=== PATIENT | male | born 1945 | race African-American/Black ===

== ENCOUNTER → 2017-08-01 | Outpatient (CLI) | payer OTHER ==
[2017-08-01 12:33] LABS: BASO % 0.3 %; BASO ABS # 0.02 K/uL (0-0.2); EOS % 0.7 %; EOS ABS # 0.04 K/uL (0-0.5); HEMATOCRIT 39.2 % (42-52); HEMOGLOBIN 13.2 g/dL (14.0-18.0); IG# 0.03 K/uL (0.00-0.02); LYMPH % 29.1 %; LYMPH ABS # 1.74 K/uL (1.2-3.4); MEAN CELL VOLUME 68.1 fL (80-100); MEAN CORPUSCULAR HEMOGLOBIN 22.9 pg (25-34); MEAN CORPUSCULAR HGB CONC 33.7 g/dl (32-36); MONO % 10.4 %; MONO ABS # 0.62 K/uL (0.11-0.59); NEUT ABS # 3.52 K/uL (1.4-6.5); PLATELET COUNT 256 K/uL (130-400); RED CELL DISTRIBUTION WIDTH CV 15.5 % (11.5-14.5); RED CELL DISTRIBUTION WIDTH SD 37.5 fL (36.4-46.3); WHITE BLOOD COUNT 5.97 K/uL (4.8-10.8)
[2017-08-01 13:00] LABS: ALBUMIN 3.6 gm/dl (3.4-5.0); ALT/SGPT 25 U/L (12-78); AST/SGOT 13 U/L (15-37); BLOOD UREA NITROGEN 14 mg/dl (7-18); CALCIUM 9.1 mg/dl (8.5-10.1); CARBON DIOXIDE 26 mmol/L (21-32); CHOLESTEROL 128 mg/dl (0-200); CREATININE 1.26 mg/dl (0.60-1.40); GLUCOSE 104 mg/dl (70-99); POTASSIUM 4.6 mmol/L (3.5-5.1); SODIUM 140 mmol/L (136-145)
[2017-08-01 13:04] LABS: HEMOGLOBIN A1C 6.4 % (4.5-5.6)
[2017-08-01 13:08] LABS: ALKALINE PHOSPHATASE 65 U/L (45-117); LDL CHOLESTEROL CALCULATED 59 mg/dl; TOTAL PROTEIN 7.6 gm/dl (6.4-8.2); TRANSFERRIN 227 mg/dl (200-360)
== END | disposition home or self-care (01) ==
LOC: C.LABBFT 09:01
PROVIDERS: ATTEND Internal Medicine
DX: Z00.00 Encounter for general adult medical examination without abnormal findings (principal); D64.9 Anemia, unspecified; R26.0 Ataxic gait; R41.0 Disorientation, unspecified; E78.5 Hyperlipidemia, unspecified; I10 Essential (primary) hypertension; R73.01 Impaired fasting glucose; R32 Unspecified urinary incontinence

== ENCOUNTER → 2017-08-03 | Outpatient (CLI) | payer OTHER | END | disposition home or self-care (01) | LOC: C.LABSPEC 11:16 | PROVIDERS: ATTEND Internal Medicine | DX: Z00.00 Encounter for general adult medical examination without abnormal findings (principal); E78.5 Hyperlipidemia, unspecified; D64.9 Anemia, unspecified; R41.0 Disorientation, unspecified; I10 Essential (primary) hypertension; R26.0 Ataxic gait; R32 Unspecified urinary incontinence; R73.01 Impaired fasting glucose ==

== ENCOUNTER → 2017-08-10 | Outpatient (CLI) | payer OTHER ==
[~2017-08-10] MED LIST: GADAVIST IV PRN
--- NOTE | 2017-08-10 11:01 | DIAGNOSTIC IMAGING REPORT ---
BRAIN COMBO HISTORY: 72 years-old Male CONFUSION,ATAXIC GAIT,URINARY INCONTINENCE acute confusion and ataxia with urinary incontinence COMPARISON: None available TECHNIQUE: Multiplanar multisequence MRI of the brain was obtained both with and without the use of 8 mL Gadavist. FINDINGS: There is no restricted diffusion to suggest acute or subacute infarction. There is a large lobulated extra-axial solid and avidly enhancing mass emanating from the suprasellar distribution measuring up to 6.9 x 5.1 x 7.5 cm in AP, transverse and craniocaudal dimensions. The mass contains a 2.0 x 1.5 cm cystic focus posteriorly nicely seen on image 14 series 5. There is significant mass effect upon the adjacent left cerebral hemisphere with displacement and partial effacement of the body and frontal horn left lateral ventricle. Additionally, there is mild dilation of the superior portion left lateral ventricle, left lateral ventricular body and atria. There is resultant rightward midline shift of 1.3 cm. No invasion into adjacent structures. The mass partially displaces the proximal M1 segments laterally. There is a large feeding vessel seen on image 11 of series 8 which emanates from the [place] of [place]. No additional abnormal intra-axial or extra-axial enhancement identified. Mild atrophy with patchy areas of T2/FLAIR prolongation within the periventricular white matter compatible with chronic microvascular ischemic changes. Major flow voids appear patent. Mastoid air cells are clear. Moderate polypoid mucosal thickening of the left maxillary sinus with mild right maxillary sinus disease. IMPRESSION: 1. Large lobulated extra-axial solid and avidly enhancing mass emanating from the suprasellar region measures up to 7.5 cm and contains a central internal cystic focus with large enhancing feeding vessel. Mass demonstrates no invasion into adjacent structures, however causes significant mass effect upon the left frontal lobe, displacing and partially effacing the left lateral ventricle frontal horn. Mild dilation of the left lateral ventricle without susy hydrocephalus may reflect developing trapped ventricle. 1.3 cm rightward midline shift. Differential considerations would include pituitary macroadenoma with pituitary carcinoma or craniopharyngioma also considered. 2. Mild atrophy with chronic microvascular ischemic changes. These findings were discussed with Dr. Cain on 08/10/2017 at 10:45 AM. The above report was generated using voice recognition software. It may contain grammatical, syntax or spelling errors. Electronically signed by: Kareem Benites M.D. 08/10/2017 10:53 AM Dictated Date/Time: 08/10/2017 10:36 AM
== END | disposition home or self-care (01) ==
LOC: C.MRI 09:26
PROVIDERS: ATTEND Internal Medicine
DX: R41.0 Disorientation, unspecified (principal); R26.0 Ataxic gait; R32 Unspecified urinary incontinence; R22.0 Localized swelling, mass and lump, head

== ENCOUNTER 2017-09-14 11:22 | Emergency (ER) | payer OTHER ==
[~2017-09-14] VITALS: Ht 177.8 cm; Wt 75.7 kg
[2017-09-14] MEDS ORDERED: ETOMIDATE 2 MG/ML 20 ML VIAL IV ONE (11:27)
[2017-09-14] MEDS ORDERED: SUCCINYLCHOLINE CHLORIDE 20 MG/ML 10 ML VIAL IV ONE (11:27)
[2017-09-14 11:30] VITALS: TEMP 36.5; Ht 177.8 cm; Wt 75.7 kg
[2017-09-14] MEDS ORDERED: SODIUM CHLORIDE 0.9% 1000ML 1,000 ML IV STA (11:52)
--- NOTE | 2017-09-14 11:56 | EMERGENCY ROOM VISIT NOTE ---
History Report prepared by Tawny: Jose Guadalupe Martinez Under the Supervision of: Dr. Jaja Velasquez M.D. First contact with patient: 11:35 Chief Complaint: UNRESPONSIVE Stated Complaint: UNRESPONSIVE History of Present Illness The patient is a 72 year old male who presents to the Emergency Room for declining/worsening responsiveness that was noticed yesterday. Per the patient' s family he had a craniotomy on the and was admitted to [facility] on the . As of yesterday the patient stopped responding verbally, and seemed to be "slower/weaker" on the right side. The daughter notes that the patient was responding normally since the surgery. On Tuesday, 3 days ago, the patient was sitting up and feeing himself and responding appropriately. The surgery was performed for a large meningioma. Onset: Yesterday Position: head (mental status) Quality: other (non-responsivness) Timing: worsening (/declining) Associated Symptoms: + fatigue, + weakness Review of Systems See HPI for pertinent positives & negatives. A total of 10 systems reviewed and were otherwise negative. Past Medical & Surgical Hx of meningioma with craniotomy. Family History Omitted secondary to age. Social History Housing Status: lives with family Occupation Status: retired Current/Historical Medications Scheduled Amlodipine (Norvasc), 5 MG PO DAILY Atorvastatin (Lipitor), 10 MG PO HS Docusate Sodium (Docusate Sodium), 100 MG PO BID Famotidine (Pepcid), 20 MG PO BID Levothyroxine Sodium (Levothyroxine Sodium), 125 MCG PO DAILY Metformin Hcl (Glucophage), 1,000 MG PO BIDM Sennosides-Docusate Sodium (Senokot S), 1 TAB PO DAILY WITH LUNCH Scheduled PRN Acetaminophen (Tylenol), 650 MG PO Q4H PRN for Pain Insulin Aspart (Novolog Flexpen), 0-12 UNITS SC ACHS PRN for SLIDING SCALE Polyethylene Glycol 3350 (Miralax), 17 GM PO DAILY WITH LUNCH PRN for Constipation Allergies Coded Allergies: No Known Allergies (Unverified , 09/14/17) Physical Exam Vital Signs Date Time Temp Pulse Resp B/P (MAP) Pulse Ox O2 Delivery O2 Flow Rate FiO2 09/14/17 13:41 103 20 120/90 100 Mechanical Ventilator 09/14/17 13:32 88 18 120/90 99 Mechanical Ventilator 09/14/17 13:21 94 18 130/90 99 Mechanical Ventilator 09/14/17 12:49 60 09/14/17 12:43 103 18 167/109 99 Mechanical Ventilator 09/14/17 12:35 92 24 144/106 96 Room Air 09/14/17 12:21 72 18 137/82 96 Room Air 09/14/17 11:42 84 09/14/17 11:30 36.5 79 17 136/88 97 Room Air Physical Exam Vital signs reviewed. General: elderly male, non responsive HEENT: . Minimal eye opening. Conjunctival injection, no pupil reactivity in left eye. Right eye is 4 mm and sluggishly reactive. Cardiovascular: Regular rate and rhythm, no extra sounds. Pulmonary: Clear to auscultation bilaterally, normal work of breathing. Abdomen: Soft, nontender, nondistended, positive bowel sounds. Musculoskeletal: Atraumatic, no peripheral edema. Neurologic: Patient is periodically opening the right eye, but not necessarily in response to verbal cues. Spontaneous movement of the left upper and lower extremities. No withdrawal to pain of the right arm or right leg. No significant posturing is noted. Patient is maintaining his respiratory response. Skin: Warm, dry, no rash GCS: 8 Medical Decision & Procedures ER Provider Diagnostic Interpretation: Radiology results as stated below per my review and radiologist interpretation: HEAD WITHOUT CONTRAST (CT) CLINICAL HISTORY: 72 years-old Male with AMS, s/p craniotomy. Acutely altered mental status TECHNIQUE: Multiple axial CT images of the head were obtained without contrast. A dose lowering technique was utilized adhering to the principles of ALARA. CT DOSE: 623.48 mGy.cm COMPARISON: Brain MRI 08/10/2017. FINDINGS: Postoperative changes from recent left frontal and temporal craniotomy with scalp skin nnamdi and moderate soft tissue swelling. Partial opacification of the left frontal sinus. Small subdural collection containing high attenuating material and air measures up to 5 mm. There is decreased rightward midline shift from comparison study, now measuring 7 mm. Mass of the suprasellar cistern is noted with increased attenuation measuring up to 2.5 x 3.1 cm in transverse and AP dimension. Surgical clips are noted along the left lateral and right anterior aspects of the mass. Moderate amount of edema is noted within the left frontal and anterior left temporal lobes with mild edema also within the right frontal lobe. Mild dilation of the lateral and third ventricles. Polypoid mucosal thickening about the left maxillary sinus. Trace mastoid effusions. Orbits are symmetric and within normal limits. IMPRESSION: 1. Postoperative changes from recent left frontotemporal craniotomy with tumor debulking of the large heterogeneous suprasellar mass. Hyperattenuation within the distribution of the suprasellar cistern is likely related to tumor cellularity with superimposed hemorrhage within the mass also within the differential. There is also decreased midline shift from comparison. Small subdural collection on the left is likely postsurgical. 2. Large area of low-attenuation about the left frontal and temporal lobes with more subtle edema about the right frontal lobe near the vertex may be postsurgical or reflect areas of superimposed acute or subacute infarction. Correlation with follow-up brain MRI is needed. 3. No herniation. These findings were discussed with Dr. Velasquez on 09/14/2017 at 12:13 PM. The above report was generated using voice recognition software. It may contain grammatical, syntax or spelling errors. Electronically signed by: Kareem Benites M.D. 09/14/2017 12:17 PM Dictated Date/Time: 09/14/2017 12:02 PM Laboratory Results 09/14/17 11:40 Red Blood Count 4.68, Mean Corpuscular Volume 74.8, Mean Corpuscular Hemoglobin 25.9, Mean Corpuscular Hemoglobin Concent 34.6, Mean Platelet Volume 9.1, Neutrophils (%) (Auto) 83.5, Lymphocytes (%) (Auto) 6.4, Monocytes (%) (Auto) 9.2, Eosinophils (%) (Auto) 0.1, Basophils (%) (Auto) 0.1, Neutrophils # (Auto) 11.78, Lymphocytes # (Auto) 0.91, Monocytes # (Auto) 1.30, Eosinophils # (Auto) 0.01, Basophils # (Auto) 0.01 09/14/17 11:40 Test 09/14/17 11:40 09/14/17 11:55 09/14/17 12:01 White Blood Count 14.11 K/uL (4.8-10.8) Red Blood Count 4.68 M/uL (4.7-6.1) Hemoglobin 12.1 g/dL (14.0-18.0) Hematocrit 35.0 % (42-52) Mean Corpuscular Volume 74.8 fL (80-100) Mean Corpuscular Hemoglobin 25.9 pg (25-34) Mean Corpuscular Hemoglobin Concent 34.6 g/dl (32-36) Platelet Count 517 K/uL (130-400) Mean Platelet Volume 9.1 fL (7.4-10.4) Neutrophils (%) (Auto) 83.5 % Lymphocytes (%) (Auto) 6.4 % Monocytes (%) (Auto) 9.2 % Eosinophils (%) (Auto) 0.1 % Basophils (%) (Auto) 0.1 % Neutrophils # (Auto) 11.78 K/uL (1.4-6.5) Lymphocytes # (Auto) 0.91 K/uL (1.2-3.4) Monocytes # (Auto) 1.30 K/uL (0.11-0.59) Eosinophils # (Auto) 0.01 K/uL (0-0.5) Basophils # (Auto) 0.01 K/uL (0-0.2) RDW Standard Deviation 53.9 fL (36.4-46.3) RDW Coefficient of Variation 20.3 % (11.5-14.5) Immature Granulocyte % (Auto) 0.7 % Immature Granulocyte # (Auto) 0.10 K/uL (0.00-0.02) Polychromasia 1+ Anisocytosis PRESENT Prothrombin Time 10.7 SECONDS (9.0-12.0) Prothromb Time International Ratio 1.0 (0.9-1.1) Activated Partial Thromboplast Time 23.3 SECONDS (21.0-31.0) Partial Thromboplastin Ratio 0.9 Anion Gap 11.0 mmol/L (3-11) Est Creatinine Clear Calc Drug Dose 65.1 ml/min Estimated GFR () 79.3 Estimated GFR (Non- 68.4 BUN/Creatinine Ratio 16.4 (10-20) Calcium Level 9.0 mg/dl (8.5-10.1) Magnesium Level 2.1 mg/dl (1.8-2.4) Total Bilirubin 0.5 mg/dl (0.2-1) Direct Bilirubin 0.2 mg/dl (0-0.2) Aspartate Amino Transf (AST/SGOT) 19 U/L (15-37) Alanine Aminotransferase (ALT/SGPT) 52 U/L (12-78) Alkaline Phosphatase 86 U/L (45-117) Total Protein 8.1 gm/dl (6.4-8.2) Albumin 3.1 gm/dl (3.4-5.0) Bedside Lactic Acid Venous 2.84 mmol/L (0.90-1.70) Bedside Troponin I < 0.030 ng/ml (0-0.045) Laboratory results per my review. Medications Administered Medications (Trade) Dose Ordered Sig/Brea Route Start Time Stop Time Status Last Admin Dose Admin Sodium Chloride 1,000 ml @ 150 mls/hr Q6H40M STAT IV 09/14/17 11:52 09/14/17 14:38 DC 09/14/17 12:19 150 MLS/HR Miscellaneous (Rapid Sequence Induction Bag) 1 ea STK-MED ONCE N/A 09/14/17 12:22 09/14/17 12:23 DC 09/14/17 12:49 1 EA Levetiracetam 1000 mg/Dextrose 110 ml @ 440 mls/hr ONE ONCE IV 09/14/17 12:30 09/14/17 12:44 DC 09/14/17 12:49 440 MLS/HR Propofol (Diprivan Iv Emulsion 100ml Vial) 1 dose UD PRN IV 09/14/17 13:00 09/14/17 14:38 DC 09/14/17 13:01 1 DOSE Procedure Endotracheal Intubation Indication AMS, airway protection The patient was on 100% oxygen via NRB prior to the procedure. Suction, airway equipment, RSI drugs, respiratory equipment, and appropriate personnel were prepared prior to the initiation of the procedure. A time out was taken. Induction was performed with succs 100 mg and etomidate 20 mg IV. After observing the clinical benefit of the medications, an attempt at intubation was made by the surgical elastic knitter student at, that was unsuccessful. Pt was ventilated by ambu bag and a second attempt by me was made. The airway was easily visualized utilizing a 4.0 MAC blade. A 7.5 size ETT tube was placed atraumatically to 25 cm using standard technique. The cuff inflated without signs of malfunction. There were bilateral breath sounds, positive colormetric change, no gastric sounds, a good capnography waveform, and post procedure pulse oximetry was 100% . Post intubation sedation was administered using propofol gtt. There were no complications. ECG Per My Interpretation Indication: altered mental status Rate (beats per minute): 78 Rhythm: normal sinus, sinus with SA Findings: other (No PVCs, no CARLOS/STD) ED Course 1147: Past medical records reviewed. The patient was evaluated in room B9. A complete history and physical examination was performed. 1152: Ordered Sodium Chloride 1000 ml @ 150 mls/hr IV 1201: I discussed the case with Dr. Yadav - Neurology [facility] 1229: I discussed the case with Dr. Delgado and Dr. Melchor - [facility]. They will accept the patient for transfer to their facility. 1230: Ordered Levetracetam 110 mL @ 440 mL/hr IV. 1300: Ordered Propofol gtt IV. Medical Decision Differential diagnosis: Etiologies such as metabolic, infection, hypoglycemia, electrolyte abnormalities , cardiac sources, intracerebral event, toxicologic, neurologic, as well as others were entertained. This patient was evaluated and appeared to be altered. He was unresponsive to verbal or painful stimuli however he does have some random movement of the left upper and lower extremity. CT scan of the head was performed immediately and is read as above. There is concern for some edema to the frontal lobe. Patient remained essentially unresponsive although was not posturing. It is felt that the patient is not acutely bleeding. IV Keppra was initiated. The patient was intubated for airway protection. Case was discussed with Dr. Delgado of neurosurgery at [facility]. He states he is very familiar with the patient's case and feels he is likely seizing or experiencing metabolic abnormality. IV normal saline solution was continued. The patient was on propofol for sedation. I had multiple conversations with the patient's daughter and at the bedside. Patient was sent by [facility] to the ICU. Dr. Melchor of the ICU, was also consulted in the case. Head Trauma GCS Score: 8 Medication Reconcilliation Current Medication List: was personally reviewed by me Blood Pressure Screening Patient's blood pressure: Elevated blood pressure Referred to accepting physician. Consults Time Called: 1150 Consulting Physician: Joey Tavera neurosurgery Returned Call: [address] head with Dr. Benites of radiology at [facility] Additional Consults: Time Called: 1210 Consulted Physician: Dr. Delgado (neurosurgery) and Dr. Melchor (ICU)- [facility] [place] Returned Call: 1229 Additional Comments: I discussed the case with Dr. Delgado and Dr. Melchor - [facility]. They will accept the patient for transfer to their facility. Impression Primary Impression: Altered mental status Additional Impression: Status post craniotomy Critical Care I have personally spent greater than 60 minutes of critical care time in the direct management of this patient. This includes bedside care, interpretation of diagnostic studies, and testing, discussion with consultants, patient, and family members, and other required patient management activities. This 60 minutes is in excess of all separately billable procedures. Scribe Attestation The scribe's documentation has been prepared under my direction and personally reviewed by me in its entirety. I confirm that the note above accurately reflects all work, treatment, procedures, and medical decision making performed by me. Departure Information Dispostion Transfer Acute Care Facility ([facility]) Referrals Neli Cain M.D. (PCP) Patient Instructions [facility] Problem Qualifiers
[2017-09-14] MEDS ORDERED: ACET-1311 PO (11:58)
[2017-09-14] MEDS ORDERED: METF1000 PO (11:58)
[2017-09-14] MEDS ORDERED: SENN8.6T7 PO (11:58)
[2017-09-14] MEDS ORDERED: NVLGIPEN SC (11:58)
[2017-09-14] MEDS ORDERED: FAMO20TA11 PO (11:58)
[2017-09-14] MEDS ORDERED: AMLO-110 PO (11:58)
[2017-09-14] MEDS ORDERED: ATOR10TA82 PO (11:58)
[2017-09-14] MEDS ORDERED: LEVO125T5 PO (11:58)
[2017-09-14] MEDS ORDERED: DOCU100C31 PO (11:58)
[2017-09-14] MEDS ORDERED: POLY335019 PO (11:58)
[2017-09-14 12:12] LABS: BASO % 0.1 %; BASO ABS # 0.01 K/uL (0-0.2); EOS % 0.1 %; EOS ABS # 0.01 K/uL (0-0.5); HEMOGLOBIN 12.1 g/dL (14.0-18.0); LYMPH % 6.4 %; LYMPH ABS # 0.91 K/uL (1.2-3.4); MEAN CELL VOLUME 74.8 fL (80-100); MEAN CORPUSCULAR HEMOGLOBIN 25.9 pg (25-34); MEAN CORPUSCULAR HGB CONC 34.6 g/dl (32-36); MEAN PLATELET VOLUME 9.1 fL (7.4-10.4); MONO % 9.2 %; NEUT % 83.5 %; NEUT ABS # 11.78 K/uL (1.4-6.5); PLATELET COUNT 517 K/uL (130-400); RED CELL DISTRIBUTION WIDTH CV 20.3 % (11.5-14.5); RED CELL DISTRIBUTION WIDTH SD 53.9 fL (36.4-46.3); WHITE BLOOD COUNT 14.11 K/uL (4.8-10.8)
[2017-09-14 12:17] LABS: PTT PATIENT 23.3 SECONDS (21.0-31.0)
--- NOTE | 2017-09-14 12:18 | DIAGNOSTIC IMAGING REPORT ---
HEAD WITHOUT CONTRAST (CT) CLINICAL HISTORY: 72 years-old Male with AMS, s/p craniotomy. Acutely altered mental status TECHNIQUE: Multiple axial CT images of the head were obtained without contrast. A dose lowering technique was utilized adhering to the principles of ALARA. CT DOSE: 623.48 mGy.cm COMPARISON: Brain MRI 08/10/2017. FINDINGS: Postoperative changes from recent left frontal and temporal craniotomy with scalp skin nnamdi and moderate soft tissue swelling. Partial opacification of the left frontal sinus. Small subdural collection containing high attenuating material and air measures up to 5 mm. There is decreased rightward midline shift from comparison study, now measuring 7 mm. Mass of the suprasellar cistern is noted with increased attenuation measuring up to 2.5 x 3.1 cm in transverse and AP dimension. Surgical clips are noted along the left lateral and right anterior aspects of the mass. Moderate amount of edema is noted within the left frontal and anterior left temporal lobes with mild edema also within the right frontal lobe. Mild dilation of the lateral and third ventricles. Polypoid mucosal thickening about the left maxillary sinus. Trace mastoid effusions. Orbits are symmetric and within normal limits. IMPRESSION: 1. Postoperative changes from recent left frontotemporal craniotomy with tumor debulking of the large heterogeneous suprasellar mass. Hyperattenuation within the distribution of the suprasellar cistern is likely related to tumor cellularity with superimposed hemorrhage within the mass also within the differential. There is also decreased midline shift from comparison. Small subdural collection on the left is likely postsurgical. 2. Large area of low-attenuation about the left frontal and temporal lobes with more subtle edema about the right frontal lobe near the vertex may be postsurgical or reflect areas of superimposed acute or subacute infarction. Correlation with follow-up brain MRI is needed. 3. No herniation. These findings were discussed with Dr. Velasquez on 09/14/2017 at 12:13 PM. The above report was generated using voice recognition software. It may contain grammatical, syntax or spelling errors. Electronically signed by: Kareem Benites M.D. 09/14/2017 12:17 PM Dictated Date/Time: 09/14/2017 12:02 PM
[2017-09-14] MEDS ORDERED: RAPID SEQUENCE INDUCTION BAG ONE (12:22)
[2017-09-14] MEDS ORDERED: LEVETIRACETAM IV 1,000 MG in DEXTROSE 5% 100ML 100 ML IV ONE (12:30)
[2017-09-14 12:31] LABS: ALBUMIN 3.1 gm/dl (3.4-5.0); CREATININE 1.09 mg/dl (0.60-1.40); POTASSIUM 4.3 mmol/L (3.5-5.1); TOTAL PROTEIN 8.1 gm/dl (6.4-8.2)
[2017-09-14] MEDS ORDERED: PROPOFOL IV EMULSION 10 MG/ML 100 ML VIAL IV PRN (13:00)
[2017-09-14 13:41] VITALS: BP 120/90; PULSE 103; O2SAT 100
--- NOTE | 2017-09-14 14:47 | DIAGNOSTIC IMAGING REPORT ---
CHEST ONE VIEW PORTABLE CLINICAL HISTORY: 72 years-old Male presenting with AMS. TECHNIQUE: Portable upright AP view of the chest was obtained. COMPARISON: None. FINDINGS: Endotracheal tube terminates in the mid thoracic trachea 2.7 cm from the camila. Cardiomediastinal silhouette normal. Lungs and pleural spaces clear. Degenerative changes of the thoracic spine. Upper abdomen normal. IMPRESSION: 1. Appropriately positioned endotracheal tube. 2. No acute cardiopulmonary disease. Electronically signed by: Michael Chávez M.D. 09/14/2017 2:45 PM Dictated Date/Time: 09/14/2017 2:44 PM
== END 2017-09-14 14:00 | disposition short-term general hospital (02) ==
LOC: EDBD 11:22 → C.EDC 11:26 → C.EDB 14:00
DX: R41.82 Altered mental status, unspecified (principal); R25.8 Other abnormal involuntary movements; Z98.890 Other specified postprocedural states; R03.0 Elevated blood-pressure reading, without diagnosis of hypertension; Z86.69 Personal history of other diseases of the nervous system and sense organs

== ENCOUNTER 2023-04-25 12:34 | Inpatient (IN) ==
--- OUTSIDE RECORDS SUMMARY | 2023-04-25 12:40 | External Medical Summary ---
Author Name Unknown Address Unknown Organization [id number]:[facility] - [address] [place] [id number] Laboratory Report Ordering Provider Test Date Status APOLINAR [place] 12/18/2022 21:52:57 Final Observation Date Value Abnormality Reference (Units ) Status Troponin T 12/18/2022 21:52:57 13 <=22 (ng/ L) Final Performing Location [facility] - [address] [place] [id number]
--- OUTSIDE RECORDS SUMMARY | 2023-04-25 12:40 | External Medical Summary | Summary of Care ---
Author Name Unknown Organization [facility] Address [address] [facility] [place] [address] Phone [phone] Care Team Providers Care Clinical Lab Assistant Name Role Phone Neli Cain MD Primary Care Provid er Reason for Visit * Reason Onset Date Comments Appointment 03/22/2023 Encounter Details Date Type Department Care Team (Late st Contact Info) Description 03/22/2023 Telephone Neurology, [place] [address] [place] [phone] Edgardo Lyons MD [address] [place] [place] [address] Appointment Allergies No known active allergiesdocumented as of this encounter (statuses as of 03/22/2023) Medications Medication Sig Dispensed Refills Start Date End Date Status amLODIPine (NORVASC) 2.5 MG Tablet Take 1 Tablet by mouth in the morning. 0 Active famotidine (PEPCID) 20 MG Tablet Take 1 Tab by mouth every 12 hours. 60 Tab 1 11/09/2017 Active levothyroxine sodium (LEVOXYL) 75 MCG Tablet Take 1 Tab by mouth daily first thing in the morning. (at least 30 min prior to breakfast or other meds) 90 Tab 1 01/17/2018 Active melatonin 3 MG Tablet Take 1 Tablet by mouth at bedtime. 0 Active simvastatin (ZOCOR) 20 MG Tablet Take 1 Tablet by mouth every evening. 0 Active Sulfamethoxazole-Tr imethoprim 800-160 MG Oral Tablet (Bactrim DS)Indications:Woun d infection TAKE 1 TABLET BY MOUTH TWICE A DAY 60 Tablet 12 05/12/2022 Active Donepezil HCl 23 MG Oral Tablet (Aricept)Indication s:Moderate dementia with behavioral disturbance (HCC),History of brain tumor,Apraxia,Agita tion Take 1 Tablet by mouth daily with breakfast. 30 Tablet 11 08/31/2022 08/31/2023 Active Glimepiride 2 MG Oral Tablet (Amaryl) Take 1 Tablet by mouth daily before breakfast. 0 Active levETIRAcetam 500 MG Oral Tablet (Keppra) TAKE 1 TABLET BY MOUTH TWICE A DAY 180 Tablet 1 11/02/2022 Active Donepezil HCl 23 MG Oral Tablet (Aricept) Take 1 Tablet by mouth in the morning. Take with largest meal of the day. 15 Tablet 0 12/24/2022 Active QUEtiapine Fumarate 25 MG Oral Tablet (SEROquel) Take 1 Tablet by mouth in the morning and 1 Tablet before bedtime. 30 Tablet 0 12/24/2022 Active Hydrocortisone 10 MG Oral Tablet (Cortef) Take 1 Tablet by mouth in the morning. Do not start before December 25, 2022. 15 Tablet 0 12/25/2022 Active Hydrocortisone 20 MG Oral Tablet (Cortef) Take 1 Tablet by mouth every evening. 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 Altered mental status 09/14/2017 Respiratory failure without hypercapnia 09/01/19 18 HTN (hypertension) 08/30/2017 Type 2 diabetes mellitus 08/30/2017 HLD (hyperlipidemia) 08/30/2017 Glaucoma 08/30/2017 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 Please only monitor Free T4; TSH testing is useless and misleading documented as of this encounter (statuses as of 03/22/2023) Resolved Problems Problem Noted Date Diagnosed Date Resolved Date 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 12/22/2022 12/24/2022 documented as of this encounter (statuses as of 03/22/2023) Immunizations Name Administration Dates Next Due COVID-19 mRNA, LNP-s, No Pre serve, 2-Dose Series (Pfizer) 03/12/2021,07/15/2020,06/24/2020 Pneumococcal Conjugate Vacc, 13 Valent (Prevnar) 06/13/2018,12/06/2017 Pneumococcal Polysaccharide PPV23 (Pneumovax) 10/07/2020 SEASONAL INFLUENZA, PF, 6 M & Above, IM , (FLULAVAL or FLUZONE) 06/13/2018 Seasonal Influenza Virus Vac cine, Unspecified Formulation 06/13/2018 Seasonal Influenza, Quadriva lent Hd (Fluzone Hd) 12/24/2022 documented as of this encounter Social History Tobacco Use Types Packs/Day Years Used Date Smoking Tobacco: Never Smokeless Tobacco: Never Alcohol Use Standard Drinks/Week Comments Yes 0 (1 standard drink = 0.6 oz pure alcohol) rarely since 1998, had been heavy drinker in the past - AUDIT-C Answer Date Recorded Frequency of Alcohol Consumption Monthly or less 12/11/2019 Average Number of Drinks 1 or 2 020 Frequency of Binge Drinking Never 11/23 Hunger Vital Sign Answer Date Recorded Worried About Running Out of Food in the Last Ye ar Never true 12/06/2018 Ran Out of Food in the Last Year Never true 12/06/2018 Sex and Gender Information Value Date Recorded Sex Assigned at Not on file Gender Identity Not on file Sexual Orientation Not on file Job Start Date Occupation Industry Not on file Not on file Not on file documented as of this encounter Functional Status Functional Status Response Date of Assess ment Are you deaf or do you have serious difficulty h earing? No 12/06/2018 Are you blind or do you have serious difficulty seeing, even when wearing glasses? No 12/06/2018 Do you have serious difficul ty walking or climbing stairs? (5 years old or older) Yes 12/06/2018 Do you have difficulty dress ing or bathing? (5 years old or older) Yes 12/06/2018 Because of a physical, menta l, or emotional condition, do you have difficulty doing errands alone such as visiting a doctor s office or shopping? (15 years old or older) Yes 12/07/19 19 Cognitive Status Response Date of Assessm ent Because of a physical, menta l, or emotional condition, do you have serious difficulty concentrating, remembering, or making decisions? (5 years old or older) Yes 12/06/2018 documented as of this encounter Miscellaneous Notes * Telephone Encounter - Wendy Lopez OSA - 03/22/2023 1:47 PM EST LMAM using Language line with follow up appt date and time documented in this encounter Plan of Treatment Upcoming Encounters Date Type Department Care Team (Late st Contact Info) Description 05/26/2023 9:00 AM EST Imaging Radiology [address] [address] 09/21/2023 11:00 AM EDT Telemedicine Neurology, [place] [address] [place] [address] Arlene Marie CRNP [address] [place] [address] 09/26/2023 1:00 PM EDT Imaging Radiology [address] [place] [address] 10/03/2023 10:00 AM EDT Office Visit Radiation Oncology, [place] [address] [place] [address] Suni Zaldivar CRNP [address] [place] [address] Health Maintenance Due Date Last Done Comments Depression Screening 1959 Albumin/Creatinine Ratio 1965 Diabetic Eye Exam 1965 Diabetic Foot Exam 1965 DTaP,Tdap,and Td Vaccines (1 - Tdap) 1966 Zoster Vaccines (1 of 2) 1997 Hepatitis B (1 of 3 - Risk 3-dose series) 2007 COVID-19 Vaccine ( season) 2022 03/12/2021, 07/15/2020, 06/24/2020 HbA1c 06/20/2023 12/18/2022, 05/2019, 03/07/2019, Additional history exists GFR 12/19/2023 12/18/2022, 05/2019, 03/20/2019, Additional history exists TSH 12/19/2023 12/18/2022, 10/24, 10/28/2018, Additional history exists B-12 12/22/2023 12/21/2022, 11/19/2019 Pneumococcal Vaccine: 65+ Years Completed 10/07/2020, 06/13/2018, 12/06/2017 Influenza Vaccine (FLU shot) Completed 04/2022, 06/13/2018, 06/13/2018 GARDASIL-HPV IMMUNIZATION SERIES Aged Out No longer eligible based on patient's age to complete this topic MENINGOCOCCAL (MENACTRA/MENVEO) Aged Out No longer eligible based on patient's age to complete this topic documented as of this encounter Medical Devices Implanted Type Area Information Technology Auditor Device Identifier Shelf Expiration Date Model / Serial / Lot Patch Duraguard [id number] - [id number] Implanted:Qty : 1 on 10/28/2018 by Aron Gay MD at OR [facility] [place] Tissue - Human QUARLES : BIOSCIENCE 02/22/2023 [id number] / [id number] / [id number] Clip Aneursym [id number] - [id number] Implanted:Qty : 2 on 08/30/2017 by Rian Chery MD at OR [facility] – [place] Left: Head B SENIOR : AESCULAP [id number] / / Valve Progav Sys W Sa 20 Flush - [id number] Implanted:Qty : 1 on 09/27/2017 by Rian Chery MD at OR [facility] – [place] Right: Head B SENIOR : AESCULAP 04/24/2020 [id number] / / Plate Ti Lo Pro Str 2h 421.502 - [id number] Implanted:Qty : 4 on 06/01/2018 by Rian Chery MD at OR [facility] – [place] SYNTHES MAXILLOFACIAL 421.502 / / Plate Ti Lo Pro Str 2h 421.502 - [id number] Implanted:Qty : 4 on 03/06/2019 by Rian Chery MD at OR [facility] – [place] Left: Head SYNTHES MAXILLOFACIAL [id number] / / documented as of this encounter Advance Directives Documents on File Type Date Recorded Patient Head Bucker Expl anation Advance Directives and Living Will 06/26/2018 ADVANCE DIRECTIVE / LIVING WILL Advance Directives and Living Will 02/22/2018 ADVANCE DIRECTIVE / LIVING WILL Latest Code Status on File Code Status Date Activated Date Inactivated Comments Full Code 12/20/2022 7:14 PM 12/24/2022 5:16 PM This o rder reflects the patients wishes and were consensually agreed upon. Question Answer Comments Discussion of Advance Directives occurred with: Not Discussed due to patient's condition Code Status History Code Status Date Activated Date Inactivated Comments Full Code 03/06/2019 6:12 PM 03/09/2019 5:35 PM Thi s order reflects the patients wishes and were consensually agreed upon. Question Answer Comments Discussion of Advance Directives occurred with: Not Discussed pt non verbal Does the patient have a Living Will? No Does the patient have Health Care Power of Bible Worker? No Full Code 03/06/2019 9:09 AM 03/06/2019 6:12 PM Thi s order reflects the patients wishes and were consensually agreed upon. Question Answer Comments Discussion of Advance Directives occurred with: Not Discussed Full Code 12/06/2018 5:06 PM 12/08/2018 11:03 PM This order reflects the patients wishes and were consensually agreed upon. Full Code 10/27/2018 6:33 PM 11/03/2018 6:10 PM This o rder reflects the patients wishes and were consensually agreed upon. Question Answer Comments Discussion of Advance Directives occurred with: Family Does the patient have a Living Will? No Does the patient have Health Care Power of Bible Worker? No Care Teams Clinical Lab Assistant Relationship Specialty Start Date End Date Neli Cain MD [address] [place] [address] [place] [address] PCP - General Internal Medicine 10/20/18 documented as of this encounter
--- OUTSIDE RECORDS SUMMARY | 2023-04-25 12:40 | External Medical Summary ---
Author Name Unknown Address Unknown Organization K01[place] [place] [address] [place] [address] Laboratory Report Ordering Provider Test Date Status RADHA BUSTILLOS 12/21/2022 06:28:00 Final Deficient: <20 ng/mL
Ins ufficient: 20-29 ng/mL
Recommended/Optimum:30-50 ng/mL

Vitamin D intoxication is rare. If suspicious of Vitamin D toxicity, evaluation of serum Calcium and PTH is recommended. Observation Date Value Abnormality Reference (Units ) Status 25-OH Vitamin D total 12/21/2022 06:28:00 32 >19 (ng/mL) Final Performing Location LABORATORY [facility] - [address] [place] [address]
--- OUTSIDE RECORDS SUMMARY | 2023-04-25 12:40 | External Medical Summary ---
Author Name Unknown Address Unknown Organization K1F:LABORATORY [facility] - [address] [place] [address] Laboratory Report Ordering Provider Test Date Status APOLINAR ARRINGTON 12/18/2022 21:52:57 Final Observation Date Value Abnormality Reference (Units ) Status BUN 12/18/2022 21:52:57 14 6-20 (mg/dL) Final Creatinine 12/18/2022 21:52:57 1.7 Above high normal 0.6-1.2 (mg/dL) Final Glomerular filtration rate/1.73 sq M.predicted [Volume Rate/Area] in Serum, Plasma or Blood by Creatinine-based formula (CKD-EPI) 12/18/2022 21:52:57 43 Below low normal >=60 (mL/min) Final eGFR is calculated based on the CKD-EPI 2020 equation SODIUM 12/18/2022 21:52:57 141 135-146 (m mol/L) Final Potassium 12/18/2022 21:52:57 4.3 3.5-5.1 (m mol/L) Final Cl 12/18/2022 21:52:57 107 98-107 (mm ol/L) Final CO2 12/18/2022 21:52:57 23 22-32 (mmo l/L) Final Anion gap 12/18/2022 21:52:57 11 7-15 (mmol /L) Final Glucose 12/18/2022 21:52:57 112 70-120 (mg /dL) Final Albumin 12/18/2022 21:52:57 3.9 3.8-5.0 (g /dL) Final AST (Aspartate aminotransferase) 12/18/2022 21:52:57 36 10-50 (U/L) Fin al Alk Phos 12/18/2022 21:52:57 73 35-130 (U/ L) Final Bilirubin, Total 12/18/2022 21:52:57 0.2 <=1 .2 (mg/dL) Final Calcium 12/18/2022 21:52:57 9.2 8.4-10.2 ( mg/dL) Final Protein 12/18/2022 21:52:57 7.2 6.0-8.3 (g /dL) Final ALT (Alanine aminotransferase) 12/18/2022 21:52:57 51 Above high normal 10-50 (U/L) Final Performing Location LABORATORY [facility] - [facility] [place] [address]
--- OUTSIDE RECORDS SUMMARY | 2023-04-25 12:40 | External Medical Summary ---
Author Name Unknown Address Unknown Organization K1F:LABORATORY [facility] - [address] [place] [address] Laboratory Report Ordering Provider Test Date Status APOLINAR ARRINGTON 12/18/2022 22:30:57 Final Observation Date Value Abnormality Reference (Units ) Status Color of Urine by Auto 12/18/2022 22:30:57 Yellow Light Yellow, Yellow, Dark Yellow Final Clarity, Urine 12/18/2022 22:30:57 Clear Clear Final Glucose [Mass/volume] in Urine by Automated test strip 12/18/2022 22:30:57 Negative Negative (mg/dL) Final Bilirubin.total [Presence] in Urine by Automated test strip 12/18/2022 22:30:57 Negative Negative Final Ketones [Mass/volume] in Urine by Automated test strip 12/18/2022 22:30:57 Negative Negative (mg/dL) Final Specific gravity, Urine 12/18/2022 22:30:57 1.018 1.003-1.030 Final Hemoglobin [Presence] in Urine by Automated test strip 12/18/2022 22:30:57 Negative Negative Final pH, Urine 12/18/2022 22:30:57 6.0 5.0-7.5 (Units) Final Protein [Mass/volume] in Urine by Automated test strip 12/18/2022 22:30:57 Negative Negative (mg/dL) Final Urobilinogen [Mass/volume] in Urine by Automated test strip 12/18/2022 22:30:57 0.2 0.2, 1.0 (mg/dL) Final Nitrite [Presence] in Urine by Automated test strip 12/18/2022 22:30:57 Negative Negative Final Leukocyte esterase [Presence] in Urine by Automated test strip 12/18/2022 22:30:57 Negative Negative Final Annotation Comment 12/18/2022 22:30:57 Final Screen negative - Microscopi c not performed. Performing Location LABORATORY [facility] - [address] [place] [address]
--- OUTSIDE RECORDS SUMMARY | 2023-04-25 12:40 | External Medical Summary ---
Author Name Unknown Address Unknown Organization K1F:LAB[facility]ATORY [facility] - [address] [place] [address] Laboratory Report Ordering Provider Test Date Status APOLINAR ARRINGTON 12/18/2022 21:52:57 Final Observation Date Value Abnormality Reference (Units ) Status SYNC LEUKOCYTES IN BLOOD BY AUTOMATED COUNT 12/18/2022 21:52:57 6.34 4.00-10.80 (K/uL) Final Segs 12/18/2022 21:52:57 50.4 40.0-75.0 (%) Final Lymphs % 12/18/2022 21:52:57 35.0 18.0-42.0 (%) Final Monos 12/18/2022 21:52:57 11.7 Above high normal 1.0-11.0 (%) Final Eosinophils 12/18/2022 21:52:57 1.9 0.0-6.0 (%) Final Basos 12/18/2022 21:52:57 0.5 0.0-2.0 (%) Final Immature Granulocyte, Percent 12/18/2022 21:52:57 0.5 0.0-2.0 (%) Final Absolute Segs 12/18/2022 21:52:57 3.20 1.80-7.70 (K/uL) Final Lymphs, absolute 12/18/2022 21:52:57 2.22 1.00-4.80 (K/ul) Final Monos, Abs 12/18/2022 21:52:57 0.74 0.00-1.10 (K/uL) Final Eos, Abs 12/18/2022 21:52:57 0.12 0.00-0.70 (K/uL) Final Basos, Abs 12/18/2022 21:52:57 0.03 0.00-0.20 (K/uL) Final Immature Granulocytes, Number 12/18/2022 21:52:57 0.03 0.00-0.20 (K/uL) Final Performing Location LABORATORY [facility] - [address] [place] [address]
--- OUTSIDE RECORDS SUMMARY | 2023-04-25 12:40 | External Medical Summary ---
Author Name Unknown Address Unknown Organization K1F:LABORATORY [facility] - [address] [place] [address] Laboratory Report Ordering Provider Test Date Status APOLINAR ARRINGTON 12/18/2022 21:52:57 Final Observation Date Value Abnormality Reference (Units ) Status TSH 12/18/2022 21:52:57 0.62 0.27-4.20 (uIU/mL) Final Performing Location LABORATORY [facility] - [address] [place] [address]
--- OUTSIDE RECORDS SUMMARY | 2023-04-25 12:40 | External Medical Summary ---
Author Name Unknown Address Unknown Organization K01:LABORATORY [facility] [place] - [facility] [address] [place] [address] Laboratory Report Ordering Provider Test Date Status PETE MONROE 12/18/2022 21:52:57 Final Observation Date Value Abnormality Reference (Units ) Status HbA1C 12/18/2022 21:52:57 8.5 Above high normal 4. 0-5.6 (%) Final The use of HbA1c to monitor glycemic status is based on normal hemoglobin and HbA composition. This test should not be used in patients with abnormal hemoglobin that affects the half life of the red blood cell or the in vivo glycation rates. Glucose, estimated average 12/18/2022 21:52:57 197 Above high normal <126 (mg/dL) Benjamin glaser Performing Location LABORATORY [facility] [place] - [address] [place] [address]
--- OUTSIDE RECORDS SUMMARY | 2023-04-25 12:40 | External Medical Summary | Summary of Care ---
Author Name Unknown Organization [facility] Address [address] [facility] [place] [address] Phone [phone] Care Team Providers Care Radiologic Technology Instructor Name Role Phone Neli Cain MD Primary Care Provid er Reason for Visit * Reason Onset Date Comments Precert Not Needed 03/28/2023 DONEPEZIL Encounter Details Date Type Department Care Team (Late st Contact Info) Description 03/28/2023 Telephone Neurology Mary MENDOZA [address] [facility] [place] [address] Kaycee Light PA-C [address] [facility] [place] [address] Precert Not Needed (DONEPEZIL) Allergies No known active allergiesdocumented as of this encounter (statuses as of 03/28/2023) Medications Medication Sig Dispensed Refills Start Date [...] Tablet by mouth every evening. 0 Active Sulfamethoxazole- Trimethoprim 800-160 MG Oral Tablet (Bactrim DS)Indications:Wo und infection TAKE 1 TABLET BY MOUTH TWICE A DAY 60 Tablet 12 05/12/2022 Active Glimepiride 2 MG Oral Tablet (Amaryl) [...] every evening. 15 Tablet 0 12/24/2022 Active Donepezil HCl 23 MG Oral Tablet (Aricept)Indicati ons:Moderate dementia with behavioral disturbance (HCC),History of brain tumor,Apraxia,Prerna tation Take 1 tablet by mouth every morning with food. 90 Tablet 3 03/28/2023 Active Donepezil HCl 23 MG Oral Tablet (Aricept)Indicati ons:Moderate dementia with behavioral disturbance (HCC),History of brain tumor,Apraxia,Prerna tation Take 1 Tablet by mouth daily with breakfast. 30 Tablet 11 08/31/2022 03/28/2023 Discontinue d(Refill) documented as of this encounter (statuses as of 03/28/2023) Active Problems Problem Noted Date Diagnosed Date [...] as of this encounter (statuses as of 03/28/2023) Resolved Problems Problem Noted Date Diagnosed Date Resolved Date 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 12/22/2022 12/24/2022 documented as of this encounter (statuses as of 03/28/2023) Immunizations Name Administration Dates Next Due COVID-19 mRNA, LNP-s, No Pre serve, 2-Dose Series ([facility]) 03/12/2021,07/15/2020,06/24/2020 Pneumococcal Conjugate Vacc, 13 Valent (Prevnar) [...] encounter Miscellaneous Notes * Telephone Encounter - Kaycee Light PA-C - 03/28/2023 8:49 AM ESTSigned Prescriptions: Disp Refills Donepezil HCl 23 MG Oral Tablet (Aricept) 90 Tab*3 Sig: Take 1 tablet by mouth every morning with food. Authorizing Provider: KAYCEE LIGHT * Telephone Encounter - Kaycee Light PA-C - 03/28/2023 8:48 AM EST 90 day script filled. It mentioned alternative options and stated PA/reauthorization may be needed. Ccing in precert pool. * Telephone Encounter - Wendy Lopez OSA - 03/28/2023 7:41 AM EST Received 90 day prescription request for Donepezil 203 mg. It has been scanned in for review. documented in this encounter Plan of Treatment Upcoming Encounters Date Type Department Care Team (Late st Contact Info) Description 05/26/2023 9:00 AM EST Imaging Radiology [address] [place] [address] 09/21/2023 11:00 AM EDT Telemedicine Neurology, [place] [address] [place] [id number] Arlene Marie CRNP [address] [place] [address] 09/26/2023 1:00 PM EDT Imaging Radiology [address] [place] [address] 10/03/2023 10:00 AM EDT Office Visit Radiation Oncology, [place] [address] [place] [address] Suni Zaldivar CRNP [address] [place] [address] Health Maintenance Due Date Last Done Comments [...] this encounter Medical Devices Implanted Type Area Porter Head Device Identifier Shelf Expiration Date Model / Serial / Lot Patch Duraguard [id number] - [id number] Implanted:Qty : 1 on 10/28/2018 by Aron Gay MD [place] [facility] [place] - Human QUARLES : BIOSCIENCE 02/22/2023 [id number] / [id number] / [id number] Clip Aneursym [id number] - [id number] Implanted:Qty : 2 on 08/30/2017 by Rian Chery MD at [place] [facility] [place] Left: Head B SENIOR : AESCULAP [id number] / / Valve Progav Sys W Sa 20 Flush - [id number] Implanted:Qty : 1 on 09/27/2017 by Rian Chery MD at [place] [facility] [place] Right: Head B SENIOR : AESCULAP 04/24/2020 [id number] / / Plate Ti Lo Pro Str 2h 421.502 - [id number] Implanted:Qty : 4 on 06/01/2018 by Rian Chery MD at [place] [facility] [place] SYNTHES MAXILLOFACIAL 421.502 / / Plate Ti Lo Pro Str 2h 421.502 - [id number] Implanted:Qty : 4 on 03/06/2019 by Rian Chery MD at [place] [facility] [place] Left: Head SYNTHES MAXILLOFACIAL 421.502 / / documented as of this encounter Visit Diagnoses Diagnosis Moderate dementia with behavioral disturbance (HCC) History of brain tumor Personal history of other disorders of nervous system and sense organs Apraxia Other symbolic dysfunction Agitation Other and unspecified special symptom or syndrome, not elsewhere classified documented in this encounter Advance Directives Documents on File Type Date Recorded Patient Media Buyer Expl anation Advance Directives and Living Will [...] the patient have Health Care Power of Automatic Spinning Lathe Operator? No Full Code 03/06/2019 9:09 AM 03/06/2019 [...] the patient have Health Care Power of Automatic Spinning Lathe Operator? No Care Teams Radiologic Technology Instructor Relationship Specialty Start Date End Date Neli Cain MD [address] [place] [address] [place] [address] PCP - General Internal Medicine 10/20/18 documented as of this encounter
--- OUTSIDE RECORDS SUMMARY | 2023-04-25 12:40 | External Medical Summary | Summary of Care ---
Author Name Unknown Organization [facility] Address [address] [facility] [place] [address] Phone [phone] Care Team Providers Care Yard Specialist Name Role Phone Neli Cain MD Primary Care Provid er Reason for Visit * Reason Onset Date Comments Medication Refill 03/28/2023 Encounter Details Date Type Department Care Team (Late st Contact Info) Description 03/28/2023 Refill Neurology Mary MENDOZA [address] [facility] [place] [address] Kaycee Light PA-C [address] [facility] [place] [address] Moderate dementia with behavioral disturbance (HCC); History of brain tumor; Apraxia; Agitation Allergies No known active allergiesdocumented as of [...] mRNA, LNP-s, No Pre serve, 2-Dose Series (Pluto.TV) 03/12/2021,07/15/2020,06/24/2020 Pneumococcal Conjugate Vacc, 13 Valent (Prevnar) [...] Description 05/26/2023 9:00 AM EST Imaging Radiology [address] [place] [address] 09/21/2023 11:00 AM EDT Telemedicine Neurology, [place] [address] [place] [id number] Arlene Marie CRNP [address] [place] [address] 09/26/2023 1:00 PM EDT Imaging Radiology [address] [facility] [place] [address] 10/03/2023 10:00 AM EDT Office Visit Radiation Oncology, [place] [address] [place] [address] Suni Zaldivar CRNP [address] [place] [address] Health Maintenance Due Date Last Done Comments [...] this encounter Medical Devices Implanted Type [employer] Director Device Identifier Shelf Expiration Date Model / Serial / Lot Patch Duraguard [id number] - [id number] Implanted:Qty : 1 on 10/28/2018 by Aron Gay MD at OR [facility] Tissue - Human QUARLES : BIOSCIENCE 02/22/2023 [id number] / [id number] / [id number] Clip Aneursym [id number] - [id number] Implanted:Qty : 2 on 08/30/2017 by Rian Chery MD at OR [facility] Left: Head B SENIOR : AESCULAP [id number] / / Valve Progav Sys W Sa 20 Flush - [id number] Implanted:Qty : 1 on 09/27/2017 by Rian Chery MD at OR [facility] Right: Head B SENIOR : AESCULAP 04/24/2020 [id number] / / Plate Ti Lo Pro Str 2h 421.502 - [id number] Implanted:Qty : 4 on 06/01/2018 by Rian Chery MD at OR [facility] SYNTHES MAXILLOFACIAL [id number] / / Plate Ti Lo Pro Str 2h 421.502 - [id number] Implanted:Qty : 4 on 03/06/2019 by Rian Chery MD at OR [facility] Left: Head SYNTHES MAXILLOFACIAL 421.502 / / [...] Documents on File Type Date Recorded 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 No Full Code 03/06/2019 9:09 AM 03/06/2019 [...] the patient have Health Care Power of Sql Ssrs Developer? No Care Teams Yard Specialist Relationship Specialty Start Date End Date Neli Cain MD [address] [place] [address] [place] [address] PCP - General Internal Medicine 10/20/18 documented as of this encounter
--- OUTSIDE RECORDS SUMMARY | 2023-04-25 12:40 | External Medical Summary ---
Author Name Unknown Address Unknown Organization K1F:LABORATORY [facility] - [facility] [place] [address] Laboratory Report Ordering Provider Test Date Status APOLINAR ARRINGTON 12/18/2022 21:52:57 Final Observation Date Value Abnormality Reference (Units ) Status WBC, Total 12/18/2022 21:52:57 6.34 4.00-10.80 (K/uL) Final RBC 12/18/2022 21:52:57 5.85 4.50-5.25 (M/uL) Final Hemoglobin 12/18/2022 21:52:57 13.6 Below low normal 14.0-16.8 (g/dL) Final HCT 12/18/2022 21:52:57 41.0 40.0-48.4 (%) Final MCV 12/18/2022 21:52:57 70.1 82.0-99.5 (fL) Final MCH 12/18/2022 21:52:57 23.2 27.0-34.0 (pg) Final MCHC 12/18/2022 21:52:57 33.2 32.0-36.0 (g/dL) Final RDW 12/18/2022 21:52:57 16.8 11.5-15.5 (%) Final Platelets 12/18/2022 21:52:57 248 140-400 (K/uL) Final MPV 12/18/2022 21:52:57 9.3 6.6-11.1 (fL) Final Nucleated erythrocytes/100 leukocytes [Ratio] in Blood by Automated count 12/18/2022 21:52:57 0 <=0 (/100 WBCs) Final Performing Location LAB[facility]ATORY [facility] - [address] [place] [address]
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
--- OUTSIDE RECORDS SUMMARY | 2023-04-25 12:40 | External Medical Summary ---
Author Name Unknown Address Unknown Organization K1F:LABORATORY [facility] - [address] [place] [address] Laboratory Report Ordering Provider Test Date Status FRANCK MALLOY 12/20/2022 17:43:37 Final SCREENING Observation Date Value Abnormality Reference (Units ) Status SARS Coronavirus 2 12/20/2022 17:43:37 Negative N egative Final 2018 Novel Coronavirus not d etected.

This express test was developed and its performance characteristics determined by [facility]. It has not been cleared or approved by the U.S. Food and Drug Administration (FDA). FDA does not require this test to go thru premarket FDA review. This test is used for clinical purposes. It should not be regarded as investigational or for research. This laboratory is certified under the Clinical Laboratory Improvement Amendments (CLIA) as qualified to perform high complexity clinical laboratory testing.

This test is a nucleic acid amplification test (NAAT), a reverse transcriptase polymerase chain reaction (RT-PCR) test, or a Centers for Disease Control-acceptable equivalent. The test is performed in a high complexity Clinical Laboratory Improvement Amendments-(CLIA) certified laboratory. The test is acceptable for SARS-CoV-2 diagnosis, surveillance, and travel within the [place] and to most countries. Please check with local testing authorities about requirements before travel.

The validation of bronchial specimens, tracheal aspirates, and sputum for this assay was developed and performance characteristics determined by [facility]. The validation of alternate specimen types has not been cleared or approved by the U.S. Food and Drug Administration (FDA). It has been determined that such clearance is not necessary. Performing Location LABORATORY [facility] - [address] [place] [address]
--- OUTSIDE RECORDS SUMMARY | 2023-04-25 12:40 | External Medical Summary | Summary of Care ---
Author Name Unknown Organization [facility] Address [address] [facility] [place] [address] Phone [phone] Care Team Providers Care Procurement Consultant Name Role Phone Neli Cain MD Primary Care Provid er Reason for Visit * Reason Onset Date Comments Medication Refill 03/28/2023 Encounter Details Date Type Department Care Team (Late st Contact Info) Description 03/28/2023 Telephone Neurology Mary MENDOZA [address] [facility] [place] [address] Kaycee Light PA-C [address] [facility] [place] [address] Medication Refill Allergies No known active allergiesdocumented as of [...] mRNA, LNP-s, No Pre serve, 2-Dose Series (OneAway) 03/12/2021,07/15/2020,06/24/2020 Pneumococcal Conjugate Vacc, 13 Valent (Prevnar) [...] Description 05/26/2023 9:00 AM EST Imaging Radiology [address] [place] [address] 09/21/2023 11:00 AM EDT Telemedicine Neurology, [place] [address] [place] [id number] Arlene Marie CRNP [address] [place] [address] 09/26/2023 1:00 PM EDT Imaging Radiology [address] [place] [address] 10/03/2023 10:00 AM EDT Office Visit Radiation Oncology, [place] [address] [place], [place] [id number] Suni Zalidvar CRNP [address] [place] [address] Health Maintenance Due Date Last Done Comments Depression Screening 1959 Albumin/Creatinine Ratio 1965 Diabetic Eye Exam 1965 Diabetic Foot Exam 1965 DTaP,Tdap,and Td Vaccines (1 - Tdap) 1966 Zoster Vaccines (1 of 2) 1997 Hepatitis B (1 of 3 - Risk 3-dose series) 2007 COVID-19 Vaccine ( season) 2022 03/12/2021, 07/15/2020, 06/24/2020 HbA1c 06/20/2023 12/18/2022, 1105/2019, 03/07/2019, Additional history exists GFR 12/19/2023 12/18/2022, [...] this encounter Medical Devices Implanted Type Area Front Line Leader Device Identifier Shelf Expiration Date Model / Serial / Lot Patch Duraguard [id number] - [id number] Implanted:Qty : 1 on 10/28/2018 by Aron Gay MD at [place] [facility] [place] Tissue - Human QUARLES : BIOSCIENCE 02/22/2023 [id number] / [id number] / [id number] Clip Aneursym [id number] - [id number] Implanted:Qty : 2 on 08/30/2017 by Rian Chery MD at [place] [facility] [place] Left: Head B SENIOR : AESCULAP [id number] / / Valve Progav Sys W Sa 20 Flush - [id number] Implanted:Qty : 1 on 09/27/2017 by Rian Chery MD at [place] [facility] [place] Right: Head B SENIOR : AESCULAP 04/24/2020 [id number] / / Plate Ti Lo Pro Str 2h 421.502 - [id number] Implanted:Qty : 4 on 06/01/2018 by Rian Chery MD at [place] [facility] [place] SYNTHES MAXILLOFACIAL 421.502 / / Plate Ti Lo Pro Str 2h 421.502 - [id number] Implanted:Qty : 4 on 03/06/2019 by Rian Chery MD at [place] [facility] [place] Left: Head SYNTHES MAXILLOFACIAL 421.502 / / [...] Documents on File Type Date Recorded Patient Planning Aide Expl anation Advance Directives and Living Will [...] the patient have Health Care Power of Scientific Publications Editor? No Full Code 03/06/2019 9:09 AM 03/06/2019 [...] the patient have Health Care Power of Scientific Publications Editor? No Care Teams Procurement Consultant Relationship Specialty Start Date End Date Neli Cain MD [address] [place] [address] [place] [id number] PCP - General Internal Medicine 10/20/18 documented as of this encounter
--- OUTSIDE RECORDS SUMMARY | 2023-04-25 12:40 | External Medical Summary ---
Author Name Unknown Address Unknown Organization : Laboratory Report Ordering Provider Test Date Status RACHELL AGUILERA 12/19/2022 09:17:06 Final Observation Date Value Abnormality Reference (Units ) Status Glucose Point of Care 12/19/2022 09:17:06 131 Above high normal 70-120 (mg/dL) Final Performing Location
--- OUTSIDE RECORDS SUMMARY | 2023-04-25 12:40 | External Medical Summary ---
Author Name Unknown Address Unknown Organization [id number]:[facility] [place] - [address] [place] [address] Laboratory Report Ordering Provider Test Date Status RADHA BUSTILLOS 12/21/2022 06:28:00 Final Observation Date Value Abnormality Reference (Units ) Status Vitamin B12 12/21/2022 06:28:00 1314 Above high normal 232-1245 (pg/mL) Final Performing Location [facility] [place] - [address] [place] [address]
--- OUTSIDE RECORDS SUMMARY | 2023-04-25 12:40 | External Medical Summary | Summary of Care ---
Author Name Unknown Organization [facility] Address [address] [place] [address] Phone [phone] Care Team Providers Care Utilization Supervisor Name Role Phone Neli Cain MD Primary Care Provid er Reason for Visit * Reason Comments Aggressive Behavior * Auth/Cert Specialty Diagnoses / Procedures Referred By Abhi t Referred To Contact Referral ID Status Reason Start Date Expiration Date Visits Re quested Visits Authorized [id number] Encounter Details Date Type Department Care Team Description 12/18/2022 - 12/24/2022 Hospital Encounter 7A [facility], [facility] 7th Floor [address] [place] [address] Kevin Baca MD [address] [place] [address] Leonardo Upton MD [address] [place], [place] [id number] Jadon Alvarez, DO [address] [place] [address] Rashid Estrada, DO [address] [place], [place] [id number] Rosie Frias MD [address] [place] [address] EKG Report Allergies No known active allergiesdocumented as of this encounter (statuses as of 12/25/2022) Medications Medication Sig Dispensed Refills Start Date [...] daily with breakfast. 30 Tablet 11 08/31/2022 4 Active Glimepiride 2 MG Oral Tablet (Amaryl) [...] every evening. 15 Tablet 0 12/24/2022 Active Acetaminophen 325 MG Oral Tablet Take 2 Tablets by mouth every 4 hours as needed for Pain or Fever. 0 3 Discontinued Polyvinyl Alcohol 1.4 % Ophthalmic Solution Instill 2 Drops into both eyes in the morning and 2 Drops before bedtime. 0 3 Discontinued hydrocortisone (CORTEF) 10 MG Tablet Administer 1 Tab into G tube every night at bedtime. 30 Tab 0 06/06/2018 3 Discontinued hydrocortisone (CORTEF) 20 MG Tablet Administer 1 Tab into G tube daily. 30 Tab 0 06/07/2018 3 Discontinued multivitamin (MVI) Tablet Take 1 Tab by mouth daily. 30 Tab 0 06/07/2018 3 Discontinued metFORMIN (GLUCOPHAGE) 500 MG Tablet Take 1 Tablet by mouth 2 times a day with morning and evening meals. 3 08/28/2018 3 Discontinued Sennosides (SENNA) 8.6 MG Tablet Take 2 Tablets by mouth in the morning. 0 3 Discontinued Memantine HCl 10 MG Oral Tablet (Namenda)Indicati ons:Moderate dementia with behavioral disturbance (HCC) TAKE 1 TABLET BY MOUTH TWICE A DAY 180 Tab 3 01/23/2021 3 Discontinued Donepezil HCl 10 MG Oral Tablet (Aricept)Indicati ons:Moderate dementia with behavioral disturbance (HCC) TAKE 1 TABLET BY MOUTH EVERY DAY WITH BREAKFAST 90 Tablet 1 04/13/2021 3 Discontinued Folic Acid 1 MG Oral Tablet TAKE 1 TABLET BY MOUTH EVERY DAY 90 Tablet 3 11/26/2021 3 Discontinued documented as of this encounter (statuses as of 12/25/2022) Active Problems Problem Noted Date Major neurocognitive disorde r due to multiple etiologies with behavioral disturbance 12/21/2022 History of cranioplasty 03/06/2019 Sepsis 12/06/2018 Severe sepsis with acute organ dysfuncti on 10/27/2018 ROBERT (acute kidney injury) 10/27/2018 Lactic acidosis 10/27/2018 Status post craniectomy 06/02/2018 Wound infection 01/01/2018 Obstructive hydrocephalus 09/23/2017 Hypothyroidism 09/21/2017 UTI (urinary tract infection) 09/21/2017 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 Altered mental status 09/14/2017 Respiratory failure without hypercapnia 08/31/2017 HTN (hypertension) 08/30/2017 Type 2 diabetes mellitus 08/30/2017 HLD (hyperlipidemia) 08/30/2017 Glaucoma 08/30/2017 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 Please only monitor Free T4; TSH testing is useless and misleading documented as of this encounter (statuses as of 12/25/2022) Resolved Problems Problem Noted Date Resolved Date 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 12/22/2022 12/24/2022 documented as of this encounter (statuses as of 12/25/2022) Immunizations Name Administration Dates Next Due COVID-19 mRNA, LNP-s, No Pre serve, 2-Dose Series ([employer]) 03/12/2021,07/15/2020,06/24/2020 Pneumococcal Conjugate Vacc, 13 Valent (Prevnar) 06/13/2018,12/06/2017 Pneumococcal Polysaccharide PPV23 (Pneumovax) 10/07/2020 Seasonal Influenza Virus Vac cine, Unspecified Formulation 06/13/2018 Seasonal Influenza, PF, 6 mo ns & Above, IM , (Flulaval) 06/13/2018 Seasonal Influenza, Quadriva lent Hd (Fluzone Hd) 12/24/2022 documented as of this encounter Social History Tobacco Use Types Packs/Day Years Used Date Smoking Tobacco: Never Smokeless Tobacco: Never Alcohol Use Standard Drinks/Week Comments Yes 0 (1 standard drink = 0.6 oz pure alcohol) rarely since 1998, had been heavy drinker in the past - Alcohol Habits Answer Date Recorded How often do you have a drink containing alcohol ? Monthly or less 04/11/2018 How many drinks containing a lcohol do you have on a typical day when you are drinking? 1 or 2 12/11/2019 How often do you have six or more drinks on one occasion? Never 12/11/2019 Food Insecurity Answer Date Recorded Within the past 12 months, y ou worried that your food would run out before you got money to buy more. Never true 12/06/2018 Within the past 12 months, t he food you bought just didn't last and you didn't have money to get more. Never true 12/06/2018 Sex Assigned at Date Recorded Not on file Job Start Date Occupation Industry Not on file Not on file Not on file documented as of this encounter Last Filed Vital Signs Vital Sign Reading Time Taken Comments Blood Pressure 134/94 12/24/2022 6:00 AM EDT Pulse 70 12/24/2022 6:00 AM EDT Temperature 36.1 C (97 F) 12/24/2022 6:00 AM EDT Respiratory Rate 16 12/24/2022 6:00 AM EDT Oxygen Saturation 98% 12/22/2022 12:55 PM EDT Inhaled Oxygen Concentration - - Weight 86.2 kg (190 lb) 12/18/2022 9:20 PM EDT Height - - Body Mass Index 27.26 05/23/2019 2:11 PM EST documented in this encounter Functional Status Functional Status Response [...] or making decisions? (5 years old or older Yes 12/06/2018 documented as of this encounter Discharge Instructions * Discharge Instr - AVS* ATA Villasenor - 12/24/2022 9:06 AM EDT Discharge Date: 12/24/2022 If the condition for which you were treated on the psychiatric unit worsens, fails to improve or you feel suicidal or homicidal, please call [facility]: or go to the nearest emergency room. The information below provides you with the instructions and the list of medications you need to betaking following discharge from the hospital. If you have any questions, please ask before leaving.Please carry this letter with you when you see your doctor in the clinic. If you have questions about your hospital stay or test results, you can reach us at [phone]. Destination: home Primary Diagnosis at discharge: Major neurocognitive disorder due to multiple etiologies with behavioral disturbance Brief summary of your inpatient care: The reason you were admitted to inpatient psychiatric treatment was due to change in mental status and decline in overall functioning. During your hospitalization, you were treated with a combination of medication and psycho-education therapy. Follow up treatment appointments have been scheduled for you and are noted below. Please attend scheduled appointments after discharge. Inpatient test results pending: None Operations & Procedures: None Complications: none applicable Diet: Follow the same diet as that followed prior to admission. Activity: As safely tolerated. Driving: You may drive if you can walk normally and firmly apply the brake and as long as your medications do not make you drowsy or dizzy. Date you may return to work or school: Upon discharge. See your primary care physician as listed below. APPLIED COMPUTER SCIENCE PROFESSOR SECTION: First Line Supervisor Instructions: - Go to all scheduled follow-up appointments. - Please take your medications everyday as prescribed. - Do not take more than as prescribed because this can be dangerous. - Do not drink alcohol, this can make depression worse by blocking the effects of antidepressants. Do not use illicit drugs as this makes your mood worse and can be toxic to your body in may ways. - Avoid tobacco, which contains nicotine. Limit caffeine use. Nicotine and caffeine are stimulants that can cause you to have difficulty sleeping. If you don't sleep, you can experience anxiety and worsening depression. Recommended Outpatient Treatment Plan: (please call to cancel or reschedule if unable to keep appointments) [facility], [address] [address] Primary Care Physician appointment is scheduled with Dr. Neli Cain M.D. on 12/31/2022 @ 2:00 pm for hospital follow-up. [facility], [place] [address] Neurology appointment is scheduled with Dr. Jesu Lyons M.D. on 03/21/2023 @ 3:00 pm; youwill be contacted with date and time if an earlier appointment becomes available for hospital follow-u Patient being discharged to another Inpatient Facility: No First Line Supervisor Section Completed By: ATA Villasenor Patient is a tobacco user: no Pt received tobacco cessation education on . documented in this encounter Progress Notes * Rosie Frias MD - 12/23/2022 11:29 AM EDT PHYSICIAN PROGRESS NOTE DEPARTMENT OF PSYCHIATRY & BEHAVIORAL HEALTH Name: Yoseph Linn Location: [facility] [id number] Patient location: HOSPITAL. I was in a different facility from the patient. After connecting through [employer], patient was identified by name and date of and/or wristband checked. Patient (or authorized legal customer contact representative) was then informed that this was a Telemedicine visit and was being conducted confidentially over secure lines. My office door was closed. No one else was in the room with me. Patient acknowledged consent and understanding of privacy and security of the Telemedicine visit and gave permission to have a telemedicine presenter stay in the room in order to assist with the history and to conduct the exam as needed. I informed the patient that I have reviewed their record in [employer] and presented the opportunity for them to ask any questions regarding the visit today. The patient agreed to participate. COMMITMENT STATUS: 302 (involuntary) commitment SUBJECTIVE: Patient was seen and discussed with the care team. The patient's chart was reviewed. Staff reported no events overnight, his family came to visit and there were no issues. On interview Mr. Linn was pleasantly confused. He brought in a brown bag of belongings but couldn't explain why hedidn't leave it in his room. He expressed being happy today and when asked when/how his sadness from yesterday resolved he noted that he "got over it." He believes his half- sister came to visit him yesterday, however staff reported it was his daughter. He believes the visit went "okay" when asked. He was asked about accusations of his cheating on him yesterday and he denies these concerns today, says "we were just joking." He was in a jovial/happy mood and started singing at the end of theinterview. He was not oriented to time, place or situation. Denies suicidal ideation or passive wish today. Regarding previous wish, says he is "over it." Denies homicidal ideation, Endorses aggressive urges/thoughts to hurt others -- specifically his who he says he will "hit" if he is not happy with what she says. Denies auditory hallucinations, Denies visual hallucinations. Does not report side effects. No new physical complaints. MEDICATION COMPLIANCE: compliant with all prescribed medicines and no PRN medications needed since admission PARTICIPATION IN TREATMENT: sometimes attends groups, not able to participate reliably CURRENT MEDICATIONS Current Facility-Administered Medications Medication Dose Route Frequency Provider Famotidine (Pepcid) tab 20 mg 20 mg Oral Q12H Rosie Frias MD donepezil (Aricept) 20 mg tab 20 mg Oral QHS Rosie Frias MD Acetaminophen (Tylenol) tab 325 mg 325 mg Oral Q4H PRN Rosie Frias MD Or Acetaminophen (Tylenol) tab 650 mg 650 mg Oral Q6H PRN Rosie Frias MD Or Acetaminophen (Tylenol) tab 975 mg 975 mg Oral Q6H PRN Rosie Frias MD house antacid (Mi-Acid II) oral susp 15 mL 15 mL Oral Q4H PRN Rosie Frias MD Hydrocortisone (Cortef) tab 10 mg 10 mg Oral Daily(AM) Nohelia Renee, [facility] Hydrocortisone (Cortef) tab 20 mg 20 mg Oral QPM 1999 Nohelia Renee [facility] milk of magnesia (Mom) oral susp 30 mL 30 mL Oral Daily PRN Rosie Frias MD sulfamethoxazole-trimethoprim DS (Bactrim DS) 800-160 MG 1 Tablet 1 Tablet Oral BID(AM/PM) Nohelia Renee [facility] amLODIPine (Norvasc) tab 2.5 mg 2.5 mg Oral Daily(AM) Kevin Baca MD Glimepiride (Amaryl) tab 2 mg 2 mg Oral Before breakfast Kevin Baca MD levETIRAcetam (Keppra) tab 500 mg 500 mg Oral BID(AM/PM) Kevin Baca MD levothyroxine (Levoxyl) tab 75 mcg 75 mcg Oral Daily 0630 Kevin Baca MD melatonin tab 3 mg 3 mg Oral HS Kevin Baca MD QUEtiapine (SEROquel) tab 25 mg 25 mg Oral BID(AM/PM) Leonardo Upton MD Simvastatin (Zocor) tab 20 mg 20 mg Oral QPM 2000 Kevin Baca MD VITAL SIGNS BP: 123 mmHg/90 mmHg (12/23/22 06) Pulse: 67 (12/23/22 06) Temp: 36.11 C (12/23/22 06) Resp: 16 (12/23/22 0600) SpO2: 98 % (12/22/22 1255) MENTAL STATUS EXAM Appearance: adult male, casually dressed, appears stated age Social Behavior: cooperative, fair eye contact Motor Behavior: no abnormal or involuntary movements Gait and Station: ambulatory, no abnormalities noted Speech: normal rate, volume. Accented. Mood: "happy" Affect: euthymic, congruent with stated mood, appears jovial at times and laughing. Thought Process & Associations: disorganized, illogical -- often tangential responses to questions Thought Content: (-) suicidal ideation, (-) homicidal ideation, and no overt paranoia/delusions today Perception: No perceptual disturbances endorsed or appreciated on evaluation. Attention: impaired Orientation: (+)location - [place], otherwise cannot identify state. (+)self (- )situation (-)time Memory: impaired per conversation Insight: limited; does not appreciate the presence of psychiatric illness or the need for treatment Judgment: impaired/impulsive; unable to provide a reliable recollection of events or reliably participate in treatment CONSULT/LABS/STUDIES No results found for this or any previous visit (from the past 48 hour(s)). EXAM: CT HEAD/BRAIN WO CONTRAST - N/A HISTORY: fall TECHNIQUE: CT scan of the head was performed without intravenous contrast. COMPARISON: CT head dated 12/18/2022. FINDINGS: There is no acute intracranial hemorrhage or calvarial fracture. Postsurgical changes of left orbital frontotemporal parietal craniectomy and cranioplasty for debulking of a large sellar/suprasellar mass are again noted. There is similar extra-axial fluid collection subjacent to the cranioplasty hardware with similar local mass effect on the left cerebral hemisphere and no significant midline shift. Unchanged encephalomalacia involving the left frontotemporal region. Stable position of the right parietal approach ventriculostomy catheter terminating in the right lateral ventricle and unchanged ventricular system. Generalized volume loss is appreciated. Right frontal lobe encephalomalacia is noted. Patchy hypodensities in the periventricular and deep cerebral white matter are nonspecific, but most commonly represent chronic microvascular ischemic changes. Intracranial atherosclerotic calcifications are noted. Small retention cysts are noted in the bilateral maxillary sinuses. Mastoid air cells are well aerated. Degenerative changes of the bilateral TMJs. IMPRESSION IMPRESSION: 1. No evidence of acute intracranial hemorrhage or calvarial fracture. 2. Stable postsurgical changes related to large sella/suprasellar mass debulking, detailed above. Stable position of the right parietal approach ventriculostomy catheter with unchanged ventricular system. 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 He has a known neurologic diagnosis of dementia with behavioral disturbance. Family brought him to the ER when he held a knife and threatened to hurt his while paranoid. Per collateral she seems to be the main target and trigger of his aggression. Have asked family to come visit the patient now that he's more stable here at the hospital including potential for his to visit. Family are unsure about return home, he was staying with youngest daughter prior to admission and they want to discuss as a family before any decision is made. 12/22/22 -- No behavioral events since admission. No PRNs needed since Seroquel started. Had a falltoday, normal orthostatic BP per nursing report. CT head normal per radiology read. Other admissionlabs WNL. 12/23/22 -- Will need 303 for continued inpatient stay. Family has not yet brought in his who is sometimes a trigger and often the target of his aggression. Once she has a good visit with him will work on disposition/discharge planning. PLAN: Inpatient psychiatric care is necessary because of inability to care for self due to mental illnessand potential dangerousness to others given recent paranoia and aggression toward his in the community. Plan of care includes: - Inpatient milieu Commitment status: 302 (involuntary) commitment. 303 petition to be filed today. Safety: q15 minute checks Group therapy, supportive milieu - Psychiatric Medication management: Continue Seroquel 25mg po BID, behavior appears well controlled at this time. No need for further titration. Continue Aricept (donepezil) 20mg po QHS (home dose 23mg daily) PRN medications as appropriate for insomnia, agitation, anxiety - Substance Use/Withdrawal management: Nicotine replacement therapy was not ordered: -- Not ordered, not applicable, patient denies use of nicotine products Substance use/withdrawal: Not applicable, denies substance use - Chronic & Acute Medical conditions: Medically cleared for psychiatric treatment in the ER prior to admission Continue home medications as per medication reconciliation PRN Medications as appropriate for breakthrough complaints including pain, constipation, GI discomfort - Evaluations/Procedures/Labs: Psychiatric screening labs reviewed on admission including: TSH: 0.62 on 12/18/2022 UDS: negative B12: adequate Vitamin D: 32 ng/mL Currently taking an antipsychotic medication HgA1C: 8.5 on 12/18/2022 Lipid Panel: WNL on 12/21/2022 - Discharge planning: Anticipated duration of admission: 5-7 days, current length of stay 3 days Anticipate return to outpatient providers at outpatient neurology clinic, consider referral [facility] if [facility]. Treatment options and alternatives reviewed with patient and they agree with the above plan. Information about current medications was provided to the patient including reasons why medicationsare being used, risks, benefits, side effects and alternatives to treatment (including no treatment). Rosie Frias MD Attending psychiatrist 12/23/2022 11:29 AM * Rosie Frias MD - 12/22/2022 8:51 AM EDT PHYSICIAN PROGRESS NOTE DEPARTMENT OF PSYCHIATRY & BEHAVIORAL HEALTH Name: Yoseph Linn Location: [facility] [id number] Patient location: HOSPITAL. I was in a different facility from the patient. After connecting through [employer], patient was identified by name and date of and/or wristband checked. Patient (or authorized legal customer contact representative) was then informed that this was a Telemedicine visit and was being conducted confidentially over secure lines. My office door was closed. No one else was in the room with me. Patient acknowledged consent and understanding of privacy and security of the Telemedicine visit and gave permission to have a telemedicine presenter stay in the room in order to assist with the history and to conduct the exam as needed. I informed the patient that I have reviewed their record in iPerceptions and presented the opportunity for them to ask any questions regarding the visit today. The patient agreed to participate. COMMITMENT STATUS: 302 (involuntary) commitment SUBJECTIVE: Patient was seen and discussed with the care team. The patient's chart was reviewed. Staff reported no events overnight. He reports today that his mood is "very sad" but he is unable to rate his depression or anxiety. He says the reason for his depression/sadness is his problem with hisvision and he cannot see well out of one eye. He asks if we can help with this and appears disappointed when we cannot. He notes that he sometimes wishes he wasn't alive but would not act on these thoughts and denies any history of suicide attempts. He does not remember speaking to any of his family yesterday and doesn't think that any of them visited. He is asking to return home to his house, but he lives with his daughter. He struggled with orientation questions but was able to recall that [place]is currently in the [place] with much patience from the examiner. When asked the state he said, "state may be a problem." He later said a random number but couldn't recall any meaning for this number, "103." He did not answer specific time orientation questions - answered with tangential and unrelated r tylorlijose maria. He was asked about anger toward his family and he said, "not the children," essentially confirming that he is angry at his . When asked why he is upset with her he stated that she sometimes speaks about things that are not real and said she was going to [facility] to meet with a "fellow who is ." He says she also sometimes says things that he doesn't like and admits that he will "hit her" when she does this. As a result he says that she's been staying in the basement and he's been "in the middle of the house" as described by daughter in collateral calls. As above, describes feeling upset with vision and some passive wish without intent or plan. Denies homicidal ideation, Endorses aggressive urges/thoughts to hurt others -- specifically his who he says he will "hit" if he is not happy with what she says. Denies auditory hallucinations, Denies visual hallucinations. Does not report side effects. No new physical complaints. During treatment team I receivednotice that Mr. Linn fell and hit his head when getting up from the table at lunch. A CT was ordered along with neuro-checks q1hr. MEDICATION COMPLIANCE: compliant with all prescribed medicines and no PRN medications needed since admission PARTICIPATION IN TREATMENT: attended 1/3 groups, tried to participate but sometimes did not make sense to others or struggled due to vision. CURRENT MEDICATIONS Current Facility-Administered Medications Medication Dose Route Frequency Provider Famotidine (Pepcid) tab 20 mg 20 mg Oral Q12H Rosie Frias MD donepezil (Aricept) 20 mg tab 20 mg Oral QHS Rosie Frias MD Acetaminophen (Tylenol) tab 325 mg 325 mg Oral Q4H PRN Rosie Frias MD Or Acetaminophen (Tylenol) tab 650 mg 650 mg Oral Q6H PRN Rosie Frias MD Or Acetaminophen (Tylenol) tab 975 mg 975 mg Oral Q6H PRN Rosie Frias MD house antacid (Mi-Acid II) oral susp 15 mL 15 mL Oral Q4H PRN Rosie Frias MD Hydrocortisone (Cortef) tab 10 mg 10 mg Oral Daily(AM) [facility] Hydrocortisone (Cortef) tab 20 mg 20 mg Oral QPM 1999 [facility] milk of magnesia (Mom) oral susp 30 mL 30 mL Oral Daily PRN Rosie Frias MD sulfamethoxazole-trimethoprim DS (Bactrim DS) 800-160 MG 1 Tablet 1 Tablet Oral BID(AM/PM) [facility] amLODIPine (Norvasc) tab 2.5 mg 2.5 mg Oral Daily(AM) Kevin Baca MD Glimepiride (Amaryl) tab 2 mg 2 mg Oral Before breakfast Kevin Baca MD levETIRAcetam (Keppra) tab 500 mg 500 mg Oral BID(AM/PM) Kevin Baca MD levothyroxine (Levoxyl) tab 75 mcg 75 mcg Oral Daily 629 Kevin Baca MD melatonin tab 3 mg 3 mg Oral HS Kevin Baca MD QUEtiapine (SEROquel) tab 25 mg 25 mg Oral BID(AM/PM) Leonardo Upton MD Simvastatin (Zocor) tab 20 mg 20 mg Oral QPM 1999 Kevin Baca MD VITAL SIGNS BP: 111 mmHg/75 mmHg (12/22/22 06) Pulse: 88 (12/22/22 06) Temp: 37.11 C (12/22/22 06) Resp: 18 (12/22/22 06) SpO2: 98 % (12/21/22 1513) MENTAL STATUS EXAM Appearance: adult male, casually dressed, appears stated age Social Behavior: cooperative, fair eye contact Motor Behavior: no abnormal or involuntary movements Gait and Station: ambulatory, no abnormalities noted Speech: normal rate, volume. Accented. Mood: "very sad" Affect: euthymic, incongruent with stated mood, appears jovial at times and happy. Thought Process & Associations: disorganized, illogical -- often tangential responses to questions Thought Content: (-) suicidal ideation, (-) homicidal ideation, and possible paranoia/delusions about as per interval history above Perception: No perceptual disturbances endorsed or appreciated on evaluation. Attention: impaired Orientation: (+)location - [place], otherwise cannot identify state. (+)self (- )situation (-)time Memory: impaired per conversation Insight: limited; does not appreciate the presence of psychiatric illness or the need for treatment Judgment: impaired/impulsive; unable to provide a reliable recollection of events or reliably participate in treatment CONSULT/LABS/STUDIES Recent Results (from the past 48 hour(s)) SARS-COV-2 (COVID-19), NAAT Collection Time: 12/20/22 5:43 PM Result Value Ref Range SARS-CoV-2 (COVID-19) Result Negative Negative LIPID PANEL WITH DIRECT LDL IF TG IS HIGH Collection Time: 12/21/22 6:28 AM Result Value Ref Range Triglycerides 76 <=174 mg/dL Cholesterol 156 <200 mg/dL HDL Cholesterol 51 >39 mg/dL Non-HDL Cholesterol 105 <=159 mg/dL LDL Cholesterol 90 <=129 mg/dL 25-HYDROXY VITAMIN D Collection Time: 12/21/22 6:28 AM Result Value Ref Range 25-Hydroxy Vitamin D 32 >19 ng/mL VITAMIN B12 Collection Time: 12/21/22 6:28 AM Result Value Ref Range Vitamin B12 1,314 (H) 232 - 1,245 pg/mL EXAM: CT HEAD/BRAIN WO CONTRAST - N/A HISTORY: fall TECHNIQUE: CT scan of the head was performed without intravenous contrast. COMPARISON: CT head dated 12/18/2022. FINDINGS: There is no acute intracranial hemorrhage or calvarial fracture. Postsurgical changes of left orbital frontotemporal parietal craniectomy and cranioplasty for debulking of a large sellar/suprasellar mass are again noted. There is similar extra-axial fluid collection subjacent to the cranioplasty hardware with similar local mass effect on the left cerebral hemisphere and no significant midline shift. Unchanged encephalomalacia involving the left frontotemporal region. Stable position of the right parietal approach ventriculostomy catheter terminating in the right lateral ventricle and unchanged ventricular system. Generalized volume loss is appreciated. Right frontal lobe encephalomalacia is noted. Patchy hypodensities in the periventricular and deep cerebral white matter are nonspecific, but most commonly represent chronic microvascular ischemic changes. Intracranial atherosclerotic calcifications are noted. Small retention cysts are noted in the bilateral maxillary sinuses. Mastoid air cells are well aerated. Degenerative changes of the bilateral TMJs. IMPRESSION IMPRESSION: 1. No evidence of acute intracranial hemorrhage or calvarial fracture. 2. Stable postsurgical changes related to large sella/suprasellar mass debulking, detailed above. Stable position of the right parietal approach ventriculostomy catheter with unchanged ventricular system. 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 He has a known neurologic diagnosis of dementia with behavioral disturbance. Family brought him to the ER when he held a knife and threatened to hurt his while paranoid. Per collateral she seems to be the main target and trigger of his aggression. Have asked family to come visit the patient now that he's more stable here at the hospital including potential for his to visit. Family are unsure about return home, he was staying with youngest daughter prior to admission and they want to discuss as a family before any decision is made. 12/22/22 -- No behavioral events since admission. No PRNs needed since Seroquel started. Had a fallto, normal orthostatic BP per nursing report. CT head normal per radiology read. Other admissionlabs WNL. PLAN: Inpatient psychiatric care is necessary because of inability to care for self due to mental illnessand potential dangerousness to others given recent paranoia and aggression toward his in the community. Plan of care includes: - Inpatient milieu Commitment status: 302 (involuntary) commitment. 303 will be filed tomorrow for anticipated tuesday if there is need for continued admission. Safety: q15 minute checks Group therapy, supportive milieu - Psychiatric Medication management: Continue Seroquel 25mg po BID, behavior appears well controlled at this time. No need for further titration. Continue Aricept (donepezil) 20mg po QHS (home dose 23mg daily) PRN medications as appropriate for insomnia, agitation, anxiety - Substance Use/Withdrawal management: Nicotine replacement therapy was not ordered: -- Not ordered, not applicable, patient denies use of nicotine products Substance use/withdrawal: Not applicable, denies substance use - Chronic & Acute Medical conditions: Medically cleared for psychiatric treatment in the ER prior to admission Continue home medications as per medication reconciliation PRN Medications as appropriate for breakthrough complaints including pain, constipation, GI discomfort - Evaluations/Procedures/Labs: Psychiatric screening labs reviewed on admission including: TSH: 0.62 on 12/18/2022 UDS: negative B12: adequate Vitamin D: 32 ng/mL Currently taking an antipsychotic medication HgA1C: 8.5 on 12/18/2022 Lipid Panel: WNL on 12/21/2022 - Discharge planning: Anticipated duration of admission: 5-7 days, current length of stay 2 days Anticipate return to outpatient providers at outpatient neurology clinic, consider referral to geriatric psychiatry services/[facility] program if eligible. Treatment options and alternatives reviewed with patient and they agree with the above plan. Information about current medications was provided to the patient including reasons why medicationsare being used, risks, benefits, side effects and alternatives to treatment (including no treatment). Rosie Frias MD Attending psychiatrist 12/22/2022 8:51 AM documented in this encounter H&P Notes * Rosie Frias MD - 12/21/2022 8:19 AM EDT ATTENDING STAFF PHYSICIAN NOTE DIVISION OF PSYCHIATRY [address] [id number] Name: Yoseph Linn Location: [facility] [id number] Date: 12/21/2022 Time: 8:19 AM Patient location: HOSPITAL. I was in a different facility from the patient. After connecting through [employer], patient was identified by name and date of and/or wristband checked. Patient (or authorized legal customer contact representative) was then informed that this was a Telemedicine visit and was being conducted confidentially over secure lines. My office door was closed. No one else was in the room with me. Patient acknowledged consent and understanding of privacy and security of the Telemedicine visit and gave permission to have a telemedicine presenter stay in the room in order to assist with the history and to conduct the exam as needed. I informed the patient that I have reviewed their record in [facility] and presented the opportunity for them to ask any questions regarding the visit today. The patient agreed to participate. COMMITMENT STATUS: 302 IDENTIFYING INFORMATION: Yoseph Linn is a 77 year old Citizen Of [place] male. The patient lives at [address] [place] [address] and there is no home phone number on file. Yoseph Linn was admitted from the Emergency Room. HISTORY OF PRESENT ILLNESS: Yoseph Linn is a 77 year old male without any known psychiatric history who was admitted to the Inpatient Psychiatric Unit at [facility] ([facility]) on 12/18/2022 on a 302 (involuntary) commitment for agitation at home. Mr. Yoseph Linn is a limited historian and often answers questions inappropriately and inconsistently. For instance, when asked what year it is he started to describe events from his secondary school education. He is not oriented to the situation for admission, denies any suicidal or homicidal ideation. He believes he is currently in [place]. He can give his name and his month, day of but not the year. He is not able to respond appropriately often giving tangential stories that are possibly from previous experiences. He adamantly denies any psychiatric symptoms or diagnoses, denies any problems with his mood including depression or anxiety. He has no spontaneous complaints or concerns on interview. Collateral information from his daughter, Melissa obtained via telephone on 12/21/22 for approximately 20 minutes. She notes that she's the youngest daughter and Dad lives with her. He has a history of a brain tumor and subsequent surgery to remove it in 2019. He lives with her family along with his , they live in their finished basement area. Unfortunately for the last year or so she's noticed her father has been progressively more angry and irritable. In recent months he's started to sometimes become aggressive. The family has worked to reduce his "triggers" but he continues to have issues with his . When he's well she describes him as the life of the alliance party, friendly and a chatty, happy mario alberto. When he's not doing well he's appeared more paranoid and has reportedly accused her mother of stealing from him or cheating on him. She notes that most of his aggression/agitation has been targeted/focused on his so he's been spending more time "upstairs" with her family to avoid triggering this. She thought perhaps he had a UTI as he did become aggressive before with a UTI but otherwise she denies any history of violence or aggression. She's not able to confirm doses but says she asked the PCP to fax records, also confirmed she fills the medications and her mother helps him tomanage them. PSYCHIATRIC REVIEW OF SYMPTOMS: unable to obtain due to mental status/patient condition. PSYCHOSOCIAL STRESSORS: relationship discord, medical illness CURRENT MEDICATIONS: Note that completed medications (per the MAR) continue to display for 24 hours. Ordered medicationsto be given in the future also display. Current Facility-Administered Medications Medication Dose Route Frequency Provider donepezil (Aricept) 20 mg tab 20 mg Oral QHS Rosie Frias MD Acetaminophen (Tylenol) tab 325 mg 325 mg Oral Q4H PRN Rosie Frias MD Or Acetaminophen (Tylenol) tab 650 mg 650 mg Oral Q6H PRN Rosie Frias MD Or Acetaminophen (Tylenol) tab 975 mg 975 mg Oral Q6H PRN Rosie Frias MD house antacid (Mi-Acid II) oral susp 15 mL 15 mL Oral Q4H PRN Rosie Frias MD Hydrocortisone (Cortef) tab 10 mg 10 mg Oral Daily(AM) [facility] Renee, [facility] Hydrocortisone (Cortef) tab 20 mg 20 mg Oral QPM 1999 Nohelia Dandre Renee, [facility] milk of magnesia (Mom) oral susp 30 mL 30 mL Oral Daily PRN Rosie Frias MD sulfamethoxazole-trimethoprim DS (Bactrim DS) 800-160 MG 1 Tablet 1 Tablet Oral BID(AM/PM) Nohelia Dandre Renee, [facility] amLODIPine (Norvasc) tab 2.5 mg 2.5 mg Oral Daily(AM) Kevin Baca MD Glimepiride (Amaryl) tab 2 mg 2 mg Oral Before breakfast Kevin Baca MD levETIRAcetam (Keppra) tab 500 mg 500 mg Oral BID(AM/PM) Kevin Baca MD levothyroxine (Levoxyl) tab 75 mcg 75 mcg Oral Daily 0630 Kevin Baca MD melatonin tab 3 mg 3 mg Oral HS Kevin Baca MD QUEtiapine (SEROquel) tab 25 mg 25 mg Oral BID(AM/PM) Leonardo Upton MD Simvastatin (Zocor) tab 20 mg 20 mg Oral QPM 2000 Kevin Baca MD ALLERGIES: Patient has no known allergies. PAST PSYCHIATRIC HISTORY: Inpatient admissions - none known Outpatient treatment - sees neurology outpatient for dementia treatment, no known hx of psychiatrictreatment Medication trials - on Aricept (donepezil) CURRENT OUTPATIENT PSYCHIATRIC PROVIDERS: none PRIMARY CARE PROVIDER: Neli Cain MD SUBSTANCE USE ASSESSMENT DRUG AND ALCOHOL ASSESSMENT: TOBACCO: no, never smoker Tobacco Cessation Medication Offered: N/A, Patient has not used any forms of tobacco in the past 30days ALCOHOL: never drinker DRUGS: Previous abuse of drugs: denies Cannabis/Marijuana: no Opioids: no Methamphetamine: no Cocaine: no Benzodiazepines: no Hallucinogens (PCP, LSD, psilocybin): no OTC medications (cough/cold medicines): no Hx of IV Drug abuse: no REHABILITATION HISTORY: History of rehabs: no Longest period of sobriety: n/a PERSONAL, FAMILY, AND SOCIAL HISTORY EDUCATION: unclear, review of records indicates that he has an advanced degree -- potentially in Engineering. OCCUPATIONAL HISTORY: retired from work at this time HISTORY: none known CURRENT LIVING SITUATION: living with his in the finished basement area of his youngest daughter's home in [place], [place]. Born in [facility], other children live in [place] and [place]. LEGAL HISTORY: none known HISTORY OF VIOLENCE: none known, has sometimes become aggressive in recent past with paranoia. TRAUMA HISTORY: none known FAMILY HISTORY: Mental illness: patient adamantly denies Completed/attempted suicides: patient adamantly denies Drug and alcohol abuse: patient adamantly denies Ethnic/cultural factors: born in [place], immigrated to the & lives with his youngest daughter. Unclear timeline of immigration. Daughter notes that he speaks fluent Peruvian and this is not likely a barrier to his effective communication with the team. Family History Problem Relation Age of Onset Hypertension Sister Alzheimer's disease Mother Hypertension Mother Stroke Mother No Known Problems Father No Known Problems Sister Cancer Brother jaw Arthritis Sister Hypertension Sister Hyperlipidemia Brother Asthma Brother Hypertension Brother No Known Problems Sister MEDICAL HISTORY PAST MEDICAL HISTORY: Reviewed in chart. HOSPITAL PROBLEMS: Pertaining to this admission: Active Problems: Major neurocognitive disorder, due to multiple etiologies, with behavioral disturbance, mild (HCC) Resolved Problems: * No resolved hospital problems. * VISUAL OR HEARING IMPAIRMENT: Communication Barrier: Hard of hearing;Other - Describe (Cognitive deficit) (12/20/221949) Glasses:: No (12/20/221949) Hearing Aid: No (12/20/221949) INDEPENDENT WITH ACTIVITIES OF DAILY LIVING: Describe the patient's ability prior to admission/observation to perform ADLs: Requires assistance (12/20/221949) Requires assistance with: Dressing;Toileting;Bathing;Grooming (12/20/221949) Mobility: Independent (12/20/222004) MEDICAL REVIEW OF SYSTEMS & PHYSICAL EXAM: Completed prior to admission by the ER provider and included below for reference PHYSICAL EXAM Initial Vitals (see all): BP 121/86 | Pulse 78 | Resp 18 | Temp 97.5 | O2 95 %, Room Air, None | Weight 86.18 kg | Height 177.8 cm | Initial Pain Assessment (see all): 0 (no pain)/10 ([facility] Adult Scale 0-10) General: Alert. appropriate for age. Occasionally verbally aggressive Skin: Warm, dry. Head: Laceration to the left frontal scalp from previous brain surgery Neck: trachea midline. 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 No inflammation Cardiovascular: Normal peripheral perfusion. Regular rate and rhythm without murmurs or extra sounds. No distended neck veins. . Respiratory: no respiratory distress. The lungs are clear to auscultation without rales wheezes or rhonchi. Breath sounds equal and present bilaterally. Gastrointestinal: Non distended. Abdomen is soft and nontender. No guarding. No rebound. No organomegaly. Musculoskeletal: No deformity. Neurological: No focal neurological deficit observed. alert. Cranial nerves 2-12 are intact. Pull Tab Dealer strength equal. [id number] intact. Normal motor and sensory exam to arms and legs. Knee jerk reflexes equal and +2. Psychiatric: Occasionally verbally belligerent. No insight into why he is here. No obvious hallucinations Denies suicidal ideation COMPLAINTS OF PAIN: reports some hip pain but otherwise no complaints on interview MOST RECENT VITAL SIGNS: BP: 111 mmHg/83 mmHg (12/21/22599) Pulse: 70 (12/21/22599) Temp: 36.5 C (12/21/22599) Resp: 18 (12/21/22599) SpO2: 96 % (12/20/221999) PE/LABS/IMAGING: I have reviewed lab and imaging studies as recorded in chart. Recent Results (from the past 336 hour(s)) COMPREHENSIVE METABOLIC PANEL Collection Time: 12/18/22 9:52 PM Result Value Ref Range BUN 14 6 [...] ALT 51 (H) 10 - 50 U/L ETHANOL, MEDICAL Collection Time: 12/18/22 9:52 PM Result Value Ref Range ETHANOL, MEDICAL Negative Negative TROPONIN T, HIGH SENSITIVITY Collection Time: 12/18/22 9:52 PM Result Value Ref Range Troponin T, High Sensitivity 13 <=22 ng/L CBC Collection Time: 12/18/22 9:52 PM Result Value Ref Range WBC 6.34 4.00 [...] nRBCs 0 <=0 /100 WBCs DIFFERENTIAL, AUTOMATED Collection Time: 12/18/22 9:52 PM Result Value Ref Range WBC 6.34 4.00 [...] Granulocytes 0.03 0.00 - 0.20 K/uL TSH Collection Time: 12/18/22 9:52 PM Result Value Ref Range TSH 0.62 0.27 - 4.20 uIU/mL HEMOGLOBIN A1C Collection Time: 12/18/22 9:52 PM Result Value Ref Range Hemoglobin A1C 8.5 (H) 4.0 - 5.6 % Estimated Average Glucose 197 (H) <126 mg/dL URINALYSIS, REFLEX TO MICROSCOPIC Collection Time: 12/18/22 10:30 PM Result Value Ref Range Color, Urine Yellow Light Yellow, Yellow, Dark Yellow Clarity, Urine Clear Clear Glucose, Urine Negative Negative mg/dL Bilirubin, Urine Negative Negative Ketone, Urine Negative Negative mg/dL Specific Mcbrides, Urine 1.018 1.003 - 1.030 Blood, Urine Negative Negative pH, Urine 6.0 5.0 - 7.5 Units Protein, Urine Negative Negative mg/dL Urobilinogen, Urine 0.2 0.2, 1.0 mg/dL Nitrite, Urine Negative Negative Esterase, Urine Negative Negative Comment, Urine TOXICOLOGY, URINE SCREEN W/O CONFIRMATION Collection Time: 12/18/22 10:30 PM Result Value Ref Range Amphetamine Negative Negative Benzodiazepines Negative Negative Cannabinoids Negative Negative Cocaine Metabolite Negative Negative Fentanyl Negative Negative Hydrocodone / Hydromorphone Negative Negative Methadone Metabolite Negative Negative Morphine / Codeine Negative Negative Oxycodone / Oxymorphone Negative Negative CULTURE, URINE, QUANTITATIVE Collection Time: 12/18/22 10:30 PM Specimen: Urine, Clean Catch Result Value Ref Range Culture Growth No significant growth GLUCOSE METER, POINT OF CARE Collection Time: 12/19/22 9:17 AM Result Value Ref Range Glucose Meter 131 (H) 70 - 120 mg/dL SARS-COV-2 (COVID-19), NAAT Collection Time: 12/20/22 5:43 PM Result Value Ref Range SARS-CoV-2 (COVID-19) Result Negative Negative No image results found. MENTAL STATUS EVALUATION: Appearance: adult male, dressed casually with adequate grooming. Muscle strength and tone: not tested Gait and Station: no abnormalities noted Personal Presentation: open and friendly albeit confused Behavior: pleasant and cooperative , often laughing and appears to be making jokes at times Speech: normal rate and volume, accented. Mood: "good" Affect: type - euthymic, reactive, appropriate; range - full range; lability - no Associations: tangential Thought Process: illogical, disorganized, and usually tangential Abstract Reasoning: not tested Thought Content: (-) suicidal ideation, (-) homicidal ideation, and No overt delusions or paranoia Perception: No perceptual disturbances endorsed or appreciated on evaluation. Orientation: not able to sustain attention to the examiner and not fully oriented to self (cannot recall year of ), place (believes he's in [place]), time (says it's December and cannot tell methe year) or situation (says he's come here to 'enrich myself' and spoke of taking a flight to the [facility]sp[place] Recent and remote memory as evidenced by recall of recent circumstances and remote life events: impaired Language: intact per interview, speaks fluent Peruvian with an accent. Very occasional stutter noted. Fund of knowledge as evidenced by vocabulary and current/historical events: impaired Attention span/concentration as evidenced by: ability to sustain attention to examiner - impaired and following conversation - impaired Insight: limited; does not appreciate the presence of psychiatric illness or the need for treatment Judgment: impaired/impulsive; unable to provide a reliable recollection of events or reliably participate in treatment DANGEROUSNESS TO SELF/OTHERS ASSESSMENT (DTSOA): Additional information is available in the Mental Status section of this Attending Staff Physician Note. Risk Factors: Suicidal: denies Previous suicide attempts: none Current plan for suicide: no plan reported by patient Access to means: medications are in the home Homicidal: denies ideation/intent/plan -- however collateral information from family suggests recent agitation Risk Factors: history of violence, lack of impulse control, age, physical illness/chronic pain, family unable to provide adequate supervision for his illness/agitation, and sex/gender Protective Factors: Easy access to clinical interventions: unknown Family and community support: yes Skills in problem solving, conflict resolution and distress tolerance: limited Cultural and yazdanism beliefs that discourage suicide and support hopefulness: yes Mormon/spirituality/thompson practice: Confucianist Active in thompson practice: unknown History of thoughts, no attempts, good impulse control: no Intact relationships with children and or family: yes Based on these risk and protective factors, this patient's risk of harm to self and others is assessed to be acutely elevated at this time. 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 Family brought him to the ER when he held a knife and threatened to hurt his while paranoid. Percollateral she seems to be the main target and trigger of his aggression. Have asked family to comevisit the patient now that he's more stable here at the hospital including potential for his to visit. Family are unsure about return home, he was staying with youngest daughter prior to admission and they want to discuss as a family before any decision is made. PLAN: Inpatient psychiatric care is necessary because of inability to care for self due to mental illnessand potential dangerousness to others given recent aggression and agitation in the home. Plan of care includes: - Inpatient milieu Commitment status: 302 (involuntary) commitment, may need 303 for continued inpatient stay Safety: q15 minute checks Group therapy, supportive milieu - Psychiatric Medication management: Continue Seroquel 25mg po BID as started in the ER by psychiatric C/L team Continue home medications for dementia including: Aricept 20mg po QHS (home dose 23mg per verification with [facility]) PRN medications as appropriate for insomnia, agitation, anxiety - Substance Use/Withdrawal management: Nicotine replacement therapy was not ordered: -- Not ordered, not applicable, patient denies use of nicotine products Substance use/withdrawal: n/a, patient denies any substance use - Chronic & Acute Medical conditions: Medically cleared for psychiatric evaluation in the ER prior to admission Continue home medications as per medication reconciliation PRN Medications as appropriate for breakthrough complaints including pain, constipation, GI discomfort - Evaluations/Procedures/Labs: Psychiatric screening labs reviewed on admission including: TSH: 0.62 on 12/18/2022 UDS: negative B12: pending Vitamin D: pending Currently taking an antipsychotic medication HgA1C: 8.5 on 12/18/2022 Lipid Panel: pending -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 [facility] Bilirubin, Total 0.2 <=1.2 mg/dL 12/18/2022 10:13 PM EDT LABORATORY [facility] Calcium 9.2 8.4 - 10.2 mg/dL 12/18/2022 10:13 PM EDT LABORATORY [facility] Protein 7.2 6.0 - 8.3 g/dL 12/18/2022 10:13 PM EDT LABORATORY [facility] ALT 51(H) 10 - 50 U/L 12/18/2022 10:13 PM EDT LABORATORY [facility] Blood Venous blood specimen / Unknown Venipuncture / Unknown 12/18/2022 9:52 PM EDT 12/18/2022 9:55 PM EDT Kevin Baca MD LAB BLOOD ORDERABLES Performing Organization Address City/State/[facility] Co de Phone Number LABORATORY [facility] [address] [place] [address] * EKG (12/18/2022 9:46 PM EDT) 12/18/2022 9:46 PM EDT Procedure Note Manuel Hameed, DO - 12/18/2022 9:46 PM EDT REASON FOR STUDY: MED CLEARANCE CONCLUSIONS: Normal sinus rhythm Normal ECG When compared with ECG of 06-DEC-2018 13:24, Vent. 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 Medical clearance for psychiatric admission Other specified general medical examination Dementia with agitation, unspecified dementia severity, unspecified dementia type (HCC) Violent behavior Undersocialized conduct disorder, aggressive type, 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 Acetaminophen (Tylenol) tab 650 mg 650 mg, Oral, Q6H PRN Pain, Moderate, Fever >38C(100.5F), Starting on Tue12/20/22 at 1914, Until Tue12/24/22 at 1711, Maximum of 4 grams (4000 mg) per day. Acetaminophen (Tylenol) tab 975 mg 975 mg, Oral, Q6H PRN Pain, Severe, Starting on Tue12/20/22 at 1914, Until Tue12/24/22 at 1711, Maximum of 4 grams (4000 mg) per day. amLODIPine (Norvasc) tab 2.5 mg 2.5 mg, Oral, Daily(AM), First dose on Tue12/19/22 at 0900, Until Discontinued Given 12/24/2022 8:41 AM EDT 2.5 mg Given 12/23/2022 12:40 PM EDT 2.5 mg Given 12/22/2022 11:10 AM EDT 2.5 mg donepezil (Aricept) 10 mg tab 10 mg, Oral, QHS, First dose on Tue12/19/22 at 2200, Until Discontinued Given 12/20/2022 8:39 PM EDT 10 mg Given 12/19/2022 10:22 PM EDT 10 mg donepezil (Aricept) 20 mg tab 20 mg, Oral, QHS, First dose (after last modification) on Tue12/21/22 at 2200, Until Discontinued Given 12/23/2022 8:39 PM EDT 20 mg Given 12/22/2022 8:44 PM EDT 20 mg Given 12/21/2022 8:34 PM EDT 20 mg Famotidine (Pepcid) tab 20 mg 20 mg, Oral, Q12H, First dose on Tue12/22/22 at 0900, Until Discontinued Given 12/24/2022 8:41 AM EDT 20 mg Given 12/23/2022 8:38 PM EDT 20 mg Given 12/23/2022 9:10 AM EDT 20 mg Glimepiride (Amaryl) tab 2 mg 2 mg, Oral, BEFORE BREAKFAST, First dose on Tue12/19/22 at 0845, Until Discontinued Given 12/24/2022 8:41 AM EDT 2 mg Given 12/23/2022 9:10 AM EDT 2 mg Given 12/22/2022 9:05 AM EDT 2 mg house antacid (Mi-Acid II) oral susp 15 mL 15 mL, Oral, Q4H PRN Indigestion, Nausea, Starting on Tue12/20/22 at 1914, Until Tue12/24/22 at 1711, SHAKE WELL Hydrocortisone (Cortef) tab 10 mg 10 mg, Oral, Daily(AM), First dose on Tue12/20/22 at 1200, Until Discontinued Given 12/24/2022 8:41 AM EDT 10 mg Given 12/23/2022 12:40 PM EDT 10 mg Given 12/22/2022 11:10 AM EDT 10 mg Hydrocortisone (Cortef) tab 20 mg 20 mg, Oral, QPM-1999, First dose on Tue12/20/22 at 2000, Until Discontinued Given 12/23/2022 8:38 PM EDT 20 mg Given 12/22/2022 8:44 PM EDT 20 mg Given 12/21/2022 8:34 PM EDT 20 mg levETIRAcetam (Keppra) tab 500 mg 500 mg, Oral, BID(AM/PM), First dose on Tue12/19/22 at 0900, Until Discontinued Given 12/24/2022 8:41 AM EDT 500 mg Given 12/23/2022 8:39 PM EDT 500 mg Given 12/23/2022 9:11 AM EDT 500 mg levothyroxine (Levoxyl) tab 75 mcg 75 mcg, Oral, [id number], First dose on Tue12/19/22 at 0845, Until Discontinued Given 12/24/2022 5:49 AM EDT 75 mcg Given 12/23/2022 6:04 AM EDT 75 mcg Given 12/22/2022 6:10 AM EDT 75 mcg melatonin tab 3 mg 3 mg, Oral, HS, First dose on Tue12/19/22 at 2200, Until Discontinued Given 12/23/2022 8:38 PM EDT 3 mg Given 12/22/2022 8:43 PM EDT 3 mg Given 12/21/2022 8:34 PM EDT 3 mg metFORMIN (Glucophage) tab 500 mg 500 mg, Oral, BID (AM/PM MEALS), First dose on Tue12/19/22 at 0845, Until Discontinued, METFORMIN SHOULD BE HELD FOR 24 HRS BEFORE AND 48 HRS AFTER PROCEDURES THAT REQUIRE CONTRAST MEDIUM !!!!! Use of Metformin in patients with Low GFR puts the patient at risk for adverse effects. - Please discontinue if GFR is less than 30. - Continue with caution, consider dosage reduction if GFR is between 30-45. - Do not initiate therapy in patients with GFR less than 45 Given 12/20/2022 5:43 PM EDT 500 mg Given 12/20/2022 10:02 AM EDT 500 mg Given 12/19/2022 5:44 PM EDT 500 mg milk of magnesia (Mom) oral susp 30 mL 30 mL, Oral, DAILY PRN Constipation, Starting on Tue12/20/22 at 1914, Until Tue12/24/22 at 1711 QUEtiapine (SEROquel) tab 25 mg 25 mg, Oral, BID(AM/PM), First dose on Tue12/19/22 at 1730, Until Discontinued Given 12/24/2022 8:41 AM EDT 25 mg Given 12/23/2022 8:39 PM EDT 25 mg Given 12/23/2022 9:10 AM EDT 25 mg Simvastatin (Zocor) tab 20 mg 20 mg, Oral, QPM-1999, First dose on Tue12/19/22 at 2000, Until Discontinued Given 12/23/2022 8:39 PM EDT 20 mg Given 12/22/2022 8:44 PM EDT 20 mg Given 12/21/2022 8:34 PM EDT 20 mg sulfamethoxazole-trimethoprim DS (Bactrim DS) 800-160 MG 1 Tablet 1 Tablet, Oral, BID(AM/PM), First dose on Tue12/20/22 at 1130, Until Discontinued Given 12/24/2022 8:42 AM EDT 1 Ta blet Given 12/23/2022 8:39 PM EDT 1 Tablet Given 12/23/2022 9:10 AM EDT 1 Tablet documented in this encounter Active and Recently Administered Medications Times are shown in EDT. Scheduled Medication Order 12/22/2022 12/23/2022 12/24/2022 amLODIPine (Norvasc) tab 2.5 mg 2.5 mg, Oral, Daily(AM), First dose on Tue12/19/22 at 0900, Until Discontinued 1110 (Given - Provider: Clay Hurley LPN) 1240 (Given - Provider: Clay Hurley LPN - Comment: unavailable at 09:00) 0841 (Given - Provider: Niurka Hernandez LPN) donepezil (Aricept) 20 mg tab 20 mg, Oral, QHS, First dose (after last modification) on Tue12/21/22 at 2200, Until Discontinued 2043 (Given - Provider: Ale Posadas, RN) 2038 (Given - Provider: Mihaela Edwards, RN) Famotidine (Pepcid) tab 20 mg 20 mg, Oral, Q12H, First dose on Tue12/22/22 at 0900, Until Discontinued 1111 (Given - Provider: Clay Hurley LPN)2042 (Given - Provider: Ale Posadas RN) 0910 (Given - Provider: Clay Hurley LPN)2037 (Given - Provider: Mihaela Edwards, JORDY) 0841 (Given - Provider: Niurka Hernandez LPN) Glimepiride (Amaryl) tab 2 mg 2 mg, Oral, BEFORE BREAKFAST, First dose on Tue12/19/22 at 0845, Until Discontinued 09 (Given - Provider: Clay Hurley LPN) 0910 (Given - Provider: Clay Hurley LPN) 0841 (Given - Provider: Niurka Hernandez LPN) Hydrocortisone (Cortef) tab 10 mg 10 mg, Oral, Daily(AM), First dose on Tue12/20/22 at 1200, Until Discontinued 1110 (Given - Provider: Clay Hurley LPN) 1240 (Given - Provider: Clay Hurley LPN - Comment: unavailable at 0900) 0841 (Given - Provider: Niurka Hernandez LPN) Hydrocortisone (Cortef) tab 20 mg 20 mg, Oral, QPM-1999, First dose on Tue12/20/22 at 2000, Until Discontinued 2043 (Given - Provider: Ale Posadas RN) 2037 (Given - Provider: Mihaela Edwards RN) levETIRAcetam (Keppra) tab 500 mg 500 mg, Oral, BID(AM/PM), First dose on 12/19/22 at 0900, Until Discontinued 904 (Given - Provider: Clay Hurley LPN)2042 (Given - Provider: Ale Posadas RN) 09 (Given - Provider: Clay Hurley LPN)2038 (Given - Provider: Mihaela Edwards RN) 0841 (Given - Provider: Niurka Hernandez LPN) levothyroxine (Levoxyl) tab 75 mcg 75 mcg, Oral, [id number], First dose on 12/19/22 at 0845, Until Discontinued 609 (Given - Provider: Peggy Arroyo RN) 06 (Given - Provider: Chanell Acevedo RN) 0549 (Given - Provider: Chanell Acevedo RN) melatonin tab 3 mg 3 mg, Oral, HS, First dose on 12/19/22 at 2200, Until Discontinued 2042 (Given - Provider: Ale Posadas RN) 2037 (Given - Provider: Mihaela Edwards RN) QUEtiapine (SEROquel) tab 25 mg 25 mg, Oral, BID(AM/PM), First dose on 12/19/22 at 1730, Until Discontinued 904 (Given - Provider: Clay Hurley LPN)2042 (Given - Provider: Ale Posadas RN) 09 (Given - Provider: Clay Hurley LPN)2038 (Given - Provider: Mihaela Edwards RN) 0841 (Given - Provider: Niurka Hernandez LPN) Simvastatin (Zocor) tab 20 mg 20 mg, Oral, QPM-1999, First dose on 12/19/22 at 2000, Until Discontinued 2043 (Given - Provider: Ale Posadas RN) 2038 (Given - Provider: Mihaela Edwards RN) sulfamethoxazole-trimet hoprim DS (Bactrim DS) 800-160 MG 1 Tablet 1 Tablet, Oral, BID(AM/PM), First dose on 12/20/22 at 1130, Until Discontinued 905 (Given - Provider: Clay Hurley LPN)2042 (Given - Provider: Ale Posadas RN) 909 (Given - Provider: Clay Hurley LPN)2038 (Given - Provider: Mihaela Edwards RN) 0842 (Given - Provider: Niurka Hernandez LPN) PRN Medication Order 12/22/2022 12/23/2022 12/24/2022 Acetaminophen (Tylenol) tab 325 mg(Linked Group 1) 325 mg, Oral, Q4H PRN Pain, Mild, Starting on Tue12/20/22 at 1914, Until Tue12/24/22 at 1711, Maximum of 4 grams (4000 mg) per day. Acetaminophen (Tylenol) tab 650 mg(Linked Group 1) 650 mg, Oral, Q6H PRN Pain, Moderate, Fever >38C(100.5F), Starting on Tue12/20/22 at 1914, Until Tue12/24/22 at 1711, Maximum of 4 grams (4000 mg) per day. Acetaminophen (Tylenol) tab 975 mg(Linked Group 1) 975 mg, Oral, Q6H PRN Pain, Severe, Starting on Tue12/20/22 at 1914, Until Tue12/24/22 at 1711, Maximum of 4 grams (4000 mg) per day. house antacid (Mi-Acid II) oral susp 15 mL 15 mL, Oral, Q4H PRN Indigestion, Nausea, Starting on Tue12/20/22 at 1914, Until Tue12/24/22 at 1711, SHAKE WELL milk of magnesia (Mom) oral susp 30 mL 30 mL, Oral, DAILY PRN Constipation, Starting on Tue12/20/22 at 1914, Until Tue12/24/22 at 1711 Linked Groups Order Group 1: Acetaminophen (Tylenol) tab 325 mgJump to med 325 mg, Oral, Q4H PRN Pain, Mild
Starting on Tue12/20/22 at 1914, Until Tue12/24/22 at 1711
Maximum of 4 grams (4000 mg) per day.
Or Acetaminophen (Tylenol) tab 650 mgJump to med 650 mg, Oral, Q6H PRN Pain, Moderate, Fever >38C(100.5F)
Starting on Tue12/20/22 at 1914, Until Tue12/24/22 at 171
Maximum of 4 grams (4000 mg) per day.
Or Acetaminophen (Tylenol) tab 975 mgJump to med 975 mg, Oral, Q6H PRN Pain, Severe
Starting on Tue12/20/22 at 1914, Until Tue12/24/22 at 1711
Maximum of 4 grams (4000 mg) per day.
documented in this encounter Advance Directives Documents on File Type Date Recorded Patient Maintenance Custodian Expl anation Advance Directives and Living Will [...] Code 03/06/2019 6:12 PM 03/09/2019 5:35 PM Th is order reflects the patients wishes and were consensually agreed upon. Question Answer Comments Discussion of Advance Directives occurred with: Not Discussed pt non verbal Does the patient have a Living Will? No Does the patient have Health Care Power of Deputy Coroner? No Full Code 03/06/2019 9:09 AM 03/06/2019 [...] the patient have Health Care Power of Deputy Coroner? No Care Teams Utilization Supervisor Relationship Specialty Start Date End Date Neli Cain MD [address] [place] [address] [place] [id number] PCP - General Internal Medicine 10/20/18 documented as of this encounter
--- OUTSIDE RECORDS SUMMARY | 2023-04-25 12:40 | External Medical Summary | Summary of Care ---
Author Name Unknown Organization [facility] Address [address] [place] [address] Phone [phone] Care Team Providers Care Care Manager Name Role Phone Neli Cain MD Primary Care Provid er Reason for Visit * Reason Onset Date Comments Encounter Created in Error 01/24/2023 Encounter Details Date Type Department Care Team Description 01/24/2023 Telephone Neurology Mary MENDOZA [address] [facility] [place] [address] Kaycee Light PA-C [address] [facility] [place] [address] Encounter Created in Error Allergies No known active allergiesdocumented as of this encounter (statuses as of 01/24/2023) Medications Medication Sig Dispensed Refills Start Date [...] as of this encounter (statuses as of 01/24/2023) Active Problems Problem Noted Date Major neurocognitive [...] as of this encounter (statuses as of 01/24/2023) Resolved Problems Problem Noted Date Resolved Date 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 12/22/2022 12/24/2022 documented as of this encounter (statuses as of 01/24/2023) Immunizations Name Administration Dates Next Due COVID-19 mRNA, LNP-s, No Pre serve, 2-Dose Series (Gummii) 03/12/2021,07/15/2020,06/24/2020 Pneumococcal Conjugate Vacc, 13 Valent (Prevnar) [...] Yes 12/06/2018 documented as of this encounter Plan of Treatment Upcoming Encounters Date Type Specialty Care Team Description 03/21/2023 Telemedicine Neurology Edgardo Lyons MD [address] [place] [address] [place] [address] 09/26/2023 Imaging Radiology 10/03/2023 Office Visit Radiation Oncology Suni Zaldivar, [facility]EESH [address] [facility] [address] Health Maintenance Due Date Last Done Comments Depression Screening 1959 Albumin/Creatinine Ratio 1965 DIABETES-EYE EXAM 1965 Diabetic Foot Exam 1965 DTaP,Tdap,and Td Vaccines (1 - Tdap) 1966 Zoster Vaccines (1 of 2) 1997 COVID-19 Vaccine (4 - Pfizer series) 05/07/2021 03/12/2021, 07/15/2020, 06/24/2020 HbA1c 06/20/2023 12/18/2022, 05/2019, [...] this encounter Medical Devices Implanted Type Area Machine Operator Slitter Technician Device Identifier Shelf Expiration Date Model / Serial / Lot Patch Duraguard [id number] - [id number] Implanted:Qty : 1 on 10/28/2018 [place]ron Gay [place] [facility] [place] - Human QUARLES : BIOSCIENCE 02/22/2023 [id number] / [id number] / [id number] Clip Aneursym [id number] - [id number] Implanted:Qty : 2 on 08/30/2017 by Rian Chery MD [place] [facility] [place]: Head B SENIOR : AESCULAP [id number] / / Valve Progav Sys W Sa 20 Flush - [id number] Implanted:Qty : 1 on 09/27/2017 by Rian Chery MD [place] [facility] [place]: Head B SENIOR : AESCULAP 04/24/2020 [id number] / / Plate Ti Lo Pro Str 2h 421.502 - [id number] Implanted:Qty : 4 on 06/01/2018 by Rian Chery MD [place] [facility] [place] SYNTHES MAXILLOFACIAL 421.502 / / Plate Ti Lo Pro Str 2h 421.502 - [id number] Implanted:Qty : 4 on 03/06/2019 by Rian Chery MD [place] [facility] [place]: Head SYNTHES MAXILLOFACIAL 421.502 / / documented as of this encounter Advance Directives Documents on File Type Date Recorded Patient Fuselage Framer Expl anation Advance Directives and Living Will [...] the patient have Health Care Power of Physician Chief Of Pathology? No Full Code 03/06/2019 9:09 AM 03/06/2019 [...] the patient have Health Care Power of Physician Chief Of Pathology? No Care Teams Care Manager Relationship Specialty Start Date End Date Neli Cain MD [address] [place] [address] [place] [address] PCP - General Internal Medicine 10/20/18 documented as of this encounter
--- OUTSIDE RECORDS SUMMARY | 2023-04-25 12:40 | External Medical Summary ---
Author Name Unknown Address Unknown Organization [id number]:LABORATORY [facility] - [address] [address] Laboratory Report Ordering Provider Test Date Status APOLINAR ARRINGTON 12/18/2022 21:52:57 Final Observation Date Value Abnormality Reference (Units ) Status Ethanol 12/18/2022 21:52:57 Negative Negative Final Performing Location LABORATORY [facility] - [address] [address]
--- OUTSIDE RECORDS SUMMARY | 2023-04-25 12:40 | External Medical Summary ---
Author Name Unknown Address Unknown Organization [id number]:LABORATORY [facility] - [address] [place] [address] [address] [place] [address] Laboratory Report Ordering Provider Test Date Status APOLINAR ARRINGTON 12/18/2022 22:30:57 Final Cutoff Concentrations:
Drug Level
Amphetamines 500 ng/mL
Benzodiazepines 100 ng/mL
Cannabinoids 50 ng/mL
Cocaine Metabolite 150 ng/mL
Fentanyl 1 ng/mL
Hydrocodone / Hydromorphone 300 ng/mL
Methadone Metabolite 100 ng/mL
Morphine / Codeine 300 ng/mL
Oxycodone / Oxymorphone 100 ng/mL

Screening results are presumptive and can only be used for medical purposes. Confirmatory testing is available upon request. Observation Date Value Abnormality Reference (Units ) Status Amphetamines, Urine screen 12/18/2022 22:30:57 Negative Negative Final Benzodiazepines, Urine screen 12/18/2022 22:30:57 Negative Negative Final Cannabinoids, Urine screen 12/18/2022 22:30:57 Negative Negative Final Cocaine Metabolite, Urine screen 12/18/2022 22:30:57 Negative Negative Final fentaNYL [Presence] in Urine by Screen method 12/18/2022 22:30:57 Negative Negative Final HYDROcodone [Presence] in Urine by Screen method 12/18/2022 22:30:57 Negative Negative Final 0-Ogdufigsbi-4,5-Dimeth yl-3,3-Diphenylpyrrolid ine (EDDP) [Presence] in Urine 12/18/2022 22:30:57 Negative Negative Final Opiates, Urine screen 12/18/2022 22:30:57 Negative Negative Final oxyCODONE [Presence] in Urine by Screen method 12/18/2022 22:30:57 Negative Negative Final Performing Location LABORATORY [facility] - [address] [place] [address]
--- OUTSIDE RECORDS SUMMARY | 2023-04-25 12:40 | External Medical Summary ---
Author Name Unknown Address Unknown Organization [id number]:LABORATORY [facility] - [address] [place] [facility] [place] [address] Laboratory Report Ordering Provider Test Date Status RADHA BUSTILLOS 12/21/2022 06:28:00 Final Observation Date Value Abnormality Reference (Units ) Status Triglyceride 12/21/2022 06:28:00 76 <=174 ( mg/dL) Final Triglyceride Reference Range s (mg/dL):
<150 Acceptable
150-174 Borderline high
175-499 High
>=500 Very high Cholesterol 12/21/2022 06:28:00 156 <200 (mg /dL) Final Total Cholesterol Reference Ranges (mg/dL):
<200 Desirable
200-239 Borderline high
>=240 High HDL 12/21/2022 06:28:00 51 >39 (mg/dL ) Final HDL Cholesterol Reference Ra nges (mg/dL):
>=60 High (Desirable)
<50 Low (Undesirable) For Females
<40 Low (Undesirable) For Males NON-HDL CHOLESTEROL 12/21/2022 06:28:00 105 <=159 (mg/dL) Final Non-HDL Cholesterol Referenc e Range (mg/dL):
<100 Target level for high risk ASCVD patient
<130 Optimal for general population
130-159 Near optimal for general population
160-189 Borderline High
190-219 High
>=220 Very High LDL, (calculated) 12/21/2022 06:28:00 90 <= 129 (mg/dL) Final LDL Cholesterol Reference Ra nges (mg/dL):
<70 Target level for high risk ASCVD patient
<100 Optimal for general population
100-129 Near optimal for general population
130-159 Borderline high
160-189 High
>=190 Very high Performing Location LABORATORY [facility] - [address] [facility] [address]
--- OUTSIDE RECORDS SUMMARY | 2023-04-25 12:40 | External Medical Summary ---
Author Name Unknown Address Unknown Organization K01:LABORATORY [facility] [place] [place] - [address] [place] [address] Laboratory Report Ordering Provider Test Date Status SADE ARRINGTONMARYANNE 12/18/2022 22:30:57 Final Observation Date Value Abnormality Reference (Units) Status Bacteria identified in Specimen by Culture 12/18/2022 22:30:57 No significant growth Final Test: Culture, Urine, Quant itative
Specimen Source: Urine, Clean Catch
Specimen Type: Urine
Specimen Date: 12/18/2022 10:30 PM
Result Date: 12/20/2022 11:44 AM
Result Status: Final result
Resulting Lab: LABORATORY [facility] [place] [place]
[address]
[facility] [address]

CULTURE

No significant growth

null Performing Location LABORATORY [facility] [place] [place] - [address] [facility] [address]
--- OUTSIDE RECORDS SUMMARY | 2023-04-25 12:41 | External Medical Summary | Summary of Care ---
Author Name Unknown Organization [facility] Address [address] [facility] [place] [address] Phone [phone] Care Team Providers Care Alterations Supervisor Name Role Phone Neli Cain MD Primary Care Provid er Reason for Visit * Reason Comments eRx-Medication Refill Encounter Details Date Type Department Care Team Description 10/30/2022 Refill Neurology, Fulda Wolf [place] [address] [place] [address] Belkis Venegas MD [address] [place] [address] Allergies No known active allergiesdocumented as of this encounter (statuses as of 11/02/2022) Medications Medication Sig Dispensed Refills Start Date End Date Status amLODIPine (NORVASC) 2.5 MG Tablet Take 2.5 mg by mouth daily. 0 Active famotidine (PEPCID) 20 MG Tablet Take 1 Tab by mouth every 12 hours. 60 Tab 1 11/09/2017 Active levothyroxine sodium (LEVOXYL) 75 MCG Tablet Take 1 Tab by mouth daily first thing in the morning. (at least 30 min prior to breakfast or other meds) 90 Tab 1 01/17/2018 Active acetaminophen (TYLENOL) 325 MG Tablet Take 650 mg by mouth every 4 hours as needed for Pain or Fever. 0 Active melatonin 3 MG Tablet Take 3 mg by mouth at bedtime. 0 Active artificial tears (ARTIFICIAL TEARS) 1.4 % ophthalmic solution Instill 2 Drops into both eyes 2 times a day. 0 Active hydrocortisone (CORTEF) 10 MG Tablet Administer 1 Tab into G tube every night at bedtime. 30 Tab 0 06/06/2018 Active Additional Information Patient taking differently:10 mgOralQHS, Informant: Child, Reported on 12/11/2019 hydrocortisone (CORTEF) 20 MG Tablet Administer 1 Tab into G tube daily. 30 Tab 0 06/07/2018 Active Additional Information Patient taking differently:20 mgOralDaily(AM),Morning, Informant: Child, Reported on 12/11/2019 multivitamin (MVI) Tablet Take 1 Tab by mouth daily. 30 Tab 0 06/07/2018 Active simvastatin (ZOCOR) 20 MG Tablet Take 20 mg by mouth every evening. 0 Active metFORMIN (GLUCOPHAGE) 500 MG Tablet Take 500 mg by mouth 2 times a day with morning and evening meals. 3 08/28/2018 Active Sennosides (SENNA) 8.6 MG Tablet Take 2 Tabs by mouth daily. 0 Active Memantine HCl 10 MG Oral Tablet (Namenda)Indicat ions:Moderate dementia with behavioral disturbance (HCC) TAKE 1 TABLET BY MOUTH TWICE A DAY 180 Tab 3 01/23/2021 Active Donepezil HCl 10 MG Oral Tablet (Aricept)Indicat ions:Moderate dementia with behavioral disturbance (HCC) TAKE 1 TABLET BY MOUTH EVERY DAY WITH BREAKFAST 90 Tablet 1 04/13/2021 Active Folic Acid 1 MG Oral Tablet TAKE 1 TABLET BY MOUTH EVERY DAY 90 Tablet 3 11/26/2021 Active Sulfamethoxazole -Trimethoprim 800-160 MG Oral Tablet (Bactrim DS)Indications:W ound infection TAKE 1 TABLET BY MOUTH TWICE A DAY 60 Tablet 12 05/12/2022 Active Donepezil HCl 23 MG Oral Tablet (Aricept)Indicat ions:Moderate dementia with behavioral disturbance (HCC),History of brain tumor,Apraxia,Ag itation Take 1 Tablet by mouth daily with breakfast. 30 Tablet 11 08/31/2022 4 Active Glimepiride 2 MG Oral Tablet (Amaryl) Take 1 Tablet by mouth daily before breakfast. 0 Active levETIRAcetam 500 MG Oral Tablet (Keppra) TAKE 1 TABLET BY MOUTH TWICE A DAY 180 Tablet 1 11/02/2022 Active levETIRAcetam 500 MG Oral Tablet (Keppra) TAKE 1 TABLET BY MOUTH TWICE A DAY 180 Tablet 1 03/31/2022 3 Discontinued documented as of this encounter (statuses as of 11/02/2022) Active Problems Problem Noted Date History of cranioplasty 03/06/2019 Sepsis 12/06/2018 Severe [...] as of this encounter (statuses as of 11/02/2022) Immunizations Name Administration Dates Next Due Pneumococcal Conjugate Vacc, 13 Valent (Prevnar) 06/13/2018 Seasonal Influenza, Quadriva lent, No Preserve, 6 Mons & Above, IM 06/13/2018 documented as of this encounter Social History [...] encounter Miscellaneous Notes * Telephone Encounter - Rj Lutz [facility] - 11/02/2022 10:41 AM EDTSigned Prescriptions: Disp Refills levETIRAcetam 500 MG Oral Tablet (Keppra) 180 Ta*1 Sig: TAKE 1 TABLET BY MOUTH TWICE A DAYAuthorizing Provider: BELKIS VENEGAS User: RJ LUTZ E * Telephone Encounter - Rj Lutz [facility] - 11/02/2022 10:37 AM EDT Refills authorized. Pt has upcoming appt with Dr. Venegas on 03/21/23. Thank youRj PharmD Clinical Pharmacist [facility] ([facility] (formerly [facility]) [phone] 11/02/2022, 10:40 AM * Telephone Encounter - [facility] - 10/30/2022 11:15 PM EDTPending Prescriptions: Disp Refills levETIRAcetam 500 MG Oral Tablet (Keppra) 180 Ta*1 Sig: TAKE 1 TABLET BY MOUTH TWICE A DAY * [facility]14 [facility]T Did you pend patient's preferred pharmacy and medication before forwarding?yes Pharmacy: [id number] [address] [place] [address] Pending Prescriptions: Disp Refills levETIRAcetam 500 MG Oral Tablet (Keppra)*180 Ta*1 Sig: TAKE 1 TABLET BY MOUTH TWICE A DAY Last Visit: Visit date not found (in office), 08/31/2022 (telemedicine) Next Visit: 03/21/2023 If no future appointments scheduled, and last appointment is greater than a year ago, please schedule patient for a follow-up appointment Last date the medication was ordered: 03/31/2022 Is this request for a controlled substance?No Urine Drug Screen: Results for orders placed or performed in visit on 12/10/19 TOX SCREEN, URINE, W/ CONFIRMATION Result Value Amphetamine NEGATIVE Benzodiazepines NEGATIVE Cannabinoids NEGATIVE Cocaine Metabolite NEGATIVE HYDROCODONE NEGATIVE Morphine / Codeine NEGATIVE METHADONE METABOLITE NEGATIVE OXYCODONE NEGATIVE TOX COMMENT THE ABOVE SCREENING RESULTS ARE PRESUMPTIVE AND CAN ONLY BE USED FOR MEDICAL PURPOSES. POSITIVE RESULTS REFLEX TO CONFIRMATORY TESTING. Cutoff Concentration Patient Phone Numbers Labs: Lab Results Component Value Date/Time CREAT 1.7 (H) 02/25/2020 09:32 AM POTASSIUM 5.1 02/25/2020 09:32 AM TSH 0.57 11/19/2019 09:47 AM LDLCALC 82 11/19/2019 09:47 AM LDLDIRECT NOT APPLICABLE 09/14/2017 04:53 PM ALT 26 12/06/2018 01:32 PM HGBA1C 6.5 (H) 02/25/2020 09:32 AM documented in this encounter Plan of Treatment Upcoming Encounters Date Type Specialty Care Team Description 03/21/2023 Telemedicine Neurology Belkis Venegas MD [address] [place] [address] 09/26/2023 Imaging Radiology 10/03/2023 Office Visit Radiation Oncology Suni Zaldivar CRNP [address] [facility] [place] [id number] Health Maintenance Due Date Last Done Comments Depression Screening, Annual for Pts 12 and Over 1959 Albumin/Creatinine Ratio 1965 B-12 1965 DIABETES-EYE EXAM 1965 DIABETES-FOOT EXAM 1965 DTaP,Tdap,and Td Vaccines (1 - Tdap) 1966 Zoster Vaccines (1 of 2) 1997 Pneumococcal Vaccine: 65+ Years (2 - PPSV23 if available, else PCV20) 08/08/2018 06/13/2018 HbA1c 08/24/2020 02/25/2020, 02/23, 10/28/2018, Additional history exists TSH 11/18/2020 11/19/2019, 07/0 09/2018, 06/10/2018, Additional history exists GFR 02/24/2021 02/25/2020, 02/24, 03/09/2019, Additional history exists COVID-19 Vaccine (4 - Pfizer series) 05/07/2021 03/12/2021, 07/15/2020, 06/24/2020 Influenza Vaccine (FLU shot) (#1) 2022 06/13/2018, 06/13/2018 GARDASIL-HPV IMMUNIZATION SERIES Aged Out No longer eligible based on patient's age to complete this topic Hepatitis B Aged Out No longer eligi ble based on patient's age to complete this topic MENINGOCOCCAL (MENACTRA/MENVEO) Aged Out No longer eligible based on patient's age to complete this topic documented as of this encounter Medical Devices Implanted Type Area Cutter And Edge Trimmer Device Identifier Shelf Expiration Date Model / Serial / Lot Patch Duraguard [id number] - [id number] Implanted:Qty : 1 on 10/28/2018 by Aron Gay MD at [facility] [place] Tissue - Human QUARLES : BIOSCIENCE 02/22/2023 [id number] / [id number] / [id number] Clip Aneursym [id number] - [id number] Implanted:Qty : 2 on 08/30/2017 by Rian Chery MD at [facility] [place] Left: Head B SENIOR : AESCULAP [id number] / / Valve Progav Sys W Sa 20 Flush - [id number] Implanted:Qty : 1 on 09/27/2017 by Rian Chery MD at [facility] [place] Right: Head B SENIOR : AESCULAP 04/24/2020 [id number] / / Plate Ti Lo Pro Str 2h 421.502 - [id number] Implanted:Qty : 4 on 06/01/2018 by Rian Chery MD at [facility] [place] SYNTHES MAXILLOFACIAL 421.502 / / Plate Ti Lo Pro Str 2h 421.502 - [id number] Implanted:Qty : 4 on 03/06/2019 by Rian Chery MD at [facility] [place] Left: Head SYNTHES MAXILLOFACIAL 421.502 / / documented as of this encounter Advance Directives Documents on File Type Date Recorded Patient Lime Hide Inspector Expl anation Advance Directives and Living Will [...] the patient have Health Care Power of Customer Support Executive? No Code Status History Code Status Date Activated Date Inactivated Comments Full Code 03/06/2019 9:09 AM 03/06/2019 6:12 [...] the patient have Health Care Power of Customer Support Executive? No Full Code 06/01/2018 8:03 AM 06/06/2018 9:38 PM This o rder reflects the patients wishes and were consensually agreed upon. Question Answer Comments Discussion of Advance Directives occurred with: Patient Does the patient have a Living Will? No Does the patient have Health Care Power of Customer Support Executive? No Care Teams Alterations Supervisor Relationship Specialty Start Date End Date Neli Cain MD [address] [place] [address] [place] [id number] PCP - General Internal Medicine 10/20/18 documented as of this encounter
--- NOTE | 2023-04-25 12:45 | Emergency Department Note ---
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 Patient is a poor historian. Family reported to EMS that the patient was more confused than his baseline and developed cough and congestion yesterday. They performed a home COVID-19 test and this was negative. On arrival to emergency department the patient is febrile to 38.5 and vital signs are otherwise stable. He appears clinically dry. EKG without overt acute ischemia. Chest x-ray with question of minimal right basilar opacity and possible left basilar opacity. WBC and platelets within normal limits. H/H similar to prior. Chemistry without metabolic acidosis. Creatinine 2 slightly increased from prior range values in setting of CKD. LFTs unremarkable. High-sensitivity troponin 9.3, within normal limits. Lipase not elevated. Procalcitonin is undetectable. TSH is low at 0.1 however free T4 within normal limits. Respiratory BioFire was positive for influenza A. The patient was treated with IV fluid hydration, IV APAP as well as stress dose hydrocortisone due to his adrenal insufficiency in the setting of his influenza illness. He is additionally administered initial dose of Tamiflu. Given the patient's immunocompromise status in setting of influenza infection patient was referred to hospital service for further management. I did review this plan with the patient's daughter over the phone who was in agreement. She did not present to the emergency department today due to her continued symptoms of influenza. Case was discussed [place]. [place], [facility], who will evaluate the patient for admission. Further management per admitting team. Triage Nursing notes reviewed and agree them. Prior/external medical records reviewed Vital Signs: reviewed Differential diagnosis: Infection, dehydration, metabolic abnormality, hypo/hyperglycemia, electrolyte disturbance, anemia, hypoxia, cardiac sources, intracerebral event, toxicologic, neurologic, as well as other pathologies. ER treatment provided: See below. Diagnostics interpreted by me: ECG: Normal sinus rhythm, 93 bpm, LVH, no overt ST elevation or depression, QTc 397, QRS 72. Cardiac Monitoring: An order for continuous cardiac monitoring was placed and demonstrated Normal sinus rhythm, 93 bpm, no ectopy. Laboratory studies: See below Imaging studies: See below Consultation(s): Case was discussed with Dr. Dallas, [facility] [place], who will evaluate the patient for admission. 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 Patient is a poor historian. Family reported to EMS that the patient was more confused than his baseline and developed cough and congestion yesterday. They performed a home COVID-19 test and this was negative. ROS: See above HPI for pertinent positives & negatives. A total of 10 systems reviewed and were otherwise negative. VITALS:See Below PHYSICAL EXAMINATION: GENERAL: Awake, alert, fatigued-appearing, in no distress HENT: Normocephalic, atraumatic. Oropharynx with dry mucous membranes and otherwise unremarkable. EYES: Normal conjunctiva. Sclera non-icteric. Blind left eye baseline. NECK: Supple. No nuchal rigidity. FROM. No JVD. RESPIRATORY: Clear to auscultation. CARDIAC: Regular rate, normal rhythm. Extremities warm and well perfused. Pulses equal. ABDOMEN: Soft, non-distended. No tenderness to palpation. No rebound or guarding. No masses. RECTAL: Deferred. MUSCULOSKELETAL: Chest examination reveals no tenderness. The back is symmetrical on inspection without obvious abnormality. There is no CVA tenderness to palpation. No joint edema. LOWER EXTREMITIES: Calves are equal size bilaterally and non-tender. No edema. No discoloration. NEURO: No focal sensory or motor deficits noted. Generalized weakness. SKIN: No rash or jaundice noted. Lauri Lopez MD Past Med/Surg History Medical History Dementia with behavioral disturbance Pituitary macroadenoma Dementia Secondary adrenal insufficiency Central hypothyroidism Urinary incontinence Type 2 diabetes mellitus Presence of unidentified hemoglobin variant Hypertension Hyperlipidemia Glaucoma Acid reflux Panhypopituitarism Surgical History History of cranioplasty (2019) due to osteomyelitis H/O craniotomy (2018) pituitary macroadenoma S/P CH[employer] MA[employer]GEMENT [employer]AD shunt (2018) Family History Denies family history of Ovarian cancer Prostate cancer Myocardial infarction Breast cancer Colorectal cancer Social History Smoking Status: Never smoker Second Hand Exposure: No; Do You Dip or Chew Tobacco: No; Hx Alcohol Use: No Hx Substance Use: No Preferred Language: Khmer Communication Ability: Impaired Visual Impairment: Partially Limited Hearing Ability: Normal marital status: Current Living Situation: Family Current Living Situation Comment: lives with , daughter, son in law, 2 grandchildren current occupational status: retired Feels Safe at Home: Yes Childhood Exposure to Second-Hand Smoke: No Diet: regular caffeine: No during the past year weight has: remained stable Dental Care, Regularly: No Physical Activity Frequency: Does not Exercise Seatbelt Use: always Sunscreen Use: No Assistive Devices: None Allergies Allergies Allergy/AdvReac Type Severity Reaction Status Date / Time No Known Allergies Allergy Verified 12/29/22 08:45 Home Meds Home Medications Medication Instructions Recorded Confirmed acetaminophen 325 mg tablet 650 mg PO Q4H PRN Pain 10/27/18 04/25/23 levetiracetam 500 mg tablet 500 mg PO BID 10/27/18 04/25/23 multivitamin 1 tab PO DAILY 10/27/18 04/25/23 ferrous sulfate 142 mg (45 mg 45 mg PO DAILY 11/29/18 04/25/23 iron) tablet,extended release melatonin 3 mg tablet 3 mg PO HS PRN Sleep 09/30/22 04/25/23 sennosides 8.6 mg tablet (senna) 8.6 mg PO DAILY PRN Constipation 09/30/22 04/25/23 donepezil 23 mg tablet 23 mg PO DAILY 09/05/23 01/01/24 sulfamethoxazole 800 1 tab PO BID 04/25/23 04/25/23 mg-trimethoprim 160 mg tablet Previous Rx's Medication Instructions Recorded amlodipine 2.5 mg tablet 2.5 mg PO DAILY #90 tabs 07/06/22 levothyroxine 75 mcg tablet 75 mcg PO DAILY #90 tabs 08/09/22 glimepiride 2 mg tablet 2 mg PO QAM #90 tabs 08/23/22 simvastatin 20 mg tablet 20 mg PO DAILY #90 tabs 11/01/22 blood sugar diagnostic (OneTouch #100 ea 12/29/22 Verio test strips) blood-glucose meter (OneTouch #1 ea 12/29/22 Verio Flex Start kit) lancets 30 gauge (OneTouch Delica #100 ea 12/29/22 Plus Lancet) quetiapine 25 mg tablet (Seroquel) 25 mg PO BID #180 tabs 12/29/22 hydrocortisone 20 mg tablet 10 mg (1/2 x 20 mg) PO .COMPLEX 03/15/23 #135 tabs Results & Data (ED) Vital Signs Vital Signs - 24 hr 04/25/23 12:54 04/25/23 13:14 04/25/23 13:14 Temperature Temperature Source Pulse Rate 93 H 89 Pulse Rate [Apical] 88 Respiratory Rate 22 22 Respiratory Effort / Characteristics Non-Labored Spontaneous Respiratory Depth Normal Normal Blood Pressure 118/83 Blood Pressure [Right Arm] 111/87 Blood Pressure Mean 94 Blood Pressure Mean [Right Arm] 95 Blood Pressure Position Lying Blood Pressure Position [Right Arm] Pulse Oximetry 94 94 Oxygen Delivery Method Room Air Room Air Sepsis Recent Fever Within 48 Hours Yes Sepsis New/Unexplained Change in Mental Status Yes Sepsis Action Taken by Nursing Physician Notified 04/25/23 13:14 04/25/23 14:02 04/25/23 14:45 Temperature 37.1 C Temperature Source Oral Pulse Rate 87 Pulse Rate [Apical] 86 Respiratory Rate 20 18 Respiratory Effort / Characteristics Non-Labored Respiratory Depth Normal Blood Pressure Blood Pressure [Right Arm] 109/82 Blood Pressure Mean Blood Pressure Mean [Right Arm] 91 Blood Pressure Position Blood Pressure Position [Right Arm] Pulse Oximetry 94 95 Oxygen Delivery Method Room Air Room Air Sepsis Recent Fever Within 48 Hours Sepsis New/Unexplained Change in Mental Status Sepsis Action Taken by Nursing 04/25/23 15:50 04/25/23 17:00 04/25/23 17:20 Temperature Temperature Source Pulse Rate 71 Pulse Rate [Apical] 74 74 Respiratory Rate 18 20 Respiratory Effort / Characteristics Non-Labored Non-Labored Respiratory Depth Normal Normal Blood Pressure Blood Pressure [Right Arm] 103/67 111/66 Blood Pressure Mean Blood Pressure Mean [Right Arm] 79 81 Blood Pressure Position Blood Pressure Position [Right Arm] Lying Pulse Oximetry 96 97 Oxygen Delivery Method Room Air Room Air Sepsis Recent Fever Within 48 Hours Sepsis New/Unexplained Change in Mental Status Sepsis Action Taken by Nursing 04/25/23 19:00 04/25/23 19:46 Temperature Temperature Source Pulse Rate 77 Pulse Rate [Apical] 77 Respiratory Rate 16 18 Respiratory Effort / Characteristics Non-Labored Respiratory Depth Normal Blood Pressure 123/85 Blood Pressure [Right Arm] 123/85 Blood Pressure Mean Blood Pressure Mean [Right Arm] 97 Blood Pressure Position Blood Pressure Position [Right Arm] Pulse Oximetry 95 95 Oxygen Delivery Method Room Air Room Air Sepsis Recent Fever Within 48 Hours Sepsis New/Unexplained Change in Mental Status Sepsis Action Taken by Nursing Laboratory Data Attestation: I reviewed the patient's lab results. 04/25/23 13:05 04/25/23 13:05 Lab Results 04/25/23 04/25/23 04/25/23 Range/Units 13:05 18:50 20:10 WBC 6.63 (4.8-10.8) K/ul RBC 5.96 (4.70-6.10) M/uL Hgb 13.4 L (14.0-18.0) g/dl Hct 41.3 L (42.0-52.0) % MCV 69.3 L (80.0-100.0) fL MCH 22.5 L (25.0-34.0) pg MCHC 32.4 (32.0-36.0) g/dL RDW Std Deviation 35.8 L (36.4-46.3) fL RDW Coeff of Shin 15.1 H (11.5-14.5) % Plt Count 209 (130-400) K/uL MPV 9.6 (9.4-12.4) fL Immature Gran % (Auto) 0.5 % Neut % (Auto) 65.4 % Lymph % (Auto) 17.8 % Teton % (Auto) 15.5 % Eos % (Auto) 0.3 % Baso % (Auto) 0.5 % Neut # (Auto) 4.34 (1.40-6.50) K/uL Lymph # (Auto) 1.18 L (1.20-3.40) K/uL [place]eton # (Auto) 1.03 H (0.11-0.59) K/uL Eos # (Auto) 0.02 (0.00-0.50) K/uL Baso # (Auto) 0.03 (0.00-0.20) K/uL Immature Gran # (Auto) 0.03 (0.01-0.20) K/uL Polychromasia 1+ Hypochromasia Present Microcytosis Present Sodium 139 (136-145) mmol/L Potassium 4.4 (3.5-5.1) mmol/L Chloride 106 (98-107) mmol/L Carbon Dioxide 23 (21-32) mmol/L Anion Gap 10 (3-11) BUN 21 (6-23) mg/dl Creatinine 2.11 H (0.6-1.4) mg/dl Est Cr Clr Drug Dosing 33.7 ml/min Est GFR ( Amer) 34.2 ml/min Est GFR (Non-Af Amer) 29.5 ml/min BUN/Creatinine Ratio 10.0 (10-20) Glucose 166 H (70-99(Fasting)) mg/dl POC Glucose 195 H 210 H (70-99) mg/dl Calcium 9.1 (8.6-10.3) mg/dl Phosphorus 2.8 (2.5-4.9) mg/dl Magnesium 2.3 (1.7-2.4) mg/dl Total Bilirubin 0.3 (0.2-1.0) mg/dl AST 25 (13-39) U/L ALT 25 (7-52) U/L Alkaline Phosphatase 61 (34-104) U/L Troponin I High Sens 9.3 (0-20) pg/ml Total Protein 7.6 (6.0-8.3) gm/dl Albumin 4.2 (3.4-5.0) gm/dl Globulin 3.4 (2.5-4.0) gm/dl Albumin/Globulin Ratio 1.2 (0.9-2) Lipase 18 (11-82) U/L Procalcitonin < 0.05 (0-0.5) ng/ml TSH 0.111 L (0.300-4.500) uIu/ml Free T4 0.83 (0.61-1.60) ng/dl Adenovirus (PCR) Not Detected (NotDetected) B. pertussis DNA (PCR) Not Detected (NotDetected) B.parapertussis DNA PCR Not Detected (NotDetected) C. pneumoniae DNA (PCR) Not Detected (NotDetected) Coronavirus OC43 (PCR) Not Detected (NotDetected) Coronavirus HKU1 (PCR) Not Detected (NotDetected) Coronavirus 229E (PCR) Not Detected (NotDetected) SARS-CoV-2 (PCR) Not Detected (NotDetected) Coronavirus NL63 (PCR) Not Detected (NotDetected) Human Metapneumovir PCR Not Detected (NotDetected) Influenza A (H3) PCR DETECTED A* (NotDetected) Influenza Type B (PCR) Not Detected (NotDetected) M. pneumoniae (PCR) Not Detected (NotDetected) Parainfluenza 1 (PCR) Not Detected (NotDetected) Parainfluenza 2 (PCR) Not Detected (NotDetected) Parainfluenza 3 (PCR) Not Detected (NotDetected) Parainfluenza 4 (PCR) Not Detected (NotDetected) RSV (PCR) Not Detected (NotDetected) Entero/Rhino (PCR) Not Detected (NotDetected) Administered Medications Discontinued Medications Hydrocortisone Sodium Succinate (Hydrocortisone Sod Succinate 100 Mg/2 Ml Vial) 100 mg IV NOW STA Stop: 04/25/23 14:11 Last Admin: 04/25/23 14:22 Dose: 100 mg Documented By: DENNYS Acetaminophen (Ofirmev) 1,000 mg in 100 mls @ 400 mls/hr IV NOW STA Stop: 04/25/23 13:25 Last Infusion: 04/25/23 15:08 Dose: Infused Documented By: Admin: 04/25/23 14:00 Dose: 400 mls/hr Documented By: DENNYS Sodium Chloride (Nss) 1,000 mls @ 999 mls/hr IV .Q1H1M ONE Stop: 04/25/23 14:11 Last Infusion: 04/25/23 15:08 Dose: Infused Documented By: Admin: 04/25/23 14:00 Dose: 999 mls/hr Documented By: DENNYS Oseltamivir Phosphate (Oseltamivir Phosphate 75 Mg Cap) 75 mg PO NOW STA; Protocol Stop: 04/25/23 16:28 Last Admin: 04/25/23 16:43 Dose: 75 mg Documented By: ML Imaging Data Radiologist's Impression: Chest X-Ray 04/25/23 13:09 XR chest 1V portable CLINICAL HISTORY: Chest pain, nonspecific COMPARISON STUDY: Chest radiograph October 27, 2018. FINDINGS: CH[employer]NAG[employer] LEAD shunt catheter is partially imaged. Visualized portions are intact. Elevation the right hemidiaphragm is unchanged. There is no pneumothorax or pleural effusion. Cardiomediastinal silhouette is stable. Minimal right lower lung patchy opacity is present. Possible left basilar opacity is noted. No evidence for pulmonary edema. IMPRESSION: Minimal right basilar opacity. Possible left basilar opacity. The findings may reflect pneumonia or atelectasis. Radiographic follow-up is recommended to ensure resolution. ACT 112: Negative or not required by law. Electronically signed by: Edward Cain M.D. 04/25/2023 1:[address] 04/25/23 18:07 CT OF THE HEAD WITHOUT CONTRAST CLINICAL HISTORY: h.o craniotomy, eval stroke COMPARISON STUDY: Head CT October 27, 2018. MRI of the brain August 10, 2017. CT DOSE: 703.85 mGy.cm TECHNIQUE: Helical axial images of the head were obtained without IV contrast. Automated exposure control was utilized for the study. A dose lowering technique was utilized adhering to the principles of ALARA. FINDINGS: No acute intracranial hemorrhage is present. A right posterior ventricular catheter is in place. Mild ventricular dilatation has not significantly changed. Postoperative findings within the sella are noted. 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 This is suboptimally assessed by CT but measures 2.6 cm in transverse dimension. Left-sided craniotomy is noted. An operative bed fluid collection is similar to prior exam. Left frontotemporal encephalomalacia is similar to prior exam. There are no findings to suggest acute dural sinus thrombosis or acute territorial infarct. Additional white matter hypodensities favor small vessel disease. No acute calvarial fracture. IMPRESSION: 1. No acute intracranial hemorrhage. No evidence for acute infarct by CT. 2. No significant change in mild ventricular dilatation. Right posterior ventricular catheter in place. 3. Stable to slight increase in size of the sellar mass with suprasellar extension which favors a pituitary macroadenoma. 4. Status post left frontal craniotomy. Chronic operative bed fluid collection, similar to prior exam. ACT 112: Negative or not required by law. Electronically signed by: Edward Cian M.D. 04/25/2023 7:17 PM Discharge Plan Visit Data Chief Complaint: Weakness Stated Complaint: FALL, COUGH, AMS ED Provider: Lauri Lopez Discharge Problem: Influenza A, Secondary adrenal insufficiency, CKD (chronic kidney disease), Generalized weakness Patient Disposition: Admitted As Inpatient Discharge Instructions Interventions: ED Discharge Assessment Last Done: 04/25/23 19:46 Forms Stand Alone Forms: My [facility] [place] [employer] Prescriptions Prescriptions: No Action amlodipine 2.5 mg tablet 2.5 mg PO DAILY Qty: 90 3RF levothyroxine 75 mcg tablet 75 mcg PO DAILY Qty: 90 3RF glimepiride 2 mg tablet 2 mg PO QAM Qty: 90 3RF Rx Instructions: administer with breakfast simvastatin 20 mg tablet 20 mg PO DAILY Qty: 90 3RF hydrocortisone 20 mg tablet 10 mg PO .COMPLEX Qty: 135 3RF Rx Instructions: 10 mg PO daily in the AM and 20mg po daily in PM ; ferrous sulfate 142 mg (45 mg iron) tablet extended release 45 mg PO DAILY quetiapine [Seroquel] 25 mg tablet 25 mg PO BID Qty: 180 3RF (DME) blood-glucose meter [OneTouch Verio Flex Start] Kit See Rx Instructions .Route Qty: 1 0RF Rx Instructions: As directed (DME) OneTouch Verio test strips Strip See Rx Instructions .Route Qty: 100 3RF Rx Instructions: check blood sugars daily and as needed (DME) lancets [OneTouch Delica Plus Lancet] 30 gauge misc See Rx Instructions .Route Qty: 100 3RF Rx Instructions: check blood sugars daily and as needed donepezil 23 mg tablet 23 mg PO DAILY levetiracetam 500 mg tablet 500 mg PO BID multivitamin Tablet 1 tab PO DAILY acetaminophen 325 mg Tablet 650 mg PO Q4H PRN (Reason: Pain) melatonin 3 mg tablet 3 mg PO HS PRN (Reason: Sleep) sennosides [senna] 8.6 mg tablet 8.6 mg PO DAILY PRN (Reason: Constipation) sulfamethoxazole-trimethoprim 800-160 mg tablet 1 tab PO BID Rx Instructions: ON GOING THERAPY Referrals Referrals: Neli Cain MD [Primary Care Provider] - Discharge Problem: CKD (chronic kidney disease) Qualifiers: Chronic kidney disease stage: unspecified stage Qualified Code(s): N18.9 - Chronic kidney disease, unspecified
[2023-04-25] MEDS ORDERED: ACETAMINOPHEN 1,000 MG/100 ML VIAL IV STA (13:11)
[2023-04-25] MEDS ORDERED: SODIUM CHLORIDE 0.9% 1,000 ML IV ONE (13:11)
[2023-04-25 13:34] LABS: Basophils # (auto) 0.03 K/uL (0.00-0.20); Basophils % (auto) 0.5 %; Eosinophils # (auto) 0.02 K/uL (0.00-0.50); Eosinophils % (auto) 0.3 %; Hematocrit (blood only) 41.3 % (42.0-52.0); Hemoglobin 13.4 g/dl (14.0-18.0); Immature Granulocytes # (auto) 0.03 K/uL (0.01-0.20); Immature Granulocytes % (auto) 0.5 %; Lymphocytes # (auto) 1.18 K/uL (1.20-3.40); Lymphocytes % (auto) 17.8 %; Mean Corpuscular Hemoglobin 22.5 pg (25.0-34.0); Mean Corpuscular Hgb Conc 32.4 g/dL (32.0-36.0); Mean Corpuscular Volume 69.3 fL (80.0-100.0); Monocytes # (auto) 1.03 K/uL (0.11-0.59); Monocytes % (auto) 15.5 %; Neutrophils # (auto) 4.34 K/uL (1.40-6.50); Neutrophils % (auto) 65.4 %; RDW Coefficient of Variation 15.1 % (11.5-14.5); RDW Standard Deviation 35.8 fL (36.4-46.3); Red Blood Count 5.96 M/uL (4.70-6.10); White Blood Count 6.63 K/ul (4.8-10.8)
[2023-04-25 13:39] LABS: Mean Platelet Volume 9.6 fL (9.4-12.4); Platelet Count 209 K/uL (130-400)
[2023-04-25 13:50] LABS: Albumin Globulin Ratio 1.2 (0.9-2); Albumin Level 4.2 gm/dl (3.4-5.0); Bilirubin,Total 0.3 mg/dl (0.2-1.0); Calcium 9.1 mg/dl (8.6-10.3); Creatinine Clr Calc Pharmacy 33.7 ml/min; Est GFR (African American) 34.2 ml/min; Est GFR (Non-African American) 29.5 ml/min; Globulin 3.4 gm/dl (2.5-4.0); Magnesium 2.3 mg/dl (1.7-2.4); Phosphorus 2.8 mg/dl (2.5-4.9); Potassium 4.4 mmol/L (3.5-5.1); Total Protein 7.6 gm/dl (6.0-8.3)
[2023-04-25 13:56] LABS: Troponin I High Sensitivity 9.3 pg/ml (0-20)
--- NOTE | 2023-04-25 13:58 | XRay Report ---
XR chest 1V portable CLINICAL HISTORY: Chest pain, nonspecific COMPARISON STUDY: Chest radiograph October 27, 2018. FINDINGS: [employer] shunt catheter is partially imaged. Visualized portions are intact. Elevation the right hemidiaphragm is unchanged. There is no pneumothorax or pleural effusion. Cardiomediastinal silhouett e is stable. Minimal right lower lung patchy opacity is present. Possible left basilar opacity is not ed. No evidence for pulmonary edema. IMPRESSION: Minimal right basilar opacity. Possible left basilar opacity. The findings may reflect p neumonia or atelectasis. Radiographic follow-up is recommended to ensure resolution. ACT 112: Negative or not required by law. Electronically signed by: Edward Cain M.D. 04/25/2023 1:56 PM
[2023-04-25 14:06] LABS: Thyroid Stimulating Hormone 0.111 uIu/ml (0.300-4.500)
[2023-04-25] MEDS ORDERED: HYDROCORTISONE SOD SUCCINATE 100 MG/2 ML VIAL IV STA (14:10)
[2023-04-25 14:12] LABS: Hypochromasia Present; Microcytosis Present; Polychromasia 1+
[2023-04-25 14:32] LABS: Adenovirus PCR Not Detected (NotDetected); Bordetella parapertussis PCR Not Detected (NotDetected); Bordetella pertussis PCR Not Detected (NotDetected); Chlamydia pneumoniae PCR Not Detected (NotDetected); Coronavirus 229E PCR Not Detected (NotDetected); Coronavirus CoV-2 (COVID19)PCR Not Detected (NotDetected); Coronavirus HKU1 PCR Not Detected (NotDetected); Coronavirus NL63 PCR Not Detected (NotDetected); Coronavirus OC43PCR Not Detected (NotDetected); Human Metapneumovirus PCR Not Detected (NotDetected); Influenza B PCR Not Detected (NotDetected); Mycoplasma pneumoniae PCR Not Detected (NotDetected); Parainfluenza Virus 1 PCR Not Detected (NotDetected); Parainfluenza Virus 2 PCR Not Detected (NotDetected); Parainfluenza Virus 3 PCR Not Detected (NotDetected); Parainfluenza Virus 4 PCR Not Detected (NotDetected); Respiratory Syncytial VirusPCR Not Detected (NotDetected); Rhinovirus/Enterovirus PCR Not Detected (NotDetected)
[2023-04-25 14:35] LABS: Influenza A (H3) PCR DETECTED (NotDetected)
[2023-04-25 14:41] LABS: T4 Free Thyroxine 0.83 ng/dl (0.61-1.60)
--- NOTE | 2023-04-25 14:48 | Electrocardiogram Report ---
Test Reason : Blood Pressure : / mmHG Vent. Rate : 093 BPM Atrial Rate : 093 BPM P-R Int : 194 ms QRS Dur : 072 ms QT Int : 320 ms P-R-T Axes : 046 -11 056 degrees QTc Int : 397 ms Normal sinus rhythm Low voltage QRS Poor R wave progression, consider anterior TN vs. lead placement vs. LVH Abnormal ECG When compared with ECG of 27-OCT-2018 10:45, prwp now present Confirmed by Kenneth Rosario ([id number]) on 04/25/2023 2:48:10 PM Referred By: REFERRED SELF Confirmed By:Kenneth Rosario
[2023-04-25] MEDS ORDERED: OSELTAMIVIR PHOSPHATE 75 MG CAP PO STA (16:27)
--- NOTE | 2023-04-25 17:37 | History & Physical Report ---
Date of Service April 25, 2023 Assessment & Plan (1) Metabolic encephalopathy: Plan: Patient presents with weakness likely metabolic encephalopathy from influenza present on admission. Currently a urine culture is pending. Certainly to be worsened by acute kidney injury. Patient be hydrated with another liter of saline at 80 an hour and institute on renal dose Tamiflu (2) Secondary adrenal insufficiency: Plan: Patient is a history of pituitary adenoma resection on chronic steroid replacement. Will be given stress dose steroids given febrile state Cognitive dysfunction with dementia patient will continue on donepezil having his sleep aid trazodone held at night but continuing melatonin Patient seems to have some residual left eye issues from his craniotomy pending CT scan of the head given initial concern that the patient may have had unilateral weakness and previous history of craniotomy. (3) Type 2 diabetes mellitus: Plan: Typically controlled with oral hypoglycemic agents will put on sliding scale hold his oral agents at this time and check a hemoglobin A1c (4) Hypertension: Plan: Typically on low-dose amlodipine this is currently held both relative hypotension with his illness (5) Central hypothyroidism: Plan: Patient's hypothyroidism is felt to be central remains on repletion T4 is in normal range Plan DVT prevention is heparin due to renal insufficiency Patient is a full code. History of Present Illness Primary Care Provider: Neli Cain MD 78-year-old male brought in by his family due to increasing weakness at home. Family is suffering from respiratory illness and patient is tested positive for influenza. Reportedly the patient a ground-level fall where he did not strike his head he was then placed on the couch and could not get back up. There is some initial concerns of unilateral weakness but is global weakness and a stroke workup was not pursued in emergency department. Patient does have acute kidney injury on top of chronic kidney disease and the influenza. He is with baseline dementia and is a poor historian based upon that. He was hydrated and instituted on Tamiflu therapy but cannot return home safely due to his degree of weakness. Allergies Allergy/AdvReac Type Severity Reaction Status Date / Time No Known Allergies Allergy Verified 12/29/22 08:45 Home Medications Medication Instructions Recorded Confirmed Type acetaminophen 325 mg tablet 650 mg PO Q4H PRN Pain 10/27/18 04/25/23 History levetiracetam 500 mg tablet 500 mg PO BID 10/27/18 04/25/23 History multivitamin 1 tab PO DAILY 10/27/18 04/25/23 History ferrous sulfate 142 mg (45 mg 45 mg PO DAILY 11/29/18 04/25/23 History iron) tablet,extended release amlodipine 2.5 mg tablet 2.5 mg PO DAILY #90 tabs 07/06/22 04/25/23 Rx levothyroxine 75 mcg tablet 75 mcg PO DAILY #90 tabs 08/09/22 04/25/23 Rx glimepiride 2 mg tablet 2 mg PO QAM #90 tabs 08/23/22 04/25/23 Rx melatonin 3 mg tablet 3 mg PO HS PRN Sleep 09/30/22 04/25/23 History sennosides 8.6 mg tablet (senna) 8.6 mg PO DAILY PRN Constipation 09/30/22 04/25/23 History simvastatin 20 mg tablet 20 mg PO DAILY #90 tabs 11/01/22 04/25/23 Rx donepezil 23 mg tablet 23 mg PO DAILY 12/28/22 04/25/23 History blood sugar diagnostic (OneTouch #100 ea 12/29/22 12/29/22 Rx Verio test strips) blood-glucose meter (OneTouch #1 ea 12/29/22 12/29/22 Rx Verio Flex Start kit) lancets 30 gauge (OneTouch Delica #100 ea 12/29/22 12/29/22 Rx Plus Lancet) quetiapine 25 mg tablet (Seroquel) 25 mg PO BID #180 tabs 12/29/22 04/25/23 Rx hydrocortisone 20 mg tablet 10 mg (1/2 x 20 mg) PO .COMPLEX 03/15/23 04/25/23 Rx #135 tabs sulfamethoxazole 800 1 tab PO BID 04/25/23 04/25/23 History mg-trimethoprim 160 mg tablet Past Med/Surg History Medical History (Updated 04/25/23 @ 17:34 by Jadon Dallas MD) Dementia with behavioral disturbance Pituitary macroadenoma Dementia Secondary adrenal insufficiency Central hypothyroidism Urinary incontinence Type 2 diabetes mellitus Presence of unidentified hemoglobin variant Hypertension Hyperlipidemia Glaucoma Acid reflux Panhypopituitarism Surgical History History of cranioplasty (2018) due to osteomyelitis H/O craniotomy (2018) pituitary macroadenoma S/P GENERAL TELLER shunt (2018) Family History Denies family history of Ovarian cancer Prostate cancer Myocardial infarction Breast cancer Colorectal cancer Social History Smoking Status: Never smoker Second Hand Exposure: No; Do You Dip or Chew Tobacco: No; Hx Alcohol Use: No Hx Substance Use: No Preferred Language: Tamaz[place] Communication Ability: Impaired Visual Impairment: Partially Limited Hearing Ability: Normal marital status: Current Living Situation: Family Current Living Situation Comment: lives with , daughter, son in law, 2 grandchildren current occupational status: retired Feels Safe at Home: Yes Childhood Exposure to Second-Hand Smoke: No Diet: regular caffeine: No during the past year weight has: remained stable Dental Care, Regularly: No Physical Activity Frequency: Does not Exercise Seatbelt Use: always Sunscreen Use: No Assistive Devices: None Review of Systems Review of Systems: Patient has a thick accent and obviously has dementia his review of systems is unreliable at this point in time. 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 He cannot see out of his left eye and when confronted Vital signs as documented. Head exam is normocephalic has a well-healed coronal craniotomy scar likely from his pituitary adenoma surgery Neck is without JVD, thyromegaly, or carotid bruits. Lungs are clear to auscultation, no focal loss of breath sounds Cardiac exam, Rhythm is regular.. No murmurs, rubs or gallops. Abdominal exam reveals normal bowel sounds, soft non tender, no masses Extremities are nonedematous and both pedal pulses are present Neurologic exam is alert and he is conversant but seems most of the answers to the questions either are just conversation and not correct or obscured by his thicker accent. Skin is without bruises or rashes Results & Data Results & Data Vital Signs (Past 12 Hours) Vital Signs Temp Pulse Pulse Resp BP BP Pulse Ox 04/25/23 17:20 71 04/25/23 15:50 74 18 103/67 96 04/25/23 14:45 98.8 F 04/25/23 14:02 86 18 109/82 95 04/25/23 13:14 87 20 94 04/25/23 13:14 88 22 111/87 94 04/25/23 13:14 89 22 118/83 94 04/25/23 12:54 93 H O2 Del Method 04/25/23 17:20 04/25/23 15:50 Room Air 04/25/23 14:45 04/25/23 14:02 Room Air 04/25/23 13:14 Room Air 04/25/23 13:14 Room Air 04/25/23 13:14 Room Air 04/25/23 12:54 Laboratory Results Reviewed CBC reviewed chemistry Code Status & VTE Plan VTE Prophylaxis Plan VTE Prophylaxis will be ordered: Yes PG Care Time/CCT Total # of Minutes Spent Total Time Spent with Patient: Total time spent is greater than 50% in coordination of care (as documented) at patient's floor/unit and/or counseling patient: Coding Level of Care Code 86240 INT INP/OBS CARE 3/75MIN Diagnoses Metabolic encephalopathy G93.41 Secondary adrenal insufficiency E27.49 Type 2 diabetes mellitus E11.9 Hypertension I10 Central hypothyroidism E03.8
[2023-04-25] MEDS ORDERED: DEXTROSE 50% 50 ML SYRINGE IV PRN (18:07)
[2023-04-25] MEDS ORDERED: CARBOHYDRATES FOR HYPOGLYCEMIA PO PRN (18:07)
[2023-04-25] MEDS ORDERED: GLUCAGON FOR INJ 1 MG VIAL SQ PRN (18:07)
[2023-04-25] MEDS ORDERED: GLUCOSE 40% GEL 15 GM TUBE PO PRN (18:07)
[2023-04-25] MEDS ORDERED: GLUCOSE 10 TAB/TUBE PO PRN (18:07)
--- NOTE | 2023-04-25 19:19 | CT Scan Report ---
CT OF THE HEAD WITHOUT CONTRAST CLINICAL HISTORY: h.o craniotomy, eval stroke COMPARISON STUDY: Head CT October 27, 2018. MRI of the brain August 10, 2017. CT DOSE: 703.85 mGy.cm TECHNIQUE: Helical axial images of the head were obtained without IV contrast. Automated exposure con trol was utilized for the study. A dose lowering technique was utilized adhering to the principles o f ALARA. FINDINGS: No acute intracranial hemorrhage is present. A right posterior ventricular catheter is in p lace. Mild ventricular dilatation has not significantly changed. Postoperative findings within the se lla are noted. An associated 2.6 cm round sellar mass with suprasellar extension is stable to slightl y increased in size since prior CT. This is suboptimally assessed by CT but measures 2.6 cm in transv erse dimension. Left-sided craniotomy is noted. An operative bed fluid collection is similar to prior exam. Left frontotemporal encephalomalacia is similar to prior exam. There are no findings to sugges t acute dural sinus thrombosis or acute territorial infarct. Additional white matter hypodensities fa vor small vessel disease. No acute calvarial fracture. IMPRESSION: 1. No acute intracranial hemorrhage. No evidence for acute infarct by CT. 2. No significant change in mild ventricular dilatation. Right posterior ventricular catheter in plac e. 3. Stable to slight increase in size of the sellar mass with suprasellar extension which favors a pit uitary macroadenoma. 4. Status post left frontal craniotomy. Chronic operative bed fluid collection, similar to prior exam . ACT 112: Negative or not required by law. Electronically signed by: Edward Cain M.D. 04/25/2023 7:17 PM
[2023-04-25] MEDS ORDERED: ONDANSETRON INJ 2 MG/ML 2 ML VIAL IV PRN (20:49)
[2023-04-25] MEDS ORDERED: SODIUM CHLORIDE 0.9% 1,000 ML IV SCH (20:49)
[2023-04-25] MEDS ORDERED: ACETAMINOPHEN 325 MG TAB PO PRN (20:49)
[2023-04-25] MEDS ORDERED: SENNA 8.6 MG TAB PO PRN (20:49)
[2023-04-25] MEDS ORDERED: ALUMINUM/MAGNESIUM SUSP 30 ML UDC PO PRN (20:49)
[2023-04-25] MEDS: INSULIN ASPART PER UNIT CHARGE SC SCH (21:57)
[2023-04-25] MEDS: levETIRAcetam 500 MG TAB PO SCH (21:57)
[2023-04-25] MEDS: HEPARIN SOD 5,000 UNIT/0.5 ML VIAL SQ SCH (21:57)
[2023-04-25] MEDS: MELATONIN 3 MG TAB PO PRN (21:57)
[2023-04-25] MEDS ORDERED: HYDROCORTISONE SOD SUCCINATE 100 MG/2 ML VIAL IV ONE (23:00)
[2023-04-26] MEDS: HYDROCORTISONE 10 MG TAB PO SCH ×3 (05:58→20:29)
[2023-04-26] MEDS: LEVOTHYROXINE SODIUM 75 MCG TABLET PO SCH (05:58)
[2023-04-26 07:32] LABS: Hematocrit (blood only) 36.4 % (42.0-52.0); Hemoglobin 12.2 g/dl (14.0-18.0); Mean Corpuscular Hemoglobin 22.9 pg (25.0-34.0); Mean Corpuscular Hgb Conc 33.5 g/dL (32.0-36.0); Mean Corpuscular Volume 68.3 fL (80.0-100.0); Mean Platelet Volume 9.9 fL (9.4-12.4); Platelet Count 206 K/uL (130-400); RDW Coefficient of Variation 15.2 % (11.5-14.5); RDW Standard Deviation 36.6 fL (36.4-46.3); Red Blood Count 5.33 M/uL (4.70-6.10); White Blood Count 4.99 K/ul (4.8-10.8)
[2023-04-26 07:46] LABS: BUN Creatinine Ratio 11.6 (10-20); Calcium 7.9 mg/dl (8.6-10.3); Creatinine Clr Calc Pharmacy 45.8 ml/min; Est GFR (African American) 49.7 ml/min; Est GFR (Non-African American) 42.8 ml/min; Potassium 4.3 mmol/L (3.5-5.1)
[2023-04-26] MEDS: MULTIVITAMIN TAB PO SCH (09:08)
[2023-04-26] MEDS: HEPARIN SOD 5,000 UNIT/0.5 ML VIAL SQ SCH ×2 (09:09→20:30)
[2023-04-26] MEDS: levETIRAcetam 500 MG TAB PO SCH ×2 (09:09→20:30)
[2023-04-26] MEDS: INSULIN ASPART PER UNIT CHARGE SC SCH ×4 (09:13→20:23)
[2023-04-26] MEDS: OSELTAMIVIR PHOSPHATE SUSP 30 MG/5 ML UDP PO SCH ×2 (10:01→20:29)
[2023-04-26 10:10] LABS: Estimated Average Glucose 209 mg/dl; Hemoglobin A1C 8.9 % (4.5-5.6)
--- NOTE | 2023-04-26 18:44 | Hospitalist Progress Note ---
Date of Service April 26, 2023 Assessment & Plan (1) Metabolic encephalopathy: Plan: Patient presents with weakness likely metabolic encephalopathy from influenza present on admission. Currently a urine culture is pending. Certainly to be worsened by acute kidney injury. Tamiflu started (2) Secondary adrenal insufficiency: Plan: Patient is a history of pituitary adenoma resection on chronic steroid replacement. Was given stress dose steroids given febrile state Cognitive dysfunction with dementia patient will continue on donepezil having his sleep aid trazodone held at night but continuing melatonin Patient seems to have some residual left eye issues from his craniotomy CT scan showed no acute intracranial hemorrhage, acute infarct, acute change in ventricular dilatation. (3) Type 2 diabetes mellitus: Plan: Typically controlled with oral hypoglycemic agents will put on sliding scale hold his oral agents at this time and check a hemoglobin A1c (4) Hypertension: Plan: Typically on low-dose amlodipine this is currently held both relative hypoten jayden with his illness (5) Central hypothyroidism: Plan: Patient's hypothyroidism is felt to be central remains on repletion T4 is in normal range (6) Influenza A: Plan: Tamiflu started Most likely etiology of generalized weakness PT/OT involved Most likely will need SNF Case management involved (7) Dementia: Plan: Baseline dementia Superimposed confusion possibly due to metabolic reasons and influenza Supportive care (8) Acute on chronic kidney failure: Plan: Patient presented with a creatinine of 2.1 Baseline creatinine of 1.4-1.7 Today creatinine came down to 1.5. Resolved Was most likely prerenal with soft blood pressures upon presentation Plan DVT prevention is heparin due to renal insufficiency Patient is a full code. Admission and Anticipated Discharge Date Admission Date: April 25, 2023 Subjective Patient says he feels better overall. Although he still feels generally weak. Review of Systems Review of Systems: All systems reviewed & are unremarkable except as noted in Subjective Physical Exam Physical Exam: General: Awake, conversant. Slightly confused Heart: S1, S2/regular rate and rhythm, no murmur rubs or gallops Lungs: Clear to auscultation bilaterally. Normal effort Abdomen: Soft/nontender/nondistended. No hepatosplenomegaly Extremities: No clubbing/cyanosis. No edema Behavior: Appropriate, cooperative Results & Data Results & Data Vital Signs (Past 12 Hours) Vital Signs Temp Pulse Resp BP Pulse Ox O2 Del Method 04/26/23 14:42 36.7 C 73 16 117/77 94 Room Air 04/26/23 08:30 Room Air 04/26/23 08:28 37.1 C 85 16 119/83 93 Room Air Laboratory Results Abnormal lab results 04/25/23 04/25/23 04/26/23 Range/Units 18:50 20:10 07:05 Hgb 12.2 L (14.0-18.0) g/dl Hct 36.4 L (42.0-52.0) % MCV 68.3 L (80.0-100.0) fL MCH 22.9 L (25.0-34.0) pg RDW Coeff of Shin 15.2 H (11.5-14.5) % Chloride 112 H (98-107) mmol/L Creatinine 1.55 H D (0.6-1.4) mg/dl POC Glucose 195 H 210 H (70-99) mg/dl Hemoglobin A1c 8.9 H (4.5-5.6) % Calcium 7.9 L (8.6-10.3) mg/dl 04/26/23 04/26/23 04/26/23 Range/Units 07:45 11:54 16:48 Hgb (14.0-18.0) g/dl Hct (42.0-52.0) % MCV (80.0-100.0) fL MCH (25.0-34.0) pg RDW Coeff of Shin (11.5-14.5) % Chloride (98-107) mmol/L Creatinine (0.6-1.4) mg/dl POC Glucose 101 H 217 H 179 H (70-99) mg/dl Hemoglobin A1c (4.5-5.6) % Calcium (8.6-10.3) mg/dl Diagnostic Findings Head CT 04/25/23 18:07 CT OF THE HEAD WITHOUT CONTRAST CLINICAL HISTORY: h.o craniotomy, eval stroke COMPARISON STUDY: Head CT October 27, 2018. MRI of the brain August 10, 2017. CT DOSE: 703.85 mGy.cm TECHNIQUE: Helical axial images of the head were obtained without IV contrast. Automated exposure control was utilized for the study. A dose lowering technique was utilized adhering to the principles of ALARA. FINDINGS: No acute intracranial hemorrhage is present. A right posterior ventricular catheter is in place. Mild ventricular dilatation has not significantly changed. Postoperative findings within the sella are noted. 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 This is suboptimally assessed by CT but measures 2.6 cm in transverse dimension. Left-sided craniotomy is noted. An operative bed fluid collection is similar to prior exam. Left frontotemporal encephalomalacia is similar to prior exam. There are no findings to suggest acute dural sinus thrombosis or acute territorial infarct. Additional white matter hypodensities favor small vessel disease. No acute calvarial fracture. IMPRESSION: 1. No acute intracranial hemorrhage. No evidence for acute infarct by CT. 2. No significant change in mild ventricular dilatation. Right posterior ventricular catheter in place. 3. Stable to slight increase in size of the sellar mass with suprasellar extension which favors a pituitary macroadenoma. 4. Status post left frontal craniotomy. Chronic operative bed fluid collection, similar to prior exam. ACT 112: Negative or not required by law. Electronically signed by: Edward Cain M.D. 04/25/2023 7:17 PM PG Care Time/CCT Total # of Minutes Spent Total Time Spent with Patient: Total time spent is greater than 50% in coordination of care (as documented) at patient's floor/unit and/or counseling patient: Coding Level of Care Code 11423 SUB INP/OBS CARE 2/35MIN Diagnoses Metabolic encephalopathy G93.41 Secondary adrenal insufficiency E27.49 Type 2 diabetes mellitus E11.9 Hypertension I10 Central hypothyroidism E03.8 Influenza A J10.1 Dementia F03.90 Acute on chronic kidney failure N17.9; N18.9
[2023-04-26] MEDS: MELATONIN 3 MG TAB PO PRN (20:29)
[2023-04-27] MEDS: LEVOTHYROXINE SODIUM 75 MCG TABLET PO SCH (05:46)
[2023-04-27 07:58] LABS: Hematocrit (blood only) 36.3 % (42.0-52.0); Hemoglobin 12.1 g/dl (14.0-18.0); Mean Corpuscular Hemoglobin 22.9 pg (25.0-34.0); Mean Corpuscular Hgb Conc 33.3 g/dL (32.0-36.0); Mean Corpuscular Volume 68.6 fL (80.0-100.0); Mean Platelet Volume 9.7 fL (9.4-12.4); Platelet Count 202 K/uL (130-400); RDW Coefficient of Variation 14.7 % (11.5-14.5); RDW Standard Deviation 35.7 fL (36.4-46.3); Red Blood Count 5.29 M/uL (4.70-6.10); White Blood Count 4.14 K/ul (4.8-10.8)
[2023-04-27 08:21] LABS: BUN Creatinine Ratio 12.7 (10-20); Calcium 7.9 mg/dl (8.6-10.3); Creatinine Clr Calc Pharmacy 56.4 ml/min; Est GFR (African American) 63.8 ml/min; Potassium 3.8 mmol/L (3.5-5.1)
[2023-04-27] MEDS: HEPARIN SOD 5,000 UNIT/0.5 ML VIAL SQ SCH ×2 (09:23→20:36)
[2023-04-27] MEDS: DONEPEZIL HCL PO SCH (09:23)
[2023-04-27] MEDS: levETIRAcetam 500 MG TAB PO SCH ×2 (09:24→20:36)
[2023-04-27] MEDS: MULTIVITAMIN TAB PO SCH (09:25)
[2023-04-27] MEDS: HYDROCORTISONE 10 MG TAB PO SCH ×2 (09:25→20:36)
[2023-04-27] MEDS: OSELTAMIVIR PHOSPHATE SUSP 30 MG/5 ML UDP PO SCH ×2 (09:36→20:36)
[2023-04-27] MEDS: INSULIN ASPART PER UNIT CHARGE SC SCH ×4 (09:36→20:22)
--- NOTE | 2023-04-27 17:16 | Hospitalist Progress Note ---
Date of Service April 27, 2023 Assessment & Plan (1) Metabolic encephalopathy: Plan: Patient presents with weakness likely metabolic encephalopathy from influenza present on admission. Currently a urine culture is pending. Certainly to be worsened by acute kidney injury. Tamiflu started (2) Secondary adrenal insufficiency: Plan: Patient is a history of pituitary adenoma resection on chronic steroid replacement. Was given stress dose steroids given febrile state Cognitive dysfunction with dementia patient will continue on donepezil having his sleep aid trazodone held at night but continuing melatonin Patient seems to have some residual left eye issues from his craniotomy CT scan showed no acute intracranial hemorrhage, acute infarct, acute change in ventricular dilatation. (3) Type 2 diabetes mellitus: Plan: Typically controlled with oral hypoglycemic agents will put on sliding scale hold his oral agents at this time. A1c 8.9 will likely benefit from insulin therapy outpatient. (4) Hypertension: Plan: Typically on low-dose amlodipine this is currently held both relative hypotension with his illness (5) Central hypothyroidism: Plan: Patient's hypothyroidism is felt to be central remains on repletion T4 is in normal range (6) Influenza A: Plan: Tamiflu started Most likely etiology of generalized weakness PT/OT involved Most likely will need SNF Case management involved (7) Dementia: Plan: Baseline dementia Superimposed confusion possibly due to metabolic reasons and influenza Supportive care (8) Acute on chronic kidney failure: Plan: Patient presented with a creatinine of 2.1 Baseline creatinine of 1.4-1.7 Today creatinine came down to 1.2 Resolved Was most likely prerenal with soft blood pressures upon presentation Plan DVT prevention is heparin due to renal insufficiency Patient is a full code. Awaiting placement. Case management on board Admission and Anticipated Discharge Date Admission Date: April 25, 2023 Subjective Patient feels well. No new complaints. No chest pain, shortness of breath, fever, cough Review of Systems Review of Systems: All systems reviewed & are unremarkable except as noted in Subjective Physical Exam Physical Exam: General: Awake, conversant. Slightly confused Heart: S1, S2/regular rate and rhythm, no murmur rubs or gallops Lungs: Clear to auscultation bilaterally. Normal effort Abdomen: Soft/nontender/nondistended. No hepatosplenomegaly Extremities: No clubbing/cyanosis. No edema Behavior: Appropriate, cooperative Results & Data Results & Data Vital Signs (Past 12 Hours) Vital Signs Temp Pulse Resp BP Pulse Ox O2 Del Method 01/03/24 14:36 36.5 C 59 L 16 120/75 93 Room Air 04/27/23 08:30 Room Air 04/27/23 08:21 36.7 C 71 16 112/71 93 Room Air Laboratory Results Abnormal lab results 04/26/23 04/27/23 04/27/23 Range/Units 20:23 07:38 07:39 WBC 4.14 L (4.8-10.8) K/ul Hgb 12.1 L (14.0-18.0) g/dl Hct 36.3 L (42.0-52.0) % MCV 68.6 L (80.0-100.0) fL MCH 22.9 L (25.0-34.0) pg RDW Std Deviation 35.7 L (36.4-46.3) fL RDW Coeff of Shin 14.7 H (11.5-14.5) % Chloride 110 H (98-107) mmol/L Glucose 105 H (70-99(Fasting)) mg/dl POC Glucose 136 H 109 H (70-99) mg/dl Calcium 7.9 L (8.6-10.3) mg/dl 04/27/23 04/27/23 Range/Units 11:43 16:46 WBC (4.8-10.8) K/ul Hgb (14.0-18.0) g/dl Hct (42.0-52.0) % MCV (80.0-100.0) fL MCH (25.0-34.0) pg RDW Std Deviation (36.4-46.3) fL RDW Coeff of Shin (11.5-14.5) % Chloride (98-107) mmol/L Glucose (70-99(Fasting)) mg/dl POC Glucose 135 H 166 H (70-99) mg/dl Calcium (8.6-10.3) mg/dl PG Care Time/CCT Total # of Minutes Spent Total Time Spent with Patient: Total time spent is greater than 50% in coordination of care (as documented) at patient's floor/unit and/or counseling patient: Coding Level of Care Code 54237 SUB INP/OBS CARE 2/35MIN Diagnoses Metabolic encephalopathy G93.41 Secondary adrenal insufficiency E27.49 Type 2 diabetes mellitus E11.9 Hypertension I10 Central hypothyroidism E03.8 Influenza A J10.1 Dementia F03.90 Acute on chronic kidney failure N17.9; N18.9
[2023-04-27] MEDS: MELATONIN 3 MG TAB PO PRN (20:36)
[2023-04-28] MEDS: LEVOTHYROXINE SODIUM 75 MCG TABLET PO SCH (03:03)
[2023-04-28] MEDS: DONEPEZIL HCL PO SCH (07:32)
[2023-04-28] MEDS: levETIRAcetam 500 MG TAB PO SCH ×2 (07:59→19:45)
[2023-04-28] MEDS: HEPARIN SOD 5,000 UNIT/0.5 ML VIAL SQ SCH ×2 (07:59→19:45)
[2023-04-28] MEDS: MULTIVITAMIN TAB PO SCH (07:59)
[2023-04-28 08:20] LABS: Hematocrit (blood only) 37.1 % (42.0-52.0); Hemoglobin 12.4 g/dl (14.0-18.0); Mean Corpuscular Hemoglobin 22.8 pg (25.0-34.0); Mean Corpuscular Hgb Conc 33.4 g/dL (32.0-36.0); Mean Corpuscular Volume 68.1 fL (80.0-100.0); Mean Platelet Volume 9.9 fL (9.4-12.4); Platelet Count 220 K/uL (130-400); RDW Coefficient of Variation 15.3 % (11.5-14.5); RDW Standard Deviation 36.1 fL (36.4-46.3); Red Blood Count 5.45 M/uL (4.70-6.10); White Blood Count 5.25 K/ul (4.8-10.8)
[2023-04-28] MEDS: OSELTAMIVIR PHOSPHATE SUSP 30 MG/5 ML UDP PO SCH ×2 (08:32→19:55)
[2023-04-28] MEDS: INSULIN ASPART PER UNIT CHARGE SC SCH ×4 (08:32→19:52)
--- NOTE | 2023-04-28 16:58 | Hospitalist Progress Note ---
Date of Service April 28, 2023 Assessment & Plan (1) Metabolic encephalopathy: Plan: Patient presents with weakness likely metabolic encephalopathy from influenza present on admission. Currently a urine culture is pending. Certainly to be worsened by acute kidney injury. Tamiflu started (2) Secondary adrenal insufficiency: Plan: Patient is a history of pituitary adenoma resection on chronic steroid replacement. Was given stress dose steroids given febrile state Cognitive dysfunction with dementia patient will continue on donepezil having his sleep aid trazodone held at night but continuing melatonin Patient seems to have some residual left eye issues from his craniotomy CT scan showed no acute intracranial hemorrhage, acute infarct, acute change in ventricular dilatation. (3) Type 2 diabetes mellitus: Plan: Typically controlled with oral hypoglycemic agents will put on sliding scale hold his oral agents at this time. A1c 8.9 will likely benefit from insulin therapy outpatient. (4) Hypertension: Plan: Typically on low-dose amlodipine this is currently held both relative hypotension with his illness (5) Central hypothyroidism: Plan: Patient's hypothyroidism is felt to be central remains on repletion T4 is in normal range (6) Influenza A: Plan: Tamiflu started Most likely etiology of generalized weakness PT/OT involved Most likely will need SNF Case management involved (7) Dementia: Plan: Baseline dementia Superimposed confusion possibly due to metabolic reasons and influenza Supportive care (8) Acute on chronic kidney failure: Plan: Patient presented with a creatinine of 2.1 Baseline creatinine of 1.4-1.7 creatinine came down to 1.2 Resolved Was most likely prerenal with soft blood pressures upon presentation Plan DVT prevention is heparin due to renal insufficiency Patient is a full code. Awaiting placement. Case management on board Admission and Anticipated Discharge Date Admission Date: April 25, 2023 Subjective Patient feels well today. Denies chest pain or shortness of breath. Review of Systems Review of Systems: All systems reviewed & are unremarkable except as noted in Subjective Physical Exam Physical Exam: General: Awake, conversant. Slightly confused Heart: S1, S2/regular rate and rhythm, no murmur rubs or gallops Lungs: Clear to auscultation bilaterally. Normal effort Abdomen: Soft/nontender/nondistended. No hepatosplenomegaly Extremities: No clubbing/cyanosis. No edema Behavior: Appropriate, cooperative Results & Data Results & Data Vital Signs (Past 12 Hours) Vital Signs Temp Pulse Resp BP Pulse Ox O2 Del Method 04/28/23 15:20 36.7 C 68 17 104/68 95 Room Air 04/28/23 07:57 36.5 C 63 16 127/78 94 Room Air 04/28/23 07:30 Room Air Laboratory Results Abnormal lab results 04/27/23 04/28/23 04/28/23 Range/Units 20:09 07:52 08:04 Hgb 12.4 L (14.0-18.0) g/dl Hct 37.1 L (42.0-52.0) % MCV 68.1 L (80.0-100.0) fL MCH 22.8 L (25.0-34.0) pg RDW Std Deviation 36.1 L (36.4-46.3) fL RDW Coeff of Shin 15.3 H (11.5-14.5) % POC Glucose 133 H 119 H (70-99) mg/dl 04/28/23 Range/Units 11:32 Hgb (14.0-18.0) g/dl Hct (42.0-52.0) % MCV (80.0-100.0) fL MCH (25.0-34.0) pg RDW Std Deviation (36.4-46.3) fL RDW Coeff of Shin (11.5-14.5) % POC Glucose 143 H (70-99) mg/dl Diagnostic Findings Abnormal lab results 04/27/23 04/28/23 04/28/23 Range/Units 20:09 07:52 08:04 Hgb 12.4 L (14.0-18.0) g/dl Hct 37.1 L (42.0-52.0) % MCV 68.1 L (80.0-100.0) fL MCH 22.8 L (25.0-34.0) pg RDW Std Deviation 36.1 L (36.4-46.3) fL RDW Coeff of Shin 15.3 H (11.5-14.5) % POC Glucose 133 H 119 H (70-99) mg/dl 04/28/23 Range/Units 11:32 Hgb (14.0-18.0) g/dl Hct (42.0-52.0) % MCV (80.0-100.0) fL MCH (25.0-34.0) pg RDW Std Deviation (36.4-46.3) fL RDW Coeff of Shin (11.5-14.5) % POC Glucose 143 H (70-99) mg/dl PG Care Time/CCT Total # of Minutes Spent Total Time Spent with Patient: Total time spent is greater than 50% in coordination of care (as documented) at patient's floor/unit and/or counseling patient: Coding Level of Care Code 84084 SUB INP/OBS CARE 2/35MIN Diagnoses Metabolic encephalopathy G93.41 Secondary adrenal insufficiency E27.49 Type 2 diabetes mellitus E11.9 Hypertension I10 Central hypothyroidism E03.8 Influenza A J10.1 Dementia F03.90 Acute on chronic kidney failure N17.9; N18.9
[2023-04-28] MEDS: MELATONIN 3 MG TAB PO PRN (19:45)
[2023-04-28] MEDS: HYDROCORTISONE 10 MG TAB PO SCH (19:45)
[2023-04-29 03:24] LABS: Appearance Urine Clear (Clear); Bilirubin Urine Negative (Negative); Blood Urine Negative (Negative); Color Urine Yellow; Glucose Urine UA Negative (Negative); Ketones Urine Trace (Negative); Leukocyte Esterase Urine Negative (Negative); Nitrite Urine Negative (Negative); Protein Urine Negative (Negative); Urobilinogen Urine Negative (Negative); pH Urine 5.5 (4.5-7.5)
[2023-04-29] MEDS: LEVOTHYROXINE SODIUM 75 MCG TABLET PO SCH (06:11)
[2023-04-29] MEDS: levETIRAcetam 500 MG TAB PO SCH ×2 (07:51→20:08)
[2023-04-29] MEDS: HYDROCORTISONE 10 MG TAB PO SCH ×2 (07:51→20:09)
[2023-04-29] MEDS: DONEPEZIL HCL PO SCH (07:52)
[2023-04-29] MEDS: OSELTAMIVIR PHOSPHATE SUSP 30 MG/5 ML UDP PO SCH ×2 (07:56→20:50)
[2023-04-29] MEDS: MULTIVITAMIN TAB PO SCH (07:56)
[2023-04-29] MEDS: HEPARIN SOD 5,000 UNIT/0.5 ML VIAL SQ SCH ×2 (07:57→20:10)
[2023-04-29] MEDS: INSULIN ASPART PER UNIT CHARGE SC SCH ×4 (08:12→20:46)
--- NOTE | 2023-04-29 16:09 | Hospitalist Progress Note ---
Date of Service April 29, 2023 Assessment & Plan (1) Metabolic encephalopathy: Plan: Patient presents with weakness likely metabolic encephalopathy from influenza present on admission. Certainly to be worsened by acute kidney injury. Tamiflu started (2) Secondary adrenal insufficiency: Plan: Patient is a history of pituitary adenoma resection on chronic steroid replacement. Was given stress dose steroids given febrile state Cognitive dysfunction with dementia patient will continue on donepezil having his sleep aid trazodone held at night but continuing melatonin Patient seems to have some residual left eye issues from his craniotomy CT scan showed no acute intracranial hemorrhage, acute infarct, acute change in ventricular dilatation. (3) Type 2 diabetes mellitus: Plan: Typically controlled with oral hypoglycemic agents will put on sliding scale hold his oral agents at this time. A1c 8.9 will likely benefit from insulin therapy outpatient. 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 remains on repletion T4 is in n ormal range (6) Influenza A: Plan: Tamiflu started Most likely etiology of generalized weakness PT/OT involved Most likely will need SNF Case management involved (7) Dementia: Plan: Baseline dementia Superimposed confusion possibly due to metabolic reasons and influenza Supportive care (8) Acute on chronic kidney failure: Plan: Patient presented with a creatinine of 2.1 Baseline creatinine of 1.4-1.7 creatinine came down to 1.2 Resolved Was most likely prerenal with soft blood pressures upon presentation Plan DVT prevention is heparin due to renal insufficiency Patient is a full code. Awaiting placement. Case management on board Admission and Anticipated Discharge Date Admission Date: April 25, 2023 Subjective Patient feels well. Denies chest pain or shortness of breath. Review of Systems Review of Systems: All systems reviewed & are unremarkable except as noted in Subjective Physical Exam Physical Exam: General: Awake, conversant. Slightly confused Heart: S1, S2/regular rate and rhythm, no murmur rubs or gallops Lungs: Clear to auscultation bilaterally. Normal effort Abdomen: Soft/nontender/nondistended. No hepatosplenomegaly Extremities: No clubbing/cyanosis. No edema Behavior: Appropriate, cooperative Results & Data Results & Data Vital Signs (Past 12 Hours) Vital Signs Temp Pulse Pulse Resp BP Pulse Ox O2 Del Method 04/29/23 14:57 36.6 C 64 16 116/75 95 Room Air 04/29/23 08:01 36.3 C L 67 17 136/86 95 Room Air 04/29/23 07:45 Room Air Laboratory Results Abnormal lab results 04/28/23 04/29/23 04/29/23 Range/Units 19:52 03:14 08:02 POC Glucose 140 H 117 H (70-99) mg/dl Urine Ketones Trace H (Negative) 04/29/23 Range/Units 11:39 POC Glucose 151 H (70-99) mg/dl Urine Ketones (Negative) PG Care Time/CCT Total # of Minutes Spent Total Time Spent with Patient: Total time spent is greater than 50% in coordination of care (as documented) at patient's floor/unit and/or counseling patient: Coding Level of Care Code 03598 SUB INP/OBS CARE 2/35MIN Diagnoses Metabolic encephalopathy G93.41 Secondary adrenal insufficiency E27.49 Type 2 diabetes mellitus E11.9 Hypertension I10 Central hypothyroidism E03.8 Influenza A J10.1 Dementia F03.90 Acute on chronic kidney failure N17.9; N18.9
[2023-04-30] MEDS: LEVOTHYROXINE SODIUM 75 MCG TABLET PO SCH (05:56)
[2023-04-30] MEDS: HYDROCORTISONE 10 MG TAB PO SCH ×2 (08:44→21:10)
[2023-04-30] MEDS: levETIRAcetam 500 MG TAB PO SCH ×2 (08:45→21:09)
[2023-04-30] MEDS: DONEPEZIL HCL PO SCH (08:45)
[2023-04-30] MEDS: HEPARIN SOD 5,000 UNIT/0.5 ML VIAL SQ SCH ×2 (08:45→21:11)
[2023-04-30] MEDS: MULTIVITAMIN TAB PO SCH (08:45)
[2023-04-30] MEDS: INSULIN ASPART PER UNIT CHARGE SC SCH ×4 (08:49→21:11)
[2023-04-30] MEDS: OSELTAMIVIR PHOSPHATE SUSP 30 MG/5 ML UDP PO SCH ×2 (08:50→21:11)
--- NOTE | 2023-04-30 14:28 | Hospitalist Progress Note ---
Date of Service April 30, 2023 Assessment & Plan (1) Metabolic encephalopathy: Plan: Patient presents with weakness likely metabolic encephalopathy from influenza present on admission. Certainly to be worsened by acute kidney injury. On Tamiflu. Last day 05/01 (2) Secondary adrenal insufficiency: Plan: Patient is a history of pituitary adenoma resection on chronic steroid replacement. Was given stress dose steroids given febrile state Cognitive dysfunction with dementia patient will continue on donepezil having his sleep aid trazodone held at night but continuing melatonin Patient seems to have some residual left eye issues from his craniotomy CT scan showed no acute intracranial hemorrhage, acute infarct, acute change in ventricular dilatation. (3) Type 2 diabetes mellitus: Plan: Typically controlled with oral hypoglycemic agents will put on sliding scale hold his oral agents at this time. A1c 8.9 will likely benefit from insulin therapy outpatient. 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 Last A1c nursing Most likely etiology of generalized weakness PT/OT involved Most likely will need SNF Case management involved Awaiting placement (7) Dementia: Plan: Baseline dementia Superimposed confusion possibly due to metabolic reasons and influenza Supportive care (8) Acute on chronic kidney failure: Plan: Patient presented with a creatinine of 2.1 Baseline creatinine of 1.4-1.7 creatinine came down to 1.2 Resolved Was most likely prerenal with soft blood pressures upon presentation Plan DVT prevention is heparin due to renal insufficiency Patient is a full code. Awaiting placement. Case management on board Admission and Anticipated Discharge Date Admission Date: April 25, 2023 Subjective No new complaints. No chest pain or shortness of breath Review of Systems Review of Systems: All systems reviewed & are unremarkable except as noted in Subjective Physical Exam Physical Exam: General: Awake, conversant. Slightly confused Heart: S1, S2/regular rate and rhythm, no murmur rubs or gallops Lungs: Clear to auscultation bilaterally. Normal effort Abdomen: Soft/nontender/nondistended. No hepatosplenomegaly Extremities: No clubbing/cyanosis. No edema Behavior: Appropriate, cooperative Results & Data Results & Data Vital Signs (Past 12 Hours) Vital Signs Temp Pulse Resp BP Pulse Ox O2 Del Method 04/30/23 07:30 37 C 81 18 100/68 95 Room Air Laboratory Results Abnormal lab results 04/29/23 04/29/23 04/30/23 Range/Units 16:27 20:44 08:10 POC Glucose 120 H 134 H 136 H (70-99) mg/dl 04/30/23 Range/Units 11:45 POC Glucose 118 H (70-99) mg/dl PG Care Time/CCT Total # of Minutes Spent Total Time Spent with Patient: Total time spent is greater than 50% in coordination of care (as documented) at patient's floor/unit and/or counseling patient: Coding Level of Care Code 29497 SUB INP/OBS CARE 2/35MIN Diagnoses Metabolic encephalopathy G93.41 Secondary adrenal insufficiency E27.49 Type 2 diabetes mellitus E11.9 Hypertension I10 Central hypothyroidism E03.8 Influenza A J10.1 Dementia F03.90 Acute on chronic kidney failure N17.9; N18.9
[2023-05-01] MEDS: LEVOTHYROXINE SODIUM 75 MCG TABLET PO SCH (05:28)
[2023-05-01] MEDS: levETIRAcetam 500 MG TAB PO SCH ×2 (08:45→20:51)
[2023-05-01] MEDS: HEPARIN SOD 5,000 UNIT/0.5 ML VIAL SQ SCH ×2 (08:45→20:53)
[2023-05-01] MEDS: DONEPEZIL HCL PO SCH (08:45)
[2023-05-01] MEDS: HYDROCORTISONE 10 MG TAB PO SCH ×2 (08:45→20:52)
[2023-05-01] MEDS: INSULIN ASPART PER UNIT CHARGE SC SCH ×4 (08:47→20:50)
[2023-05-01] MEDS: MULTIVITAMIN TAB PO SCH (08:53)
--- NOTE | 2023-05-01 15:13 | Hospitalist Progress Note ---
Date of Service May 01, 2023 Assessment & Plan (1) Metabolic encephalopathy: Plan: Patient presents with weakness likely metabolic encephalopathy from influenza present on admission. Certainly to be worsened by acute kidney injury. On Tamiflu. Last day 05/01 (2) Secondary adrenal insufficiency: Plan: Patient is a history of pituitary adenoma resection on chronic steroid replacement. Was given stress dose steroids given febrile state Cognitive dysfunction with dementia patient will continue on donepezil having his sleep aid trazodone held at night but continuing melatonin Patient seems to have some residual left eye issues from his craniotomy CT scan showed no acute intracranial hemorrhage, acute infarct, acute change in ventricular dilatation. (3) Type 2 diabetes mellitus: Plan: Typically controlled with oral hypoglycemic agents will put on sliding scale hold his oral agents at this time. A1c 8.9 will likely benefit from insulin therapy outpatient. 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 Most likely etiology of generalized weakness PT/OT involved Case management involved Awaiting placement (7) Dementia: Plan: Baseline dementia Superimposed confusion possibly due to metabolic reasons and influenza Supportive care (8) Acute on chronic kidney failure: Plan: Patient presented with a creatinine of 2.1 Baseline creatinine of 1.4-1.7 creatinine came down to 1.2 Resolved Was most likely prerenal with soft blood pressures upon presentation Plan DVT prevention is heparin due to renal insufficiency Patient is a full code. Awaiting placement. Case management on board Admission and Anticipated Discharge Date Admission Date: April 25, 2023 Subjective Patient feels well. Denies chest pain or shortness of breath Review of Systems Review of Systems: All systems reviewed & are unremarkable except as noted in Subjective Physical Exam Physical Exam: General: Awake, conversant. Slightly confused Heart: S1, S2/regular rate and rhythm, no murmur rubs or gallops Lungs: Clear to auscultation bilaterally. Normal effort Abdomen: Soft/nontender/nondistended. No hepatosplenomegaly Extremities: No clubbing/cyanosis. No edema Behavior: Appropriate, cooperative Results & Data Results & Data Vital Signs (Past 12 Hours) Vital Signs Temp Pulse Resp BP Pulse Ox O2 Del Method 05/01/23 09:10 Room Air 05/01/23 08:17 36.4 C L 77 16 121/75 92 Room Air PG Care Time/CCT Total # of Minutes Spent Total Time Spent with Patient: Total time spent is greater than 50% in coordination of care (as documented) at patient's floor/unit and/or counseling patient: Coding Level of Care Code 45498 SUB INP/OBS CARE 2/35MIN Diagnoses Metabolic encephalopathy G93.41 Secondary adrenal insufficiency E27.49 Type 2 diabetes mellitus E11.9 Hypertension I10 Central hypothyroidism E03.8 Influenza A J10.1 Dementia F03.90 Acute on chronic kidney failure N17.9; N18.9
[2023-05-01] MEDS: MELATONIN 3 MG TAB PO PRN (20:51)
[2023-05-02] MEDS: LEVOTHYROXINE SODIUM 75 MCG TABLET PO SCH (05:08)
[2023-05-02] MEDS: HYDROCORTISONE 10 MG TAB PO SCH ×2 (08:31→20:01)
[2023-05-02] MEDS: levETIRAcetam 500 MG TAB PO SCH ×2 (08:31→20:01)
[2023-05-02] MEDS: DONEPEZIL HCL PO SCH (08:31)
[2023-05-02] MEDS: HEPARIN SOD 5,000 UNIT/0.5 ML VIAL SQ SCH ×2 (08:38→20:01)
[2023-05-02] MEDS: MULTIVITAMIN TAB PO SCH (08:38)
[2023-05-02] MEDS: INSULIN ASPART PER UNIT CHARGE SC SCH ×4 (08:38→20:57)
[2023-05-02] MEDS ORDERED: PHARMACY GLYCEMIC MGMT CONSULT PRN (11:01)
--- NOTE | 2023-05-02 13:23 | Pharmacy Report ---
Pharmacy Glycemic Short Note 2 - Date of Service May 02, 2023 - Glycemic Short BSG Results (Last 24 hours): 05/01/23 05/01/23 05/02/23 16:27 20:22 07:38 POC Glucose 198 H 150 H 153 H 05/02/23 11:34 POC Glucose 121 H OUTPATIENT ANTIDIABETIC REGIMEN: * GLIMEPERIDE 2 MG * A1C 8.9% 04/26/23 ASSESSMENT: * Consulted today for A1c 8.9%, plan for patient to be discharged with insulin. Would d/c glimeperide if starting insulin outpatient. * BSGs have been fairly well controlled on Novolog correction factor 20, carb ratio 12. * Fasting this AM slightly above goal 153 mg/dl- will add low dose scale of lantus for PM. * Loosened correction factor as this was weight based stress of 3, with addition of lantus. Will monitor for additional changes PLAN FOR INPATIENT GLYCEMIC CONTROL: * Hold outpatient oral diabetes medications * Basal insulin * Lantus 5/10 units SQ Hs * Bolus insulin * NovoLog per scale ACHS or Q6hrs while NPO * Goal Range: Low 100 mg/dL - High 140 mg/dL * Correction Factor: 30 mg/dL/unit * Nutritional / Prandial insulin per carb ratio of 1 unit per 12 grams CHO consumed
--- NOTE | 2023-05-02 16:33 | Hospitalist Progress Note ---
Date of Service May 02, 2023 Assessment & Plan (1) Metabolic encephalopathy: Plan: Patient presents with weakness likely metabolic encephalopathy from influenza present on admission. Certainly to be worsened by acute kidney injury. On Tamiflu. Last day 05/01 (2) Secondary adrenal insufficiency: Plan: Patient is a history of pituitary adenoma resection on chronic steroid replacement. Was given stress dose steroids given febrile state Cognitive dysfunction with dementia patient will continue on donepezil having his sleep aid trazodone held at night but continuing melatonin Patient seems to have some residual left eye issues from his craniotomy CT scan showed no acute intracranial hemorrhage, acute infarct, acute change in ventricular dilatation. (3) Type 2 diabetes mellitus: Plan: Typically controlled with oral hypoglycemic agents will put on sliding scale hold his oral agents at this time. A1c 8.9 will likely benefit from insulin therapy outpatient. Spoke to pharmacy. Added low-dose Lantus. 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 Awaiting placement. Case management on board Admission and Anticipated Discharge Date Admission Date: April 25, 2023 Subjective Patient feels well. Denies chest pain or shortness of breath. Review of Systems Review of Systems: All systems reviewed & are unremarkable except as noted in Subjective Physical Exam Physical Exam: General: Awake, conversant. Slightly confused Heart: S1, S2/regular rate and rhythm, no murmur rubs or gallops Lungs: Clear to auscultation bilaterally. Normal effort Abdomen: Soft/nontender/nondistended. No hepatosplenomegaly Extremities: No clubbing/cyanosis. No edema Behavior: Appropriate, cooperative Results & Data Results & Data Vital Signs (Past 12 Hours) Vital Signs Temp Pulse Resp BP Pulse Ox O2 Del Method 05/02/23 13:58 36.7 C 62 17 102/65 95 Room Air 05/02/23 09:14 Room Air 05/02/23 07:37 36.5 C 70 16 107/67 91 Room Air PG Care Time/CCT Total # of Minutes Spent Total Time Spent with Patient: Total time spent is greater than 50% in coordination of care (as documented) at patient's floor/unit and/or counseling patient: Coding Level of Care Code 55583 SUB INP/OBS CARE 2/35MIN Diagnoses Metabolic encephalopathy G93.41 Secondary adrenal insufficiency E27.49 Type 2 diabetes mellitus E11.9 Hypertension I10 Central hypothyroidism E03.8 Influenza A J10.1 Dementia F03.90 Acute on chronic kidney failure N17.9; N18.9
[2023-05-02] MEDS: MELATONIN 3 MG TAB PO PRN (20:57)
[2023-05-02] MEDS: LANTUS PER UNIT CHARGE SC SCH (20:57)
[2023-05-03] MEDS: LEVOTHYROXINE SODIUM 75 MCG TABLET PO SCH (05:47)
[2023-05-03] MEDS: levETIRAcetam 500 MG TAB PO SCH ×2 (08:47→21:55)
[2023-05-03] MEDS: HYDROCORTISONE 10 MG TAB PO SCH ×2 (08:48→21:55)
[2023-05-03] MEDS: INSULIN ASPART PER UNIT CHARGE SC SCH ×4 (08:48→21:58)
[2023-05-03] MEDS: DONEPEZIL HCL PO SCH (08:48)
[2023-05-03] MEDS: HEPARIN SOD 5,000 UNIT/0.5 ML VIAL SQ SCH ×2 (08:48→21:53)
[2023-05-03] MEDS: MULTIVITAMIN TAB PO SCH (08:48)
--- NOTE | 2023-05-03 17:37 | Hospitalist Progress Note ---
Date of Service May 03, 2023 Assessment & Plan (1) Metabolic encephalopathy: Plan: Patient presents with weakness likely metabolic encephalopathy from influenza present on admission. Certainly to be worsened by acute kidney injury. On Tamiflu. Last day 05/01 (2) Secondary adrenal insufficiency: Plan: Patient is a history of pituitary adenoma resection on chronic steroid replacement. Was given stress dose steroids given febrile state Cognitive dysfunction with dementia patient will continue on donepezil having his sleep aid trazodone held at night but continuing melatonin Patient seems to have some residual left eye issues from his craniotomy CT scan showed no acute intracranial hemorrhage, acute infarct, acute change in ventricular dilatation. (3) Type 2 diabetes mellitus: Plan: Typically controlled with oral hypoglycemic agents will put on sliding scale hold his oral agents at this time. A1c 8.9 will likely benefit from insulin therapy outpatient. Spoke to pharmacy. Added low-dose Lantus. 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 Awaiting placement. Case management on board Admission and Anticipated Discharge Date Admission Date: April 25, 2023 Subjective Patient feels fine. Denies chest pain or shortness of breath Review of Systems Review of Systems: All systems reviewed & are unremarkable except as noted in Subjective Physical Exam Physical Exam: General: Awake, conversant. Slightly confused Heart: S1, S2/regular rate and rhythm, no murmur rubs or gallops Lungs: Clear to auscultation bilaterally. Normal effort Abdomen: Soft/nontender/nondistended. No hepatosplenomegaly Extremities: No clubbing/cyanosis. No edema Behavior: Appropriate, cooperative Results & Data Results & Data Vital Signs (Past 12 Hours) Vital Signs Temp Pulse Resp BP Pulse Ox O2 Del Method 05/03/23 14:03 37.2 C 70 16 109/71 95 Room Air 05/03/23 07:25 Room Air 05/03/23 06:52 36.7 C 61 16 114/71 95 Room Air PG Care Time/CCT Total # of Minutes Spent Total Time Spent with Patient: Total time spent is greater than 50% in coordination of care (as documented) at patient's floor/unit and/or counseling patient: Coding Level of Care Code 15292 SUB INP/OBS CARE 2/35MIN Diagnoses Metabolic encephalopathy G93.41 Secondary adrenal insufficiency E27.49 Type 2 diabetes mellitus E11.9 Hypertension I10 Central hypothyroidism E03.8 Influenza A J10.1 Dementia F03.90 Acute on chronic kidney failure N17.9; N18.9
[2023-05-03] MEDS: LANTUS PER UNIT CHARGE SC SCH (21:58)
[2023-05-04] MEDS: LEVOTHYROXINE SODIUM 75 MCG TABLET PO SCH (05:22)
[2023-05-04] MEDS: DONEPEZIL HCL PO SCH (08:22)
[2023-05-04] MEDS: levETIRAcetam 500 MG TAB PO SCH ×2 (08:23→20:38)
[2023-05-04] MEDS: HEPARIN SOD 5,000 UNIT/0.5 ML VIAL SQ SCH ×2 (08:24→20:40)
[2023-05-04] MEDS: MULTIVITAMIN TAB PO SCH (08:24)
[2023-05-04] MEDS: HYDROCORTISONE 10 MG TAB PO SCH ×2 (08:24→20:39)
[2023-05-04] MEDS: INSULIN ASPART PER UNIT CHARGE SC SCH ×4 (08:35→20:50)
--- NOTE | 2023-05-04 17:15 | Hospitalist Progress Note ---
Date of Service May 04, 2023 Assessment & Plan (1) Metabolic encephalopathy: Plan: Patient presents with weakness likely metabolic encephalopathy from influenza present on admission. Certainly to be worsened by acute kidney injury. On Tamiflu. Last day 05/01 (2) Secondary adrenal insufficiency: Plan: Patient is a history of pituitary adenoma resection on chronic steroid replacement. Was given stress dose steroids given febrile state Cognitive dysfunction with dementia patient will continue on donepezil having his sleep aid trazodone held at night but continuing melatonin Patient seems to have some residual left eye issues from his craniotomy CT scan showed no acute intracranial hemorrhage, acute infarct, acute change in ventricular dilatation. (3) Type 2 diabetes mellitus: Plan: Typically controlled with oral hypoglycemic agents will put on sliding scale hold his oral agents at this time. A1c 8.9 will likely benefit from insulin therapy outpatient. Patient has been started on insulin. Will discharge him on 5 units of Lantus He will need to follow-up with PCP within 1 week to build up on his insulin regimen (4) Hypertension: Plan: Typically on low-dose amlodipine this is currently held both relative hypotension with his illness (5) Central hypothyroidism: Plan: Patient's hypothyroidism is felt to be central remains on repletion T4 is in normal range (6) Influenza A: Plan: Tamiflu course completed Most likely etiology of generalized weakness PT/OT involved Case management involved Awaiting placement (7) Dementia: Plan: Baseline dementia Superimposed confusion possibly due to metabolic reasons and influenza Supportive care (8) Acute on chronic kidney failure: Plan: Patient presented with a creatinine of 2.1 Baseline creatinine of 1.4-1.7 creatinine came down to 1.2 Resolved Was most likely prerenal with soft blood pressures upon presentation Plan DVT prevention: Heparin Patient is a full code. Awaiting placement. Case management on board Admission and Anticipated Discharge Date Admission Date: April 25, 2023 Subjective Patient feels well. Denies chest pain or shortness of breath Review of Systems Review of Systems: All systems reviewed & are unremarkable except as noted in Subjective Physical Exam Physical Exam: General: Awake, conversant. Slightly confused Heart: S1, S2/regular rate and rhythm, no murmur rubs or gallops Lungs: Clear to auscultation bilaterally. Normal effort Abdomen: Soft/nontender/nondistended. No hepatosplenomegaly Extremities: No clubbing/cyanosis. No edema Behavior: Appropriate, cooperative Results & Data Results & Data Vital Signs (Past 12 Hours) Vital Signs Temp Pulse Resp BP Pulse Ox O2 Del Method 05/04/23 15:16 36.7 C 58 L 16 113/63 96 Room Air 05/04/23 10:00 Room Air 05/04/23 07:48 36.7 C 70 18 125/83 95 Room Air PG Care Time/CCT Total # of Minutes Spent Total Time Spent with Patient: Total time spent is greater than 50% in coordination of care (as documented) at patient's floor/unit and/or counseling patient: Coding Level of Care Code 56717 SUB INP/OBS CARE 2/35MIN Diagnoses Metabolic encephalopathy G93.41 Secondary adrenal insufficiency E27.49 Type 2 diabetes mellitus E11.9 Hypertension I10 Central hypothyroidism E03.8 Influenza A J10.1 Dementia F03.90 Acute on chronic kidney failure N17.9; N18.9
[2023-05-04] MEDS: LANTUS PER UNIT CHARGE SC SCH (20:50)
[2023-05-05] MEDS: LEVOTHYROXINE SODIUM 75 MCG TABLET PO SCH (05:15)
[2023-05-05] MEDS: DONEPEZIL HCL PO SCH (08:04)
[2023-05-05] MEDS: levETIRAcetam 500 MG TAB PO SCH (08:04)
[2023-05-05] MEDS: HYDROCORTISONE 10 MG TAB PO SCH (08:05)
[2023-05-05] MEDS: MULTIVITAMIN TAB PO SCH (08:49)
[2023-05-05] MEDS: HEPARIN SOD 5,000 UNIT/0.5 ML VIAL SQ SCH (08:50)
[2023-05-05] MEDS: INSULIN ASPART PER UNIT CHARGE SC SCH ×2 (08:54→12:19)
--- NOTE | 2023-05-05 11:51 | Discharge Summary ---
Date of Service May 05, 2023 Admission HPI Per Admitting Provider 78-year-old male brought in by his family due to increasing weakness at home. Family is suffering from respiratory illness and patient is tested positive for influenza. Reportedly the patient a ground-level fall where he did not strike his head he was then placed on the couch and could not get back up. There is some initial concerns of unilateral weakness but is global weakness and a stroke workup was not pursued in emergency department. Patient does have acute kidney injury on top of chronic kidney disease and the influenza. He is with baseline dementia and is a poor historian based upon that. He was hydrated and instituted on Tamiflu therapy but cannot return home safely due to his degree of weakness. 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 He cannot see out of his left eye and when confronted Vital signs as documented. Head exam is normocephalic has a well-healed coronal craniotomy scar likely from his pituitary adenoma surgery Neck is without JVD, thyromegaly, or carotid bruits. Lungs are clear to auscultation, no focal loss of breath sounds Cardiac exam, Rhythm is regular.. No murmurs, rubs or gallops. Abdominal exam reveals normal bowel sounds, soft non tender, no masses Extremities are nonedematous and both pedal pulses are present Neurologic exam is alert and he is conversant but seems most of the answers to the questions either are just conversation and not correct or obscured by his thicker accent. Skin is without bruises or rashes Principal Diagnosis Influenza Metabolic encephalopathy Dementia Ambulatory dysfunction Discharge Exam General: Awake, conversant. Slightly confused Heart: S1, S2/regular rate and rhythm, no murmur rubs or gallops Lungs: Clear to auscultation bilaterally. Normal effort Abdomen: Soft/nontender/nondistended. No hepatosplenomegaly Extremities: No clubbing/cyanosis. No edema Behavior: Appropriate, cooperative Discharge Data Allergies Allergy/AdvReac Type Severity Reaction Status Date / Time No Known Allergies Allergy Verified 12/29/22 08:45 Consultations 04/25/23 17:18 ED Decision to Admit Stat Ordered Studies 04/25/23 18:07 CT head/brain wo con Routine Hospital Course (1) Metabolic encephalopathy: Patient presents with weakness likely metabolic encephalopathy from influenza present on admission. Certainly to be worsened by acute kidney injury. Completed Tamiflu course (2) Secondary adrenal insufficiency: Patient is a history of pituitary adenoma resection on chronic steroid replacement. Was given stress dose steroids given febrile state Cognitive dysfunction with dementia patient will continue on donepezil having his sleep aid trazodone held at night but continuing melatonin Patient seems to have some residual left eye issues from his craniotomy CT scan showed no acute intracranial hemorrhage, acute infarct, acute change in ventricular dilatation. (3) Type 2 diabetes mellitus: Typically controlled with oral hypoglycemic agents will put on sliding scale hold his oral agents at this time. A1c 8.9 will likely benefit from insulin therapy outpatient. Patient has been started on insulin. Will discharge him on 6 units of Lantus and 2 units of NovoLog with meals 3 times daily. He will need to follow-up with PCP within 1 week to build up on his insulin regimen (4) Hypertension: Discontinued remains amlodipine. 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 Discharged today Total Time Total Time Spent Total Time Spent (In Minutes): 35 Discharge Plan Discharge Items Patient Disposition: Transfer Assisted Fac Reason For Visit: INFLUENZA, METABOLIC ENCEPHALOPATHY Discharge Diagnosis: Influenza Metabolic encephalopathy Dementia Activity: As commented below Activity Comment: Per PT/OT recommendations Non-emergency contact: Primary Care Provider Call non-emergency contact if: you have any medication questions and your symptoms worsen Follow-up/Referrals: Neli Cain MD [Primary Care Provider] - Diet: Heart Healthy Addtl Attending Provider Instructions: Advised to follow-up with PCP in 1 week Advised to note that you have been started on nighttime insulin small dose. Advised to follow-up with PCP to build up on the insulin regimen Pending Studies at Discharge: No Stand-Alone Forms: My [facility] Skilled Items Patient informed of condition?: Yes DNR: No Discharge Level of Care: Skilled Communicable Disease: No Discharge Prognosis: Stable Lines: None Urinary Catheter: No Medications and DC Order Prescriptions: New insulin glargine [Lantus U-100 Insulin] 100 unit/mL solution 6 unit subcut PM Qty: 10 0RF insulin aspart U-100 [Novolog FlexPen U-100 Insulin] 100 unit/mL (3 mL) insulin pen 2 unit subcut TID Qty: 15 0RF Continued levothyroxine 75 mcg tablet 75 mcg PO DAILY Qty: 90 3RF simvastatin 20 mg tablet 20 mg PO DAILY Qty: 90 3RF hydrocortisone 20 mg tablet 10 mg PO .COMPLEX Qty: 135 3RF Rx Instructions: 10 mg PO daily in the AM and 20mg po daily in PM ; ferrous sulfate 142 mg (45 mg iron) tablet extended release 45 mg PO DAILY (DME) blood-glucose meter [OneTouch Verio Flex Start] Kit See Rx Instructions .Route Qty: 1 0RF Rx Instructions: As directed (DME) OneTouch Verio test strips Strip See Rx Instructions .Route Qty: 100 3RF Rx Instructions: check blood sugars daily and as needed (DME) lancets [OneTouch Delica Plus Lancet] 30 gauge misc See Rx Instructions .Route Qty: 100 3RF Rx Instructions: check blood sugars daily and as needed donepezil 23 mg tablet 23 mg PO DAILY levetiracetam 500 mg tablet 500 mg PO BID multivitamin Tablet 1 tab PO DAILY acetaminophen 325 mg Tablet 650 mg PO Q4H PRN (Reason: Pain) melatonin 3 mg tablet 3 mg PO HS PRN (Reason: Sleep) sennosides [senna] 8.6 mg tablet 8.6 mg PO DAILY PRN (Reason: Constipation) Discontinued amlodipine 2.5 mg tablet 2.5 mg PO DAILY Qty: 90 3RF glimepiride 2 mg tablet 2 mg PO QAM Qty: 90 3RF Rx Instructions: administer with breakfast quetiapine [Seroquel] 25 mg tablet 25 mg PO BID Qty: 180 3RF sulfamethoxazole-trimethoprim 800-160 mg tablet 1 tab PO BID Rx Instructions: ON GOING THERAPY Discharge Orders: Discharge Order (Routine); Ordered 05/05/23 Ordered By: Lise Victor Admission Data Admit Date/Time: 04/25/23 17:30 Attending Provider: Lise Victor Admit Provider: Jadon Dallas Primary Care Provider: Neli Cain Other Providers: Jadon Dallas; [facility], Coding Level of Care Code 66522 INP/OBS DISCH >30 MIN Diagnoses Metabolic encephalopathy G93.41 Secondary adrenal insufficiency E27.49 Type 2 diabetes mellitus E11.9 Hypertension I10 Central hypothyroidism E03.8 Influenza A J10.1 Dementia F03.90 Acute on chronic kidney failure N17.9; N18.9
== END 2023-05-05 14:01 | DRG 193 ==
LOC: SUATTDRO → ED 12:34 → 3N 17:30

== ENCOUNTER 2024-01-02 11:05 | Inpatient (IN) ==
[2024-01-02 12:27] LABS: Base Excess VBG 2.1 mEq/L; HCO3 VBG 29 mmol/L; Oxygen Saturation VBG < 60.0 %; PCO2 VBG 52 mmHg (38-50); PO2 VBG 23 mmHg; pH VBG 7.35 (7.36-7.41)
[2024-01-02 12:37] LABS: Basophils # (auto) 0.04 K/uL (0.00-0.20); Basophils % (auto) 0.6 %; Eosinophils # (auto) 0.06 K/uL (0.00-0.50); Eosinophils % (auto) 0.8 %; Hematocrit (blood only) 42.4 % (42.0-52.0); Hemoglobin 13.9 g/dl (14.0-18.0); Immature Granulocytes # (auto) 0.02 K/uL (0.01-0.20); Immature Granulocytes % (auto) 0.3 %; Lymphocytes # (auto) 2.15 K/uL (1.20-3.40); Lymphocytes % (auto) 30.1 %; Mean Corpuscular Hemoglobin 22.6 pg (25.0-34.0); Mean Corpuscular Hgb Conc 32.8 g/dL (32.0-36.0); Mean Corpuscular Volume 69.1 fL (80.0-100.0); Monocytes # (auto) 0.69 K/uL (0.11-0.59); Monocytes % (auto) 9.7 %; Neutrophils # (auto) 4.19 K/uL (1.40-6.50); Neutrophils % (auto) 58.5 %; RDW Coefficient of Variation 15.8 % (11.5-14.5); RDW Standard Deviation 36.4 fL (36.4-46.3); Red Blood Count 6.14 M/uL (4.70-6.10); White Blood Count 7.15 K/ul (4.8-10.8)
[2024-01-02 12:41] LABS: Appearance Urine Clear (Clear); Bilirubin Urine Negative (Negative); Blood Urine Negative (Negative); Color Urine Dark Yellow; Glucose Urine UA Negative (Negative); Ketones Urine Negative (Negative); Leukocyte Esterase Urine Negative (Negative); Nitrite Urine Negative (Negative); Protein Urine Negative (Negative); Specific Gravity Urine 1.022 (1.000-1.030); Urobilinogen Urine Negative (Negative); pH Urine 5.5 (4.5-7.5)
--- NOTE | 2024-01-02 12:43 | CT Scan Report ---
CT head/brain wo con CLINICAL HISTORY: ams Technique: Contiguous axial CT images of the head were acquired from the base of the skull to the joni gustavo without intravenous contrast administration. Images were viewed in brain, subdural and bone [facility]. Automated dose lowering techniques and/or adjustment according to patient size were utilized for this exam. Comparison: Comparison is made to CT head 04/25/2023 Findings: Postsurgical changes of left frontal craniotomy are again seen with chronic operative bed fluid colle ction. This is unchanged from prior exam measuring 21 mm without new complex features. Encephalomalac ia is unchanged. Ventriculomegaly is seen with a right posterior approach catheter with the tip in th e right lateral ventricle. 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 No evidence of acute int racranial hemorrhage or acute infarct. Mucous retention cysts are seen in the bilateral maxillary sinuses. The orbits appear normal. There a re no acute fractures of the calvaria or scalp swelling. Impression: 1. No acute abnormality and in particular no evidence of intracranial hemorrhage or acute infarct. 2. Pituitary macroadenoma. 3. Postsurgical changes of left frontal craniotomy with chronic operative bed fluid collection. ACT 112: Negative or not required by law. Electronically signed by: Gio Moreau M.D. 01/02/2024 12:41 PM
[2024-01-02 12:51] LABS: Mean Platelet Volume 9.5 fL (9.4-12.4); Platelet Count 244 K/uL (130-400)
[2024-01-02 12:54] LABS: Alanine Aminotransferase 23 U/L (7-52); Albumin Globulin Ratio 1.4 (0.9-2); Albumin Level 4.4 gm/dl (3.4-5.0); Alkaline Phosphatase 58 U/L (34-104); Anion Gap 8 (3-11); Aspartate Aminotransferase 18 U/L (13-39); BUN Creatinine Ratio 10.3 (10-20); Bilirubin,Total 0.4 mg/dl (0.2-1.0); Blood Urea Nitrogen 18 mg/dl (6-23); Calcium 9.4 mg/dl (8.6-10.3); Carbon Dioxide 28 mmol/L (21-32); Chloride 109 mmol/L (98-107); Est GFR (African American) 42.9 ml/min; Globulin 3.2 gm/dl (2.5-4.0); Glucose 142 mg/dl (70-99(Fasting)); Potassium 3.8 mmol/L (3.5-5.1); Sodium 145 mmol/L (136-145); Total Protein 7.6 gm/dl (6.0-8.3)
--- NOTE | 2024-01-02 12:57 | Emergency Department Note ---
History of Present Illness General Chief complaint: Altered Mental Status Stated complaint: Mental Health Time Seen by Provider: 01/02/24 11:41 History of Present Illness Provider complaint: Mental health evaluation 78-year-old male presents emergency department for mental health evaluation. Patient was brought in by police and according to police the patient's daughter found him holding his down by her neck and had to be from his . Daughter is requesting a 302 petition. Daughter states patient has a history of dementia after having an intracranial surgery done. Home Medications Medication Instructions Recorded Confirmed Type acetaminophen 325 mg tablet 650 mg PO Q4H PRN Pain 10/27/18 12/23/23 History multivitamin 1 tab PO QAM 10/27/18 12/23/23 History ferrous sulfate 142 mg (45 mg 45 mg PO QAM 11/29/18 12/23/23 History iron) tablet,extended release melatonin 3 mg tablet 3 mg PO HS PRN Sleep 09/30/22 12/23/23 History sennosides 8.6 mg tablet (senna) 8.6 mg PO DAILY PRN Constipation 09/30/22 12/23/23 History donepezil 23 mg tablet 23 mg PO QAM 12/28/22 12/23/23 History blood-glucose meter (OneTouch #1 ea 12/29/22 12/23/23 Rx Verio Flex Start kit) lancets 30 gauge (OneTouch Delica #100 ea 12/29/22 12/23/23 Rx Plus Lancet) blood sugar diagnostic (OneTouch #100 ea 05/24/23 12/23/23 Rx Verio test strips) pen needle, diabetic 32 gauge x #100 ea 05/30/23 12/23/23 Rx 5/32" blood-glucose meter,continuous #1 ea 07/08/23 12/23/23 Rx (FreeStyle Hermelindo 3 [place]) blood-glucose sensor (FreeStyle #2 ea 07/08/23 12/23/23 Rx Hermelindo 3 Sensor device) amlodipine 2.5 mg tablet 2.5 mg PO QAM 09/27/23 12/23/23 History insulin aspart U-100 100 unit/mL 2 unit subcut TIDM 09/27/23 12/23/23 History (3 mL) subcutaneous pen (Novolog FlexPen U-100 Insulin aspart) simvastatin 20 mg tablet 20 mg PO HS 09/27/23 12/23/23 History hydrocortisone 20 mg tablet 10 mg (1/2 x 20 mg) PO .COMPLEX 11/23/23 12/23/23 Rx #135 tabs levetiracetam 500 mg tablet 500 mg PO BID #90 tabs 12/02/23 12/23/23 Rx levothyroxine 75 mcg tablet 75 mcg PO QAM #90 tabs 12/02/23 12/23/23 Rx insulin degludec 100 unit/mL (3 14 unit (0.14 mL) subcut DAILY 90 12/03/23 12/23/23 Rx mL) subcutaneous pen (Tresiba days #15 mL FlexTouch U-100 insulin) quetiapine 25 mg tablet (Seroquel) 25 mg PO BID #180 tabs 12/23/23 12/23/23 Rx Allergies Allergy/AdvReac Type Severity Reaction Status Date / Time No Known Allergies Allergy Verified 12/23/23 10:40 Past Med/Surg History Problem List (Updated 01/02/24 @ 15:36 by Ang Chavez MD) Poorly controlled type 2 diabetes mellitus Dementia with behavioral disturbance (Chronic) Pituitary macroadenoma (Chronic) Dementia (Chronic) Secondary adrenal insufficiency (Chronic) Central hypothyroidism (Chronic) Urinary incontinence (Chronic) Type 2 diabetes mellitus (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) Hypertension (Chronic) Hyperlipidemia (Chronic) Glaucoma (Chronic) Acid reflux (Chronic) Panhypopituitarism (Chronic) Medical History Chronic kidney disease daughter is unsure, states "they are monitoring levels" Panhypopituitarism Hx of heartburn Blind left eye s/p pituitary adenoma Glaucoma pt daughter denies History of pituitary adenoma with removal in 2018 long term (current) use of systemic steroids Hypothyroidism Diabetes mellitus, type 2 IDDM History of depression History of seizure during the craniotomy/around then. no problems since. Dementia early stages - able to do all own ADLs, unable to write, has difficulty reading, has a difficult time finding the proper words to converse. daughter will be with patient. Urinary incontinence Secondary adrenal insufficiency Hypertension Hyperlipidemia History of COVID-19 06/2023 -> mild cold symptoms. treated with paxlovid. Surgical History History of cranioplasty (2019) due to osteomyelitis (s/p post op craniotomy infection from 2018) H/O craniotomy (09/08/17) due to a large sellar mass/menangioma removal at [facility] [employer] shunt (2018) Family History Other No family history of adverse response to anesthesia Denies family history of Ovarian cancer Prostate cancer Myocardial infarction Breast cancer Colorectal cancer Social History Smoking Status: Never smoker Second Hand Exposure: No; Do You Dip or Chew Tobacco: No; Hx Alcohol Use: No Hx Substance Use: No Preferred Language: Salvadorean Communication Ability: Impaired Communication Ability Comment: patient has dementia and a thick accent Visual Impairment: Partially Limited Hearing Ability: Normal Securities Compliance Examiner Required: No Beliefs That Will Affect Care: None marital status: Current Living Situation: Family Current Living Situation Comment: lives with , daughter, son in law, 2 grandchildren current occupational status: retired Feels Safe at Home: Yes Safety Concerns Comment: Stairs, has railings Childhood Exposure to Second-Hand Smoke: No Diet: regular caffeine: No during the past year weight has: remained stable Dental Care, Regularly: No Physical Activity Frequency: Does not Exercise Seatbelt Use: always Sunscreen Use: No Assistive Devices: Glasses and Walker Physical Exam Vital Signs Vital Signs - 24 hr 01/02/24 11:04 01/02/24 14:04 01/02/24 15:00 Temperature 36.3 C L Temperature Source Oral Pulse Rate 87 Pulse Rate [Finger] 66 Respiratory Rate 18 16 Respiratory Effort / Characteristics Non-Labored Spontaneous Non-Labored Spontaneous Respiratory Depth Normal Normal Respiratory Pattern Regular Regular Blood Pressure 134/86 Blood Pressure [Left Arm] 136/81 Blood Pressure Mean 102 Blood Pressure Mean [Left Arm] 99 Pulse Oximetry 98 98 96 Oxygen Delivery Method Room Air Room Air Room Air Oxygen Flow Rate 0 Sepsis Recent Fever Within 48 Hours No Sepsis New/Unexplained Change in Mental Status N/A Sepsis Action Taken by Nursing No Action Required Physical Exam EYES: Blind in the left eye. CV: Normal rate, regular rhythm, normal heart sounds and intact distal pulses. There is no peripheral edema. Palpable radial pulses bue. PULM/CHEST: Effort normal and breath sounds normal. No respiratory distress. No stridor. He has no wheezes. He has no rales. NEURO: Motor and sensation grossly intact. Course Course 1141: The patient was evaluated in room A7. A complete history and physical exam was performed with case finisher [place] at bedside 1400: Vital signs stable. Patient medically cleared. [facility]zy case management met with family and patient they recommend inpatient admission for placement in a shelter facility. Medical Decision Making Laboratory Data Attestation: I reviewed the patient's lab results. 01/02/24 12:12 01/02/24 12:12 Lab Results 01/02/24 01/02/24 01/02/24 Range/Units 12:05 12:12 15:02 WBC 7.15 (4.8-10.8) K/ul RBC 6.14 H (4.70-6.10) M/uL Hgb 13.9 L (14.0-18.0) g/dl Hct 42.4 (42.0-52.0) % MCV 69.1 L (80.0-100.0) fL MCH 22.6 L (25.0-34.0) pg MCHC 32.8 (32.0-36.0) g/dL RDW Std Deviation 36.4 (36.4-46.3) fL RDW Coeff of Shin 15.8 H (11.5-14.5) % Plt Count 244 (130-400) K/uL MPV 9.5 (9.4-12.4) fL Immature Gran % (Auto) 0.3 % Neut % (Auto) 58.5 % Lymph % (Auto) 30.1 % Whitman % (Auto) 9.7 % Eos % (Auto) 0.8 % Baso % (Auto) 0.6 % Neut # (Auto) 4.19 (1.40-6.50) K/uL Lymph # (Auto) 2.15 (1.20-3.40) K/uL Whitman # (Auto) 0.69 H (0.11-0.59) K/uL Eos # (Auto) 0.06 (0.00-0.50) K/uL Baso # (Auto) 0.04 (0.00-0.20) K/uL Immature Gran # (Auto) 0.02 (0.01-0.20) K/uL Schistocytes 1+ VBG pH 7.35 L (7.36-7.41) VBG pCO2 52 H (38-50) mmHg VBG pO2 23 mmHg VBG HCO3 29 mmol/L VBG O2 Saturation < 60.0 % VBG Base Excess 2.1 mEq/L Sodium 145 (136-145) mmol/L Potassium 3.8 (3.5-5.1) mmol/L Chloride 109 H (98-107) mmol/L Carbon Dioxide 28 (21-32) mmol/L Anion Gap 8 (3-11) BUN 18 (6-23) mg/dl Creatinine 1.75 H (0.6-1.4) mg/dl Est Cr Clr Drug Dosing Not Reportable Est GFR ( Amer) 42.9 ml/min Est GFR (Non-Af Amer) 37.0 ml/min BUN/Creatinine Ratio 10.3 (10-20) Glucose 142 H (70-99(Fasting)) mg/dl POC Glucose 132 H (70-99) mg/dl Calcium 9.4 (8.6-10.3) mg/dl Magnesium 2.0 (1.7-2.4) mg/dl Total Bilirubin 0.4 (0.2-1.0) mg/dl AST 18 (13-39) U/L ALT 23 (7-52) U/L Alkaline Phosphatase 58 (34-104) U/L Ammonia 14.0 L (18-72) umol/L Total Protein 7.6 (6.0-8.3) gm/dl Albumin 4.4 (3.4-5.0) gm/dl Globulin 3.2 (2.5-4.0) gm/dl Albumin/Globulin Ratio 1.4 (0.9-2) TSH 0.453 (0.300-4.500) uIu/ml Urine Color Dark Yellow Urine Appearance Clear (Clear) Urine pH 5.5 (4.5-7.5) Ur Specific [place] 1.022 (1.000-1.030) Urine Protein Negative (Negative) Urine Glucose (UA) Negative (Negative) Urine Ketones Negative (Negative) Urine Blood Negative (Negative) Urine Nitrite Negative (Negative) Urine Bilirubin Negative (Negative) Urine Urobilinogen Negative (Negative) Ur Leukocyte Esterase Negative (Negative) Salicylates < 3.0 L (3.0-30) mg/dl Urine Opiates Screen Neg (Neg) Ur Methadone, Qual Neg (Neg) Urine Fentanyl Screen Neg (Neg) Acetaminophen < 3 L (10-30) ug/ml Urine Barbiturates Neg (Neg) Ur Phencyclidine (PCP) Neg (Neg) U Amphetamin/Meth Scrn Neg (Neg) MDMA (Ecstasy) Screen Neg (Neg) U Benzodiazepines Scrn Neg (Neg) Ur Cocaine Metabolite Neg (Neg) U Marijuana (THC) Screen Neg (Neg) Ethyl Alcohol mg/dL < 10.0 (<10.0) mg/dl SARS-CoV-2, RNA, NAAT NEGATIVE (NEGATIVE) Imaging Data Radiologist's Impression: Head CT 01/02/24 11:55 CT head/brain wo con CLINICAL HISTORY: ams Technique: Contiguous axial CT images of the head were acquired from the base of the skull to the vertex without intravenous contrast administration. Images were viewed in brain, subdural and bone windows. Automated dose lowering techniques and/or adjustment according to patient size were utilized for this exam. Comparison: Comparison is made to CT head 04/25/2023 Findings: Postsurgical changes of left frontal craniotomy are again seen with chronic operative bed fluid collection. This is unchanged from prior exam measuring 21 mm without new complex features. Encephalomalacia is unchanged. Ventriculomegaly is seen with a right posterior approach catheter with the tip in the right lateral ventricle. 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 No evidence of acute intracranial hemorrhage or acute infarct. Mucous retention cysts are seen in the bilateral maxillary sinuses. The orbits appear normal. There are no acute fractures of the calvaria or scalp swelling. Impression: 1. No acute abnormality and in particular no evidence of intracranial hemorrhage or acute infarct. 2. Pituitary macroadenoma. 3. Postsurgical changes of left frontal craniotomy with chronic operative bed fluid collection. ACT 112: Negative or not required by law. Electronically signed by: Gio Moreau M.D. 01/02/2024 12:41 PM Chest X-Ray 01/02/24 14:52 SINGLE VIEW CHEST CLINICAL HISTORY: Change in mental status. FINDINGS: An AP, portable, supine chest radiograph is compared to study dated 04/25/2023. A shunt catheter traverses the right chest wall. The heart is mildly enlarged. The pulmonary vasculature is noncongested. Chronic elevation of the hemidiaphragm and interstitial thickening is similar to previous. There is mild bibasilar scarring/atelectasis. No airspace consolidation or large pleural effusion is identified. No pneumothorax is seen. The skeletal structures are osteopenic. The bony thorax is grossly intact. IMPRESSION: No active disease in the chest. ACT 112: Negative or not required by law. Electronically signed by: Ilan Haile M.D. 01/02/2024 3:33 PM ECG Data Attestation: I personally reviewed and interpreted this ECG as follows: Rate (beats per minute): 73 Rhythm: + normal sinus ECG Intervals/blocks: + First degree AV block, + Normal QRS and + Normal QT-c ECG ST segments: + Normal ST segments [facility] Narrative 1141: The patient was evaluated in room A7. A complete history and physical exam was performed with case finisher [place] at bedside 1400: Vital signs stable. Patient medically cleared. Jazzy case management met with family and patient they recommend inpatient admission for placement in a shelter facility. Impression & Plan Dementia Discharge Plan Visit Data Chief Complaint: Altered Mental Status Stated Complaint: Mental Health ED Provider: Ang Chavez Discharge Problem: Dementia Patient Disposition: Being Evaluated by Hospitalist Forms Stand Alone Forms: [facility], Suicide Prevention Resources Prescriptions Prescriptions: No Action (DME) pen needle, diabetic 32 gauge x 5/32" needle See Rx Instructions .Route Qty: 100 5RF Rx Instructions: Use with insulin pens four times daily DX:E11.9 hydrocortisone 20 mg tablet 10 mg PO .COMPLEX Qty: 135 3RF Rx Instructions: 10 mg PO daily in the AM and 20mg po daily in PM ; levetiracetam 500 mg tablet 500 mg PO BID Qty: 90 3RF levothyroxine 75 mcg tablet 75 mcg PO QAM Qty: 90 3RF insulin degludec [Tresiba FlexTouch U-100] 100 unit/mL (3 mL) insulin pen 14 unit subcut DAILY 90 Days Qty: 15 3RF ferrous sulfate 142 mg (45 mg iron) tablet extended release 45 mg PO QAM (DME) blood-glucose meter [OneTouch Verio Flex Start] Kit See Rx Instructions .Route Qty: 1 0RF Rx Instructions: As directed (DME) lancets [OneTouch Delica Plus Lancet] 30 gauge misc See Rx Instructions .Route Qty: 100 3RF Rx Instructions: check blood sugars daily and as needed donepezil 23 mg tablet 23 mg PO QAM (DME) FreeStyle Hermelindo 3 [place] Misc See Rx Instructions .Route Qty: 1 0RF Rx Instructions: As directed (DME) FreeStyle Hermelindo 3 Sensor Device See Rx Instructions .Route Qty: 2 5RF Rx Instructions: As directed (DME) OneTouch Verio test strips Strip See Rx Instructions .Route Qty: 100 3RF Rx Instructions: check blood sugars daily and as needed quetiapine [Seroquel] 25 mg tablet 25 mg PO BID Qty: 180 3RF multivitamin Tablet 1 tab PO QAM acetaminophen 325 mg Tablet 650 mg PO Q4H PRN (Reason: Pain) melatonin 3 mg tablet 3 mg PO HS PRN (Reason: Sleep) sennosides [senna] 8.6 mg tablet 8.6 mg PO DAILY PRN (Reason: Constipation) simvastatin 20 mg tablet 20 mg PO HS insulin aspart U-100 [Novolog FlexPen U-100 Insulin] 100 unit/mL (3 mL) insulin pen 2 unit subcut TIDM amlodipine 2.5 mg Tablet 2.5 mg PO QAM Referrals Referrals: Neli Cain MD [Primary Care Provider] -
[2024-01-02 13:01] LABS: Acetaminophen < 3 ug/ml (10-30); Salicylate < 3.0 mg/dl (3.0-30)
[2024-01-02 13:08] LABS: Thyroid Stimulating Hormone 0.453 uIu/ml (0.300-4.500)
[2024-01-02 13:10] LABS: Schistocytes 1+
[2024-01-02 13:28] LABS: Amphetamines+Metham, Urine Neg (Neg); Barbiturates, Urine Neg (Neg); Benzodiazepine, Urine Neg (Neg); Cocaine, Urine Neg (Neg); Fentanyl, Urine Neg (Neg); MDMA (Ecstacy), Urine Neg (Neg); Marijuana, Urine Neg (Neg); Methadone, Urine Neg (Neg); Opiate, Urine Neg (Neg); Phencyclidine, Urine Neg (Neg)
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
[2024-01-02] MEDS ORDERED: HALOPERIDOL LACTATE 5 MG/ML 1 ML VIAL IM PRN (15:27)
--- NOTE | 2024-01-02 15:34 | XRay Report ---
SINGLE VIEW CHEST CLINICAL HISTORY: Change in mental status. FINDINGS: An AP, portable, supine chest radiograph is compared to study dated 04/25/2023. A shunt trisha ter traverses the right chest wall. The heart is mildly enlarged. The pulmonary vasculature is noncon gested. Chronic elevation of the hemidiaphragm and interstitial thickening is similar to previous. Th ere is mild bibasilar scarring/atelectasis. No airspace consolidation or large pleural effusion is id entified. No pneumothorax is seen. The skeletal structures are osteopenic. The bony thorax is grossly intact. IMPRESSION: No active disease in the chest. ACT 112: Negative or not required by law. Electronically signed by: Ilan Haile M.D. 01/02/2024 3:33 PM
--- OUTSIDE RECORDS SUMMARY | 2024-01-02 16:55 | External Medical Summary | Summary of Care ---
Author Name Unknown Organization [facility] Address [address] [place] [address] Phone [phone] Care Team Providers Care An/Syq 13 Nav/C2 Operator Name Role Phone Neli Cain MD Primary Care Provid er Reason for Visit * Reason Onset Date Comments Other 12/27/2023 Encounter Details Date Type Department Care Team (Late st Contact Info) Description 12/27/2023 Telephone Neurology, [place] [address] [place] [address] Kaycee Light PA-C [address] [address] Other Allergies No known active allergiesdocumented as of this encounter (statuses as of 12/27/2023) Medications Medication Sig Dispensed Refills Start Date End Date Status amLODIPine (NORVASC) 2.5 MG Tablet Take 1 Tablet by mouth in the morning. Active famotidine (PEPCID) 20 MG Tablet Take 1 Tab by mouth every 12 hours. 60 Tab 1 11/09/2017 Active levothyroxine sodium (LEVOXYL) 75 MCG Tablet Take 1 Tab by mouth daily first thing in the morning. (at least 30 min prior to breakfast or other meds) 90 Tab 1 01/17/2018 Active melatonin 3 MG Tablet Take 1 Tablet by mouth at bedtime. Active simvastatin (ZOCOR) 20 MG Tablet Take 1 Tablet by mouth every evening. Active Glimepiride 2 MG Oral Tablet (Amaryl) Take 1 Tablet by mouth daily before breakfast. Active levETIRAcetam 500 MG Oral Tablet (Keppra) TAKE 1 TABLET BY MOUTH TWICE A DAY 180 Tablet 1 11/02/2022 Active Donepezil HCl 23 MG Oral Tablet (Aricept) Take 1 Tablet by mouth in the morning. Take with largest meal of the day. 15 Tablet 12/24/2022 Active QUEtiapine Fumarate 25 MG Oral Tablet (SEROquel) Take 1 Tablet by mouth in the morning and 1 Tablet before bedtime. 30 Tablet 12/24/2022 Active Hydrocortisone 10 MG Oral Tablet (Cortef) Take 1 Tablet by mouth in the morning. Do not start before December 25, 2022. 15 Tablet 12/25/2022 Active Hydrocortisone 20 MG Oral Tablet (Cortef) Take 1 Tablet by mouth every evening. 15 Tablet 12/24/2022 Active Donepezil HCl 23 MG Oral Tablet (Aricept)Indications :Moderate dementia with behavioral disturbance (HCC),History of brain tumor,Apraxia,Agitat ion Take 1 tablet by mouth every morning with food. 90 Tablet 2 05/23/2023 Active Tresiba FlexTouch 100 UNIT/ML Subcutaneous Solution Pen-injector (Insulin Degludec) Inject 12 Units under the skin at bedtime. 09/21/2023 Active Insulin Lispro 100 UNIT/ML Injection Solution (Admelog) 2 units prior to breakfast, lunch and dinner 09/21/2023 Active Sulfamethoxazole-Tri methoprim 800-160 MG Oral Tablet (Bactrim DS)Indications:Wound infection TAKE 1 TABLET BY MOUTH TWICE A DAY 60 Tablet 4 12/12/2023 Active documented as of this encounter (statuses as of 12/27/2023) Active Problems Problem Noted Date Diagnosed Date [...] as of this encounter (statuses as of 12/27/2023) Resolved Problems Problem Noted Date Diagnosed Date Resolved Date 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 12/22/2022 12/24/2022 documented as of this encounter (statuses as of 12/27/2023) Immunizations Name Administration Dates Next Due COVID-19 mRNA, LNP-s, No Pre serve, 2-Dose Series (Healionics) 03/12/2021,07/15/2020,06/24/2020 Pneumococcal Conjugate Vacc, 13 Valent (Prevnar) 06/13/2018,12/06/2017 Pneumococcal Polysaccharide PPV23 (Pneumovax) 10/07/2020 Seasonal Influenza Virus Vac cine, Unspecified Formulation 06/13/2018 Seasonal Influenza, PF, 6 M & above, IM , (FluLaval or Fluzone) 06/13/2018 Seasonal Influenza, Quadriva lent Hd (Fluzone [...] in the Last Year Never true 12/06/2018 Utilities Answer Date Recorded Do you have trouble paying y our heating, water, or electric bill? (Adult - for ages 18 years and over) Not on file 10/11/2023 Is your family able to pay t he heat, water, or electric bill? (Household - for ages 0-17 years) Not on file 10/11/2023 Does your family have access to good internet? (Household - for ages 0-17 years) Not on file 10/11/2023 Social Connections Answer Date Recorded How often do you feel lonely or isolated from those around you? (Adult - for ages 18 years and over) Not on file 10/11/2023 Sex and Gender Information Value Date Recorded [...] encounter Miscellaneous Notes * Telephone Encounter - Danika Waggoner OSA - 12/27/2023 5:09 PM EDT scheduled * Telephone Encounter - Arlene Marie CRNP - 12/27/2023 4:39 PM EDT Noted. Seroquel necessary for management of psychotic symptoms and seems to be working well. Did discuss risk vs. Benefit of medication with patient and family, so will continue this medication as ordered. He was last seen by myself on 09/21/2023 and I wanted him to be seen for follow- up in 6 months in [facility]. Mahesh, Can you schedule him to see me in my next available appointment. Will check EKG at that time to evaluate QTc. * Telephone Encounter - Denise Diop CMA - 12/27/2023 2:15 PM EDT Received Prescriber Response Form from [facility]; scanned into chart and routed to provider. documented in this encounter Plan of Treatment Upcoming Encounters Date Type Department Care Team (Late st Contact Info) Description 06/29/2024 10:00 AM EST Office Visit Neurology [facility] [address] [place] [address] Arlene Marie CRNP [address] [place] [address] Health Maintenance Due Date Last Done Comments Depression Screening 1959 Albumin/Creatinine Ratio 1965 Diabetic Eye Exam 1965 Diabetic Foot Exam 1965 DTap/Tdap Vaccines (1 - Tdap) 1966 Zoster Vaccines (1 of 2) 1997 HbA1c 06/20/2023 12/18/2022, 05/2019, 03/07/2019, Additional history exists GFR 12/19/2023 12/18/2022, 1105/2019, 03/20/2019, Additional history exists TSH 12/19/2023 12/18/2022, 10/24, 10/28/2018, Additional history exists B-12 12/22/2023 12/21/2022, 11/19/2019 COVID-19 Vaccine ( season) 2023 03/12/2021, 07/15/2020, 06/24/2020 Influenza Vaccine (FLU shot) (#1) 2023 12/24/2022, 06/13/2018, 06/13/2018 Pneumococcal Vaccine: 65+ Years Completed 10/07/2020, 06/13/2018, 12/06/2017 HPV (Gardasil) Vaccine Aged Out No lo nger eligible based on patient's age to complete this topic Hepatitis B Vaccine Aged Out No longe r eligible based on patient's age to complete this topic MENINGOCOCCAL (MENACTRA/MENVEO) Aged Out No longer eligible based on patient's age to complete this topic documented as of this encounter Medical Devices Implanted Type Area Aquaculture Director Device Identifier Shelf Expiration Date Model / Serial / Lot Patch Duraguard [id number] - [id number] Implanted:Qty : 1 on 10/28/2018 by Aron Gay MD at [facility] Tissue - Human Left: Head QUARLES : BIOSCIENCE 07/23/2021 [id number] / / [id number] Patch Duraguard [id number] - [id number] Implanted:09/2018 by Aron Gay MD at [facility] (Quantity not on file) Tissue - Human QUARLES : BIOSCIENCE 02/22/2023 [id number] / [id number] / [id number] Graft Lyoplant 10.0x12.5cm 4x5 - [id number] Implanted:Qty : 1 on 08/30/2017 by Rian Chery MD at [facility] Left: Head B SENIOR : AESCULAP 05/25/2022 [id number] / / [id number] Clip Aneursym Mv603q - [id number] Implanted:Qty : 2 on 08/30/2017 by Rian Chery MD at [facility] Left: Head B SENIOR : AESCULAP [id number] / / Cath Vent Bactiseal [id number] - [id number] Implanted:Qty : 1 on 09/27/2017 by Rian Chery MD at [facility] Right: Head JAISON : EZEQUIEL 05/25/2018 [id number] / / [place] - [id number] Implanted:Qty : 1 on 09/27/2017 by Rian Chery MD at [facility] Right: Head B SENIOR : AESCULAP 10/20/2021 [id number] / / Valve Progav 2.0 - [id number] - [id number] Implanted:Qty : 1 on 09/27/2017 by Rian Chery MD at [facility] Right: Head B SENIOR 06/12/2022 [id number] / [id number] / [id number] Valve Progav Sys W Sa 20 Flush - [id number] Implanted:Qty : 1 on 09/27/2017 by Rian Chery MD at [facility] Right: Head B SENIOR : AESCULAP 04/24/2020 [id number] / / Screw 4mm Ti Low Pro Sdrill - [id number] Implanted:Qty : 6 on 06/01/2018 by Rian Chery MD at [facility] SYNTHES MAXILLOFACIAL 400.834E / / Plate Ti Lo Pro Str 2h 421.502 - [id number] Implanted:Qty : 4 on 06/01/2018 by Rian Chery MD at [facility] SYNTHES MAXILLOFACIAL 421.502 / / Custom Cranial Implant Implanted:Qty : 1 on 06/01/2018 by Rian Chery MD at OR [facility] Left: Head SYNTHES SD 800.434 / / Description:in set Graft Lyoplant 10.0x12.5cm 4x5 - [id number] - [id number] Implanted:Qty : 1 on 06/01/2018 by Rian Chery MD at [facility] Left: Head B SENIOR : AESCULAP 10/22/2022 [id number] / [id number] / [id number] Screw 5mm Low Prof 400.835e - [id number] Implanted:Qty : 5 on 06/01/2018 by Rian Chery MD at [facility] SYNTHES MAXILLOFACIAL 400.835E / / [id number] Synthes Cranial Implanted:Qty : 1 on 03/06/2019 by Rian Chery MD at [facility] Left: Head SYNTHES SD800.434 / SD800.434 / [id number] Description:[id number] Screw 4mm Ti Low Pro Sdrill - [id number] Implanted:Qty : 8 on 03/06/2019 by Rian Chery MD at [facility] Left: Head SYNTHES MAXILLOFACIAL 400.834E / / Plate Ti Lo Pro Str 2h 421.502 - [id number] Implanted:Qty : 4 on 03/06/2019 by Rian Chery MD at [facility] Left: Head SYNTHES MAXILLOFACIAL 421.502 / / documented as of this encounter Advance Directives Documents on File Type Date Recorded Patient Pillowcase Maker Expl anation Advance Directives and Living Will 06/26/2018 ADVANCE DIRECTIVE / LIVING WILL Advance Directives and Living Will 02/22/2018 ADVANCE DIRECTIVE / LIVING WILL * Full Code (Latest Code Status on File) Date Activated Date Inactivated Comments 12/20/2022 7:14 PM 12/24/2022 5:16 PM This order re flects the patients wishes and were consensually agreed upon. Question Answer Comments Discussion of Advance Direct jani occurred with: Not Discussed due to patient's condition * Full Code Date Activated Date Inactivated Comments 03/06/2019 6:12 PM 03/09/2019 5:35 PM This order reflects the patients wishes and were consensually agreed upon. Question Answer Comments Discussion of Advance Directives occurred with: Not Discussed pt non verbal Does the patient have a Living Will? No Does the patient have Health Care Power of Attor lit? No * Full Code Date Activated Date Inactivated Comments 03/06/2019 9:09 AM 03/06/2019 6:12 PM This order reflects the patients wishes and were consensually agreed upon. Question Answer Comments Discussion of Advance Directives occurred with: Not Discussed * Full Code Date Activated Date Inactivated Comments 12/06/2018 5:06 PM 12/08/2018 11:03 PM This order reflects the patients wishes and were consensually agreed upon. * Full Code Date Activated Date Inactivated Comments 10/27/2018 6:33 PM 11/03/2018 6:10 PM This order re flects the patients wishes and were consensually agreed upon. Question Answer Comments Discussion of Advance Directives occurred with: Family Does the patient have a Living Will? No Does the patient have Health Care Power of Attor lit? No Care Teams An/Syq 13 Nav/C2 Operator Relationship Specialty Start Date End Date Neli Cain MD [address] [place], [place] [address], [place] [address] PCP - General Internal Medicine 10/20/18 documented as of this encounter
--- OUTSIDE RECORDS SUMMARY | 2024-01-02 16:56 | External Medical Summary | Summary of Care ---
Author Name Unknown Organization [facility] Address [address] [facility] [place] [address] Phone [phone] Care Team Providers Care Rd Manager Name Role Phone Neli Cain MD Primary Care Provid er Reason for Visit * Reason Onset Date Comments Other 12/27/2023 Encounter Details Date Type Department Care Team (Late st Contact Info) Description 12/27/2023 Telephone Neurology, [facility] [address] [place] [address] Kaycee Light PA-C [address] [address] Other Allergies No known active [...] mRNA, LNP-s, No Pre serve, 2-Dose Series ([email or web address]) 03/12/2021,07/15/2020,06/24/2020 Pneumococcal Conjugate Vacc, 13 Valent (Prevnar) [...] encounter Miscellaneous Notes * Telephone Encounter - Arlene Marie CRNP [...] for follow- up in 6 months in [facility]. Mahesh, Can you schedule him to see me in my next available appointment. Will check EKG at that time to evaluate QTc. * Telephone Encounter - Denise Diop CMA - 12/27/2023 2:15 PM EDT Received Prescriber Response Form from [facility]; scanned into chart and routed to provider. documented in this encounter Plan of Treatment Health Maintenance Due Date Last Done Comments Depression Screening 1959 Albumin/Creatinine Ratio 1965 Diabetic Eye Exam 1965 Diabetic Foot Exam 1965 DTap/Tdap Vaccines (1 - Tdap) 1966 Zoster Vaccines (1 of 2) 1997 HbA1c 06/20/2023 12/18/2022, 110 05/2019, 03/07/2019, Additional history exists GFR 12/19/2023 12/18/2022, 11/0 05/2019, 03/20/2019, Additional history exists TSH 12/19/2023 12/18/2022, 07/2 10/2019, 10/28/2018, Additional history exists B-12 12/22/2023 12/21/2022, [...] this encounter Medical Devices Implanted Type Area Fish Butcher Device Identifier Shelf Expiration Date Model / Serial / Lot Patch Duraguard [id number] - [id number] Implanted:Qty : 1 on 10/28/2018 by Aron Gay MD at [facility] [place] Tissue - Human Left: Head QUARLES : BIOSCIENCE 07/23/2021 [id number] / / [id number] Patch Duraguard [id number] - [id number] Implanted:09/2018 by Aron Gay MD at OR [facility] (Quantity not on file) Tissue - Human QUARLES : BIOSCIENCE 02/22/2023 [id number] / [id number] / [id number] Graft Lyoplant 10.0x12.5cm 4x5 - [id number] Implanted:Qty : 1 on 08/30/2017 by Rian Chery MD at [facility] [place] Left: Head Madina SENIOR : MIGUEL 05/25/2022 [id number] / / [id number] Clip Aneursym [id number] - [id number] Implanted:Qty : 2 on 08/30/2017 by Rian Chery MD at [facility] [place] Left: Head Madina SENIOR : MIGUEL [id number] / / Cath Vent Bactiseal [id number] - [id number] Implanted:Qty : 1 on 09/27/2017 by Rian Chery MD at [facility] [place] Right: Head JAISON : EZEQUIEL 05/25/2018 [id number] / / Dieter Hole Resevoir - [id number] Implanted:Qty : 1 on 09/27/2017 by Rian Chery MD at [facility] [place] Right: Head Madina SENIOR : RODNEYCUMERCEDES 10/20/2021 [id number] / / Valve Progav 2.0 - [id number] - [id number] Implanted:Qty : 1 on 09/27/2017 by Rian Chery MD at [facility] Right: Nadeem SENIOR 06/12/2022 [id number] / [id number] / [id number] Valve Progav Sys W Sa 20 Flush - [id number] Implanted:Qty : 1 on 09/27/2017 by Rian Chery MD at [facility] [place] Right: Head Madina SENIOR : RODNEYCULAJeison 04/24/2020 [id number] / / Screw 4mm Ti Low Pro Sdrill - [id number] Implanted:Qty : 6 on 06/01/2018 by Rian Chery MD at [facility] SYNTHES MAXILLOFACIAL 400.834E / / Plate Ti Lo Pro Str 2h 421.502 - [id number] Implanted:Qty : 4 on 06/01/2018 by Rian Chery MD at [facility] SYNTHES MAXILLOFACIAL 421.502 / / Custom Cranial Implant Implanted:Qty : 1 on 06/01/2018 by Rian Chery MD at [facility] Left: Head SYNTHES SD 800.434 / / Description:in set Graft Lyoplant 10.0x12.5cm 4x5 - [id number] - [id number] Implanted:Qty : 1 on 06/01/2018 by Rian Chery MD at [facility] Left: Head B SENIOR : AESCULAP 10/22/2022 [id number] / [id number] / [id number] Screw 5mm Low Prof 400.835e - [id number] Implanted:Qty : 5 on 06/01/2018 by Rian Chery MD at [facility] SYNTHES MAXILLOFACIAL 400.835E / / [id number] Synthes Cranial Implanted:Qty : 1 on 03/06/2019 by Rian Chery MD at [facility] Left: Head SYNTHES SD800.434 / SD800.434 / [id number] Description:[id number]_Anadu Screw 4mm Ti Low Pro Sdrill - [id number] Implanted:Qty : 8 on 03/06/2019 by Rian Chery MD at [facility] Left: Head SYNTHES MAXILLOFACIAL 400.834E / / Plate Ti Lo Pro Str 2h 421.502 - [id number] Implanted:Qty : 4 on 03/06/2019 by Rian Cehry MD at [facility] Left: Head SYNTHES MAXILLOFACIAL 421.502 / / documented as of this encounter Advance Directives Documents on File Type Date Recorded Patient Correctional Counselor/Case Manager Expl anation Advance Directives and Living Will [...] Power of Attor lit? No Care Teams Rd Manager Relationship Specialty Start Date End Date Neli Cain MD [address] [place] [address] GALLO WOODS [id number] PCP - General Internal Medicine 10/20/18 documented as of this encounter
--- OUTSIDE RECORDS SUMMARY | 2024-01-02 16:56 | External Medical Summary | Summary of Care ---
Author Name Unknown Organization [facility] Address [address] [facility] [place] [address] Phone [phone] Care Team Providers Care Revenue Manager Name Role Phone Neli Cain MD Primary Care Provid er Reason for Visit * Reason Onset Date Comments Other 12/27/2023 Encounter Details Date Type Department Care Team (Late st Contact Info) Description 12/27/2023 Telephone Neurology, [facility] [address] [place] [address] Kaycee Light PA-C [address] [address] Other Allergies No known active [...] LNP-s, No Pre serve, 2-Dose Series ([employer]) 03/12/2021,07/15/2020,06/24/2020 Pneumococcal Conjugate Vacc, 13 Valent (Prevnar) [...] encounter Miscellaneous Notes * Telephone Encounter - Denise Diop CMA - 12/27/2023 2:15 PM EDT Received Prescriber Response Form from [facility]; scanned into chart and routed to [...] this encounter Medical Devices Implanted Type Area Catalyst Concentration Operator Device Identifier Shelf Expiration Date Model / Serial / Lot Patch Duraguard [id number] - [id number] Implanted:Qty : 1 on 10/28/2018 by [place]ron Gay [place] [facility] [place] - Human Left: Head QUARLES : BIOSCIENCE 07/23/2021 [id number] / / [id number] Patch Duraguard [id number] - [id number] Implanted:09/2018 by Aron Gay MD [place] [facility] [place] (Quantity not on file) Tissue - Human QUARLES : BIOSCIENCE 02/22/2023 [id number] / [id number] / [id number] Graft Lyoplant 10.0x12.5cm 4x5 - [id number] Implanted:Qty : 1 on 08/30/2017 by Rian Chery MD [place] [facility] [place] Left: Head B SENIOR : AESCULA 05/25/2022 [id number] / / [id number] Clip Aneursym [id number] - [id number] Implanted:Qty : 2 on 08/30/2017 by Rian Chery MD [place] [facility] [place] Left: Head B SENIOR : [facility] [id number] / / Cath Vent Bactiseal 368221 - [id number] Implanted:Qty : 1 on 09/27/2017 by Rian Chery MD [place] [facility] [place] Right: Head JNJ : EZEQUIEL 05/25/2018 [id number] / / Dieter Hole Resevoir - [id number] Implanted:Qty : 1 on 09/27/2017 by Rain Chery MD [place] [facility] [place] Right: Head B SENIOR : [facility] 10/20/2021 [id number] / / Valve Progav 2.0 - [id number] - [id number] Implanted:Qty : 1 on 09/27/2017 by Rian Chery MD [place] [facility] [place] Right: Head B SENIOR 06/12/2022 [id number] / [id number] / [id number] Valve Progav Sys W Sa 20 Flush - [id number] Implanted:Qty : 1 on 09/27/2017 by Rian Chery MD [place] [facility] [place] Right: Head B SENIOR : [facility] 04/24/2020 [id number] / / Screw 4mm Ti Low Pro Sdrill - [id number] Implanted:Qty : 6 on 06/01/2018 by Rian Chery MD [place] [facility] [place] SYNTHES MAXILLOFACIAL 400.834E / / Plate Ti Lo Pro Str 2h 421.502 - [id number] Implanted:Qty : 4 on 06/01/2018 by Rian Chery MD at [place] [facility] [place] SYNTHES MAXILLOFACIAL 421.502 / / Custom Cranial Implant Implanted:Qty : 1 on 06/01/2018 by Rian Chery MD at [place] [facility] [place] Left: Head SYNTHES SD 800.434 / / Description:in set Graft Lyoplant 10.0x12.5cm 4x5 - [id number] - [id number] Implanted:Qty : 1 on 06/01/2018 by Rian Chery MD at [place] [facility] [place] Left: Head B SENIOR : RODNEYCULAP 10/22/2022 [id number] / [id number] / [id number] Screw 5mm Low Prof 400.835e - [id number] Implanted:Qty : 5 on 06/01/2018 by Rian Chery MD at [place] [facility] [place] SYNTHES MAXILLOFACIAL 400.835E / / Ps1 Synthes Cranial Implanted:Qty : 1 on 03/06/2019 by Rian Chery MD [place] [facility] [place] Left: Head SYNTHES SD800.434 / SD800.434 / [id number] Description:[id number]_Anadu Screw 4mm Ti Low Pro Sdrill - [id number] Implanted:Qty : 8 on 03/06/2019 by Rian Chery MD at [place] [facility] [place] Left: Head SYNTHES MAXILLOFACIAL 400.834E / / Plate Ti Lo Pro Str 2h 421.502 - [id number] Implanted:Qty : 4 on 03/06/2019 by Rian Chery MD [place] [facility] [place] Left: Head SYNTHES MAXILLOFACIAL 421.502 / / documented as of this encounter Advance Directives Documents on File Type Date Recorded Patient House Builder Expl anation Advance Directives and Living Will [...] Power of Attor lit? No Care Teams Revenue Manager Relationship Specialty Start Date End Date Neli Cain MD [address] [place] [address] [place] [id number] PCP - General Internal Medicine 10/20/18 documented as of this encounter
[2024-01-02] MEDS ORDERED: GLUCOSE 10 TAB/TUBE PO PRN (21:18)
[2024-01-02] MEDS ORDERED: CARBOHYDRATES FOR HYPOGLYCEMIA PO PRN (21:18)
[2024-01-02] MEDS ORDERED: GLUCOSE 40% GEL 15 GM TUBE PO PRN (21:18)
[2024-01-02] MEDS ORDERED: DEXTROSE 50% 50 ML SYRINGE IV PRN (21:18)
[2024-01-02] MEDS ORDERED: ACETAMINOPHEN 325 MG TAB PO PRN (21:18)
[2024-01-02] MEDS ORDERED: GLUCAGON FOR INJ 1 MG VIAL SQ PRN (21:18)
[2024-01-02] MEDS ORDERED: SENNA 8.6 MG TAB PO PRN (21:18)
[2024-01-02] MEDS: INSULIN ASPART PER UNIT CHARGE SC SCH (21:48)
[2024-01-02] MEDS: levETIRAcetam 500 MG TAB PO SCH (22:38)
[2024-01-02] MEDS: HYDROCORTISONE 10 MG TAB PO SCH (22:39)
[2024-01-02] MEDS: QUEtiapine FUMARATE 25 MG TABLET PO SCH (22:39)
[2024-01-02] MEDS: LANTUS PER UNIT CHARGE SQ SCH (22:39)
[2024-01-02] MEDS: SIMVASTATIN 20 MG TAB PO SCH (22:39)
[2024-01-03] MEDS: LEVOTHYROXINE SODIUM 75 MCG TABLET PO SCH (05:41)
[2024-01-03] MEDS: HYDROCORTISONE 10 MG TAB PO SCH (08:25)
[2024-01-03] MEDS: FERROUS SULFATE 325 MG TAB PO SCH (08:26)
[2024-01-03] MEDS: amLODIPine BESYLATE 5 MG TAB PO SCH (08:27)
--- NOTE | 2024-01-03 11:44 | Electrocardiogram Report ---
Test Reason : Blood Pressure : */* mmHG Vent. Rate : 74 BPM Atrial Rate : 74 BPM P-R Int : 216 ms QRS Dur : 82 ms QT Int : 392 ms P-R-T Axes : 56 32 54 degrees QTcB Int : 435 ms Sinus rhythm with 1st degree A-V block Poor R wave progression, consider anterior MT vs. lead placement vs. LVH Abnormal ECG When compared with ECG of 25-Apr-2023 12:49, Criteria for Inferior infarct are no longer Present Confirmed by Marlon Shin ([id number]) on 01/03/2024 11:44:23 AM Referred By: REFERRED SELF Confirmed By: Marlon Shin
--- NOTE | 2024-01-03 12:25 | Billing Data ---
Date of Service January 02, 2024 Coding Level of Care Code 09829 INT INP/OBS CARE
--- NOTE | 2024-01-03 15:41 | Electrocardiogram Report ---
Test Reason : Blood Pressure : */* mmHG Vent. Rate : 73 BPM Atrial Rate : 73 BPM P-R Int : 220 ms QRS Dur : 82 ms QT Int : 406 ms P-R-T Axes : 56 6 63 degrees QTcB Int : 447 ms Sinus rhythm with 1st degree A-V block Poor R wave progression, consider anterior CO vs. lead placement vs. LVH Abnormal ECG When compared with ECG of 25-Apr-2023 12:49, No significant change was found Confirmed by Marlon Shin ([id number]) on 01/03/2024 3:41:17 PM Referred By: REFERRED SELF Confirmed By: Marlon Shin
--- NOTE | 2024-01-03 22:06 | Hospitalist Progress Note ---
Date of Service January 03, 2024 Assessment & Plan (1) Dementia with behavioral disturbance: Plan: Patient with increase in aggression at home towards and daughter - Calm and cooperative on admission - Oriented to self only, baseline - Head CT on admission negative for acute changes. 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 I agree with the bermudez components of her documentation. 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 Consider neuro consultation in light of enlarging pituitary adenoma. Cont seroquel for dementia with behavioral disturbance. Jose L Bowling MD Subjective Patient seen and evaluated at bedside. He was sleeping upon my initial rounds. He is oriented to self-only. No acute complaints or concerns at this time. RN reports patient has been calm and cooperative today, able to feed himself independently, and voids without difficulty. Physical Exam Physical Exam: General: No acute distress, nondiaphoretic, well-developed, well-nourished. Skin: The skin was without rashes, erythema, edema, or bruising. Cardiac: Regular rate and rhythm without murmurs gallops or rubs. Pulm: Clear to auscultation bilaterally without wheezes, rales or rhonchi. No respiratory distress. 96% on room air. Abdominal: Soft, nontender, nondistended. Bowel sounds present. Neuro: A&O x1, self only. No focal neurological deficits. Results & Data Results & Data Vital Signs (Past 12 Hours) Vital Signs Temp Pulse Resp BP Pulse Ox O2 Del Method 01/03/24 19:23 36.8 C 85 18 97/57 L 96 Room Air 01/03/24 14:46 36.6 C 75 16 116/65 98 Room Air Laboratory Results Reviewed CBC Reviewed CMP Reviewed UA Reviewed toxicology PG Care Time/CCT Total # of Minutes Spent Total Time Spent with Patient: Total time spent is greater than 50% in coordination of care (as documented) at patient's floor/unit and/or counseling patient: Coding Level of Care Code 51722 SUB INP/OBS CARE 2/35MIN Diagnoses Dementia with behavioral disturbance F03.918 Type 2 diabetes mellitus E11.9
[2024-01-04 06:52] LABS: Hematocrit (blood only) 41.6 % (42.0-52.0); Hemoglobin 13.6 g/dl (14.0-18.0); Mean Corpuscular Hemoglobin 22.6 pg (25.0-34.0); Mean Corpuscular Hgb Conc 32.7 g/dL (32.0-36.0); Mean Platelet Volume 9.8 fL (9.4-12.4); Platelet Count 238 K/uL (130-400); RDW Coefficient of Variation 15.3 % (11.5-14.5); RDW Standard Deviation 35.6 fL (36.4-46.3); Red Blood Count 6.03 M/uL (4.70-6.10); White Blood Count 6.74 K/ul (4.8-10.8)
[2024-01-04 06:57] LABS: BUN Creatinine Ratio 12.9 (10-20); Calcium 8.4 mg/dl (8.6-10.3); Creatinine Clr Calc Pharmacy 48.7 ml/min; Est GFR (African American) 56.2 ml/min; Est GFR (Non-African American) 48.5 ml/min; Potassium 4.4 mmol/L (3.5-5.1)
--- NOTE | 2024-01-04 17:43 | Hospitalist Progress Note ---
Date of Service January 04, 2024 Assessment & Plan (1) Dementia with behavioral disturbance: Plan: Patient with increase in aggression at home towards and daughter - Calm and cooperative on admission - Oriented to self only, baseline - Head CT on admission negative for acute changes. 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 I agree with the bermudez components of her documentation. 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 Consider neuro consultation in light of enlarging pituitary adenoma. If MRI brain is advised by neuro would need an operative note to determine the type of MORTGAGE LOAN SPECIALIST shunt he has. Cont seroquel for dementia with behavioral disturbance. Jose L Bowling MD Subjective Patient seen and evaluated at bedside. He is pleasantly confused, only oriented to self. He has no acute complaints at this time. He has been cooperative with his care per nursing. No additional complaints or concerns at this time. Physical Exam Physical Exam: General: No acute distress, nondiaphoretic, well-developed, well-nourished. Skin: The skin was without rashes, erythema, edema, or bruising. Cardiac: Regular rate and rhythm without murmurs gallops or rubs. Pulm: Clear to auscultation bilaterally without wheezes, rales or rhonchi. No respiratory distress. 97% on room air. Abdominal: Soft, nontender, nondistended. Bowel sounds present. Neuro: A&O x1, self only. No focal neurological deficits. Results & Data Results & Data Vital Signs (Past 12 Hours) Vital Signs Temp Pulse Resp BP Pulse Ox O2 Del Method 01/04/24 14:36 36.4 C L 67 18 119/74 97 Room Air 01/04/24 07:25 36.6 C 71 16 117/71 97 Room Air Laboratory Results Reviewed CBC Reviewed BMP PG Care Time/CCT Total # of Minutes Spent Total Time Spent with Patient: Total time spent is greater than 50% in coordination of care (as documented) at patient's floor/unit and/or counseling patient: Coding Level of Care Code 25831 SUB INP/OBS CARE 05/19MIN Diagnoses Dementia with behavioral disturbance F03.918 Type 2 diabetes mellitus E11.9
--- NOTE | 2024-01-05 14:52 | Hospitalist Progress Note ---
Date of Service January 05, 2024 Assessment & Plan (1) Dementia with behavioral disturbance: Plan: Patient with increase in aggression at home towards and daughter - Calm and cooperative on admission - Oriented to self only, baseline - Head CT on admission negative for acute changes. CXR Negative - No signs of acute infection, WBC 7.15, hemodynamically stable, UA negative - Ammonia WNL, tox screen negative, TSH WNL, B12 WNL - B1 level ordered, pending - Will add Free T4 to AM labs to assess Synthroid dose given central hypothyroidism - Informal [place] correspondence with Dr. Dino Lala from [facility] who recommended outpatient follow-up with neurosurgery in the setting of enlarging pituitary adenoma - Haldol ordered prn, Qt 435 - Continue home Seroquel and Aricept - PT/OT recommending SNF for long-term placement. 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 I agree with the bermudez components of her documentation. Due to central hypothyroidism check a free T4 and adjust synthroid, if needed, based on the FT4 level. Cont seroquel for dementia with behavioral disturbance. Jose L Bowling MD Subjective Patient seen and evaluated at bedside. He continues to remain pleasantly confused. He reports that his appetite is good, no problems with sleeping. Denies any pain or other complaints at this time. RN reports he has been calm and cooperative with staff. Continue inpatient stay while waiting for placement. Physical Exam Physical Exam: General: No acute distress, nondiaphoretic, well-developed, well-nourished. Skin: The skin was without rashes, erythema, edema, or bruising. Cardiac: Regular rate and rhythm without murmurs gallops or rubs. Pulm: Clear to auscultation bilaterally without wheezes, rales or rhonchi. No respiratory distress. 97% on room air. Abdominal: Soft, nontender, nondistended. Bowel sounds present. Neuro: A&O x1, self only. No focal neurological deficits. Results & Data Results & Data Vital Signs (Past 12 Hours) Vital Signs Temp Pulse Resp BP Pulse Ox O2 Del Method 01/05/24 07:58 36.5 C 82 16 116/70 97 Room Air PG Care Time/CCT Total # of Minutes Spent Total Time Spent with Patient: Total time spent is greater than 50% in coordination of care (as documented) at patient's floor/unit and/or counseling patient: Coding Level of Care Code 97279 SUB INP/OBS CARE 2/35MIN Diagnoses Dementia with behavioral disturbance F03.918 Type 2 diabetes mellitus E11.9
[2024-01-06 07:09] LABS: Hematocrit (blood only) 39.9 % (42.0-52.0); Hemoglobin 13.7 g/dl (14.0-18.0); Mean Corpuscular Hemoglobin 23.1 pg (25.0-34.0); Mean Corpuscular Hgb Conc 34.3 g/dL (32.0-36.0); Mean Corpuscular Volume 67.3 fL (80.0-100.0); Mean Platelet Volume 9.9 fL (9.4-12.4); Platelet Count 236 K/uL (130-400); RDW Coefficient of Variation 14.7 % (11.5-14.5); RDW Standard Deviation 34.4 fL (36.4-46.3); Red Blood Count 5.93 M/uL (4.70-6.10); White Blood Count 7.48 K/ul (4.8-10.8)
[2024-01-06 07:30] LABS: BUN Creatinine Ratio 15.7 (10-20); Calcium 8.7 mg/dl (8.6-10.3); Creatinine Clr Calc Pharmacy 50.9 ml/min; Est GFR (African American) 59.2 ml/min; Est GFR (Non-African American) 51.1 ml/min; Potassium 4.1 mmol/L (3.5-5.1)
[2024-01-06 07:48] LABS: T4 Free Thyroxine 0.99 ng/dl (0.61-1.60)
--- NOTE | 2024-01-06 08:33 | Hospitalist Progress Note ---
Date of Service January 06, 2024 Assessment & Plan (1) Dementia with behavioral disturbance: Plan: Patient with increase in aggression at home towards and daughter - Calm and cooperative on admission - Oriented to self only, baseline - Head CT on admission negative for acute changes. 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 Dino Lala from [facility] who recommended outpatient follow-up with neurosurgery in the setting of enlarging pituitary adenoma - Haldol ordered prn, Qt [phone] - Continue home Seroquel and Aricept - PT/OT recommending SNF for long-term placement. 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 CM to follow-up with Tami on 01/08 for bed availability. VTE ppx: SCDs Code status: FULL CODE Admission and Anticipated Discharge Date Admission Date: January 02, 2024 Supervising Physician Co-Signing Physician Notes Attending Attestation - Chart reviewed, care plan d/w GALLO Campos. I agree with the bermudez components of her documentation. Due to central hypothyroidism checked a free T4 -- returned wnl. No change in synthroid at this time. Cont seroquel for dementia with behavioral disturbance. Social work assisting with placement. Jose L Bowling MD Subjective Patient seen and evaluated at bedside. He was sleeping upon the initial entry in the room, but easily arousable to voice. No acute complaints. He remains pleasantly confused. He has been calm and cooperative with staff per RN. Continue inpatient stay while waiting for placement. Physical Exam Physical Exam: General: No acute distress, nondiaphoretic, well-developed, well-nourished. Skin: The skin was without rashes, erythema, edema, or bruising. Cardiac: Regular rate and rhythm without murmurs gallops or rubs. Pulm: Clear to auscultation bilaterally without wheezes, rales or rhonchi. No respiratory distress. 94% on room air. Abdominal: Soft, nontender, nondistended. Bowel sounds present. Neuro: A&O x1, self only. No focal neurological deficits. Results & Data Results & Data Vital Signs (Past 12 Hours) Vital Signs Temp Pulse Resp BP Pulse Ox O2 Del Method 01/06/24 07:22 36.5 C 79 16 122/78 94 Room Air 01/05/24 23:54 36.9 C 83 18 110/70 96 Room Air Laboratory Results Reviewed CBC Reviewed BMP Reviewed FT4 PG Care Time/CCT Total # of Minutes Spent Total Time Spent with Patient: Total time spent is greater than 50% in coordination of care (as documented) at patient's floor/unit and/or counseling patient: Coding Level of Care Code 46095 SUB INP/OBS CARE 25MIN Diagnoses Dementia with behavioral disturbance F03.918 Type 2 diabetes mellitus E11.9
[2024-01-06] MEDS: MELATONIN 3 MG TAB PO PRN (19:59)
--- NOTE | 2024-01-07 17:14 | Hospitalist Progress Note ---
Date of Service January 07, 2024 Assessment & Plan (1) Dementia with behavioral disturbance: Plan: Patient with increase in aggression at home towards and daughter - Calm and cooperative on admission - Oriented to self only, baseline - Head CT on admission negative for acute changes. 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 Dino Lala from [facility] who recommended outpatient follow-up with neurosurgery in the setting of enlarging pituitary adenoma - Haldol ordered prn, Qt [phone] - Continue home Seroquel and Aricept - PT/OT recommending SNF for long-term placement. 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 CM to follow-up with Tami on 01/08 for bed availability. VTE ppx: SCDs Code status: FULL CODE Admission and Anticipated Discharge Date Admission Date: January 02, 2024 Supervising Physician Co-Signing Physician Notes Attending Attestation - Chart reviewed, care plan d/w GALLO Campos. I agree with the bermudez components of her documentation. Social work assisting with placement. Dispo still uncertain. Jose L Bowling MD Subjective Patient seen and evaluated at bedside. He remains pleasantly confused. Continues to be calm and cooperative with staff. No acute complaints at this time. Physical Exam Physical Exam: General: No acute distress, nondiaphoretic, well-developed, well-nourished. Skin: The skin was without rashes, erythema, edema, or bruising. Cardiac: Regular rate and rhythm without murmurs gallops or rubs. Pulm: Clear to auscultation bilaterally without wheezes, rales or rhonchi. No respiratory distress. 96% on room air. Abdominal: Soft, nontender, nondistended. Bowel sounds present. Neuro: A&O x1, self only. No focal neurological deficits. Results & Data Results & Data Vital Signs (Past 12 Hours) Vital Signs Temp Pulse Resp BP Pulse Ox O2 Del Method 01/07/24 15:07 98.2 F 86 16 115/80 96 Room Air 01/07/24 07:18 97.5 F L 78 16 129/77 96 Room Air PG Care Time/CCT Total # of Minutes Spent Total Time Spent with Patient: Total time spent is greater than 50% in coordination of care (as documented) at patient's floor/unit and/or counseling patient: Coding Level of Care Code 97502 SUB INP/OBS CARE 05/19MIN Diagnoses Dementia with behavioral disturbance F03.918 Type 2 diabetes mellitus E11.9
--- NOTE | 2024-01-08 12:48 | Hospitalist Progress Note ---
Date of Service January 08, 2024 Assessment & Plan (1) Dementia with behavioral disturbance: Plan: Patient with increase in aggression at home towards and daughter - Calm and cooperative on admission - Oriented to self only, baseline - Head CT on admission negative for acute changes. 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 Dino Lala from [facility] who recommended outpatient follow-up with neurosurgery in the setting of enlarging pituitary adenoma - Haldol ordered prn, Qt [phone] - Continue home Seroquel and Aricept - PT/OT recommending SNF for long-term placement. 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 CM to follow-up with Tami on 01/08 for bed availability. VTE ppx: SCDs Code status: FULL CODE Admission and Anticipated Discharge Date Admission Date: January 02, 2024 Supervising Physician Co-Signing Physician Notes Attending Attestation - Chart reviewed, care plan d/w GALLO Campos. I agree with the bermudez components of her documentation. Social work assisting with placement. Ultimate dispo uncertain. Jose L Bowling MD Subjective Patient seen and evaluated in bedside chair while eating lunch. He reports that his appetite is good and he has been sleeping well. RN reports he continues to remain calm and cooperative with staff. Continue inpatient hospitalization while awaiting placement. Physical Exam Physical Exam: General: No acute distress, nondiaphoretic, well-developed, well-nourished. Skin: The skin was without rashes, erythema, edema, or bruising. Cardiac: Regular rate and rhythm without murmurs gallops or rubs. Pulm: Clear to auscultation bilaterally without wheezes, rales or rhonchi. No respiratory distress. 96% on room air. Abdominal: Soft, nontender, nondistended. Bowel sounds present. Neuro: A&O x1, self only. No focal neurological deficits. Results & Data Results & Data Vital Signs (Past 12 Hours) Vital Signs Temp Pulse Resp BP Pulse Ox O2 Del Method 01/08/24 08:30 Room Air 01/08/24 07:16 98.4 F 74 18 122/83 96 Room Air PG Care Time/CCT Total # of Minutes Spent Total Time Spent with Patient: Total time spent is greater than 50% in coordination of care (as documented) at patient's floor/unit and/or counseling patient: Coding Level of Care Code 73021 SUB INP/OBS CARE 05/19MIN Diagnoses Dementia with behavioral disturbance F03.918 Type 2 diabetes mellitus E11.9
--- NOTE | 2024-01-09 19:03 | Hospitalist Progress Note ---
Date of Service January 09, 2024 Assessment & Plan (1) Dementia with behavioral disturbance: Plan: Patient with increase in aggression at home towards and daughter - Calm and cooperative on admission - Oriented to self only, baseline - Head CT on admission negative for acute changes. 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 Dino Lala from [facility] who recommended outpatient follow-up with neurosurgery in the setting of enlarging pituitary adenoma - Haldol ordered prn, Qt [phone] - Continue home Seroquel and Aricept - PT/OT recommending SNF for long-term placement. Per case management, O will evaluate the patient on 01/05 > CM to follow-up with Tami on 01/08 for bed availability - Tami reviewing. Level of Care Determination Letter was received from the O which notes that the patient is Nursing Facility Clinically Eligible. 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 Tami is reviewing SNF referral. Level of Care Determination Letter was received from the O which notes that the patient is Nursing Facility Clinically Eligible. VTE ppx: SCDs Code status: FULL CODE Admission and Anticipated Discharge Date Admission Date: January 02, 2024 Supervising Physician Co-Signing Physician Notes Attending Attestation - Chart reviewed, care plan d/w GALLO Campos. I agree with the bermudez components of her documentation. Jose L Bowling MD Subjective Patient seen and evaluated at bedside while eating lunch. He reports that he has feeling well today. He was complaining of dry eye in his left eye last night, given artificial tears, reports that it is feeling better today. RN reports patient remains calm and cooperative with staff. No additional complaints or concerns at this time. Continue inpatient hospitalization while awaiting placement. Physical Exam Physical Exam: General: No acute distress, nondiaphoretic, well-developed, well-nourished. Calm and cooperative. Skin: The skin was without rashes, erythema, edema, or bruising. Cardiac: Regular rate and rhythm without murmurs gallops or rubs. Pulm: Clear to auscultation bilaterally without wheezes, rales or rhonchi. No respiratory distress. 97% on room air. Abdominal: Soft, nontender, nondistended. Bowel sounds present. Neuro: A&O x1, self only. No focal neurological deficits. Results & Data Results & Data Vital Signs (Past 12 Hours) Vital Signs Temp Pulse Resp BP Pulse Ox O2 Del Method 01/09/24 14:19 97.7 F 72 16 120/82 97 Room Air 01/09/24 08:09 Room Air 01/09/24 07:13 97.7 F 70 16 123/83 97 Room Air PG Care Time/CCT Total # of Minutes Spent Total Time Spent with Patient: Total time spent is greater than 50% in coordination of care (as documented) at patient's floor/unit and/or counseling patient: Coding Level of Care Code 78942 SUB INP/OBS CARE 05/19MIN Diagnoses Dementia with behavioral disturbance F03.918 Type 2 diabetes mellitus E11.9
--- NOTE | 2024-01-10 08:46 | Hospitalist Progress Note ---
Date of Service January 10, 2024 Assessment & Plan (1) Dementia with behavioral disturbance: Plan: Patient with increase in aggression at home towards and daughter - Calm and cooperative on admission - Oriented to self only, baseline - Head CT on admission negative for acute changes. 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 Dino Lala from [facility] who recommended outpatient follow-up with neurosurgery in the setting of enlarging pituitary adenoma - Haldol ordered prn, Qt [phone] - Continue home Seroquel and Aricept - PT/OT recommending SNF for long-term placement. Per case management, O will evaluate the patient on 01/05 CM to follow-up with Tami on 01/09 for bed availability - Tami reviewing. 01/09 [place] recent CM note ""Received email back from [facility] that they are reviewing. Level of Care Determination Letter was received from the OOA which notes that the pt is Nursing Facility Clinically Eligible. Emailed Denice at [facility] to follow up on referral." Patient calm/cooperative B1 level reviewed, LOW at 6 -- IM thiamine replacement ordered q8h and will plan to convert to 200mg PO BID in next 24-48 hours (2) Thiamine deficiency: Plan: B1 level sent, reviewed and LOW at 6 IV replacement ordered and plan to convert to 200mg PO BID as above and continue (3) Type 2 diabetes mellitus: Plan: A1c 7.4 this summer, on insulin at baseline BSG AC/HS, sliding scale while inpatient and BSGs have been acceptable Offered additional snacks, provided Monitor/adjust scale as needed Plan Chronic stable diagnoses: HLD - continue home statin HTN- continue home amlodipine, BP 120/78 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 Tami is reviewing SNF referral. Level of Care Determination Letter was received from the O which notes that the patient is Nursing Facility Clinically Eligible. B1 replacement as above VTE ppx: SCDs Code status: FULL CODE Admission and Anticipated Discharge Date Admission Date: January 02, 2024 Subjective Evaluated this morning, resting in bed. Awoken easily to name. NO issues reported by nursing, no pain or SOB/CP/fever/chills reported by patient. Inquired if remembered Nalini and he chuckled and reported too many people too remember. Asked if able to provide any snacks, would like some ice cream. Questions/concerns addressed at this time. Physical Exam Physical Exam: General: 78yo male resting in bed, NAD, awoken easily to name, alert to person, calm/cooperative HEENT: head atraumatic, normocephalic, mm slightly dry, trachea midline Resp: even/unlabored, no w/c/r, on room air CV: RRR, no significant m/r/g, no pitting edema GI: +BS throughout, slight distension but soft, nontender no navarro MSK/Neuro: nonfocal, follows commands as able, generalized weakness but nonfocal Psych: alert to person only Results & Data Results & Data Vital Signs (Past 12 Hours) Vital Signs Temp Pulse Resp BP Pulse Ox O2 Del Method 01/10/24 07:15 36.3 C L 69 16 120/78 97 Room Air PG Care Time/CCT Total # of Minutes Spent Total Time Spent with Patient: Total time spent is greater than 50% in coordination of care (as documented) at patient's floor/unit and/or counseling patient: Coding Level of Care Code 27874 SUB INP/OBS CARE 2/35MIN Diagnoses Dementia with behavioral disturbance F03.918 Thiamine deficiency E51.9 Type 2 diabetes mellitus E11.9
[2024-01-10] MEDS: THIAMINE HCL 500 MG in SODIUM CHLORIDE 0.9% 50 ML IV SCH (11:50)
--- NOTE | 2024-01-11 08:13 | Hospitalist Progress Note ---
Date of Service January 11, 2024 Assessment & Plan (1) Dementia with behavioral disturbance: Plan: Patient with increase in aggression at home towards and daughter - Calm and cooperative on admission - Oriented to self only, baseline - Head CT on admission negative for acute changes. 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 Dino Lala from [facility] who recommended outpatient follow-up with neurosurgery in the setting of enlarging pituitary adenoma - Haldol ordered prn, Qt [phone] - Continue home Seroquel and Aricept - PT/OT recommending SNF for long-term placement. Per case management, O will evaluate the patient on 01/05 CM to follow-up with Tami on 01/09 for bed availability - Tami reviewing. Most recent CM note ""Received email back from [facility] that they are reviewing. Level of Care Determination Letter was received from the OOA which notes that the pt is Nursing Facility Clinically Eligible. Emailed Denice at [facility] to follow up on referral." Patient calm/cooperative B1 level reviewed, LOW at 6 -- IM thiamine replacement ordered q8h and will plan to convert to 200mg PO BID in next 24-48 hours 01/10 Continue IV thiamine TID --> plans to convert to 200mg PO BID for 01/11 and would continue moving forward/at discharge No BM documented since 01/06, will place on bowel regimen with colace PO BID, miralax daily (is on daily iron PO, amlodipine) Calm/cooperative, has NOT required any Haldol prn (2) Thiamine deficiency: Plan: B1 level sent, reviewed and LOW at 6 IV replacement ordered through today and converting to 200mg PO BID for tomorrow-- CONTINUE AT DC (3) Type 2 diabetes mellitus: Plan: A1c 7.4 this summer, on insulin at baseline BSG AC/HS, sliding scale while inpatient and BSGs have been acceptable Offered additional snacks, provided -- monitor for adjustments as needed but have been stable per review of POCs Plan Chronic stable diagnoses: HLD - continue home statin HTN- continue home amlodipine, BP 125/84 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 Tami is reviewing SNF referral. Level of Care Determination Letter was received from the OOA which notes that the patient is Nursing Facility Clinically Eligible. B1 replacement as above and converting to PO for tomorrow. bowel regimen/monitor bowels VTE ppx: SCDs Code status: FULL CODE Admission and Anticipated Discharge Date Admission Date: January 02, 2024 Subjective Eval this morning, doing well. No acute issues, good appetite. Would like to rest. Thiamine replacement ordered and will plan to convert to oral tomorrow. Would like ice cream, RN to provide. No fever/chills, chest pain, shortness of breath reported. Ongoing bed search. Physical Exam 2 Physical Exam: General: 78yo male resting in bed, NAD, awoken easily to name, alert to person, calm/cooperative HEENT: head atraumatic, normocephalic, mm slightly dry (improved today), trachea midline Resp: even/unlabored, no w/c/r, on room air CV: RRR, no significant m/r/g, no pitting edema GI: +BS throughout, slight distension but soft, nontender no navarro MSK/Neuro: nonfocal, follows commands as able, generalized weakness but nonfocal Psych: alert to person only Results & Data Results & Data Vital Signs (Past 12 Hours) Vital Signs Temp Pulse Resp BP Pulse Ox O2 Del Method 01/11/24 07:28 36.7 C 71 16 113/75 95 Room Air 01/10/24 20:45 36.6 C 89 14 119/77 95 Room Air Laboratory Results 01/11/24 07:52 PG Care Time/CCT Total # of Minutes Spent Total Time Spent with Patient: Total time spent is greater than 50% in coordination of care (as documented) at patient's floor/unit and/or counseling patient: Coding Level of Care Code 50454 SUB INP/OBS CARE 2/35MIN Diagnoses Dementia with behavioral disturbance F03.918 Thiamine deficiency E51.9 Type 2 diabetes mellitus E11.9
[2024-01-11 08:41] LABS: BUN Creatinine Ratio 17.1 (10-20); Calcium 8.7 mg/dl (8.6-10.3); Creatinine Clr Calc Pharmacy 55.5 ml/min; Est GFR (African American) 65.7 ml/min; Est GFR (Non-African American) 56.7 ml/min; Magnesium 1.8 mg/dl (1.7-2.4); Phosphorus 3.5 mg/dl (2.5-4.9)
[2024-01-11] MEDS: POLYETHYLENE (MIRALAX) 17 GM PACK PO SCH (08:43)
[2024-01-11] MEDS: DOCUSATE SODIUM 100 MG CAP PO SCH (08:44)
--- NOTE | 2024-01-12 08:30 | Hospitalist Progress Note ---
Date of Service January 12, 2024 Assessment & Plan (1) Dementia with behavioral disturbance: Plan: Patient with increase in aggression at home towards and daughter Calm and cooperative on admission, alert to self at baseline. CT head negative, CXR negative. WBC wnl, afebrile. Ammonia wnl, tox screen negative. B12 wnl TSH wnl, remains on synthroid B1 level sent Informal [place] correspondence with Dr. Dino Lala from [facility] who recommended outpatient follow-up with neurosurgery in the setting of enlarging pituitary adenoma Seroquel/aricept continued and w/ stable mood/cooperative on repeat evals. PT/OT rec SNF for prison placement. OOA to eval. 01/11 B1 level reviewed, LOW at 6- completed 48 hours of 500mg IV TID thiamine, now on 200mg PO BID and would continue. Is alert to person AND PLACE today (knows in hospital), improvement. Calm/cooperative. Bowel regimen added as no BM documented since 01/06 and is on daily iron at baseline. LARGE BM reported. Abdomen soft/less distension, nontender Calm/cooperative, has NOT required any Haldol prn and remains on home Seroquel/aricept. 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, nothing further to ensure not elevate/need for adjustment (2) Thiamine deficiency: Plan: B1 level sent, reviewed and LOW at 6 and IV replacement ordered through 01/10 and converted to 200mg PO BID for today CONTINUE AT DC (3) Type 2 diabetes mellitus: Plan: A1c 7.4 this summer, on insulin at baseline BSG AC/HS, sliding scale while inpatient and BSGs have been acceptable Offered additional snacks, provided -- monitor for adjustments as needed but have been stable per review of POCs Plan Chronic stable diagnoses: HLD - continue home statin HTN- continue home amlodipine, BP 125/84 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 CM continues to follow. B1 replacement to PO VTE ppx: SCDs Code status: FULL CODE Admission and Anticipated Discharge Date Admission Date: January 02, 2024 Subjective Evaluated this morning, doing well. No complaints. IV out overnight but now on oral thiamine and will continue. Alert to person, knows in hospital today, slight improvement. Does have some dryness to his eyes, will order artificial tears. Good appetite. Bowels moving. CM working on placement. Physical Exam Physical Exam: General: 78yo male resting in bed, NAD, awoken easily to name, alert to person, calm/cooperative HEENT: head atraumatic, normocephalic, mm slightly dry (improved today), trachea midline Resp: even/unlabored, no w/c/r, on room air CV: RRR, no significant m/r/g, no pitting edema GI: +BS throughout, less distension, soft/nontender no navarro MSK/Neuro: nonfocal, follows commands as able, generalized weakness but nonfocal Psych: alert to person only Results & Data Results & Data Vital Signs (Past 12 Hours) Vital Signs Temp Pulse Resp BP Pulse Ox O2 Del Method 01/12/24 07:45 36.6 C 59 L 17 138/90 96 Room Air 01/11/24 23:27 36.4 C L 81 14 99/64 L 93 Room Air 01/11/24 21:20 Room Air PG Care Time/CCT Total # of Minutes Spent Total Time Spent with Patient: Total time spent is greater than 50% in coordination of care (as documented) at patient's floor/unit and/or counseling patient: Coding Level of Care Code 19566 SUB INP/OBS CARE 125MIN Diagnoses Dementia with behavioral disturbance F03.918 Thiamine deficiency E51.9 Type 2 diabetes mellitus E11.9
[2024-01-12] MEDS: THIAMINE HCL 100 MG TAB PO SCH (08:38)
[2024-01-12] MEDS: ARTIFICIAL TEARS OP OINT 3.5 GM TUBE OP SCH (12:56)
[2024-01-13 08:03] LABS: BUN Creatinine Ratio 17.2 (10-20); Calcium 8.8 mg/dl (8.6-10.3); Creatinine Clr Calc Pharmacy 55.9 ml/min; Est GFR (African American) 66.3 ml/min; Est GFR (Non-African American) 57.2 ml/min; Potassium 3.7 mmol/L (3.5-5.1)
--- NOTE | 2024-01-13 08:05 | Hospitalist Progress Note ---
Date of Service January 13, 2024 Assessment & Plan (1) Dementia with behavioral disturbance: Plan: Patient with increase in aggression at home towards and daughter Calm and cooperative on admission, alert to self at baseline. CT head negative, CXR negative. WBC wnl, afebrile. Ammonia wnl, tox screen negative. B12 wnl TSH wnl, remains on synthroid B1 level sent Informal [place] correspondence with Dr. Dino Lala from [facility] who recommended outpatient follow-up with neurosurgery in the setting of enlarging pituitary adenoma Seroquel/aricept continued and w/ stable mood/cooperative on repeat evals. B1 level reviewed, LOW at 6 PT/OT rec SNF for [facility]pc placement. OOA to eval. 01/12 Completed 48 hours of 500mg IV TID thiamine, now on 200mg PO BID and would continue at discharge Remains alert to person AND PLACE today similar to yesterday 01/11 Bowel regimen continued and large BM reported and addtitional following and will monitor. Is on iron at baseline and abd now much softer, less distended Has NOT required ANY haldol Keppra level sent to ensure not elevated but appears has been on current dose for some time and no recent hx seizure since following brain surgery in 2018 -- f/u keppra level CM following for placement. 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 CM continues to follow. B1 replacement as outlined and did send for keppra level for completeness. 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 DVT proph: SCDs in place, no evidence for DVT but could consider chemoproph pending ongoing inpatient stay. Asked nursing to take for walk this evening as well as pt req to be done before bedtime. Admission and Anticipated Discharge Date Admission Date: January 02, 2024 Subjective Evaluated this morning, doing well. Calm/cooperative. Alert to person, knows in the hospital. Discussed prior profession in [employer], he retired when it got too much. Discussed ambulation/walk in the halls, he reports he wants to wait til bedtime. Good appetite, continues to move bowels. No fever/chills, chest pain, shortness of breath, abdominal pain, nausea. Questions/concerns addressed. Physical Exam 2 Physical Exam: General: 78yo male resting in bed, NAD, awoken easily to name, alert to person AND place, joking/laughing today HEENT: head atraumatic, normocephalic, mm slightly dry (improved today), trachea midline Resp: even/unlabored, no w/c/r, on room air CV: RRR, no significant m/r/g, no pitting edema GI: +BS throughout, less distension and much softer, nontender to palpation no navarro MSK/Neuro: follows commands as able, IMPROVEMENT in general strength, nonfocal Psych: alert to person AND PLACE, not event/time Results & Data Results & Data Vital Signs (Past 12 Hours) Vital Signs Temp Pulse Resp BP Pulse Ox O2 Del Method 01/13/24 07:50 36.5 C 59 L 16 117/79 96 Room Air Laboratory Results 01/06/24 06:38 01/13/24 07:16 Keppra level pending PG Care Time/CCT Total # of Minutes Spent Total Time Spent with Patient: Total time spent is greater than 50% in coordination of care (as documented) at patient's floor/unit and/or counseling patient: Coding Level of Care Code 62524 SUB INP/OBS CARE 2/35MIN Diagnoses Dementia with behavioral disturbance F03.918 Thiamine deficiency E51.9 Type 2 diabetes mellitus E11.9
--- NOTE | 2024-01-14 07:57 | Hospitalist Progress Note ---
Date of Service January 14, 2024 Assessment & Plan (1) Dementia with behavioral disturbance: Plan: Patient with increase in aggression at home towards and daughter Calm and cooperative on admission, alert to self at baseline. CT head negative, CXR negative. WBC wnl, afebrile. Ammonia wnl, tox screen negative. B12 wnl TSH wnl, remains on synthroid B1 level sent Informal [place] correspondence with Dr. Dino Lala from [facility] who recommended outpatient follow-up with neurosurgery in the setting of enlarging pituitary adenoma Seroquel/aricept continued and w/ stable mood/cooperative on repeat evals. B1 level reviewed, LOW at 6 PT/OT rec SNF for [facility] placement. OOA to eval. 01/13 Completed 48 hours of 500mg IV TID thiamine, continues 200mg PO BID (cont @ dc) Remains alert to person AND PLACE today similar to day prior Bowel regimen continued and has been moving bowels. NO [place] required, continues on home seroquel/aricept Keppra level sent, pending ( no recent hx seizure since following brain surgery in 2017) CM following for placement. 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 CM continues to follow. 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 DVT proph: SCDs in place, no evidence for DVT but could consider chemoproph pending ongoing inpatient stay. Encouraged ambulation but if remaining inpatient likely benefit from once daily Lovenox SQ while inpatient. Admission and Anticipated Discharge Date Admission Date: January 02, 2024 Subjective EValuated this morning, no acute changes. Calm/cooperative. Encouraged walk in tran/up out of bed today to stretch his legs after he's done resting. Laughing. No issues overnight by nursing, moved bowels yesterday. Looking for placement, CM following. Physical Exam Physical Exam: General: 78yo male resting in bed, NAD, awoken easily to name, alert to person AND place, joking/laughing at times HEENT: head atraumatic, normocephalic, mm improved, trachea midline Resp: even/unlabored, no w/c/r, on room air CV: RRR, no significant m/r/g, no pitting edema GI: +BS throughout, slight distension but soft/nontender ; no navarro MSK/Neuro: follows commands as able, IMPROVEMENT in general strength, nonfocal Psych: alert to person AND PLACE, not event/time Results & Data Results & Data Vital Signs (Past 12 Hours) Vital Signs Temp Pulse Resp BP Pulse Ox O2 Del Method 01/14/24 07:12 36.5 C 59 L 16 110/70 95 Room Air 01/13/24 20:10 Room Air 01/13/24 20:00 36.9 C 88 16 109/75 96 Room Air Laboratory Results 01/14/24 01/13/24 01/13/24 Range/Units 07:58 20:11 16:42 POC Glucose 100 H 122 H 147 H (70-99) mg/dl 01/13/24 Range/Units 11:45 POC Glucose 143 H (70-99) mg/dl PG Care Time/CCT Total # of Minutes Spent Total Time Spent with Patient: Total time spent is greater than 50% in coordination of care (as documented) at patient's floor/unit and/or counseling patient: Coding Level of Care Code 81685 SUB INP/OBS CARE 05/19MIN Diagnoses Dementia with behavioral disturbance F03.918 Thiamine deficiency E51.9 Type 2 diabetes mellitus E11.9
--- NOTE | 2024-01-15 08:12 | Hospitalist Progress Note ---
Date of Service January 15, 2024 Assessment & Plan (1) Dementia with behavioral disturbance: Plan: Patient with increase in aggression at home towards and daughter Calm and cooperative on admission, alert to self at baseline. CT head negative, CXR negative. WBC wnl, afebrile. Ammonia wnl, tox screen negative. B12 wnl TSH wnl, remains on synthroid B1 level sent Informal [place] correspondence with Dr. Dino Lala from [facility] who recommended outpatient follow-up with neurosurgery in the setting of enlarging pituitary adenoma Seroquel/aricept continued and w/ stable mood/cooperative on repeat evals. B1 level reviewed, LOW at 6 PT/OT rec SNF for custodial placement, OOA involved/eval 01/14 Completed 48 hours of 500mg IV TID thiamine --continues 200mg PO BID. Rx at dc Alert to person , place today. Similar to prior/stable. Remains on seroquel/aricept and HAS NOT required any Haldol. Keppra level pending BSGs stable/low end, good PO intake. Will continue sliding scale but decrease glargine to 6u BID/monitor Continued inpatient stay/placement at dc. CM following (2) Thiamine deficiency: Plan: B1 level sent, reviewed and LOW at 6 and IV replacement ordered through 01/10 and converted to 200mg PO BID. Rx at dc rec'd (3) Type 2 diabetes mellitus: Plan: A1c 7.4, on insulin at baseline Decreased glargine to 6u BID to prevent hypoglycemia. 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 CM continues to follow. 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 Encouraged ambulation but if remaining inpatient likely benefit from once daily Lovenox SQ while inpatient which will be added tomorrow pending ongoing placement search. No evidnece for DVT on exam Admission and Anticipated Discharge Date Admission Date: January 02, 2024 Subjective Patient evaluated this morning. Reports doing well, no issues. Nursing reporting no issues overnight. Knows name, in hospital. Allowed me to pull the blinds, encourage wake/sleep cycles. He reports taking walk last night, encourage nursing to continue w/ ambulation to keep mobile. Denies fever/chills, chest pain, trouble breathing or belly pain. Reports good appetite, ate pancakes for breakfast. Physical Exam 2 Physical Exam: General: 78yo male resting in bed, NAD, awoken easily to name, alert to person AND place (at times), joking/laughing at times, window blinds pulled for light/wake cycle HEENT: head atraumatic, normocephalic, mm improved, trachea midline Resp: even/unlabored, no w/c/r, on room air CV: RRR, no significant m/r/g, no pitting edema GI: +BS throughout, slight distension (decreased), soft/NT ; no navarro MSK/Neuro: follows commands as able, IMPROVEMENT in general strength but stable, nonfocal Psych: alert to person AND PLACE, not event/time Results & Data Results & Data Vital Signs (Past 12 Hours) Vital Signs Temp Pulse Resp BP Pulse Ox O2 Del Method 01/15/24 07:30 36.4 C L 60 16 120/76 96 Room Air 01/14/24 20:25 Room Air Laboratory Results 01/06/24 06:38 01/13/24 07:16 PG Care Time/CCT Total # of Minutes Spent Total Time Spent with Patient: Total time spent is greater than 50% in coordination of care (as documented) at patient's floor/unit and/or counseling patient: Coding Level of Care Code 58279 SUB INP/OBS CARE 2/35MIN Diagnoses Dementia with behavioral disturbance F03.918 Thiamine deficiency E51.9 Type 2 diabetes mellitus E11.9
[2024-01-15] MEDS: LANTUS PER UNIT CHARGE SQ SCH (08:33)
--- NOTE | 2024-01-16 08:12 | Hospitalist Progress Note ---
Date of Service January 16, 2024 Assessment & Plan (1) Dementia with behavioral disturbance: Plan: Patient with increase in aggression at home towards and daughter. At baseline is alert to self. Calm/cooperative on admission CT head, CXR negative. WBC wnl. Ammonia wnl, tox screen negative. B12 wnl. TSH wnl Informal [place] correspondence with Dr. Dino Lala from [facility] who recommended outpatient follow-up with neurosurgery in the setting of enlarging pituitary adenoma B1 sent/returns LOW at 6 -Completed 48 hours of 500mg IV TID thiamine and continues on 200mg PO BID. Now alert to person/knows in hospital. Remains on Seroquel/Aricept. Stable dementia. ---HAS NOT required any Haldol and remaining calm/cooperative with staff Continues on Keppra for seizure prophylaxis -- level sent and NORMAL. Encouraged ambulation/walks with staff, day/night cycles BSGs stable/low end actually but reports good PO intake -On 7u glargine BID w/ SSI (on 14u daily at home w/ 2u TIDM) -- decreased to 6u and BSGs on POC 84-133 and will cut to 4u BID and continue coverage w/ SSI to prevent hypoglycemia. -?if was having some hypoglycemia at home. POC acceptable on arrival. Has had decent intake/appetite while inpatient and will monitor with adjustment Continued inpatient stay/placement at ri. CM following (2) Thiamine deficiency: Plan: B1 level sent, reviewed and LOW at 6 and IV replacement ordered through 01/10 and converted to 200mg PO BID - should be continued at ri x 1 month then once daily (3) Type 2 diabetes mellitus: Plan: A1c 7.4, on insulin at baseline Decreased glargine to 6u BID to prevent hypoglycemia given stable BSGs and lower end despite PO intake. No hypoglycemia on admission but ? 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 No evidence for DVT on exam but consider adding Lovenox SQ once daily if not looking like placement for this week Dispo: Continued inpatient stay while searching for placement, CM following. Continues on thiamine PO replacement. Keppra level normal. 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 Remains on home seroquel/aricept without need for ANY haldol at all and appears stable for dc once bed placement secured by CM Admission and Anticipated Discharge Date Admission Date: January 02, 2024 Subjective Evaluated this morning, resting in bed. Easily awoken to name. Reports no issues, good intake. Discussed decreasing insulin to make sure not having low values and will monitor. Had taken walk 2 days ago, encouraged nursing to take again this afternoon. Would like blinds closed this morning for sleep but can pull up later. Encouraged wake/sleep cycles. Questions/concerns addressed at this time. Physical Exam Physical Exam: General: 78yo male resting in bed, NAD, awoken easily to name, alert to person AND place (at times), joking/laughing at times HEENT: head atraumatic, normocephalic, mm improved, trachea midline Resp: even/unlabored, no w/c/r, on room air CV: RRR, no significant m/r/g, no pitting edema GI: +BS throughout, slight distension (decreased) but soft and nontender to palpation ; no navarro MSK/Neuro: follows commands as able, IMPROVEMENT in generalized weakness/ strength, stable/nonfocal Psych: alert to person AND PLACE, not event/time Results & Data Results & Data Vital Signs (Past 12 Hours) Vital Signs Temp Pulse Resp BP BP Pulse Ox O2 Del Method 01/16/24 08:00 Room Air 01/16/24 07:25 36.6 C 69 16 112/73 95 Room Air 01/15/24 20:39 36.5 C 77 16 99/59 L 95 Room Air PG Care Time/CCT Total # of Minutes Spent Total Time Spent with Patient: Total time spent is greater than 50% in coordination of care (as documented) at patient's floor/unit and/or counseling patient: Coding Level of Care Code 66090 SUB INP/OBS CARE 05/19MIN Diagnoses Dementia with behavioral disturbance F03.918 Thiamine deficiency E51.9 Type 2 diabetes mellitus E11.9
[2024-01-16] MEDS: LANTUS PER UNIT CHARGE SQ SCH (09:00)
--- NOTE | 2024-01-17 17:48 | Hospitalist Progress Note ---
Date of Service January 17, 2024 Assessment & Plan (1) Dementia with behavioral disturbance: Plan: Patient with increase in aggression at home towards and daughter. At baseline is alert to self. - Calm/cooperative on admission - CT head, CXR negative. WBC wnl. Ammonia wnl, tox screen negative. B12 wnl. TSH wnl - Informal [place] correspondence with Dr. Dino Lala from [facility] who recommended outpatient follow-up with neurosurgery in the setting of enlarging pituitary adenoma - B1 sent/returns LOW at 6 > Completed 48 hours of 500mg IV TID thiamine and continues on 200mg PO BID. - Now alert to person and place - Remains on Seroquel/Aricept. Stable dementia. -- HAS NOT required any Haldol and remaining calm/cooperative with staff - Continues on Keppra for seizure prophylaxis -- level sent and NORMAL. - Encouraged ambulation/walks with staff, day/night cycles Continued inpatient stay/placement at [facility]. CM following (2) Thiamine deficiency: Plan: B1 level sent, reviewed and LOW at 6 and IV replacement ordered through 01/10 and converted to 200mg PO BID - should be continued at [facility] x 1 month then once daily (3) Type 2 diabetes mellitus: Plan: A1c 7.4, on insulin at baseline - On 7u glargine BID w/ SSI (on 14u daily at home w/ 2u TIDM) -- decreased glargine to 4u BID and continue coverage w/ SSI to prevent hypoglycemia. - ?if was having some hypoglycemia at home. POC acceptable on arrival. 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 No evidence for DVT on exam but consider adding Lovenox SQ once daily if not looking like placement for this week Dispo: Continued inpatient stay while searching for placement, CM following. Continues on thiamine PO replacement. Keppra level normal. 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 Remains on home seroquel/aricept without need for ANY haldol at all and appears stable for dc once bed placement secured by CM Admission and Anticipated Discharge Date Admission Date: January 02, 2024 Subjective Patient seen and evaluated at bedside while eating lunch. He remains pleasantly confused, though is oriented to both person and place at this time. He has no complaints or concerns at this time. Continue inpatient stay while awaiting placement. Physical Exam Physical Exam: General: No acute distress, nondiaphoretic, well-developed, well-nourished. Calm and cooperative. Skin: The skin was without rashes, erythema, edema, or bruising. Cardiac: Regular rate and rhythm without murmurs gallops or rubs. Pulm: Clear to auscultation bilaterally without wheezes, rales or rhonchi. No respiratory distress. 94% on room air. Abdominal: Soft, nontender, nondistended. Bowel sounds present. Neuro: A&O x2 (person, place). No focal neurological deficits. Results & Data Results & Data Vital Signs (Past 12 Hours) Vital Signs Temp Pulse Resp BP Pulse Ox O2 Del Method 01/17/24 14:03 97.7 F 80 16 103/69 94 Room Air 01/17/24 08:04 97.7 F 62 18 122/76 94 Room Air Laboratory Results Reviewed POC glucoses PG Care Time/CCT Total # of Minutes Spent Total Time Spent with Patient: Total time spent is greater than 50% in coordination of care (as documented) at patient's floor/unit and/or counseling patient: Coding Level of Care Code 36238 SUB INP/OBS CARE 25MIN Diagnoses Dementia with behavioral disturbance F03.918 Thiamine deficiency E51.9 Type 2 diabetes mellitus E11.9
--- NOTE | 2024-01-18 17:31 | Hospitalist Progress Note ---
Date of Service January 18, 2024 Assessment & Plan (1) Dementia with behavioral disturbance: Plan: Patient with increase in aggression at home towards and daughter. At baseline is alert to self. - Calm/cooperative on admission - CT head, CXR negative. WBC wnl. Ammonia wnl, tox screen negative. B12 wnl. TSH wnl - Informal [place] correspondence with Dr. Dino Lala from [facility] who recommended outpatient follow-up with neurosurgery in the setting of enlarging pituitary adenoma - B1 sent/returns LOW at 6 > Completed 48 hours of 500mg IV TID thiamine and continues on 200mg PO BID. - Now alert to person and place - Remains on Seroquel/Aricept. Stable dementia. -- HAS NOT required any Haldol and remaining calm/cooperative with staff - Continues on Keppra for seizure prophylaxis -- level sent and NORMAL. - Encouraged ambulation/walks with staff, day/night cycles Continued inpatient stay[facility]placement [facility]. CM following (2) Thiamine deficiency: Plan: B1 level sent, reviewed and LOW at 6 and IV replacement ordered through 01/10 and converted to 200mg PO BID - should be continued at [facility] x 1 month then once daily (3) Type 2 diabetes mellitus: Plan: A1c 7.4, on insulin at baseline - On 7u glargine BID w/ SSI (on 14u daily at home w/ 2u TIDM) -- decreased glargine to 4u BID and continue coverage w/ SSI to prevent hypoglycemia. - ?if was having some hypoglycemia at home. POC acceptable on arrival. 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 No evidence for DVT on exam but consider adding Lovenox SQ once daily if not looking like placement for this week Dispo: Continued inpatient stay while searching for placement, CM following. Continues on thiamine PO replacement. Keppra level normal. 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 Remains on home seroquel/aricept without need for ANY haldol at all and appears stable for dc once bed placement secured by CM Admission and Anticipated Discharge Date Admission Date: January 02, 2024 Subjective Patient seen and evaluated at bedside while eating lunch. He is in good spirits, making jokes during our discussion. He remains calm and cooperative with staff. He has no acute complaints at this time. Continue inpatient stay while awaiting for placement. Physical Exam Physical Exam: General: No acute distress, nondiaphoretic, well-developed, well-nourished. Calm and cooperative. Skin: The skin was without rashes, erythema, edema, or bruising. Cardiac: Regular rate and rhythm without murmurs gallops or rubs. Pulm: Clear to auscultation bilaterally without wheezes, rales or rhonchi. No respiratory distress. 93% on room air. Abdominal: Soft, nontender, nondistended. Bowel sounds present. Neuro: A&O x2 (person, place). No focal neurological deficits. Results & Data Results & Data Vital Signs (Past 12 Hours) Vital Signs Temp Pulse Resp BP Pulse Ox O2 Del Method 01/18/24 14:22 97.9 F 60 16 100/54 L 93 Room Air 01/18/24 08:30 Room Air 01/18/24 07:48 98.1 F 87 16 125/78 94 Room Air Laboratory Results Reviewed POC glucoses PG Care Time/CCT Total # of Minutes Spent Total Time Spent with Patient: Total time spent is greater than 50% in coordination of care (as documented) at patient's floor/unit and/or counseling patient: Coding Level of Care Code 18860 SUB INP/OBS CARE 05/19MIN Diagnoses Dementia with behavioral disturbance F03.918 Thiamine deficiency E51.9 Type 2 diabetes mellitus E11.9
--- NOTE | 2024-01-19 16:56 | Hospitalist Progress Note ---
Date of Service January 19, 2024 Assessment & Plan (1) Dementia with behavioral disturbance: Plan: Patient with increase in aggression at home towards and daughter. At baseline is alert to self. - Calm/cooperative on admission - CT head, CXR negative. WBC wnl. Ammonia wnl, tox screen negative. B12 wnl. TSH wnl - Informal [place] correspondence with Dr. Dino Lala from [facility] who recommended outpatient follow-up with neurosurgery in the setting of enlarging pituitary adenoma - B1 sent/returns LOW at 6 > Completed 48 hours of 500mg IV TID thiamine and continues on 200mg PO BID. - Now alert to person and place - Remains on Seroquel/Aricept. Stable dementia. -- HAS NOT required any Haldol and remaining calm/cooperative with staff - Continues on Keppra for seizure prophylaxis -- level sent and NORMAL. - Encouraged ambulation/walks with staff, day/night cycles [facility] following (2) Thiamine deficiency: Plan: B1 level sent, reviewed and LOW at 6 and IV replacement ordered through 01/10 and converted to 200mg PO BID - should be continued at [facility] x 1 month then once daily (3) Type 2 diabetes mellitus: Plan: A1c 7.4, on insulin at baseline - On 7u glargine BID w/ SSI (on 14u daily at home w/ 2u TIDM) -- decreased glargine to 4u BID and continue coverage w/ SSI to prevent hypoglycemia. - ?if was having some hypoglycemia at home. POC acceptable on arrival. 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 No evidence for DVT on exam but consider adding Lovenox SQ once daily if not looking like placement for this week Dispo: Continued inpatient stay while searching for placement, CM following. Continues on thiamine PO replacement. Keppra level normal. 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 Remains on home seroquel/aricept without need for ANY haldol at all and appears stable for dc once bed placement secured by CM Admission and Anticipated Discharge Date Admission Date: January 02, 2024 Subjective Patient seen and evaluated at bedside while eating lunch. He reports feeling well, slept well last night, and has a good appetite. No additional complaints or concerns at this time. Physical Exam Physical Exam: General: No acute distress, nondiaphoretic, well-developed, well-nourished. Calm and cooperative. Skin: The skin was without rashes, erythema, edema, or bruising. Cardiac: Regular rate and rhythm without murmurs gallops or rubs. Pulm: Clear to auscultation bilaterally without wheezes, rales or rhonchi. No respiratory distress. 98% on room air. Abdominal: Soft, nontender, nondistended. Bowel sounds present. Neuro: A&O x2 (person, place). No focal neurological deficits. Results & Data Results & Data Vital Signs (Past 12 Hours) Vital Signs Temp Pulse Resp BP Pulse Ox O2 Del Method 01/19/24 14:20 97.7 F 87 16 129/85 98 Room Air 01/19/24 08:30 Room Air 01/19/24 07:18 97.3 F L 63 16 100/62 95 Room Air PG Care Time/CCT Total # of Minutes Spent Total Time Spent with Patient: Total time spent is greater than 50% in coordination of care (as documented) at patient's floor/unit and/or counseling patient: Coding Level of Care Code 70184 SUB INP/OBS CARE 1/25MIN Diagnoses Dementia with behavioral disturbance F03.918 Thiamine deficiency E51.9 Type 2 diabetes mellitus E11.9
--- NOTE | 2024-01-20 11:57 | Hospitalist Progress Note ---
Date of Service January 20, 2024 Assessment & Plan (1) Dementia with behavioral disturbance: Plan: Patient with increase in aggression at home towards and daughter. At baseline is alert to self. - Calm/cooperative on admission - CT head, CXR negative. WBC wnl. Ammonia wnl, tox screen negative. B12 wnl. TSH wnl - Informal [place] correspondence with Dr. Dino Lala from [facility] who recommended outpatient follow-up with neurosurgery in the setting of enlarging pituitary adenoma - B1 sent/returns LOW at 6 > Completed 48 hours of 500mg IV TID thiamine and continues on 200mg PO BID. - Now alert to person and place - Remains on Seroquel/Aricept. Stable dementia. -- HAS NOT required any Haldol and remaining calm/cooperative with staff - Continues on Keppra for seizure prophylaxis -- level sent and NORMAL. - Encouraged ambulation/walks with staff, day/night cycles Continued inpatient stay/placement at [facility]. CM following (2) Thiamine deficiency: Plan: B1 level sent, reviewed and LOW at 6 and IV replacement ordered through 01/10 and converted to 200mg PO BID - should be continued at [facility] x 1 month then once daily (3) Type 2 diabetes mellitus: Plan: A1c 7.4, on insulin at baseline - On 7u glargine BID w/ SSI (on 14u daily at home w/ 2u TIDM) -- decreased glargine to 4u BID and continue coverage w/ SSI to prevent hypoglycemia. - ?if was having some hypoglycemia at home. POC acceptable on arrival. 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 No evidence for DVT on exam but consider adding Lovenox SQ once daily if not looking like placement for this week Dispo: Continued inpatient stay while searching for placement, CM following. Continues on thiamine PO replacement. Keppra level normal. 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 Remains on home seroquel/aricept without need for ANY haldol at all and appears stable for dc once bed placement secured by CM Admission and Anticipated Discharge Date Admission Date: January 02, 2024 Supervising Physician Co-Signing Physician Notes Attending Attestation - Chart reviewed, care plan d/w GALLO Leonardo. I agree with the bermudez components of her documentation. Jose L Bowling MD Keerthi Hameed is a 78 yo M who was seen today on morning rounds. He is resting comfortably in bed. He is oriented x2. No complaints, denies chest pain or dyspnea. He remains inpatient awaiting placement. Review of Systems Review of Systems: All systems reviewed and are unremarkable except as noted in HPI and below. Denies fever, chills, fatigue, headache, nasal congestion, sore throat, cough, chest pain, shortness of breath, palpitations, orthopnea, PND, abdominal pain, n/v/d, constipation, dysuria, hematuria, frequency, back pain, joint pain or swelling, easy bruising or bleeding, skin lesions or rashes. Physical Exam Physical Exam: GENERAL: 78 yo Well-developed, well-nourished AAM. Oriented x2. NAD. LUNGS: Clear to auscultation bilaterally. No W/R/R. CARDIOVASCULAR: Regular rate and rhythm. ABDOMEN: Soft, non-tender and non-distended. BS normoactive x 4 quad. EXTREMITIES: No edema. Non-tender. Peripheral pulses +2/4. SKIN: Warm, dry, intact. No rashes or lesions. Results & Data Results & Data Vital Signs (Past 12 Hours) Vital Signs Temp Pulse Resp BP Pulse Ox O2 Del Method 01/20/24 08:30 Room Air 01/20/24 07:25 36.8 C 69 16 122/83 93 Room Air PG Care Time/CCT Total # of Minutes Spent Total Time Spent with Patient: Total time spent is greater than 50% in coordination of care (as documented) at patient's floor/unit and/or counseling patient: 26 minutes Coding Level of Care Code 10151 SUB INP/OBS CARE 1/25MIN Diagnoses Dementia with behavioral disturbance F03.918 Thiamine deficiency E51.9 Type 2 diabetes mellitus E11.9
--- NOTE | 2024-01-21 12:06 | Hospitalist Progress Note ---
Date of Service January 21, 2024 Assessment & Plan (1) Dementia with behavioral disturbance: Plan: Patient with increase in aggression at home towards and daughter. At baseline is alert to self. - Calm/cooperative on admission - CT head, CXR negative. WBC wnl. Ammonia wnl, tox screen negative. B12 wnl. TSH wnl - Informal [place] correspondence with Dr. Dino Lala from [facility] who recommended outpatient follow-up with neurosurgery in the setting of enlarging pituitary adenoma - B1 sent/returns LOW at 6 > Completed 48 hours of 500mg IV TID thiamine and continues on 200mg PO BID. - Now alert to person and place - Remains on Seroquel/Aricept. Stable dementia. -- HAS NOT required any Haldol and remaining calm/cooperative with staff - Continues on Keppra for seizure prophylaxis -- level sent and NORMAL. - Encouraged ambulation/walks with staff, day/night cycles Continued inpatient stay/placement at [facility]. CM following (2) Thiamine deficiency: Plan: B1 level sent, reviewed and LOW at 6 and IV replacement ordered through 01/10 and converted to 200mg PO BID - should be continued at [facility] x 1 month then once daily (3) Type 2 diabetes mellitus: Plan: A1c 7.4, on insulin at baseline - On 7u glargine BID w/ SSI (on 14u daily at home w/ 2u TIDM) -- decreased glargine to 4u BID and continue coverage w/ SSI to prevent hypoglycemia. - ?if was having some hypoglycemia at home. POC acceptable on arrival. 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 No evidence for DVT on exam but consider adding Lovenox SQ once daily if not looking like placement for this week Dispo: Continued inpatient stay while searching for placement, CM following. Continues on thiamine PO replacement. Keppra level normal. 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 Remains on home seroquel/aricept without need for ANY haldol at all and appears stable for dc once bed placement secured by CM Admission and Anticipated Discharge Date Admission Date: January 02, 2024 Supervising Physician Co-Signing Physician Notes Attending Attestation - Chart reviewed, care plan d/w GALLO Leonardo. I agree with the bermudez components of her documentation. Disposition remains uncertain. Jose L Bowling MD Keerthi Hameed is a 78 yo M who was seen today on morning rounds. He is resting in bed. He is oriented x2, voices no complaints, denies chest pain or dyspnea. He remains inpatient awaiting placement. Review of Systems Review of Systems: All systems reviewed and are unremarkable except as noted in HPI and below. Denies fever, chills, fatigue, headache, nasal congestion, sore throat, cough, chest pain, shortness of breath, palpitations, orthopnea, PND, abdominal pain, n/v/d, constipation, dysuria, hematuria, frequency, back pain, joint pain or swelling, easy bruising or bleeding, skin lesions or rashes. Physical Exam Physical Exam: GENERAL: 78 yo Well-developed, well-nourished AAM. Oriented x2. NAD. LUNGS: Clear to auscultation bilaterally. No W/R/R. CARDIOVASCULAR: Regular rate and rhythm. ABDOMEN: Soft, non-tender and non-distended. BS normoactive x 4 quad. EXTREMITIES: No edema. Non-tender. Peripheral pulses +2/4. SKIN: Warm, dry, intact. No rashes or lesions. Results & Data Results & Data Vital Signs (Past 12 Hours) Vital Signs Temp Pulse Resp BP Pulse Ox O2 Del Method 01/21/24 09:58 Room Air 01/21/24 07:38 36.7 C 66 16 115/74 96 Room Air PG Care Time/CCT Total # of Minutes Spent Total Time Spent with Patient: Total time spent is greater than 50% in coordination of care (as documented) at patient's floor/unit and/or counseling patient: 26 minutes Coding Level of Care Code 72753 SUB INP/OBS CARE 1/25MIN Diagnoses Dementia with behavioral disturbance F03.918 Thiamine deficiency E51.9 Type 2 diabetes mellitus E11.9
--- NOTE | 2024-01-22 11:08 | Hospitalist Progress Note ---
Date of Service January 22, 2024 Assessment & Plan (1) Dementia with behavioral disturbance: Plan: Patient with increase in aggression at home towards and daughter. At baseline is alert to self. - Calm/cooperative on admission - CT head, CXR negative. WBC wnl. Ammonia wnl, tox screen negative. B12 wnl. TSH wnl. B1 replacement as below - Informal [place] correspondence with Dr. Dino Lala from [facility] who recommended outpatient follow-up with neurosurgery in the setting of enlarging pituitary adenoma - Now alert to person and place - Remains on Seroquel/Aricept. Stable dementia. -- HAS NOT required any Haldol and remaining calm/cooperative with staff - Continues on Keppra for seizure prophylaxis -- level sent and NORMAL. - Encouraged ambulation/walks with staff, day/night cycles Continued inpatient stay/placement [place] [facility]. CM following (2) Thiamine deficiency: Plan: B1 level sent, reviewed and LOW at 6 and IV replacement ordered through 01/10 and converted to 200mg PO BID - should be continued at [facility] x 1 month then once daily (3) Type 2 diabetes mellitus: Plan: A1c 7.4, on insulin at baseline - On 7u glargine BID w/ SSI (on 14u daily at home w/ 2u TIDM) -- decreased glargine to 4u BID and continue coverage w/ SSI to prevent hypoglycemia. sugars well-controlled. 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 Admission and Anticipated Discharge Date Admission Date: January 02, 2024 Supervising Physician Co-Signing Physician Notes Attending Attestation - Chart reviewed, care plan d/w GALLO Davies. I agree with the bermudez components of her documentation. Disposition uncertain. Case Management assistance appreciated. Jose L Bowling MD Subjective Patient seen resting in bed. Has many questions about why he is here and when he gets to leave. When I tried to explain to him the situation he did not seem to understand and we continue to talk in circles. He is frustrated that he is not allowed to leave. No acute complaints at this time Review of Systems Review of Systems: All systems reviewed & are unremarkable except as noted in Subjective Physical Exam Physical Exam: GENERAL: 78 yo Well-developed, well-nourished AAM. Oriented x2. NAD. LUNGS: Clear to auscultation bilaterally. No W/R/R. CARDIOVASCULAR: Regular rate and rhythm. ABDOMEN: Soft, non-tender and non-distended Results & Data Results & Data Vital Signs (Past 12 Hours) Vital Signs Temp Pulse Resp BP Pulse Ox O2 Del Method 01/22/24 07:25 97.9 F 64 16 118/75 97 Room Air 01/22/24 05:47 70 94 Room Air Laboratory Results cueml-yp-mina glucose reviewed PG Care Time/CCT Total # of Minutes Spent Total Time Spent with Patient: Total time spent is greater than 50% in coordination of care (as documented) at patient's floor/unit and/or counseling patient: Coding Level of Care Code 32787 SUB INP/OBS CARE 2/35MIN Diagnoses Dementia with behavioral disturbance F03.918 Thiamine deficiency E51.9 Type 2 diabetes mellitus E11.9
[2024-01-23 06:49] LABS: Creatinine Clr Calc Pharmacy 59.5 ml/min; Est GFR (African American) 68.4 ml/min
[2024-01-23] MEDS: ENOXAPARIN INJ 40 MG/0.4 ML SYR SQ SCH (08:09)
--- NOTE | 2024-01-23 11:40 | Hospitalist Progress Note ---
Date of Service January 23, 2024 Assessment & Plan (1) Dementia with behavioral disturbance: Plan: Patient with increase in aggression at home towards and daughter. At baseline is alert to self. - Calm/cooperative on admission - CT head, CXR negative. WBC wnl. Ammonia wnl, tox screen negative. B12 wnl. TSH wnl. B1 replacement as below - Informal [place] correspondence with Dr. Dino Lala from [facility] who recommended outpatient follow-up with neurosurgery in the setting of enlarging pituitary adenoma - Now alert to person and place - Remains on Seroquel/Aricept. Stable dementia. -- HAS NOT required any Haldol and remaining calm/cooperative with staff - Continues on Keppra for seizure prophylaxis -- level sent and NORMAL. - Encouraged ambulation/walks with staff, day/night cycles Continued inpatient stay/placement at [facility]. CM following (2) Thiamine deficiency: Plan: B1 level sent, reviewed and LOW at 6 and IV replacement ordered through 01/10 and converted to 200mg PO BID - should be continued at [facility] x 1 month then once daily (3) Type 2 diabetes mellitus: Plan: A1c 7.4, on insulin at baseline - On 7u glargine BID w/ SSI (on 14u daily at home w/ 2u TIDM) -- decreased glargine to 4u BID and continue coverage w/ SSI to prevent hypoglycemia. BS well-controlled. 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 Admission and Anticipated Discharge Date Admission Date: January 02, 2024 Supervising Physician Co-Signing Physician Notes Attending Attestation - Chart reviewed, care plan d/w GALLO Campos. I agree w/ the bermudez components of her documentation. Jose L Bowling MD Subjective Patient seen and evaluated at bedside, sleeping upon my entry but easily woke up to my voice. He states he is tired but offers no acute complaints or concerns at this time. RN reports that he walked the halls with PT this morning, has been calm and cooperative, took all morning meds, and fed himself breakfast. Continue inpatient stay while awaiting placement. Physical Exam Physical Exam: General: No acute distress, nondiaphoretic, well-developed, well-nourished. Calm and cooperative. Skin: The skin was without rashes, erythema, edema, or bruising. Cardiac: Regular rate and rhythm without murmurs gallops or rubs. Pulm: Clear to auscultation bilaterally without wheezes, rales or rhonchi. No respiratory distress. 95% on room air. Abdominal: Soft, nontender, nondistended. Bowel sounds present. Neuro: A&O x2 (person, place). No focal neurological deficits. Results & Data Results & Data Vital Signs (Past 12 Hours) Vital Signs Temp Pulse Resp BP Pulse Ox O2 Del Method 01/23/24 07:50 Room Air 01/23/24 07:49 97.7 F 73 16 115/82 95 Room Air Laboratory Results Reviewed chemistries PG Care Time/CCT Total # of Minutes Spent Total Time Spent with Patient: Total time spent is greater than 50% in coordination of care (as documented) at patient's floor/unit and/or counseling patient: Coding Level of Care Code 07804 SUB INP/OBS CARE /25MIN Diagnoses Dementia with behavioral disturbance F03.918 Thiamine deficiency E51.9 Type 2 diabetes mellitus E11.9
--- NOTE | 2024-01-24 09:11 | Hospitalist Progress Note ---
Date of Service January 24, 2024 Assessment & Plan (1) Dementia with behavioral disturbance: Plan: 78yo male with PMHx significant for dementia, CKD, HTN, T2DM, HLD, pituitary macroadenoma s/p partial resection presented with altered mental status after attempting to hold down/choke at home and called police to de-escalate situation. Baseline only oriented to self. Was in hospital a year ago and discharged on Seroquel. Patient with increase in aggression at home towards and daughter CT head negative on admission. CXR without acute process Ammonia wnl Tox screen negative B12 wnl TSH wnl B1 checked and LOW <6 --s/p IV replacement, continues on 200mg PO BID (would do for month then can do once daily moving forward on 02/10) Remains alert/oriented to person, sometimes place (knows in hospital) Has NOT REQUIRED ANY HALDOL SINCE ADMISSION Remains on home seroquel, aricept. Keppra level continued and level NORMAL Maintain day/night sleep schedules Continue therapy/ambulation w/ nursing as able to improve strength mobility and CM working on placement issues. HOME INSULIN REGIMEN HAS BEEN CUT BELOW, ? having LOWS PRIOR TO ADMISSION?? (2) Type 2 diabetes mellitus: Plan: A1c 7.4, on insulin at baseline -- regimen consistent with 14 u daily and 2units TIDM Had been placed on 7u BID with sliding scale but decreased to 4u BID last week with highest BSG to 160s REVIEW OF BSGs with highest BSG @ 161 in past ~ 6 days and WILL STOP LONG ACTING INSULIN AND MONITOR WITH SLIDING SCALE (3) Thiamine deficiency: Plan: B1 level sent, reviewed and LOW at 6. 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 Informal [place] correspondence with Dr. Dino Lala from [facility] who recommended outpatient follow-up with neurosurgery in the setting of enlarging pituitary adenoma CKD - GFR and Cr at baseline . Renal dose meds/avoid nephrotoxins DVT proph: Lovenox Dispo: Continued inpatient stay while searching for placement, CM following. Admission and Anticipated Discharge Date Admission Date: January 02, 2024 Supervising Physician Co-Signing Physician Notes The patient was not seen by me. The chart was reviewed. Case discussed with GALLO Miller. Agree with assessment and plan Subjective Patient evaluated this morning, pleasant/cooperative. Eating breakfast, no abdominal pain/fever/chills/chest pain/shortness of breath. Encouraged nursing to continue with walks and promote mobility. Ongoing placement issues. Has NOT required and Haldol. Physical Exam Physical Exam: General: 78yo male resting in bed, NAD, awoken easily to name, alert to person AND place (at times), joking/laughing at times HEENT: head atraumatic, normocephalic, mm improved, trachea midline Resp: even/unlabored, no w/c/r, on room air CV: RRR, no significant m/r/g, no pitting edema GI: +BS throughout, slight distension but soft and nontender to palpation ; no navarro MSK/Neuro: follows commands as able, IMPROVEMENT in generalized weakness/ strength, stable/nonfocal Psych: alert to person AND PLACE, not event/time Results & Data Results & Data Vital Signs (Past 12 Hours) Vital Signs Temp Pulse Resp BP Pulse Ox O2 Del Method 01/24/24 07:53 36.4 C L 60 16 118/76 96 Room Air 01/23/24 21:38 Room Air PG Care Time/CCT Total # of Minutes Spent Total Time Spent with Patient: Total time spent is greater than 50% in coordination of care (as documented) at patient's floor/unit and/or counseling patient: Coding Level of Care Code 32689 SUB INP/OBS CARE 2/35MIN Diagnoses Dementia with behavioral disturbance F03.918 Type 2 diabetes mellitus E11.9 Thiamine deficiency E51.9
[2024-01-24] MEDS ORDERED: LANTUS PER UNIT CHARGE SQ SCH (21:00)
--- NOTE | 2024-01-25 08:31 | Hospitalist Progress Note ---
Date of Service January 25, 2024 Assessment & Plan (1) Dementia with behavioral disturbance: Plan: 78yo male with PMHx significant for dementia, CKD, HTN, T2DM, HLD, pituitary macroadenoma s/p partial resection presented with altered mental status after attempting to hold down/choke at home and called police to de-escalate situation. Baseline only oriented to self. Was in hospital a year ago and discharged on Seroquel. Patient with increase in aggression at home towards and daughter CT head negative on admission. CXR without acute process Ammonia wnl Tox screen negative B12 wnl TSH wnl B1 checked and LOW <6 --s/p IV replacement, continues on 200mg PO BID (would do for month then can do once daily moving forward on 02/10) Remains alert/oriented to person, sometimes place (knows in hospital) Has NOT REQUIRED ANY HALDOL SINCE ADMISSION Remains on home seroquel, aricept. Keppra level continued and level NORMAL Maintain day/night sleep schedules Continue therapy/ambulation w/ nursing as able to improve strength mobility and CM working on placement issues. HOME INSULIN REGIMEN HAS BEEN CUT BELOW, ? having LOWS PRIOR TO ADMISSION?? HAVE STOPPED ANY LONG ACTING INSULIN AT THIS TIME, BSGS STABLE ON SSI with decent PO intake (utilized 11u short acting insulin 01/23, 6 units this morning 01/24) (2) Type 2 diabetes mellitus: Plan: A1c 7.4, on insulin at baseline -- regimen consistent with 14 u daily and 2units TIDM Had been placed on 7u BID with sliding scale but decreased to 4u BID last week with highest BSG to 160s and over past ~6 days highest @ 161 and DISCONTINUED LONG ACTING AND WILL USE SLIDING INSULIN ?if having hypoglycemia at home when having initial incident. POSSIBLE/suspect contributing along w/ LOW B1 level/replacement as above (3) Thiamine deficiency: Plan: B1 level sent, reviewed and LOW at 6. 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 Informal [place] correspondence with Dr. Dino Lala from [facility] who recommended outpatient follow-up with neurosurgery in the setting of enlarging pituitary adenoma CKD - GFR and Cr at baseline . Renal dose meds/avoid nephrotoxins DVT proph: Lovenox Dispo: Continued inpatient stay while searching for placement, CM following. Admission and Anticipated Discharge Date Admission Date: January 02, 2024 Supervising Physician Co-Signing Physician Notes The patient was not seen by me. The chart was reviewed. Case discussed with GALLO Miller. Agree with assessment and plan Subjective Eval this morning, alert to person/self, knows in hospital. Pleasant, cooperative. Ongoing placement. Nursing to take for walk in the halls this afternoon. Physical Exam Physical Exam: General: 78yo male resting in bed, NAD, awoken easily to name, alert to person AND place (at times), joking/laughing at times HEENT: head atraumatic, normocephalic, mm improved, trachea midline Resp: even/unlabored, no w/c/r, on room air CV: RRR, no significant m/r/g, no pitting edema GI: +BS throughout, slight distension but soft and nontender to palpation ; no navarro MSK/Neuro: follows commands as able, IMPROVEMENT/stable generalized weakness/ strength, stable/nonfocal Psych: alert to person AND PLACE, not event/time Results & Data Results & Data Vital Signs (Past 12 Hours) Vital Signs Temp Pulse Resp BP Pulse Ox O2 Del Method 01/25/24 07:17 36.7 C 54 L 18 125/80 100 Room Air 01/24/24 21:25 Room Air PG Care Time/CCT Total # of Minutes Spent Total Time Spent with Patient: Total time spent is greater than 50% in coordination of care (as documented) at patient's floor/unit and/or counseling patient: Coding Level of Care Code 57638 SUB INP/OBS CARE 2/35MIN Diagnoses Dementia with behavioral disturbance F03.918 Type 2 diabetes mellitus E11.9 Thiamine deficiency E51.9
[2024-01-26 07:29] LABS: BUN Creatinine Ratio 15.5 (10-20); Calcium 9.2 mg/dl (8.6-10.3); Magnesium 1.9 mg/dl (1.7-2.4); Potassium 4.3 mmol/L (3.5-5.1)
--- NOTE | 2024-01-26 08:09 | Hospitalist Progress Note ---
Date of Service January 26, 2024 Assessment & Plan (1) Dementia with behavioral disturbance: Plan: 78yo male with PMHx significant for dementia, CKD, HTN, T2DM, HLD, pituitary macroadenoma s/p partial resection presented with altered mental status after attempting to hold down/choke at home and called police to de-escalate situation. Baseline only oriented to self. Was in hospital a year ago and discharged on Seroquel. Patient with increase in aggression at home towards and daughter CT head negative on admission. CXR without acute process Ammonia wnl Tox screen negative B12 wnl TSH wnl B1 checked and LOW <6 --s/p IV replacement, continues on 200mg PO BID (would do for month then can do once daily moving forward on 02/10) Remains alert/oriented to person, sometimes place (knows in hospital) Has NOT REQUIRED ANY HALDOL SINCE ADMISSION Remains on home seroquel, aricept. Keppra level continued and level NORMAL Maintain day/night sleep schedules Continue therapy/ambulation w/ nursing as able to improve strength mobility and CM working on placement issues. Did visit with family and discussed does appear improved but do have concerns for safety and ongoing discussion but continues to look for placement at this time. Yoseph does report wanting to go home with them today so hopefully will not be upset about needing to stay but was improved mood with seeing them. HOME INSULIN REGIMEN HAS BEEN CUT BELOW, ? having LOWS PRIOR TO ADMISSION?? ?if had hypotension w/ hypoglycemia w/ AMS w/ ROBERT on admission STOPPED GLARGINE, continue SSI ONLY--> BSGs MAX 175 ~ 24 hrs, utilized 14 units of short acting on 01/24 with good PO intake (2) Type 2 diabetes mellitus: Plan: A1c 7.4, on insulin at baseline -- regimen consistent with 14 u daily and 2units TIDM Decreased glargine to 7u BID but further reduced to 4u BID with max POC 160 and given not elevated with good PO intake and did discuss weight loss/muscle mass could contribute STOPPED GLARGINE as above, continue sliding scale ONLY. Only used 14 units with sliding scale despite good PO intake in the past 24 hours with max POC 175 ?having lows at home (family reports had been having highs/difficult to control) (3) Thiamine deficiency: Plan: B1 level sent, reviewed and LOW at 6. As above, given IV replacement high dose and continued on 200mg PO BID. Convert to once daily after month on 02/10 Plan Chronic stable diagnoses: HLD - continue home statin HTN- continue home amlodipine, Pituitary macroadenoma - continue home levothyroxine and hydrocortisone, FT4 and TSH WNL. Informal [place] correspondence with Dr. Dino Lala from [facility] who recommended outpatient follow-up with neurosurgery in the setting of enlarging pituitary adenoma CKD - Cr elevation on admission however UA negative. Renal function normalized and avoid nephrotoxins as able/renal dose medications DVT proph: Lovenox SQ while inpatient Dispo: Continued inpatient stay while searching for placement, CM following. Updated family at bedside 01/25 to see if any possibility if improved from their stance to consider taking him home and does appear still concerns with repeat episode but will re-visit topic and discussed to call in to discuss if wanting as well as did leave voicemail for daughter this morning to discuss prior to them coming in. Admission and Anticipated Discharge Date Admission Date: January 02, 2024 Supervising Physician Co-Signing Physician Notes The patient was not seen by me. The chart was reviewed. Case discussed with GALLO Miller. Agree with assessment and plan Subjective Evaluated this morning, resting in bed.. Covered up. Asked if hiding. Yoseph reports he is just resting but wants to go home. Knows in hospital, does not recall events bringing him in. Discussed will call family given concerns for his insulin/low blood sugars with ROBERT and low thiamine on admission and has been cooperative/stable while inpatient at this time to see if able to make accommodations to get him home as he wishes. Calling daughter Melissa for discussion -- voicemail. Physical Exam 2 Physical Exam: General: 78yo male resting in bed, NAD, awoken easily to name, alert to person AND place (at times), joking/laughing at times eval with family sitting up in bed eating lunch, good mood this afternoon HEENT: head atraumatic, normocephalic, mm improved, trachea midline Resp: even/unlabored, no w/c/r, on room air CV: RRR, no significant m/r/g, no pitting edema GI: +BS throughout, slight distension but soft and nontender to palpation ; no navarro MSK/Neuro: follows commands as able, IMPROVEMENT/stable generalized weakness/ strength, stable/nonfocal Psych: alert to person AND PLACE, not event/time, dementia at baseline Results & Data Results & Data Vital Signs (Past 12 Hours) Vital Signs Temp Pulse Resp BP Pulse Ox O2 Del Method 01/26/24 07:59 36.6 C 62 16 119/76 98 Room Air 01/25/24 23:26 36.9 C 67 18 131/84 98 Room Air Laboratory Results 01/26/24 06:18 MAg 1.9 PG Care Time/CCT Total # of Minutes Spent Total Time Spent with Patient: Total time spent is greater than 50% in coordination of care (as documented) at patient's floor/unit and/or counseling patient: Coding Level of Care Code 70179 SUB INP/OBS CARE 2/35MIN Diagnoses Dementia with behavioral disturbance F03.918 Type 2 diabetes mellitus E11.9 Thiamine deficiency E51.9
--- NOTE | 2024-01-27 08:09 | Hospitalist Progress Note ---
Date of Service January 27, 2024 Assessment & Plan (1) Dementia with behavioral disturbance: Plan: 78yo male with PMHx significant for dementia, CKD, HTN, T2DM, HLD, pituitary macroadenoma s/p partial resection presented with altered mental status after attempting to hold down/choke at home and called police to de-escalate situation. Baseline only oriented to self. Was in hospital a year ago and discharged on Seroquel. Patient with increase in aggression at home towards and daughter CT head negative on admission. CXR without acute process Ammonia wnl Tox screen negative B12 wnl TSH wnl B1 checked and LOW <6 --s/p IV replacement, continues on 200mg PO BID (would do for month then can do once daily moving forward on 02/10) Remains alert/oriented to person, sometimes place (knows in hospital) Has NOT REQUIRED ANY HALDOL SINCE ADMISSION Remains on home seroquel, aricept. Keppra level continued and level NORMAL Maintain day/night sleep schedules Continue therapy/ambulation w/ nursing as able to improve strength mobility and CM working on placement issues. Did visit with family and discussed does appear improved but do have concerns for safety and ongoing discussion but continues to look for placement at this time. Yoseph does report wanting to go home with them today so hopefully will not be upset about needing to stay but was improved mood with seeing them. STOPPED LONG ACTING INSULIN GLARGINE, continue SSI ONLY --> BSGs MAX 148 in the past 24 hours. Utilized 7 units short acting w/ PO intake A1c 7.4 again on repeat indicating improved control from 11 earlier this year ?if had hypotension w/ hypoglycemia w/ AMS w/ ROBERT on admission (2) Type 2 diabetes mellitus: Plan: A1c 7.4, on insulin at baseline -- regimen consistent with 14 u daily and 2units TIDM Decreased glargine to 7u BID but further reduced to 4u BID with max POC 160 and given not elevated with good PO intake and did discuss weight loss/muscle mass could contribute STOPPED GLARGINE as above, sliding scale only with good PO intake and only used 7 units of short acting on 01/25. A1c 7.4 (3) Thiamine deficiency: Plan: B1 level sent, reviewed and LOW at 6. s above, given IV replacement high dose and continued on 200mg PO BID. Plan to convert to once daily after month on 02/10 Plan Chronic stable diagnoses: HLD - continue home statin HTN- continue home amlodipine, Pituitary macroadenoma - continue home levothyroxine and hydrocortisone, FT4 and TSH WNL. Informal [place] correspondence with Dr. Dino Lala from [facility] who recommended outpatient follow-up with neurosurgery in the setting of enlarging pituitary adenoma CKD - Cr elevation on admission however UA negative. Renal function normalized and avoid nephrotoxins as able/renal dose medications DVT proph: Lovenox SQ while inpatient Dispo: Continued inpatient stay while searching for placement, CM following. Updated family at bedside 01/25 to see if any possibility if improved from their stance to consider taking him and instructed to let us know if considers change in current plan but will continue search for placement at this time. Admission and Anticipated Discharge Date Admission Date: January 02, 2024 Supervising Physician Co-Signing Physician Notes The patient was not seen by me. The chart was reviewed. Case discussed with GALLO Miller. Agree with assessment and plan Subjective Evaluated this morning, resting in bed. No issues overnight, remains calm/cooperative. Physical Exam 2 Physical Exam: General: 78yo male resting in bed, NAD HEENT: head atraumatic, normocephalic, mm improved, trachea midline Resp: even/unlabored, no w/c/r, on room air CV: RRR, no significant m/r/g, no pitting edema GI: +BS throughout, slight distension but soft and nontender to palpation ; no navarro MSK/Neuro: follows commands as able, IMPROVEMENT/stable generalized weakness/ strength, stable/nonfocal Psych: alert to person AND PLACE, not event/time, dementia at baseline Results & Data Results & Data Vital Signs (Past 12 Hours) Vital Signs Temp Pulse Resp BP Pulse Ox O2 Del Method 01/27/24 07:30 36.5 C 61 16 104/65 95 Room Air Laboratory Results 01/06/24 06:38 01/27/24 07:13 A1c 7.4 PG Care Time/CCT Total # of Minutes Spent Total Time Spent with Patient: Total time spent is greater than 50% in coordination of care (as documented) at patient's floor/unit and/or counseling patient: Coding Level of Care Code 99454 SUB INP/OBS CARE 25MIN Diagnoses Dementia with behavioral disturbance F03.918 Type 2 diabetes mellitus E11.9 Thiamine deficiency E51.9
[2024-01-27 08:13] LABS: BUN Creatinine Ratio 14.8 (10-20); Calcium 9.2 mg/dl (8.6-10.3); Creatinine Clr Calc Pharmacy 55.3 ml/min; Potassium 4.1 mmol/L (3.5-5.1)
[2024-01-27 08:20] LABS: Estimated Average Glucose 166 mg/dl; Hemoglobin A1C 7.4 % (4.5-5.6)
--- NOTE | 2024-01-28 08:11 | Hospitalist Progress Note ---
Date of Service January 28, 2024 Assessment & Plan (1) Dementia with behavioral disturbance: Plan: 78yo male with PMHx significant for dementia, CKD, HTN, T2DM, HLD, pituitary macroadenoma s/p partial resection presented with altered mental status after attempting to hold down/choke at home and called police to de-escalate situation. Baseline only oriented to self. Was in hospital a year ago and discharged on Seroquel. Patient with increase in aggression at home towards and daughter CT head negative on admission. CXR without acute process Ammonia wnl Tox screen negative B12 wnl TSH wnl B1 checked and LOW <6 --s/p IV replacement, continues on 200mg PO BID (would do for month then can do once daily moving forward on 02/10) A1c 7.4, on glargine 18u daily w/ 2u mealtime HOME HEALTH [facility]NA-- have STOPPED long acting insulin and good PO intake and using sliding scale ONLY to prevent hypoglycemia. ?if having episodes at home -- Has only used 13 u short acting on sliding scale last 24 hours, BSGs 130-150s Remains alert/oriented to person, sometimes place (knows in hospital) Has NOT REQUIRED ANY HALDOL SINCE ADMISSION Remains on home seroquel, aricept. Keppra level continued and level NORMAL Maintain day/night sleep schedules Continue therapy/ambulation w/ nursing as able to improve strength mobility and CM working on placement issues. Did visit with family 01/25 and discussed does appear improved/stable and not combative and if any possible consideration to take home with home health can arrange but otherwise given concerns for safety given prior events will continue current plan. (2) Type 2 diabetes mellitus: Plan: A1c 7.4, on insulin at baseline -- regimen consistent with 14 u daily and 2units TIDM Decreased glargine to 7u BID but further reduced to 4u BID with max POC 160 and given not elevated with good PO intake and did discuss weight loss/muscle mass could contribute STOPPED GLARGINE as above, sliding scale only with good PO intake and only used 7 units of short acting on 01/25, 13 u on 01/26. A1c stable at 7.4 on repeat (3) Thiamine deficiency: Plan: B1 level sent, reviewed and LOW at 6. s above, given IV replacement high dose and continued on 200mg PO BID. Plan to convert to once daily after month on 02/10 Plan Chronic stable diagnoses: HLD - continue home statin HTN- continue home amlodipine, Pituitary macroadenoma - continue home levothyroxine and hydrocortisone, FT4 and TSH WNL. Informal [place] correspondence with Dr. Dino Lala from [facility] who recommended outpatient follow-up with neurosurgery in the setting of enlarging pituitary adenoma CKD - Cr elevation on admission however UA negative. Renal function normalized and avoid nephrotoxins as able/renal dose medications DVT proph: Lovenox SQ while inpatient Dispo: Continued inpatient stay while searching for placement, CM following. Updated family at bedside 01/25 to see if any possibility if improved from their stance to consider taking him and instructed to let us know if considers change in current plan but will continue search for placement at this time. Admission and Anticipated Discharge Date Admission Date: January 02, 2024 Supervising Physician Co-Signing Physician Notes The patient was not seen by me. The chart was reviewed. Case discussed with GALLO Miller. Agree with assessment and plan Subjective Evaluated this morning, resting in bed. Easily awoken. Ate good breakfast, no acute complaints except wanting to go home. Discussed working with family to see if able to make this happen and will let him know as soon as have disposition/plan for discharge. No CP/SOB/abdominal pain, nausea/vomiting at this time. Questions/concerns addressed at this time. Physical Exam Physical Exam: General: 78yo male resting in bed, NAD, cooperative/calm during encounter but depressed affect/requesting when can he go home HEENT: head atraumatic, normocephalic, mm improved, trachea midline Resp: even/unlabored, no w/c/r, on room air CV: RRR, no significant m/r/g, no pitting edema GI: +BS throughout, soft/nontender ; no navarro MSK/Neuro: follows commands as able, STRONG- good strength bilaterally, no slurred speech/facial droop Alert to person/place, not time/events, cooperative/calm dementia at baseline Results & Data Results & Data Vital Signs (Past 12 Hours) Vital Signs Temp Pulse Resp BP Pulse Ox O2 Del Method 01/28/24 07:26 36.7 C 73 16 117/74 95 Room Air 01/27/24 23:30 36.8 C 84 18 108/75 95 Room Air 01/27/24 21:06 36.6 C 70 18 115/82 96 Room Air Laboratory Results 01/28/24 01/27/24 01/27/24 Range/Units 07:42 21:20 16:36 POC Glucose 121 H 133 H 135 H (70-99) mg/dl 01/27/24 Range/Units 11:38 POC Glucose 159 H (70-99) mg/dl PG Care Time/CCT Total # of Minutes Spent Total Time Spent with Patient: Total time spent is greater than 50% in coordination of care (as documented) at patient's floor/unit and/or counseling patient: Coding Level of Care Code 86044 SUB INP/OBS CARE 05/19MIN Diagnoses Dementia with behavioral disturbance F03.918 Type 2 diabetes mellitus E11.9 Thiamine deficiency E51.9
[2024-01-29 07:40] LABS: Creatinine Clr Calc Pharmacy 59.5 ml/min
--- NOTE | 2024-01-29 08:44 | Hospitalist Progress Note ---
Date of Service January 29, 2024 Assessment & Plan (1) Dementia with behavioral disturbance: Plan: 78yo male with PMHx significant for dementia, CKD, HTN, T2DM, HLD, pituitary macroadenoma s/p partial resection presented with altered mental status after attempting to hold down/choke at home and called police to de-escalate situation. Baseline only oriented to self. Was in hospital a year ago and discharged on Seroquel. Patient with increase in aggression at home towards and daughter CT head negative on admission. CXR without acute process Ammonia wnl Tox screen negative B12 wnl TSH wnl B1 checked and LOW <6 --s/p IV replacement, continues on 200mg PO BID (would do for month then can do once daily moving forward on 02/10) Remains alert/oriented to person, sometimes place (knows in hospital) Has NOT REQUIRED ANY HALDOL SINCE ADMISSION Remains on home seroquel, aricept. Keppra level continued and level NORMAL Maintain day/night sleep schedules Continue therapy/ambulation w/ nursing as able to improve strength mobility and CM working on placement issues. Did visit with family 01/25 and discussed does appear improved/stable and not combative and if any possible consideration to take home with home health can arrange but otherwise given concerns for safety given prior events will continue current plan. 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 ?if having episodes at home -- Has only used 12 u short acting on sliding scale last 24 hours, BSGs 121-143 and will LOOSEN SLIDING SCALE from CF40/CR13 to 45/15, goal range from 110-150 to 110-180 to prevent hypoglycemia/adjusments pending needs. GOOD CONTROL AND MUCH LESS NEEDS DESPITE GOOD PO INTAKE (2) Type 2 diabetes mellitus: Plan: A1c 7.4, on insulin at baseline -- regimen consistent with 14 u daily and 2units TIDM Decreased glargine to 7u BID but further reduced to 4u BID with max POC 160 and given not elevated with good PO intake and did discuss weight loss/muscle mass could contribute STOPPED GLARGINE as above, sliding scale ONLY. A1c 7.4 --> further loosened parameters to CF45/CR15 and loosened range 01/28 and will monitor (3) Thiamine deficiency: Plan: B1 level sent, reviewed and LOW at 6. Received IV thiamine TID and converted to 200mg PO BID. Decrease to ONCE daily on 02/10 (orders placed given ongoing inpatient stay to prevent dropping off MAR) Plan Chronic stable diagnoses: HLD - continue home statin HTN- continue home amlodipine, BP stable Pituitary macroadenoma - continue home levothyroxine and hydrocortisone, FT4 and TSH WNL. Informal [place] correspondence with Dr. Dino Lala from [facility] who recommended outpatient follow-up with neurosurgery in the setting of enlarging pituitary adenoma CKD - Cr elevation on admission however UA negative. Renal function normalized and avoid nephrotoxins as able/renal dose medications DVT proph: Lovenox SQ while inpatient Dispo: Continued inpatient stay while searching for placement, CM following. Updated family at bedside 01/25 to see if any possibility if improved from their stance to consider taking him and instructed to let us know if considers change in current plan but will continue search for placement at this time and remaining inpatient at this time. Admission and Anticipated Discharge Date Admission Date: January 02, 2024 Supervising Physician Co-Signing Physician Notes The patient was not seen by me. The chart was reviewed. Case discussed with GALLO Miller. Agree with assessment and plan Subjective Eval this morning, no acute changes. Ongoing bed search. Cooperative/calm with staff, no aggressiveness/combativeness. Physical Exam Physical Exam: General: 78yo male resting in bed, NAD, cooperative/calm during encounter but depressed affect at times HEENT: head atraumatic, normocephalic, mm improved, trachea midline Resp: even/unlabored, no w/c/r, on room air CV: RRR, no significant m/r/g, no pitting edema GI: +BS throughout, soft/nontender ; no navarro MSK/Neuro: follows commands as able, STRONG- good strength bilaterally, no slurred speech/facial droop Alert to person/place, not time/events, cooperative/calm, dementia at baseline, flat affect/depressed at times but does laugh/joke at other times Results & Data Results & Data Vital Signs (Past 12 Hours) Vital Signs Temp Pulse Resp BP Pulse Ox O2 Del Method 01/29/24 07:32 36.5 C 62 16 106/74 95 Room Air 01/28/24 21:58 Room Air 01/28/24 20:45 36.3 C L 80 15 105/68 94 Room Air PG Care Time/CCT Total # of Minutes Spent Total Time Spent with Patient: Total time spent is greater than 50% in coordination of care (as documented) at patient's floor/unit and/or counseling patient: Coding Level of Care Code 44489 SUB INP/OBS CARE 2/35MIN Diagnoses Dementia with behavioral disturbance F03.918 Type 2 diabetes mellitus E11.9 Thiamine deficiency E51.9
--- NOTE | 2024-01-30 08:32 | Hospitalist Progress Note ---
Date of Service January 30, 2024 Assessment & Plan (1) Dementia with behavioral disturbance: Plan: 78yo male with PMHx significant for dementia, CKD, HTN, T2DM, HLD, pituitary macroadenoma s/p partial resection presented with altered mental status after attempting to hold down/choke at home and called police to de-escalate situation. Baseline only oriented to self. Was in hospital a year ago and discharged on Seroquel. Patient with increase in aggression at home towards and daughter CT head negative on admission. CXR without acute process Ammonia wnl Tox screen negative B12 wnl TSH wnl B1 checked and LOW <6 --s/p IV replacement, continues on 200mg PO BID (would do for month then can do once daily moving forward on 02/10) Remains alert/oriented to person, sometimes place (knows in hospital) Has NOT REQUIRED ANY HALDOL SINCE ADMISSION Remains on home seroquel, aricept. Keppra level continued, level normal Maintain day/night sleep schedules Continue therapy/ambulation w/ nursing as able to improve strength mobility and CM working on placement issues. Did visit with family 01/25 and discussed does appear improved/stable and not combative and if any possible consideration to take home with home health can arrange but otherwise given concerns for safety given prior events will continue current plan. 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 ?if having episodes at home. Utilized 12u SSI 01/27 despite good PO intake/appetite -- loosened SSI further from CF40/CR13 to 45/15, goal range from 110-150 to 110- 180 -- Only utilized 9 units 01/28, BSG 124-150 -- Will further reduce CF/CR to 50/18 (2) Type 2 diabetes mellitus: Plan: A1c 7.4, on insulin at baseline -- regimen consistent with 14 u daily and 2units TIDM Decreased glargine to 7u BID but further reduced to 4u BID with max POC 160 and given not elevated with good PO intake and did discuss weight loss/muscle mass could contribute STOPPED GLARGINE as above, sliding scale ONLY. A1c 7.4 --> further loosened parameters as above and will monitor (3) Thiamine deficiency: Plan: B1 level sent, reviewed and LOW at 6. Received IV thiamine TID and converted to 200mg PO BID. Decrease to ONCE daily on 02/10 (orders placed given ongoing inpatient stay to prevent dropping off MAR) Plan Chronic stable diagnoses: HLD - continue home statin HTN- continue home amlodipine, BP stable Pituitary macroadenoma - continue home levothyroxine and hydrocortisone, FT4 and TSH WNL. Informal [place] correspondence with Dr. Dino Lala from [facility] who recommended outpatient follow-up with neurosurgery in the setting of enlarging pituitary adenoma CKD - Cr elevation on admission however UA negative. Renal function normalized and avoid nephrotoxins as able/renal dose medications DVT proph: Lovenox SQ while inpatient Dispo: Continued inpatient stay while searching for placement, CM following. Updated family at bedside 01/25 to see if any possibility if improved from their stance to consider taking him and instructed to let us know if considers change in current plan but will continue search for placement at this time and remaining inpatient at this time. Admission and Anticipated Discharge Date Admission Date: January 02, 2024 Subjective Eval this morning, no acute changes. Depressed about ongoing inpatient stay. Pleasant/cooperative, encouraged ambulation, did not want blinds pulled this morning/wanting to rest after breakfast. Pending placement, CM following. Physical Exam Physical Exam: General: 78yo male resting in bed, NAD, cooperative/calm during encounter but depressed affect at times HEENT: head atraumatic, normocephalic, mm improved, trachea midline Resp: even/unlabored, no w/c/r, on room air CV: RRR, no significant m/r/g, no pitting edema GI: +BS throughout, slight distension but nontender ; no navarro MSK/Neuro: follows commands as able, STRONG- good strength bilaterally, no slurred speech/facial droop Alert to person/place, not time/events, cooperative/calm, dementia at baseline, flat affect/depressed at times but does laugh/joke at other times Results & Data Results & Data Vital Signs (Past 12 Hours) Vital Signs Temp Pulse Resp BP Pulse Ox O2 Del Method 01/30/24 07:31 36.6 C 68 16 113/71 93 Room Air 01/29/24 21:08 36.9 C 74 17 110/77 98 Room Air Laboratory Results 01/30/24 01/29/2401/28/24 Range/Units 07:42 20:09 11:41 POC Glucose 148 H 150 H 127 H (70-99) mg/dl PG Care Time/CCT Total # of Minutes Spent Total Time Spent with Patient: Total time spent is greater than 50% in coordination of care (as documented) at patient's floor/unit and/or counseling patient: Coding Level of Care Code 73176 SUB INP/OBS CARE 05/19MIN Diagnoses Dementia with behavioral disturbance F03.918 Type 2 diabetes mellitus E11.9 Thiamine deficiency E51.9
[2024-01-30] MEDS ORDERED: Nursing to Pharmacy Communication SCH (09:30)
[2024-01-30] MEDS: INFLUENZA VACC TS2024-25(65y+)/PF (IIV3) 0.5mL Syr IM ONE (13:21)
--- NOTE | 2024-01-31 18:02 | Hospitalist Progress Note ---
Date of Service January 31, 2024 Assessment & Plan (1) Dementia with behavioral disturbance: Plan: 78yo male with PMHx significant for dementia, CKD, HTN, T2DM, HLD, pituitary macroadenoma s/p partial resection presented with altered mental status after attempting to hold down/choke at home and called police to de-escalate situation. Baseline only oriented to self. Was in hospital a year ago and discharged on Seroquel. Patient with increase in aggression at home towards and daughter CT head negative on admission. CXR without acute process Ammonia wnl Tox screen negative B12 wnl TSH wnl B1 checked and LOW <6 --s/p IV replacement, continues on 200mg PO BID (would do for month then can do once daily moving forward on 02/10) Remains alert/oriented to person, sometimes place (knows in hospital) Has NOT REQUIRED ANY HALDOL SINCE ADMISSION Remains on home seroquel, aricept. Keppra level continued, level normal Maintain day/night sleep schedules Continue therapy/ambulation w/ nursing as able to improve strength mobility and CM working on placement issues. Did visit with family 01/25 and discussed does appear improved/stable and not combative and if any possible consideration to take home with home health can arrange but otherwise given concerns for safety given prior events will continue current plan. 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 ?if having episodes at home. Utilized 12u SSI 01/27 despite good PO intake/appetite -- loosened SSI further from CF40/CR13 to 45/15, goal range from 110-150 to 110- 180 -- Only utilized 9 units 01/28, BSG 124-150 -- Will further reduce CF/CR to 50/18 -- Consider transitioning to oral agent (3) Thiamine deficiency: Plan: B1 level sent, reviewed and LOW at 6. Received IV thiamine TID and converted to 200mg PO BID. Decrease to ONCE daily on 02/10 (orders placed given ongoing inpatient stay to prevent dropping off MAR) Plan Chronic stable diagnoses: HLD - continue home statin HTN- continue home amlodipine, BP stable Pituitary macroadenoma - continue home levothyroxine and hydrocortisone, FT4 and TSH WNL. Informal [place] correspondence with Dr. Dino Lala from [facility] who recommended outpatient follow-up with neurosurgery in the setting of enlarging pituitary adenoma CKD - Cr elevation on admission however UA negative. Renal function normalized and avoid nephrotoxins as able/renal dose medications DVT proph: Lovenox SQ while inpatient Dispo: Continued inpatient stay while searching for placement, CM following. Updated family at bedside 01/25 to see if any possibility if improved from their stance to consider taking him and instructed to let us know if considers change in current plan but will continue search for placement at this time and remaining inpatient at this time. Admission and Anticipated Discharge Date Admission Date: January 02, 2024 Subjective Patient seen and evaluated at bedside. He was sleeping upon me initially entering the room, but easily woken. He remains calm and cooperative with staff, and has a good appetite. He does seem depressed about ongoing inpatient stay. Encouraged the patient to sit in bedside chair or walk the halls. We discussed opening his blinds to allow the sunshine and, which he declines at this time. No additional complaints or concerns at this time. Physical Exam Physical Exam: General: No acute distress, nondiaphoretic, well-developed, well-nourished. Calm and cooperative. Skin: The skin was without rashes, erythema, edema, or bruising. Cardiac: Regular rate and rhythm without murmurs gallops or rubs. Pulm: Clear to auscultation bilaterally without wheezes, rales or rhonchi. No respiratory distress. 92% on room air. Abdominal: Soft, nontender, nondistended. Bowel sounds present. Neuro: A&O x2 (person, place). Baseline dementia. No focal neurological deficits. Psych: Flat affect/depressed at times, but laughs/jokes at other times. Results & Data Results & Data Vital Signs (Past 12 Hours) Vital Signs Temp Pulse Resp BP Pulse Ox O2 Del Method 01/31/24 14:31 97.9 F 64 16 104/69 92 Room Air 01/31/24 08:25 Room Air 01/31/24 07:28 98.1 F 67 16 91/56 L 94 Room Air PG Care Time/CCT Total # of Minutes Spent Total Time Spent with Patient: Total time spent is greater than 50% in coordination of care (as documented) at patient's floor/unit and/or counseling patient: Coding Level of Care Code 08769 SUB INP/OBS CARE Diagnoses Dementia with behavioral disturbance F03.918 Type 2 diabetes mellitus E11.9 Thiamine deficiency E51.9
[2024-02-01 06:23] LABS: Creatinine Clr Calc Pharmacy 58.5 ml/min
--- NOTE | 2024-02-01 11:04 | Hospitalist Progress Note ---
Date of Service February 01, 2024 Assessment & Plan (1) Dementia with behavioral disturbance: Plan: 78yo male with PMHx significant for dementia, CKD, HTN, T2DM, HLD, pituitary macroadenoma s/p partial resection presented with altered mental status after attempting to hold down/choke at home and called police to de-escalate situation. Baseline only oriented to self. Was in hospital a year ago and discharged on Seroquel. Patient with increase in aggression at home towards and daughter CT head negative on admission. CXR without acute process Ammonia wnl Tox screen negative B12 wnl TSH wnl B1 checked and LOW <6 --s/p IV replacement, continues on 200mg PO BID (would do for month then can do once daily moving forward on 02/10) Remains alert/oriented to person, sometimes place (knows in hospital) Has NOT REQUIRED ANY HALDOL SINCE ADMISSION Remains on home seroquel, aricept. Keppra level continued, level normal Maintain day/night sleep schedules Continue therapy/ambulation w/ nursing as able to improve strength mobility and CM working on placement issues. Did visit with family 01/25 and discussed does appear improved/stable and not combative and if any possible consideration to take home with home health can arrange but otherwise given concerns for safety given prior events will continue current plan. (2) Type 2 diabetes mellitus: Plan: On glargine 18u daily w/ 2u mealtime prior to admission - A1c 7.4 - Significantly reduced insulin requirement throughout hospitalization - Transitioned to metformin 500 mg BID 01/31 - Continue SSI while monitoring transition to oral agent Goal BSG Range: 110-200 CF: 50mg/dL/unit CR: none (3) Thiamine deficiency: Plan: B1 level sent, reviewed and LOW at 6 - Received IV thiamine TID and converted to 200mg PO BID - Decrease to ONCE daily on 02/10 (orders placed given ongoing inpatient stay to prevent dropping off MAR) Plan Renewed meds through 03/24 Adjusted SSI Started metformin Chronic stable diagnoses: HLD - continue home statin HTN- continue home amlodipine, BP stable Pituitary macroadenoma - continue home levothyroxine and hydrocortisone, FT4 and TSH WNL. Informal [place] correspondence with Dr. Dino Lala from [facility] who re commended outpatient follow-up with neurosurgery in the setting of enlarging pituitary adenoma CKD - Cr elevation on admission however UA negative. Renal function normalized and avoid nephrotoxins as able/renal dose medications DVT proph: Lovenox SQ while inpatient CODE STATUS: Full code Dispo: Continued inpatient stay while searching for placement, CM following. Updated family at bedside 01/25 to see if any possibility if improved from their stance to consider taking him and instructed to let us know if considers change in current plan but will continue search for placement at this time and remaining inpatient at this time. Admission and Anticipated Discharge Date Admission Date: January 02, 2024 Subjective Patient seen and evaluated at bedside after eating lunch. He reports that he is tired but denies any acute complaints. I again encouraged him to walk the halls, sit in bedside chair, and open blinds in room. Continue inpatient stay while awaiting placement. Physical Exam Physical Exam: General: No acute distress, nondiaphoretic, well-developed, well-nourished. Calm and cooperative. Skin: The skin was without rashes, erythema, edema, or bruising. Cardiac: Regular rate and rhythm without murmurs gallops or rubs. Pulm: Clear to auscultation bilaterally without wheezes, rales or rhonchi. No respiratory distress. 98% on room air. Abdominal: Soft, nontender, nondistended. Bowel sounds present. Neuro: A&O x2 (person, place). Baseline dementia. No focal neurological deficits. Psych: Flat affect/depressed at times, but laughs/jokes at other times. Results & Data Results & Data Vital Signs (Past 12 Hours) Vital Signs Temp Pulse Resp BP Pulse Ox O2 Del Method 02/01/24 07:53 98.4 F 54 L 16 114/78 98 Room Air PG Care Time/CCT Total # of Minutes Spent Total Time Spent with Patient: Total time spent is greater than 50% in coordination of care (as documented) at patient's floor/unit and/or counseling patient: Coding Level of Care Code 85857 SUB INP/OBS CARE 2/35MIN Diagnoses Dementia with behavioral disturbance F03.918 Type 2 diabetes mellitus E11.9 Thiamine deficiency E51.9
[2024-02-02] MEDS: metFORMIN HCL 500 MG TAB PO SCH (08:24)
--- NOTE | 2024-02-02 11:57 | Hospitalist Progress Note ---
Date of Service February 02, 2024 Assessment & Plan (1) Dementia with behavioral disturbance: Plan: 78yo male with PMHx significant for dementia, CKD, HTN, T2DM, HLD, pituitary macroadenoma s/p partial resection presented with altered mental status after attempting to hold down/choke at home and called police to de-escalate situation. Baseline only oriented to self. Was in hospital a year ago and discharged on Seroquel. Patient with increase in aggression at home towards and daughter CT head negative on admission. CXR without acute process Ammonia wnl Tox screen negative B12 wnl TSH wnl B1 checked and LOW <6 --s/p IV replacement, continues on 200mg PO BID (would do for month then can do once daily moving forward on 02/10) Remains alert/oriented to person, sometimes place (knows in hospital) Has NOT REQUIRED ANY HALDOL SINCE ADMISSION Remains on home seroquel, aricept. Keppra level continued, level normal Maintain day/night sleep schedules Continue therapy/ambulation w/ nursing as able to improve strength mobility and CM working on placement issues. Did visit with family 01/25 and discussed does appear improved/stable and not combative and if any possible consideration to take home with home health can arrange but otherwise given concerns for safety given prior events will continue current plan. (2) Type 2 diabetes mellitus: Plan: On glargine 18u daily w/ 2u mealtime prior to admission - A1c 7.4 - Significantly reduced insulin requirement throughout hospitalization - Transitioned to metformin 500 mg BID 01/31 - Continue SSI while monitoring transition to oral agent Goal BSG Range: 110-200 CF: 50mg/dL/unit CR: none (3) Thiamine deficiency: Plan: B1 level sent, reviewed and LOW at 6 - Received IV thiamine TID and converted to 200mg PO BID - Decrease to ONCE daily on 02/10 (orders placed given ongoing inpatient stay to prevent dropping off MAR) Plan Chronic stable diagnoses: HLD - continue home statin HTN- continue home amlodipine, BP stable Pituitary macroadenoma - continue home levothyroxine and hydrocortisone, FT4 and TSH WNL. Informal [place] correspondence with Dr. Dino Lala from [facility] who recommended outpatient follow-up with neurosurgery in the setting of enlarging pituitary adenoma CKD - Cr elevation on admission however UA negative. Renal function normalized and avoid nephrotoxins as able/renal dose medications DVT proph: Lovenox SQ while inpatient CODE STATUS: Full code Dispo: Continued inpatient stay while searching for placement, CM following. Updated family at bedside 01/25 to see if any possibility if improved from their stance to consider taking him and instructed to let us know if considers change in current plan but will continue search for placement at this time and remaining inpatient at this time. Admission and Anticipated Discharge Date Admission Date: January 02, 2024 Subjective Patient seen and examined at patient seen and evaluated at bedside. He reports "I feel bad I want to go home." Patient is definitely becoming more depressed the longer his hospitalization continues. I provided emotional support and active listening while he told me stories about his life growing up. No additional acute complaints or concerns at this time. Notified by RN the patient was upset and wanting to leave. Went to bedside to reevaluate the patient. He was agitated and upset regarding his continued inpatient hospitalization. I again explained why he must remain in the hospital at this time. Offered the patient ice cream which made him happy and he calmed down after this. Physical Exam Physical Exam: General: No acute distress, nondiaphoretic, well-developed, well-nourished. Calm and cooperative. Skin: The skin was without rashes, erythema, edema, or bruising. Cardiac: Regular rate and rhythm without murmurs gallops or rubs. Pulm: Clear to auscultation bilaterally without wheezes, rales or rhonchi. No respiratory distress. 98% on room air. Abdominal: Soft, nontender, nondistended. Bowel sounds present. Neuro: A&O x2 (person, place). Baseline dementia. No focal neurological deficits. Psych: Flat affect/depressed at times, but laughs/jokes at other times. Results & Data Results & Data Vital Signs (Past 12 Hours) Vital Signs Temp Pulse Resp BP Pulse Ox O2 Del Method 02/02/24 08:19 Room Air 02/02/24 07:35 98.2 F 59 L 16 114/73 98 Room Air Laboratory Results Reviewed POC glucoses PG Care Time/CCT Total # of Minutes Spent Total Time Spent with Patient: Total time spent is greater than 50% in coordination of care (as documented) at patient's floor/unit and/or counseling patient: Coding Level of Care Code 03688 SUB INP/OBS CARE 2/35MIN Diagnoses Dementia with behavioral disturbance F03.918 Type 2 diabetes mellitus E11.9 Thiamine deficiency E51.9
--- NOTE | 2024-02-03 17:42 | Hospitalist Progress Note ---
Date of Service February 03, 2024 Assessment & Plan (1) Dementia with behavioral disturbance: Plan: 78yo male with PMHx significant for dementia, CKD, HTN, T2DM, HLD, pituitary macroadenoma s/p partial resection presented with altered mental status after attempting to hold down/choke at home and called police to de-escalate situation. Baseline only oriented to self. Was in hospital a year ago and discharged on Seroquel. Patient with increase in aggression at home towards and daughter CT head negative on admission. CXR without acute process Ammonia wnl Tox screen negative B12 wnl TSH wnl B1 checked and LOW <6 --s/p IV replacement, continues on 200mg PO BID (would do for month then can do once daily moving forward on 02/10) Remains alert/oriented to person, sometimes place (knows in hospital) Has NOT REQUIRED ANY HALDOL SINCE ADMISSION Remains on home seroquel, aricept. Keppra level continued, level normal Maintain day/night sleep schedules Continue therapy/ambulation w/ nursing as able to improve strength mobility and CM working on placement issues. Did visit with family 01/25 and discussed does appear improved/stable and not combative and if any possible consideration to take home with home health can arrange but otherwise given concerns for safety given prior events will continue current plan. (2) Type 2 diabetes mellitus: Plan: On glargine 18u daily w/ 2u mealtime prior to admission - A1c 7.4 - Significantly reduced insulin requirement throughout hospitalization - Transitioned to metformin 500 mg BID 01/31 - Continue SSI while monitoring transition to oral agent Goal BSG Range: 110-200 CF: 50mg/dL/unit CR: none (3) Thiamine deficiency: Plan: B1 level sent, reviewed and LOW at 6 - Received IV thiamine TID and converted to 200mg PO BID - Decrease to ONCE daily on 02/10 (orders placed given ongoing inpatient stay to prevent dropping off MAR) Plan Chronic stable diagnoses: HLD - continue home statin HTN- continue home amlodipine, BP stable Pituitary macroadenoma - continue home levothyroxine and hydrocortisone, FT4 and TSH WNL. Informal [place] correspondence with Dr. Dino Lala from [facility] who recommended outpatient follow-up with neurosurgery in the setting of enlarging pituitary adenoma CKD - Cr elevation on admission however UA negative. Renal function normalized and avoid nephrotoxins as able/renal dose medications DVT proph: Lovenox SQ while inpatient CODE STATUS: Full code Dispo: Continued inpatient stay while searching for placement, CM following. Updated family at bedside 01/25 to see if any possibility if improved from their stance to consider taking him and instructed to let us know if considers change in current plan but will continue search for placement at this time and remaining inpatient at this time. Admission and Anticipated Discharge Date Admission Date: January 02, 2024 Subjective Patient seen and evaluated at bedside. He appears to be in better spirits today. Denies any acute complaints at this time. Physical Exam Physical Exam: General: No acute distress, nondiaphoretic, well-developed, well-nourished. Calm and cooperative. Skin: The skin was without rashes, erythema, edema, or bruising. Cardiac: Regular rate and rhythm without murmurs gallops or rubs. Pulm: Clear to auscultation bilaterally without wheezes, rales or rhonchi. No respiratory distress. 94% on room air. Abdominal: Soft, nontender, nondistended. Bowel sounds present. Neuro: A&O x2 (person, place). Baseline dementia. No focal neurological deficits. Psych: Flat affect/depressed at times, but laughs/jokes at other times. Results & Data Results & Data Vital Signs (Past 12 Hours) Vital Signs Temp Pulse Resp BP Pulse Ox O2 Del Method 02/03/24 16:51 98.4 F 90 16 104/74 94 Room Air 02/03/24 07:29 97.9 F 70 16 126/82 94 Room Air PG Care Time/CCT Total # of Minutes Spent Total Time Spent with Patient: Total time spent is greater than 50% in coordination of care (as documented) at patient's floor/unit and/or counseling patient: Coding Level of Care Code 33089 SUB INP/OBS CARE 25MIN Diagnoses Dementia with behavioral disturbance F03.918 Type 2 diabetes mellitus E11.9 Thiamine deficiency E51.9
[2024-02-04 07:06] LABS: Creatinine Clr Calc Pharmacy 58.5 ml/min
--- NOTE | 2024-02-04 12:05 | Hospitalist Progress Note ---
Date of Service February 04, 2024 Assessment & Plan (1) Dementia with behavioral disturbance: Plan: 78yo male with PMHx significant for dementia, CKD, HTN, T2DM, HLD, pituitary macroadenoma s/p partial resection presented with altered mental status after attempting to hold down/choke at home and called police to de-escalate situation. Baseline only oriented to self. Was in hospital a year ago and discharged on Seroquel. Patient with increase in aggression at home towards and daughter CT head negative on admission. CXR without acute process Ammonia wnl Tox screen negative B12 wnl TSH wnl B1 checked and LOW <6 --s/p IV replacement, continues on 200mg PO BID (would do for month then can do once daily moving forward on 02/10) Remains alert/oriented to person, sometimes place (knows in hospital) Has NOT REQUIRED ANY HALDOL SINCE ADMISSION Remains on home seroquel, aricept. Keppra level continued, level normal Maintain day/night sleep schedules Continue therapy/ambulation w/ nursing as able to improve strength mobility and CM working on placement issues. Did visit with family 01/25 and discussed does appear improved/stable and not combative and if any possible consideration to take home with home health can arrange but otherwise given concerns for safety given prior events will continue current plan. (2) Type 2 diabetes mellitus: Plan: On glargine 18u daily w/ 2u mealtime prior to admission - A1c 7.4 - Significantly reduced insulin requirement throughout hospitalization - Transitioned to metformin 500 mg BID 01/31 - Continue SSI while monitoring transition to oral agent -- glucoses have been well controlled; plan to discontinue BSG ACHS and SSI after weekend, 02/04 Goal BSG Range: 110-200 CF: 50mg/dL/unit CR: none (3) Thiamine deficiency: Plan: B1 level sent, reviewed and LOW at 6 - Received IV thiamine TID and converted to 200mg PO BID - Decrease to ONCE daily on 02/10 (orders placed given ongoing inpatient stay to prevent dropping off MAR) Plan Chronic stable diagnoses: HLD - continue home statin HTN- continue home amlodipine, BP stable Pituitary macroadenoma - continue home levothyroxine and hydrocortisone, FT4 and TSH WNL. Informal [place] correspondence with Dr. Dino Lala from [facility] who recommended outpatient follow-up with neurosurgery in the setting of enlarging pituitary adenoma CKD - Cr elevation on admission however UA negative. Renal function normalized and avoid nephrotoxins as able/renal dose medications DVT proph: Lovenox SQ while inpatient CODE STATUS: Full code Dispo: Continued inpatient stay while searching for placement, CM following. Updated family at bedside 01/25 to see if any possibility if improved from their stance to consider taking him and instructed to let us know if considers change in current plan but will continue search for placement at this time and remaining inpatient at this time. Admission and Anticipated Discharge Date Admission Date: January 02, 2024 Subjective Patient seen and evaluated at bedside while eating lunch. He was in better spirits today, making multiple jokes and laughing during my visit. No acute complaints or concerns at this time. Physical Exam Physical Exam: General: No acute distress, nondiaphoretic, well-developed, well-nourished. Calm and cooperative. Skin: The skin was without rashes, erythema, edema, or bruising. Cardiac: Regular rate and rhythm without murmurs gallops or rubs. Pulm: Clear to auscultation bilaterally without wheezes, rales or rhonchi. No respiratory distress. 94% on room air. Abdominal: Soft, nontender, nondistended. Bowel sounds present. Neuro: A&O x2 (person, place). Baseline dementia. No focal neurological deficits. Psych: Flat affect/depressed at times, but laughs/jokes at other times. Results & Data Results & Data Vital Signs (Past 12 Hours) Vital Signs Temp Pulse Resp BP Pulse Ox O2 Del Method 02/04/24 07:28 97.3 F L 66 18 118/80 100 Room Air Laboratory Results Reviewed POC glucoses PG Care Time/CCT Total # of Minutes Spent Total Time Spent with Patient: Total time spent is greater than 50% in coordination of care (as documented) at patient's floor/unit and/or counseling patient: Coding Level of Care Code 71886 SUB INP/OBS CARE 25MIN Diagnoses Dementia with behavioral disturbance F03.918 Type 2 diabetes mellitus E11.9 Thiamine deficiency E51.9
--- NOTE | 2024-02-05 17:16 | Hospitalist Progress Note ---
Date of Service February 05, 2024 Assessment & Plan (1) Dementia with behavioral disturbance: Plan: 78yo male with PMHx significant for dementia, CKD, HTN, T2DM, HLD, pituitary macroadenoma s/p partial resection presented with altered mental status after attempting to hold down/choke at home and called police to de-escalate situation. Baseline only oriented to self. Was in hospital a year ago and discharged on Seroquel. Patient with increase in aggression at home towards and daughter CT head negative on admission. CXR without acute process Ammonia wnl Tox screen negative B12 wnl TSH wnl B1 checked and LOW <6 --s/p IV replacement, continues on 200mg PO BID (would do for month then can do once daily moving forward on 02/10) Remains alert/oriented to person, sometimes place (knows in hospital) Has NOT REQUIRED ANY HALDOL SINCE ADMISSION Remains on home seroquel, aricept. Keppra level continued, level normal Maintain day/night sleep schedules Continue therapy/ambulation w/ nursing as able to improve strength mobility and CM working on placement issues. Did visit with family 01/25 and discussed does appear improved/stable and not combative and if any possible consideration to take home with home health can arrange but otherwise given concerns for safety given prior events will continue current plan. (2) Type 2 diabetes mellitus: Plan: On glargine 18u daily w/ 2u mealtime prior to admission - A1c 7.4 - Significantly reduced insulin requirement throughout hospitalization - Transitioned to metformin 500 mg BID 01/31 - Glucoses have been well-controlled. Discontinued SSI and BSG ACHS on 02/04 (3) Thiamine deficiency: Plan: B1 level sent, reviewed and LOW at 6 - Received IV thiamine TID and converted to 200mg PO BID - Decrease to ONCE daily on 02/10 (orders placed given ongoing inpatient stay to prevent dropping off MAR) Plan Discontinued BSG ACHS and SSI Chronic stable diagnoses: HLD - continue home statin HTN- continue home amlodipine, BP stable Pituitary macroadenoma - continue home levothyroxine and hydrocortisone, FT4 and TSH WNL. Informal [place] correspondence with Dr. Dino Llaa from [facility] who recommended outpatient follow-up with neurosurgery in the setting of enlarging pituitary adenoma CKD - Cr elevation on admission however UA negative. Renal function normalized and avoid nephrotoxins as able/renal dose medications DVT proph: Lovenox SQ while inpatient CODE STATUS: Full code Dispo: Continued inpatient stay while searching for placement, CM following. Updated family at bedside 01/25 to see if any possibility if improved from their stance to consider taking him and instructed to let us know if considers change in current plan but will continue search for placement at this time and remaining inpatient at this time. Admission and Anticipated Discharge Date Admission Date: January 02, 2024 Supervising Physician Co-Signing Physician Notes chart reviewed and case d/w S Gross PAC, as above Subjective Patient seen and evaluated at bedside. He is in better spirits today due to the nurses cheering during him up/making his birthday especially as it can be while in the hospital. He was laughing and joking with me during our conversation. No complaints or concerns at this time. Physical Exam Physical Exam: General: No acute distress, nondiaphoretic, well-developed, well-nourished. Calm and cooperative. Skin: The skin was without rashes, erythema, edema, or bruising. Cardiac: Regular rate and rhythm without murmurs gallops or rubs. Pulm: Clear to auscultation bilaterally without wheezes, rales or rhonchi. No respiratory distress. 94% on room air. Abdominal: Soft, nontender, nondistended. Bowel sounds present. Neuro: A&O x2 (person, place). Baseline dementia. No focal neurological deficits. Psych: Flat affect/depressed at times, but laughs/jokes at other times. Results & Data Results & Data Vital Signs (Past 12 Hours) Vital Signs Temp Pulse Resp BP BP Pulse Ox O2 Del Method 02/05/24 15:05 97.7 F 84 18 96/62 L 97 Room Air 02/05/24 09:36 Room Air 02/05/24 07:25 98.1 F 69 18 106/66 97 Room Air PG Care Time/CCT Total # of Minutes Spent Total Time Spent with Patient: Total time spent is greater than 50% in coordination of care (as documented) at patient's floor/unit and/or counseling patient: Coding Level of Care Code 75313 SUB INP/OBS CARE 2/35MIN Diagnoses Dementia with behavioral disturbance F03.918 Type 2 diabetes mellitus E11.9 Thiamine deficiency E51.9
[2024-02-05] MEDS: DONEPEZIL HCL 5 MG TAB PO SCH (18:18)
[2024-02-05] MEDS: DONEPEZIL HCL 10 MG TAB PO SCH (18:18)
--- NOTE | 2024-02-06 14:00 | Hospitalist Progress Note ---
Date of Service February 06, 2024 Assessment & Plan (1) Dementia with behavioral disturbance: Plan: 78yo male with PMHx significant for dementia, CKD, HTN, T2DM, HLD, pituitary macroadenoma s/p partial resection presented with altered mental status after attempting to hold down/choke at home and called police to de-escalate situation. Baseline only oriented to self. Was in hospital a year ago and discharged on Seroquel. Patient with increase in aggression at home towards and daughter CT head negative on admission. CXR without acute process Ammonia wnl Tox screen negative B12 wnl TSH wnl B1 checked and LOW <6 --s/p IV replacement, continues on 200mg PO BID (would do for month then can do once daily moving forward on 02/10) Remains alert/oriented to person, sometimes place (knows in hospital) Has NOT REQUIRED ANY HALDOL SINCE ADMISSION Remains on home seroquel, aricept. Keppra level continued, level normal Maintain day/night sleep schedules Continue therapy/ambulation w/ nursing as able to improve strength mobility and CM working on placement issues. Did visit with family 01/25 and discussed does appear improved/stable and not combative and if any possible consideration to take home with home health can arrange but otherwise given concerns for safety given prior events will continue current plan. (2) Type 2 diabetes mellitus: Plan: On glargine 18u daily w/ 2u mealtime prior to admission - A1c 7.4 - Significantly reduced insulin requirement throughout hospitalization - Transitioned to metformin 500 mg BID 01/31 - Glucoses have been well-controlled. Discontinued SSI and BSG ACHS on 02/04 (3) Thiamine deficiency: Plan: B1 level sent, reviewed and LOW at 6 - Received IV thiamine TID and converted to 200mg PO BID - Decrease to ONCE daily on 02/10 (orders placed given ongoing inpatient stay to prevent dropping off MAR) Plan Chronic stable diagnoses: HLD - continue home statin HTN- continue home amlodipine, BP stable Pituitary macroadenoma - continue home levothyroxine and hydrocortisone, FT4 and TSH WNL. Informal [place] correspondence with Dr. Dino Lala from [facility] who recommended outpatient follow-up with neurosurgery in the setting of enlarging pituitary adenoma CKD - Cr elevation on admission however UA negative. Renal function normalized and avoid nephrotoxins as able/renal dose medications DVT proph: Lovenox SQ while inpatient CODE STATUS: Full code Dispo: Continued inpatient stay while searching for placement, CM following. Updated family at bedside 01/25 to see if any possibility if improved from their stance to consider taking him and instructed to let us know if considers change in current plan but will continue search for placement at this time and remaining inpatient at this time. Admission and Anticipated Discharge Date Admission Date: January 02, 2024 Supervising Physician Co-Signing Physician Notes Attending Attestation - Chart reviewed, care plan d/w GALLO Campos. I agree w/ the bermudez components of her documentation. Jose L Bowling MD Subjective Patient seen and evaluated at bedside during lunch. He is in good spirits today. He was smiling and laughing about the large balloon in his room from his birthday yesterday. Continue to wait for placement. No complaints or concerns at this time. Physical Exam Physical Exam: General: No acute distress, nondiaphoretic, well-developed, well-nourished. Calm and cooperative. Skin: The skin was without rashes, erythema, edema, or bruising. Cardiac: Regular rate and rhythm without murmurs gallops or rubs. Pulm: Clear to auscultation bilaterally without wheezes, rales or rhonchi. No respiratory distress. 94% on room air. Abdominal: Soft, nontender, nondistended. Bowel sounds present. Neuro: A&O x2 (person, place). Baseline dementia. No focal neurological deficits. Psych: Flat affect/depressed at times, but laughs/jokes at other times. Results & Data Results & Data Vital Signs (Past 12 Hours) Vital Signs Temp Pulse Resp BP Pulse Ox O2 Del Method 02/06/24 07:29 98.1 F 68 19 112/73 96 Room Air PG Care Time/CCT Total # of Minutes Spent Total Time Spent with Patient: Total time spent is greater than 50% in coordination of care (as documented) at patient's floor/unit and/or counseling patient: Coding Level of Care Code 76564 SUB INP/OBS CARE 1/25MIN Diagnoses Dementia with behavioral disturbance F03.918 Type 2 diabetes mellitus E11.9 Thiamine deficiency E51.9
--- NOTE | 2024-02-07 14:06 | Hospitalist Progress Note ---
Date of Service February 07, 2024 Assessment & Plan (1) Dementia with behavioral disturbance: Plan: 78yo male with PMHx significant for dementia, CKD, HTN, T2DM, HLD, pituitary macroadenoma s/p partial resection presented with altered mental status after attempting to hold down/choke at home and called police to de-escalate situation. Baseline only oriented to self. Was in hospital a year ago and discharged on Seroquel. Patient with increase in aggression at home towards and daughter CT head negative on admission. CXR without acute process Ammonia wnl Tox screen negative B12 wnl TSH wnl B1 checked and LOW <6 --s/p IV replacement, continues on 200mg PO BID (would do for month then can do once daily moving forward on 02/10) Remains alert/oriented to person, sometimes place (knows in hospital) Has NOT REQUIRED ANY HALDOL SINCE ADMISSION Remains on home seroquel, aricept. Keppra level continued, level normal Maintain day/night sleep schedules Continue therapy/ambulation w/ nursing as able to improve strength mobility and CM working on placement issues. Did visit with family 01/25 and discussed does appear improved/stable and not combative and if any possible consideration to take home with home health can arrange but otherwise given concerns for safety given prior events will continue current plan. (2) Type 2 diabetes mellitus: Plan: On glargine 18u daily w/ 2u mealtime prior to admission - A1c 7.4 - Significantly reduced insulin requirement throughout hospitalization - Transitioned to metformin 500 mg BID 01/31 - Glucoses have been well-controlled. Discontinued SSI and BSG ACHS on 02/04 (3) Thiamine deficiency: Plan: B1 level sent, reviewed and LOW at 6 - Received IV thiamine TID and converted to 200mg PO BID - Decrease to ONCE daily on 02/10 (orders placed given ongoing inpatient stay to prevent dropping off MAR) Plan Chronic stable diagnoses: HLD - continue home statin HTN- continue home amlodipine, BP stable Pituitary macroadenoma - continue home levothyroxine and hydrocortisone, FT4 and TSH WNL. Informal [place] correspondence with Dr. Dino Lala from [facility] who recommended outpatient follow-up with neurosurgery in the setting of enlarging pituitary adenoma CKD - Cr elevation on admission however UA negative. Renal function normalized and avoid nephrotoxins as able/renal dose medications DVT proph: Lovenox SQ while inpatient CODE STATUS: Full code Dispo: Continued inpatient stay while searching for placement, CM following. Updated family at bedside 01/25 to see if any possibility if improved from their stance to consider taking him and instructed to let us know if considers change in current plan but will continue search for placement at this time and remaining inpatient at this time. Admission and Anticipated Discharge Date Admission Date: January 02, 2024 Subjective Patient seen and evaluated bedside. He reports "I'm tired and want to go home." He got ice cream, then was happy and joking with me. No additional complaints or concerns at this time. Continue to wait for placement. Physical Exam Physical Exam: General: No acute distress, nondiaphoretic, well-developed, well-nourished. Calm and cooperative. Skin: The skin was without rashes, erythema, edema, or bruising. Cardiac: Regular rate and rhythm without murmurs gallops or rubs. Pulm: Clear to auscultation bilaterally without wheezes, rales or rhonchi. No respiratory distress. 100% on room air. Abdominal: Soft, nontender, nondistended. Bowel sounds present. Neuro: A&O x2 (person, place). Baseline dementia. No focal neurological deficits. Psych: Flat affect/depressed at times, but laughs/jokes at other times. Results & Data Results & Data Vital Signs (Past 12 Hours) Vital Signs Temp Pulse Resp BP Pulse Ox O2 Del Method 02/07/24 07:18 97.5 F L 64 18 142/82 H 100 Room Air PG Care Time/CCT Total # of Minutes Spent Total Time Spent with Patient: Total time spent is greater than 50% in coordination of care (as documented) at patient's floor/unit and/or counseling patient: Coding Level of Care Code 80005 SUB INP/OBS CARE 25MIN Diagnoses Dementia with behavioral disturbance F03.918 Type 2 diabetes mellitus E11.9 Thiamine deficiency E51.9
[2024-02-08 07:35] VITALS: BP 107/69; PULSE 66; RESP 18; TEMP 97.7; O2SAT 96
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
[2024-02-12] MEDS ORDERED: THIAMINE HCL 100 MG TAB PO SCH (09:00)
== END 2024-02-08 10:23 | DRG 884 ==
LOC: EDSEX → ED 11:05 → 3N 15:37 → SUATTDRO 15:37 → 3N 20:51 → 3E 02-01 21:10 → 3N 02-01 21:12

== ENCOUNTER 2024-07-16 17:48 | Inpatient (IN) ==
--- NOTE | 2024-07-16 18:48 | Emergency Department Note ---
Impression & Plan Ambulatory dysfunction Admission ED Provider Note HPI: History obtained from patient's at the bedside. The patient is a 79-year-old gentleman with history of hyperlipidemia, dementia with behavioral disturbances, type 2 diabetes, pituitary macroadenoma s/p resection in 2017 at [facility], presents the emergency department with his over concern for confusion and multiple falls. Patient's states that the patient seems to be more confused than usual since yesterday. She states that today he had 3 separate incidents where he had a ground-level fall within the house. At one point today EMS was contacted and they were able to get the patient up and he did not have any apparent injuries so they left. Patient then had a third fall later in the afternoon and his at this point does not feel that he is safe to be at home. On arrival here in the ED, the patient is alert, he is able to follow my commands, he does not have any obvious focal deficits and appears to be in no acute physical distress. ROS: - Per HPI Differential Diagnosis: Intracranial injury to include subdural hematoma, epidural hematoma, stroke, physical deconditioning, urinary tract infection, acute dehydration/acute kidney injury, viral upper respiratory infection, amongst other potential pathologies. *Outpatient medications and allergy history reviewed. PE: General: Alert, frail-appearing, no acute distress HEENT: Normocephalic, trachea midline Eyes: Apparent strabismus of the left eye, no scleral erythema bilaterally Pulmonary: Clear to auscultation bilaterally, no wheezing Cardio: Regular rate and rhythm GI: Abdomen is soft to palpation : No suprapubic tenderness MSK: No evidence of trauma or malformation of the extremities, no edema, patient can flex at the bilateral hips without issue Skin: No evidence of rash Neuro: Alert, no focal deficits, equal bilateral crab catcher strength, symmetrical facial movements are appreciated Psychiatric: Cooperative INDEPENDENT INTERPRETATIONS: personnel monitor: (As interpreted by myself): - An order was placed for continuous cardiac monitoring - Patient was noted to be in sinus rhythm with a rate of 70 EKG: (As interpreted by myself): Rate: 73 Rhythm: Sinus rhythm Intervals: [place] interval 234 ms, otherwise within normal limits ST changes: No ST elevation Time: 1753 Chest x-ray: (As interpreted by myself): No focal infiltrate Interventions provided in ED: -IV fluid bolus Medical Decision Making: IV was established and lab work obtained, lab work shows no leukocytosis, hemoglobin is normal, platelet count is normal, CMP does not show any evidence of any critical findings, mild creatinine elevation at 1.65 for which the patient was given IV fluids. Ammonia is normal, troponin is negative, lipase is normal, TSH is within normal limits. Urinalysis does not show any evidence of blood or infection, viral panel testing is negative. CT imaging of the head does not show any evidence of any acute findings. Stable findings noted with history of craniotomy/SYSTEM ARCHITECT shunt. On my reassessment the patient remains alert and hemodynamically stable. I discussed all the above findings with the patient's , she does tell me that she does not feel that the patient is safe to be at home as he has had multiple falls with ambulatory dysfunction recently. Given this he will be admitted for placement and PT/OT assessment. [facility] hospitalist service was consulted for admission and the patient was placed for admission in stable condition. Consultants/Discussions held with other healthcare providers: -Hospitalist, Dr. Marie Disposition discussion held by myself with: -Patient and patient's Diagnosis: 1. Ambulatory dysfunction, acute 2. Mechanical fall, acute 3. 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) Medical History (Updated 07/17/24 @ 00:50 by Kolton Malik DO) Blind left eye s/p pituitary adenoma History of pituitary adenoma with removal in 2018 Surgical History History of cranioplasty (2019) due to osteomyelitis (s/p post op craniotomy infection from 2018) H/O craniotomy (09/08/17) S/P SYSTEM ARCHITECT shunt (2018) Family History Other No family history of adverse response to anesthesia Denies family history of Ovarian cancer Prostate cancer Myocardial infarction Breast cancer Colorectal cancer Social History (Updated 07/16/24 @ 23:18 by Tatiana Todd DO) Smoking Status: Never smoker Second Hand Exposure: No; Do You Dip or Chew Tobacco: No; Hx Alcohol Use: Yes Hx Substance Use: No Preferred Language: Uzbek Communication Ability: Effective Communication Ability Comment: patient has dementia and a thick accent Visual Impairment: Partially Limited Hearing Ability: Normal Web 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 Required: No Beliefs That Will Affect Care: None marital status: Current Living Situation: Family Current Living Situation Comment: lives with current occupational status: retired Feels Safe at Home: Yes Safety Concerns Comment: Stairs, has railings Childhood Exposure to Second-Hand Smoke: No Diet: regular caffeine: No during the past year weight has: remained stable Dental Care, Regularly: No Physical Activity Frequency: Does not Exercise Seatbelt Use: always Sunscreen Use: No Assistive Devices: None Allergies Allergies Allergy/AdvReac Type Severity Reaction Status Date / Time No Known Allergies Allergy Verified 06/22/24 10:47 Home Meds Home Medications Medication Instructions Recorded Confirmed acetaminophen 325 mg tablet 650 mg PO Q4H PRN Pain 10/27/18 07/16/24 multivitamin 1 tab PO QAM 10/27/18 07/16/24 melatonin 3 mg tablet 3 mg PO HS PRN Sleep 09/30/22 07/16/24 sennosides 8.6 mg tablet (senna) 8.6 mg PO DAILY PRN Constipation 09/30/22 07/16/24 aspirin 81 mg tablet,delayed 81 mg PO DAILY 04/30/24 07/16/24 release levothyroxine 75 mcg tablet 75 mcg PO DAILY 05/10/24 07/16/24 simvastatin 20 mg tablet 20 mg PO DAILY 05/10/24 07/16/24 sulfamethoxazole 800 1 tab PO BID 07/16/24 07/16/24 mg-trimethoprim 160 mg tablet Previous Rx's Medication Instructions Recorded amlodipine 2.5 mg tablet 2.5 mg PO QAM 90 days #90 tabs 02/08/24 donepezil 23 mg tablet 23 mg PO QAM 90 days #90 tabs 02/08/24 ferrous sulfate 142 mg (45 mg 142 mg PO QAM 90 days #90 tabs 02/08/24 iron) tablet,extended release hydrocortisone 20 mg tablet 10 mg (1/2 x 20 mg) PO .COMPLEX 02/08/24 #135 tabs quetiapine 25 mg tablet (Seroquel) 25 mg PO BID #180 tabs 02/08/24 pen needle, diabetic 31 gauge x #400 ea 04/27/24 3/16" (Easy Comfort Pen [place]) divalproex 125 mg capsule,delayed See Rx Instructions .Route 05/18/24 release sprinkle .COMPLEX #270 caps levetiracetam 500 mg tablet 500 mg PO BID #180 tabs 05/18/24 sertraline 25 mg tablet 25 mg PO DAILY #90 tabs 05/18/24 insulin glargine 100 unit/mL (3 14 unit (0.14 mL) subcut QPM #15 mL 06/01/24 mL) subcutaneous pen (Lantus Solostar U-100 Insulin) insulin lispro 100 unit/mL 2 unit (0.02 mL) subcut TIDWMEAL 06/01/24 subcutaneous pen 90 days #15 mL Results & Data (ED) Vital Signs Vital Signs - 24 hr 07/16/24 17:41 07/16/24 17:41 07/16/24 17:56 Temperature 36.6 C 36.6 C Temperature Source Oral Oral Pulse Rate 73 81 Pulse Rate [Right Brachial] 73 Pulse Rate from SpO2 Sensor Pulse Rhythm Regular Pulse Rhythm [Right Brachial] Regular Pulse Strength Normal Pulse Strength [Right Brachial] Normal Respiratory Rate 19 19 Respiratory Effort / Characteristics Non-Labored Non-Labored Respiratory Depth Normal Normal Respiratory Pattern Regular Regular Blood Pressure 122/92 Blood Pressure [Right Arm] 122/92 Blood Pressure Mean 102 Blood Pressure Mean [Right Arm] 102 Blood Pressure Position Lying Blood Pressure Position [Right Arm] Lying Pulse Oximetry 97 97 Oxygen Delivery Method Room Air Room Air Sepsis Recent Fever Within 48 Hours No Sepsis New/Unexplained Change in Mental Status N/A Sepsis Action Taken by Nursing No Action Required 07/16/24 18:43 07/16/24 18:45 07/16/24 19:43 Temperature Temperature Source Pulse Rate Pulse Rate [Right Brachial] 66 Pulse Rate from SpO2 Sensor Pulse Rhythm Pulse Rhythm [Right Brachial] Regular Pulse Strength Pulse Strength [Right Brachial] Normal Respiratory Rate 18 Respiratory Effort / Characteristics Non-Labored Respiratory Depth Normal Respiratory Pattern Regular Blood Pressure Blood Pressure [Right Arm] 141/97 H Blood Pressure Mean Blood Pressure Mean [Right Arm] 111 Blood Pressure Position Blood Pressure Position [Right Arm] Lying Pulse Oximetry 97 97 98 Oxygen Delivery Method Room Air Room Air Room Air Sepsis Recent Fever Within 48 Hours Sepsis New/Unexplained Change in Mental Status Sepsis Action Taken by Nursing 07/16/24 21:00 07/16/24 21:30 07/16/24 21:30 Temperature Temperature Source Pulse Rate Pulse Rate [Right Brachial] 118 H Pulse Rate from SpO2 Sensor Pulse Rhythm Pulse Rhythm [Right Brachial] Regular Pulse Strength Pulse Strength [Right Brachial] Normal Respiratory Rate 19 Respiratory Effort / Characteristics Non-Labored Respiratory Depth Normal Respiratory Pattern Regular Blood Pressure 123/83 123/83 Blood Pressure [Right Arm] 104/64 Blood Pressure Mean 97 97 Blood Pressure Mean [Right Arm] 77 Blood Pressure Position Blood Pressure Position [Right Arm] Lying Pulse Oximetry 98 Oxygen Delivery Method Room Air Sepsis Recent Fever Within 48 Hours Sepsis New/Unexplained Change in Mental Status Sepsis Action Taken by Nursing 07/16/24 21:36 07/16/24 21:39 07/16/24 21:52 Temperature Temperature Source Pulse Rate 74 72 66 Pulse Rate [Right Brachial] Pulse Rate from SpO2 Sensor 91 H 94 H Pulse Rhythm Pulse Rhythm [Right Brachial] Pulse Strength Pulse Strength [Right Brachial] Respiratory Rate 20 19 Respiratory Effort / Characteristics Respiratory Depth Respiratory Pattern Blood Pressure Blood Pressure [Right Arm] Blood Pressure Mean Blood Pressure Mean [Right Arm] Blood Pressure Position Blood Pressure Position [Right Arm] Pulse Oximetry 98 98 Oxygen Delivery Method Sepsis Recent Fever Within 48 Hours Sepsis New/Unexplained Change in Mental Status Sepsis Action Taken by Nursing 07/16/24 22:00 07/16/24 22:00 07/16/24 22:00 Temperature Temperature Source Pulse Rate Pulse Rate [Right Brachial] Pulse Rate from SpO2 Sensor Pulse Rhythm Pulse Rhythm [Right Brachial] Pulse Strength Pulse Strength [Right Brachial] Respiratory Rate Respiratory Effort / Characteristics Respiratory Depth Respiratory Pattern Blood Pressure 124/88 124/88 124/88 Blood Pressure [Right Arm] Blood Pressure Mean 94 94 94 Blood Pressure Mean [Right Arm] Blood Pressure Position Blood Pressure Position [Right Arm] Pulse Oximetry Oxygen Delivery Method Sepsis Recent Fever Within 48 Hours Sepsis New/Unexplained Change in Mental Status Sepsis Action Taken by Nursing 07/16/24 22:00 07/16/24 22:00 07/16/24 22:00 Temperature Temperature Source Pulse Rate Pulse Rate [Right Brachial] Pulse Rate from SpO2 Sensor Pulse Rhythm Pulse Rhythm [Right Brachial] Pulse Strength Pulse Strength [Right Brachial] Respiratory Rate Respiratory Effort / Characteristics Respiratory Depth Respiratory Pattern Blood Pressure 124/88 124/88 124/88 Blood Pressure [Right Arm] Blood Pressure Mean 94 94 94 Blood Pressure Mean [Right Arm] Blood Pressure Position Blood Pressure Position [Right Arm] Pulse Oximetry Oxygen Delivery Method Sepsis Recent Fever Within 48 Hours Sepsis New/Unexplained Change in Mental Status Sepsis Action Taken by Nursing 07/16/24 22:00 07/16/24 22:21 07/16/24 22:24 Temperature Temperature Source Pulse Rate 69 77 Pulse Rate [Right Brachial] Pulse Rate from SpO2 Sensor Pulse Rhythm Pulse Rhythm [Right Brachial] Pulse Strength Pulse Strength [Right Brachial] Respiratory Rate 24 23 Respiratory Effort / Characteristics Respiratory Depth Respiratory Pattern Blood Pressure 124/88 Blood Pressure [Right Arm] Blood Pressure Mean 94 Blood Pressure Mean [Right Arm] Blood Pressure Position Blood Pressure Position [Right Arm] Pulse Oximetry Oxygen Delivery Method Sepsis Recent Fever Within 48 Hours Sepsis New/Unexplained Change in Mental Status Sepsis Action Taken by Nursing 07/16/24 22:44 07/16/24 22:44 07/16/24 22:44 Temperature Temperature Source Pulse Rate Pulse Rate [Right Brachial] Pulse Rate from SpO2 Sensor Pulse Rhythm Pulse Rhythm [Right Brachial] Pulse Strength Pulse Strength [Right Brachial] Respiratory Rate Respiratory Effort / Characteristics Respiratory Depth Respiratory Pattern Blood Pressure 137/90 137/90 137/90 Blood Pressure [Right Arm] Blood Pressure Mean 120 120 120 Blood Pressure Mean [Right Arm] Blood Pressure Position Blood Pressure Position [Right Arm] Pulse Oximetry Oxygen Delivery Method Sepsis Recent Fever Within 48 Hours Sepsis New/Unexplained Change in Mental Status Sepsis Action Taken by Nursing 07/16/24 22:44 07/16/24 22:44 07/16/24 22:48 Temperature Temperature Source Pulse Rate 80 Pulse Rate [Right Brachial] Pulse Rate from SpO2 Sensor 88 Pulse Rhythm Pulse Rhythm [Right Brachial] Pulse Strength Pulse Strength [Right Brachial] Respiratory Rate 19 Respiratory Effort / Characteristics Respiratory Depth Respiratory Pattern Blood Pressure 137/90 137/90 Blood Pressure [Right Arm] Blood Pressure Mean 120 120 Blood Pressure Mean [Right Arm] Blood Pressure Position Blood Pressure Position [Right Arm] Pulse Oximetry 97 Oxygen Delivery Method Sepsis Recent Fever Within 48 Hours Sepsis New/Unexplained Change in Mental Status Sepsis Action Taken by Nursing 07/16/24 22:57 07/16/24 23:00 07/16/24 23:00 Temperature Temperature Source Pulse Rate 72 Pulse Rate [Right Brachial] 72 Pulse Rate from SpO2 Sensor 72 Pulse Rhythm Pulse Rhythm [Right Brachial] Regular Pulse Strength Pulse Strength [Right Brachial] Normal Respiratory Rate 20 15 Respiratory Effort / Characteristics Non-Labored Respiratory Depth Normal Respiratory Pattern Regular Blood Pressure 122/86 Blood Pressure [Right Arm] 122/86 Blood Pressure Mean 90 Blood Pressure Mean [Right Arm] 98 Blood Pressure Position Blood Pressure Position [Right Arm] Lying Pulse Oximetry 97 96 Oxygen Delivery Method Room Air Sepsis Recent Fever Within 48 Hours Sepsis New/Unexplained Change in Mental Status Sepsis Action Taken by Nursing 07/16/24 23:00 07/16/24 23:00 07/16/24 23:00 Temperature Temperature Source Pulse Rate Pulse Rate [Right Brachial] Pulse Rate from SpO2 Sensor Pulse Rhythm Pulse Rhythm [Right Brachial] Pulse Strength Pulse Strength [Right Brachial] Respiratory Rate Respiratory Effort / Characteristics Respiratory Depth Respiratory Pattern Blood Pressure 122/86 122/86 122/86 Blood Pressure [Right Arm] Blood Pressure Mean 90 90 90 Blood Pressure Mean [Right Arm] Blood Pressure Position Blood Pressure Position [Right Arm] Pulse Oximetry Oxygen Delivery Method Sepsis Recent Fever Within 48 Hours Sepsis New/Unexplained Change in Mental Status Sepsis Action Taken by Nursing 07/16/24 23:00 07/16/24 23:00 07/16/24 23:00 Temperature Temperature Source Pulse Rate Pulse Rate [Right Brachial] Pulse Rate from SpO2 Sensor Pulse Rhythm Pulse Rhythm [Right Brachial] Pulse Strength Pulse Strength [Right Brachial] Respiratory Rate Respiratory Effort / Characteristics Respiratory Depth Respiratory Pattern Blood Pressure 122/86 122/86 122/86 Blood Pressure [Right Arm] Blood Pressure Mean 90 90 90 Blood Pressure Mean [Right Arm] Blood Pressure Position Blood Pressure Position [Right Arm] Pulse Oximetry Oxygen Delivery Method Sepsis Recent Fever Within 48 Hours Sepsis New/Unexplained Change in Mental Status Sepsis Action Taken by Nursing 07/16/24 23:00 Temperature Temperature Source Pulse Rate Pulse Rate [Right Brachial] Pulse Rate from SpO2 Sensor Pulse Rhythm Pulse Rhythm [Right Brachial] Pulse Strength Pulse Strength [Right Brachial] Respiratory Rate Respiratory Effort / Characteristics Respiratory Depth Respiratory Pattern Blood Pressure 122/86 Blood Pressure [Right Arm] Blood Pressure Mean 90 Blood Pressure Mean [Right Arm] Blood Pressure Position Blood Pressure Position [Right Arm] Pulse Oximetry Oxygen Delivery Method Sepsis Recent Fever Within 48 Hours Sepsis New/Unexplained Change in Mental Status Sepsis Action Taken by Nursing Laboratory Data 07/16/24 18:10 07/16/24 18:10 Lab Results 07/16/24 07/16/24 07/16/24 Range/Units 18:10 18:50 21:16 WBC 8.33 (4.8-10.8) K/ul RBC 6.26 H (4.70-6.10) M/uL Hgb 14.1 (14.0-18.0) g/dl Hct 42.5 (42.0-52.0) % MCV 67.9 L (80.0-100.0) fL MCH 22.5 L (25.0-34.0) pg MCHC 33.2 (32.0-36.0) g/dL RDW Std Deviation 38.9 (36.4-46.3) fL RDW Coeff of Shin 18.0 H (11.5-14.5) % Plt Count 217 (130-400) K/uL MPV 10.1 (9.4-12.4) fL Immature Gran % (Auto) 0.5 % Neut % (Auto) 52.8 % Lymph % (Auto) 36.9 % [place] % (Auto) 8.8 % Eos % (Auto) 0.6 % Baso % (Auto) 0.4 % Neut # (Auto) 4.41 (1.40-6.50) K/uL Lymph # (Auto) 3.07 (1.20-3.40) K/uL [place] # (Auto) 0.73 H (0.11-0.59) K/uL Eos # (Auto) 0.05 (0.00-0.50) K/uL Baso # (Auto) 0.03 (0.00-0.20) K/uL Immature Gran # (Auto) 0.04 (0.01-0.20) K/uL Polychromasia 1+ Microcytosis Present Target Cells 1+ PT 10.5 (9.0-12.0) Seconds INR 1.0 (0.9-1.1) Sodium 139 (136-145) mmol/L Potassium 4.2 (3.5-5.1) mmol/L Chloride 104 (98-107) mmol/L Carbon Dioxide 28 (21-32) mmol/L Anion Gap 7 (3-11) BUN 19 (6-23) mg/dl Creatinine 1.65 H (0.6-1.4) mg/dl Est Cr Clr Drug Dosing 41.9 ml/min eGFR 42.50 BUN/Creatinine Ratio 11.5 (10-20) Glucose 196 H (70-99(Fasting)) mg/dl Calcium 9.2 (8.6-10.3) mg/dl Total Bilirubin 0.3 (0.2-1.0) mg/dl AST 33 (13-39) U/L ALT 49 (7-52) U/L Alkaline Phosphatase 62 (34-104) U/L Troponin I High Sens 3.2 (0-20) pg/ml Total Protein 7.3 (6.0-8.3) gm/dl Albumin 4.0 (3.4-5.0) gm/dl Globulin 3.3 (2.5-4.0) gm/dl Albumin/Globulin Ratio 1.2 (0.9-2) Lipase 31 (11-82) U/L TSH 0.630 (0.300-4.500) uIu/ml Urine Color Yellow Urine Appearance Clear (Clear) Urine pH 6.5 (4.5-7.5) Ur Specific [place] 1.008 (1.000-1.030) Urine Protein Negative (Negative) Urine Glucose (UA) Negative (Negative) Urine Ketones Negative (Negative) Urine Blood Negative (Negative) Urine Nitrite Negative (Negative) Urine Bilirubin Negative (Negative) Urine Urobilinogen Negative (Negative) Ur Leukocyte Esterase Negative (Negative) Adenovirus (PCR) Not Detected (NotDetected) B. pertussis DNA (PCR) Not Detected (NotDetected) B.parapertussis DNA PCR Not Detected (NotDetected) C. pneumoniae DNA (PCR) Not Detected (NotDetected) Coronavirus OC43 (PCR) Not Detected (NotDetected) Coronavirus HKU1 (PCR) Not Detected (NotDetected) Coronavirus 229E (PCR) Not Detected (NotDetected) SARS-CoV-2 (PCR) Not Detected (NotDetected) Coronavirus NL63 (PCR) Not Detected (NotDetected) Human Metapneumovir PCR Not Detected (NotDetected) Influenza Type A (PCR) Not Detected (NotDetected) Influenza Type B (PCR) Not Detected (NotDetected) M. pneumoniae (PCR) Not Detected (NotDetected) Parainfluenza 1 (PCR) Not Detected (NotDetected) Parainfluenza 2 (PCR) Not Detected (NotDetected) Parainfluenza 3 (PCR) Not Detected (NotDetected) Parainfluenza 4 (PCR) Not Detected (NotDetected) RSV (PCR) Not Detected (NotDetected) Entero/Rhino (PCR) Not Detected (NotDetected) Administered Medications Discontinued Medications Sodium Chloride (Nss) 1,000 mls @ 999 mls/hr IV .Q1H1M ONE Stop: 07/16/24 19:45 Last Infusion: 07/16/24 20:26 Dose: Infused Documented By: Admin: 07/16/24 19:12 Dose: 999 mls/hr Documented By: SWAPNA Imaging Data Radiologist's Impression: Chest X-Ray 07/16/24 18:45 Clinical History: Weakness Technique: A frontal view of the chest was obtained Comparison is made to the prior examination dated 01/02/2024 Findings: There are no definite pulmonary infiltrates. The heart size is at the upper limit of normal. No pleural effusion or pneumothorax is seen. There is suspected mild pulmonary vascular congestion There is unchanged catheter tubing extending down the right chest wall, likely a ventriculoperitoneal shunt. There is mild thoracic scoliosis and degenerative disc disease Impression: Suspected mild pulmonary vascular congestion ACT 112: Positive. There are findings on this exam that require communication between the performing entity and the patient following Patient Test Result Information Act ([place] ACT 112) guidelines. Electronically signed by Manuel Stephenson 07-16-2024 7:[address] 07/16/24 18:45 Clinical History: Altered mental status Technique: Axial computed tomography images were obtained of the brain without intravenous contrast. Comparison is made to the prior CT dated 01/02/2024 Findings: There is an unchanged left frontoparietal cranioplasty, with an unchanged 2.3 cm homogeneous low-attenuation fluid collection beneath it There is diffuse cerebral atrophy, within expected limits for the patient's age. Areas of decreased attenuation are seen within the periventricular white matter, likely representing chronic small vessel ischemic disease. There is an unchanged suspected old left frontal lobe infarct There is no definite sign of acute infarction. No intracranial hemorrhage is evident. There is an unchanged 2.7 cm Satter/suprasellar high attenuation mass. There is no midline shift or other form of herniation. There is an unchanged ventriculostomy catheter entering through the right parietal bone with its tip in the body of the right lateral ventricle. No hydrocephalus is seen. No fracture is identified. The orbits and the visualized paranasal sinuses appear unremarkable. The mastoid air cells appear clear. Impression: 1. Unchanged left frontoparietal cranioplasty with a stable fluid collection beneath it 2. No hydrocephalus with an unchanged ventriculostomy catheter in place 3. Unchanged cerebral atrophy, old left frontal lobe infarct, and chronic small vessel ischemic disease 4. Unchanged sellar/suprasellar mass that may represent a pituitary macroadenoma 5. No definite acute pathology Electronically signed by Manuel Stephenson 07-16-2024 7:39 PM Discharge Plan Visit Data Chief Complaint: Fall Stated Complaint: FALL, CONFUSION ED Provider: Kolton Malik Discharge Problem: Ambulatory dysfunction Patient Disposition: Admitted As Inpatient Discharge Instructions Interventions: ED Discharge Assessment Last Done: 07/17/24 00:14
[2024-07-16 18:58] LABS: Hematocrit (blood only) 42.5 % (42.0-52.0); Hemoglobin 14.1 g/dl (14.0-18.0); Mean Corpuscular Hemoglobin 22.5 pg (25.0-34.0); Mean Corpuscular Hgb Conc 33.2 g/dL (32.0-36.0); Mean Corpuscular Volume 67.9 fL (80.0-100.0); RDW Standard Deviation 38.9 fL (36.4-46.3); Red Blood Count 6.26 M/uL (4.70-6.10); White Blood Count 8.33 K/ul (4.8-10.8)
[2024-07-16 19:06] LABS: Albumin Globulin Ratio 1.2 (0.9-2); BUN Creatinine Ratio 11.5 (10-20); Bilirubin,Total 0.3 mg/dl (0.2-1.0); Calcium 9.2 mg/dl (8.6-10.3); Creatinine Clr Calc Pharmacy 41.9 ml/min; Globulin 3.3 gm/dl (2.5-4.0); Potassium 4.2 mmol/L (3.5-5.1); Total Protein 7.3 gm/dl (6.0-8.3)
[2024-07-16 19:12] LABS: Troponin I High Sensitivity 3.2 pg/ml (0-20)
[2024-07-16] MEDS: SODIUM CHLORIDE 0.9% 1,000 ML IV ONE (19:12)
[2024-07-16 19:26] LABS: Basophils # (auto) 0.03 K/uL (0.00-0.20); Basophils % (auto) 0.4 %; Eosinophils # (auto) 0.05 K/uL (0.00-0.50); Eosinophils % (auto) 0.6 %; Immature Granulocytes # (auto) 0.04 K/uL (0.01-0.20); Immature Granulocytes % (auto) 0.5 %; Lymphocytes # (auto) 3.07 K/uL (1.20-3.40); Lymphocytes % (auto) 36.9 %; Mean Platelet Volume 10.1 fL (9.4-12.4); Microcytosis Present; Monocytes # (auto) 0.73 K/uL (0.11-0.59); Monocytes % (auto) 8.8 %; Neutrophils # (auto) 4.41 K/uL (1.40-6.50); Neutrophils % (auto) 52.8 %; Platelet Count 217 K/uL (130-400); Polychromasia 1+; Target Cells 1+
[2024-07-16 19:34] LABS: Prothrombin Time 10.5 Seconds (9.0-12.0)
--- NOTE | 2024-07-16 19:39 | CT Scan Report ---
Clinical History: Altered mental status Technique: Axial computed tomography images were obtained of the brain without intravenous contrast. Comparison is made to the prior CT dated 01/02/2024 Findings: There is an unchanged left frontoparietal cranioplasty, with an unchanged 2.3 cm homogeneous low-attenuation fluid collection beneath it There is diffuse cerebral atrophy, within expected limits for the patient's age. Areas of decreased attenuation are seen within the periventricular white matter, likely representing chronic small vessel ischemic disease. There is an unchanged suspected old left frontal lobe infarct There is no definite sign of acute infarction. No intracranial hemorrhage is evident. There is an unchanged 2.7 cm Satter/suprasellar high attenuation mass. There is no midline shift or other form of herniation. There is an unchanged ventriculostomy catheter entering through the right parietal bone with its tip in the body of the right lateral ventricle. No hydrocephalus is seen. No fracture is identified. The orbits and the visualized paranasal sinuses appear unremarkable. The mastoid air cells appear clear. Impression: 1. Unchanged left frontoparietal cranioplasty with a stable fluid collection beneath it 2. No hydrocephalus with an unchanged ventriculostomy catheter in place 3. Unchanged cerebral atrophy, old left frontal lobe infarct, and chronic small vessel ischemic disease 4. Unchanged sellar/suprasellar mass that may represent a pituitary macroadenoma 5. No definite acute pathology Electronically signed by Manuel Stephenson 07-16-2024 7:39 PM
[2024-07-16 19:53] LABS: Adenovirus PCR Not Detected (NotDetected); Bordetella parapertussis PCR Not Detected (NotDetected); Bordetella pertussis PCR Not Detected (NotDetected); Chlamydia pneumoniae PCR Not Detected (NotDetected); Coronavirus 229E PCR Not Detected (NotDetected); Coronavirus CoV-2 (COVID19)PCR Not Detected (NotDetected); Coronavirus HKU1 PCR Not Detected (NotDetected); Coronavirus NL63 PCR Not Detected (NotDetected); Coronavirus OC43PCR Not Detected (NotDetected); Human Metapneumovirus PCR Not Detected (NotDetected); Influenza A PCR Not Detected (NotDetected); Influenza B PCR Not Detected (NotDetected); Mycoplasma pneumoniae PCR Not Detected (NotDetected); Parainfluenza Virus 1 PCR Not Detected (NotDetected); Parainfluenza Virus 2 PCR Not Detected (NotDetected); Parainfluenza Virus 3 PCR Not Detected (NotDetected); Parainfluenza Virus 4 PCR Not Detected (NotDetected); Respiratory Syncytial VirusPCR Not Detected (NotDetected); Rhinovirus/Enterovirus PCR Not Detected (NotDetected)
--- NOTE | 2024-07-16 19:53 | XRay Report ---
Clinical History: Weakness Technique: A frontal view of the chest was obtained Comparison is made to the prior examination dated 01/02/2024 Findings: There are no definite pulmonary infiltrates. The heart size is at the upper limit of normal. No pleural effusion or pneumothorax is seen. There is suspected mild pulmonary vascular congestion There is unchanged catheter tubing extending down the right chest wall, likely a ventriculoperitoneal shunt. There is mild thoracic scoliosis and degenerative disc disease Impression: Suspected mild pulmonary vascular congestion ACT 112: Positive. There are findings on this exam that require communication between the performing entity and the patient following Patient Test Result Information Act ([place] ACT 112) guidelines. Electronically signed by Manuel Stephenson 07-16-2024 7:52 PM
[2024-07-16 21:40] LABS: Appearance Urine Clear (Clear); Bilirubin Urine Negative (Negative); Blood Urine Negative (Negative); Color Urine Yellow; Glucose Urine UA Negative (Negative); Ketones Urine Negative (Negative); Leukocyte Esterase Urine Negative (Negative); Nitrite Urine Negative (Negative); Protein Urine Negative (Negative); Specific Gravity Urine 1.008 (1.000-1.030); Urobilinogen Urine Negative (Negative); pH Urine 6.5 (4.5-7.5)
--- NOTE | 2024-07-16 22:26 | History & Physical Report ---
Date of Service July 16, 2024 Assessment & Plan (1) Type 2 diabetes mellitus: (2) History of pituitary adenoma: (3) S/P LINING STAMPER shunt: (4) Pituitary macroadenoma: (5) Secondary adrenal insufficiency: (6) Hypertension: (7) Hyperlipidemia: (8) Dementia with behavioral disturbance: (9) Central hypothyroidism: Plan Altered Mental Status | Dementia with Behavioral Disturbance -Reportedly increasing confusion in recent days -Currently only oriented to self -Patient currently calm, cooperative but has history of increasing agitation in prior admissions. One to one PRN -No evidence of infectious cause for AMS, slight bump in creatinine could suggest decreased PO intake recently -History of B1 deficiency, will recheck Vitamin B1 level and ammonia level -Continue sertraline, donepezil, divalproex, keppra. Remote history of seizure. -Seroquel not filled since 12/2023, clarify with family during day Multiple Falls at Home | Ambulatory Dysfunction -CT head without evidence of acute bleed, shows evidence of old infarct -CXR without acute abnormality, possible mild pulmonary vasculature congestion -Fall precautions ordered -PT/OT evaluations ordered Acute Kidney Injury -Patient appears slightly dry -Cr 1.65 on admission, baseline appears around 1.2 -S/P 1L NSS in ED, will order additional 1L NSS @100mL/h, will be cautious with additional fluids considering mild pulmonary vasculature congestion on CXR -Encourage increased PO intake Secondary Adrenal Insufficiency | History of Pituitary Macroadenoma -Continue hydrocortisone -No indication for stress dosed steroids at time of admission Obstructive Hydrocephalus -S/P LINING STAMPER shunt, follows with [facility] Neurology Type 2 Diabetes Mellitus -Ordered sliding scale insulin, will defer basal insulin at time of admission Hypothyroidism -Continue levothyroxine -TSH ordered Hypertension -Continue amlodipine Admit to: PCU Diet: carb conscious VTE Prophylaxis: Low risk Code Status: Full Code History of Present Illness Primary Care Provider: Neli Cain MD Yoseph Linn is a 79 year-old male who presents today to the ED due to weakness and multiple falls at home. 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 History obtained per chart review, no family at bedside and patient is poor historian. Patient brought to ED via EMS after three separate falls at home and reported increase in confusion. At time of entering patient's room in ED, patient was seated on the floor and was unable to describe details of how he ended up on the floor. No visible abrasions and patient denies any pain. Denies chest pain, shortness of breath, abdominal pain. Patient is alert and oriented to self only, follows commands. Patient was admitted to [facility] from -01/2024, was discharged to nursing facility but eventually moved back to an apartment with his . Patient has history of dementia with behavioral disturbance, has been aggressive towards his in the past and has required medications due to agitation in prior admission. Patient follows with [facility] Neurology for history of v/p shunt, pituitary adenoma- most recent visit 05/11/24 and no medication changes made at this time. ED Course: -CXR -CT head -CBC, CMP, UA -Respiratory biofire -1L NSS Allergies Allergy/AdvReac Type Severity Reaction Status Date / Time No Known Allergies Allergy Verified 06/22/24 10:47 Home Medications Medication Instructions Recorded Confirmed Type acetaminophen 325 mg tablet 650 mg PO Q4H PRN Pain 10/27/18 07/16/24 History multivitamin 1 tab PO QAM 10/27/18 07/16/24 History melatonin 3 mg tablet 3 mg PO HS PRN Sleep 09/30/22 07/16/24 History sennosides 8.6 mg tablet (senna) 8.6 mg PO DAILY PRN Constipation 09/30/22 07/16/24 History amlodipine 2.5 mg tablet 2.5 mg PO QAM 90 days #90 tabs 02/08/24 07/16/24 Rx donepezil 23 mg tablet 23 mg PO QAM 90 days #90 tabs 02/08/24 07/16/24 Rx ferrous sulfate 142 mg (45 mg 142 mg PO QAM 90 days #90 tabs 02/08/24 07/16/24 Rx iron) tablet,extended release hydrocortisone 20 mg tablet 10 mg (1/2 x 20 mg) PO .COMPLEX 02/08/24 07/16/24 Rx #135 tabs quetiapine 25 mg tablet (Seroquel) 25 mg PO BID #180 tabs 02/08/24 07/16/24 Rx pen needle, diabetic 31 gauge x #400 ea 04/27/24 06/22/24 Rx 07/08" (Easy Comfort Pen Elrama) aspirin 81 mg tablet,delayed 81 mg PO DAILY 04/30/24 07/16/24 History release levothyroxine 75 mcg tablet 75 mcg PO DAILY 05/10/24 07/16/24 History simvastatin 20 mg tablet 20 mg PO DAILY 05/10/24 07/16/24 History divalproex 125 mg capsule,delayed See Rx Instructions .Route 05/18/24 07/16/24 Rx release sprinkle .COMPLEX #270 caps levetiracetam 500 mg tablet 500 mg PO BID #180 tabs 05/18/24 07/16/24 Rx sertraline 25 mg tablet 25 mg PO DAILY #90 tabs 05/18/24 07/16/24 Rx insulin glargine 100 unit/mL (3 14 unit (0.14 mL) subcut QPM #15 mL 06/01/24 07/16/24 Rx mL) subcutaneous pen (Lantus Solostar U-100 Insulin) insulin lispro 100 unit/mL 2 unit (0.02 mL) subcut TIDWMEAL 06/01/24 07/16/24 Rx subcutaneous pen 90 days #15 mL sulfamethoxazole 800 1 tab PO BID 07/16/24 07/16/24 History mg-trimethoprim 160 mg tablet Past Med/Surg History Problem List (Updated 07/17/24 @ 00:50 by Kolton Malik DO) Ambulatory dysfunction (Acute) Type 2 diabetes mellitus Thiamine deficiency Dementia with behavioral disturbance Hyperlipidemia (Chronic) Hypertension (Chronic) Secondary adrenal insufficiency (Chronic) Urinary incontinence (Chronic) senior living (current) use of systemic steroids (Chronic) Panhypopituitarism (Chronic) 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) Medical History (Updated 07/17/24 @ 00:50 by Kolton Malik DO) Blind left eye s/p pituitary adenoma History of pituitary adenoma with removal in 2018 Surgical History History of cranioplasty (2019) due to osteomyelitis (s/p post op craniotomy infection from 2018) H/O craniotomy (09/08/17) S/P LINING STAMPER shunt (2018) Family History Other No family history of adverse response to anesthesia Denies family history of Ovarian cancer Prostate cancer Myocardial infarction Breast cancer Colorectal cancer Social History (Updated 07/16/24 @ 23:18 by Tatiana Todd, DO) Smoking Status: Never smoker Second Hand Exposure: No; Do You Dip or Chew Tobacco: No; Hx Alcohol Use: No Hx Substance Use: No Preferred Language: Peruvian Communication Ability: Effective Communication Ability Comment: patient has dementia and a thick accent Visual Impairment: Partially Limited Hearing Ability: Normal Roadway Engineer Required: No Beliefs That Will Affect Care: None marital status: Current Living Situation: Spouse and Family Current Living Situation Comment: lives with current occupational status: retired Feels Safe at Home: Yes Safety Concerns Comment: Stairs, has railings Childhood Exposure to Second-Hand Smoke: No Diet: regular caffeine: No during the past year weight has: remained stable Dental Care, Regularly: No Physical Activity Frequency: Does not Exercise Seatbelt Use: always Sunscreen Use: No Assistive Devices: Walker Review of Systems Review of Systems: As per above Physical Exam Constitutional: WD/WN, vitals as above Eyes: Blind in left eye, normal extraocular movement and pupils equal/round/reactive ENMT: Ears: no external ear abnormality Nose: no external nose abnormality Moist mucous membranes Respiratory: normal respiratory effort, lungs clear to auscultation Cardiovascular: Rate/Rhythm: regular rate and regular rhythm Extremities: no edema Gastrointestinal (Abdomen): Inspection/Auscultation: abdomen normal to inspection Percussion/Palpation: abdomen soft; abdomen nontender and no guarding Musculoskeletal: Product Trainer strength normal at bilateral upper extremities, moves lower extremities independently. Skin: no rashes, warm and dry Psychiatric: Alert, oriented only to self Results & Data Results & Data Vital Signs (Past 12 Hours) Vital Signs Temp Pulse Pulse Resp BP BP Pulse Ox 07/16/24 21:52 66 07/16/24 21:00 118 H 19 104/64 98 07/16/24 19:43 66 18 141/97 H 98 07/16/24 18:45 97 07/16/24 18:43 97 07/16/24 17:56 81 07/16/24 17:41 36.6 C 73 19 122/92 97 07/16/24 17:41 36.6 C 73 19 122/92 97 O2 Del Method 07/16/24 21:52 07/16/24 21:00 Room Air 07/16/24 19:43 Room Air 07/16/24 18:45 Room Air 07/16/24 18:43 Room Air 07/16/24 17:56 07/16/24 17:41 Room Air 07/16/24 17:41 Room Air Diagnostic Findings Chest X-Ray 07/16/24 18:45 Clinical History: Weakness Technique: A frontal view of the chest was obtained Comparison is made to the prior examination dated 01/02/2024 Findings: There are no definite pulmonary infiltrates. The heart size is at the upper limit of normal. No pleural effusion or pneumothorax is seen. There is suspected mild pulmonary vascular congestion There is unchanged catheter tubing extending down the right chest wall, likely a ventriculoperitoneal shunt. There is mild thoracic scoliosis and degenerative disc disease Impression: Suspected mild pulmonary vascular congestion ACT 112: Positive. There are findings on this exam that require communication between the performing entity and the patient following Patient Test Result Information Act ([place] ACT 112) guidelines. Electronically signed by Manuel Stephenson 07-16-2024 7:[address] 07/16/24 18:45 Clinical History: Altered mental status Technique: Axial computed tomography images were obtained of the brain without intravenous contrast. Comparison is made to the prior CT dated 01/02/2024 Findings: There is an unchanged left frontoparietal cranioplasty, with an unchanged 2.3 cm homogeneous low-attenuation fluid collection beneath it There is diffuse cerebral atrophy, within expected limits for the patient's age. Areas of decreased attenuation are seen within the periventricular white matter, likely representing chronic small vessel ischemic disease. There is an unchanged suspected old left frontal lobe infarct There is no definite sign of acute infarction. No intracranial hemorrhage is evident. There is an unchanged 2.7 cm Satter/suprasellar high attenuation mass. There is no midline shift or other form of herniation. There is an unchanged ventriculostomy catheter entering through the right parietal bone with its tip in the body of the right lateral ventricle. No hydrocephalus is seen. No fracture is identified. The orbits and the visualized paranasal sinuses appear unremarkable. The mastoid air cells appear clear. Impression: 1. Unchanged left frontoparietal cranioplasty with a stable fluid collection beneath it 2. No hydrocephalus with an unchanged ventriculostomy catheter in place 3. Unchanged cerebral atrophy, old left frontal lobe infarct, and chronic small vessel ischemic disease 4. Unchanged sellar/suprasellar mass that may represent a pituitary macroadenoma 5. No definite acute pathology Electronically signed by Manuel Stephenson 07-16-2024 7:39 PM Supervising Physician Co-Signing Physician Notes Attending addendum: I have physically seen this patient, have supervised the medical residents activities, and agree with the H&P unless as otherwise noted. Assessment and Plan: The patient is a 79-year-old male with past medical history including ambulatory dysfunction, diabetes mellitus type 2, thiamine deficiency, dementia with behavioral disturbance, hyperlipidemia, hypertension, secondary adrenal insufficiency, long-term use of systemic steroids, panhypopituitary secondary to pituitary macroadenoma, central hypothyroidism, right eye blindness, presence of unidentified hemoglobin variant, and presence of LINING STAMPER shunt. The patient was brought to the emergency department via EMS after 3 separate falls at home, and reported increasing confusion. In the emergency department when patient was first being assessed by medicine, he was found seated on the floor, and unable to relate how he got there. The patient has a history of aggression toward his in the past, and with his worsening confusion, there a family concerns related to this happening again. #Altered mental status/dementia with behavioral disturbance/history of aggression toward family members- Worsening confusion noted by family over the past several days. Due to history of aggression, patient will be placed one-to-one as needed History of seizures, but no recent seizure activity noted. Continue sertraline, donepezil, divalproex, and Keppra. #Multiple falls at home/ambulatory dysfunction- CT head without contrast negative for acute event Chest x-ray with no acute findings Fall precautions Consult PT/OT #Acute kidney injury- Creatinine 1.65, baseline 1.21 Status post 1 L normal saline bolus in ED Given an additional 1 L normal saline at 100 mL/h #Secondary adrenal sufficiency/history of pituitary macroadenoma/obstructive hydrocephalus presence of LINING STAMPER shunt- Continue hydrocortisone, follow closely for need of potential stress dose steroids Follows with [facility] neurology #Chronic medical conditions: Diabetes [id number] with NovoLog SSI Hypertension-Continue amlodipine Hypothyroidism-continue levothyroxine Resident Activity Tracking Resident Involvement: Resident Care Provided Care Provided: Adult Hospital Medicine
[2024-07-16 23:47] LABS: Thyroid Stimulating Hormone 0.63 uIu/ml (0.300-4.500)
[2024-07-17] MEDS ORDERED: DEXTROSE 50% 50 ML SYRINGE IV PRN (00:30)
[2024-07-17] MEDS ORDERED: GLUCOSE 40% GEL 15 GM TUBE PO PRN (00:30)
[2024-07-17] MEDS ORDERED: GLUCAGON FOR INJ 1 MG VIAL SQ PRN (00:30)
[2024-07-17] MEDS ORDERED: GLUCOSE 10 TAB/TUBE PO PRN (00:30)
[2024-07-17] MEDS ORDERED: ACETAMINOPHEN 325 MG TAB PO PRN (00:30)
[2024-07-17] MEDS ORDERED: CARBOHYDRATES FOR HYPOGLYCEMIA PO PRN (00:30)
[2024-07-17] MEDS ORDERED: ONDANSETRON INJ 2 MG/ML 2 ML VIAL IV PRN (00:30)
[2024-07-17] MEDS: SODIUM CHLORIDE 0.9% 1,000 ML IV SCH (01:23)
[2024-07-17] MEDS: levETIRAcetam 500 MG TAB PO SCH (01:54)
--- NOTE | 2024-07-17 03:36 | Billing Data ---
Date of Service July 17, 2024 Coding Level of Care Code 81636 INT INP/OBS CARE
[2024-07-17] MEDS: LEVOTHYROXINE SODIUM 75 MCG TABLET PO SCH (06:30)
[2024-07-17 06:44] LABS: Albumin Globulin Ratio 1.2 (0.9-2); Albumin Level 3.7 gm/dl (3.4-5.0); BUN Creatinine Ratio 12.2 (10-20); Bilirubin,Total 0.4 mg/dl (0.2-1.0); Calcium 8.3 mg/dl (8.6-10.3); Creatinine Clr Calc Pharmacy 52.8 ml/min; Globulin 3.1 gm/dl (2.5-4.0); Potassium 4.5 mmol/L (3.5-5.1); Total Protein 6.8 gm/dl (6.0-8.3)
[2024-07-17 07:13] LABS: Hematocrit (blood only) 39.9 % (42.0-52.0); Hemoglobin 13.1 g/dl (14.0-18.0); Mean Corpuscular Hemoglobin 22.3 pg (25.0-34.0); Mean Corpuscular Hgb Conc 32.8 g/dL (32.0-36.0); Mean Corpuscular Volume 67.9 fL (80.0-100.0); Mean Platelet Volume 10.1 fL (9.4-12.4); Platelet Count 193 K/uL (130-400); RDW Coefficient of Variation 17.7 % (11.5-14.5); RDW Standard Deviation 38.9 fL (36.4-46.3); Red Blood Count 5.88 M/uL (4.70-6.10); White Blood Count 6.49 K/ul (4.8-10.8)
[2024-07-17 07:18] LABS: ALC (manual) 4.48 K/uL (1.2-3.4); ANC (manual) 1.75 K/uL (1.4-6.5); Basophils # (manual) 0.06 K/uL (0-0.2); Basophils % (manual) 1 %; Hypochromasia Present; Large Granular Lymph # (manua 1.04 K/uL; Large Granular Lymph % (manual) 16 %; Lymphocytes # (manual) 3.44 K/uL (1.2-3.4); Lymphocytes % (manual) 53 %; Microcytosis Present; Monocytes # (manual) 0.19 K/uL (0.11-0.59); Monocytes % (manual) 3 %; Neutrophils # (manual) 1.75 K/uL (1.40-6.50); Neutrophils % (manual) 27 %; Ovalocytes 1+; Polychromasia 2+; Target Cells 2+
--- OUTSIDE RECORDS SUMMARY | 2024-07-17 08:01 | External Medical Summary | Summary of Care ---
Author Name Unknown Organization [facility] Address [address] [place] [address] Phone [phone] Care Team Providers Care Video News Editor Name Role Phone Neli Cain MD Primary Care Provid er Reason for Visit * Reason Comments eRx-Medication Refill Encounter Details Date Type Department Care Team (Late st Contact Info) Description 06/28/[address] [facility] [address] [place] [address] Lorena Rodriguez PA-C [address] [place] [address] Wound infection Allergies No known active allergiesdocumented as of this encounter (statuses as of 06/28/2024) Medications amLODIPine (NORVASC) 2.5 MG Tablet Take 1 Tablet by mouth in the morning. Active famotidine (PEPCID) 20 MG Tablet Take 1 Tab by mouth every 12 hours. 60 Tab 1 11/10/19 18 Active levothyroxine sodium (LEVOXYL) 75 MCG Tablet Take 1 Tab by mouth daily first thing in the morning. (at least 30 min prior to breakfast or other meds) 90 Tab 1 01/18/20 18 Active melatonin 3 MG Tablet Take 1 Tablet by mouth at bedtime. Active simvastatin (ZOCOR) 20 MG Tablet Take 1 Tablet by mouth every evening. Active Glimepiride 2 MG Oral Tablet (Amaryl) Take 1 Tablet by mouth daily before breakfast. Active levETIRAcetam 500 MG Oral Tablet (Keppra) TAKE 1 TABLET BY MOUTH TWICE A DAY 180 Tablet 1 11/03/19 23 Active QUEtiapine Fumarate 25 MG Oral Tablet (SEROquel) Take 1 Tablet by mouth in the morning and 1 Tablet before bedtime. 30 Tablet 3 10:21 AM EDT 12/25/19 23 Active Hydrocortisone 10 MG Oral Tablet (Cortef) Take 1 Tablet by mouth in the morning. Do not start before December 25, 2022. 15 Tablet 3 10:21 AM EDT 12/26/19 23 Active Hydrocortisone 20 MG Oral Tablet (Cortef) Take 1 Tablet by mouth every evening. 15 Tablet 12/25/19 23 Active Tresiba FlexTouch 100 UNIT/ML Subcutaneous Solution Pen-injector (Insulin Degludec) Inject 12 Units under the skin at bedtime. 09/21/19 24 Active Insulin Lispro 100 UNIT/ML Injection Solution (Admelog) 2 units prior to breakfast, lunch and dinner 09/21/19 24 Active Donepezil HCl 23 MG Oral Tablet (Aricept)Indicat ions:Moderate dementia with behavioral disturbance (HCC),History of brain tumor,Apraxia,Ag itation Take 1 tablet by mouth every morning with food. 90 Tablet 2 03/28/20 24 Active Divalproex Sodium 125 MG Oral Tablet Delayed Release (Depakote) One tab in the morning and 2 tab at bedtime Active Sertraline HCl 25 MG Oral Tablet (Zoloft) Take 1 Tablet by mouth in the morning. Active Sulfamethoxazole -Trimethoprim 800-160 MG Oral Tablet (Bactrim DS)Indications:W ound infection TAKE 1 TABLET BY MOUTH TWICE A DAY 60 Tablet 4 06/29/19 25 Active Sulfamethoxazole -Trimethoprim 800-160 MG Oral Tablet (Bactrim DS)Indications:W ound infection TAKE 1 TABLET BY MOUTH TWICE A DAY 60 Tablet 4 12/12/19 24 025 Discontinued documented as of this encounter (statuses as of 06/28/2024) Active Problems Problem Noted Date Diagnosed Date Stroke-like symptom 05/11/2024 Moderate dementia with behavioral disturbance History of cranioplasty 03/06/2019 Sepsis 12/06/2018 Severe sepsis with acute organ dysfunction 10/27 ROBERT (acute kidney injury) 10/27/2018 Lactic acidosis 10/27/2018 Status post craniectomy 06/02/2018 Wound infection 01/01/2018 Obstructive hydrocephalus 09/23/2017 Hypothyroidism 09/21/2017 UTI (urinary tract infection) 09/21/2017 Pituitary microadenoma 09/14/2017 Altered mental status 09/14/2017 Respiratory failure without hypercapnia 09/01/19 18 HTN (hypertension) 08/30/2017 Type 2 diabetes mellitus 08/30/2017 HLD (hyperlipidemia) 08/30/2017 Glaucoma 08/30/2017 Suprasellar mass 08/30/2017 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 Please only monitor Free T4; TSH testing is useless and misleading documented as of this encounter (statuses as of 06/28/2024) Resolved Problems Problem Noted Date Diagnosed Date Resolved Date 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 Answer Date of Assessment Author No 12/06/2018 8:15 PM Nakia Wright RN * Are you blind or do you have serious difficulty seeing, even when wearing glasses? Answer Date of Assessment Author No 12/06/2018 8:15 PM Nakia Wright RN * Do you have serious difficulty walking or climbing stairs? (5 years old or older) Answer Date of Assessment Author Yes 12/06/2018 8:15 PM Nakia Wright RN * Do you have difficulty dressing or bathing? (5 years old or older) Answer Date of Assessment Author Yes 12/06/2018 8:15 PM Nakia Wrihgt RN * Because of a physical, mental, or emotional condition, do you have difficulty doing errands alone such as visiting a doctors office or shopping? (15 years old or older) Answer Date of Assessment Author Yes 12/06/2018 8:15 PM Nakia Wright RN documented as of this encounter Mental Status * Because of a physical, mental, or emotional condition, do you have serious difficulty concentrating, remembering, or making decisions? (5 years old or older) Answer Entry Date Author Yes 12/06/2018 8:15 PM Nakia Wright RN documented in this encounter Miscellaneous Notes * Telephone Encounter - Lorena Rodriguez PA-C - 06/28/2024 2:55 PM EST Signed Prescriptions: Disp Refills Sulfamethoxazole-Trimethoprim 800-160 MG O*60 Tab*4 Sig: TAKE 1TABLET BY MOUTH TWICE A DAYAuthorizing Provider: LORENA RODRIGUEZ * Telephone Encounter - Layo Moraes RPh - 06/28/2024 10:42 AM ESTPending Prescriptions: Disp Refills Sulfamethoxazole-Trimethoprim 800-160 MG O*60 Tab*4 Sig: TAKE 1 TABLET BY MOUTH TWICE A DAY * Telephone Encounter - Layo Moraes RPh - 06/28/2024 10:41 AM EST [facility] is currently not authorized to approve refills for the pended medication(s) per refill protocol. Please approve if appropriate. Thanks, Kareem Moraes, PharmD Clinical Pharmacist [facility] Services ([facility]) [phone] 06/28/2024 10:42 AM documented in this encounter Plan of Treatment Upcoming Encounters Date Type Department Care Team (Late st Contact Info) Description 05/31/2025 10:00 AM EST Office Visit Neurology Mesha Gooden [place] [address] [facility], [place] [address] Ella Rodgers DO [address] [facility] [place] [address] Health Maintenance Due Date Last Done Comments [...] (#1) 2023 12/24/2022, 06/13/2018, 06/13/2018 Pneumococcal Vaccine: 50+ Years Completed 10/07/2020, 06/13/2018, 12/06/2017 HPV (Gardasil) Vaccine Aged Out No lo nger eligible based on patient's age to complete this topic Hepatitis B Vaccine Aged Out No longe r eligible based on patient's age to complete this topic MENINGOCOCCAL (MENACTRA/MENVEO) Aged Out No longer eligible based on patient's age to complete this topic Meningitis B Vaccine (Bexsero/Trumemba) Aged Out No longer eligible based on patient's age to complete this topic documented as of this encounter Medical Devices Implanted Type Area Parts Sales Manager Device Identifier Shelf Expiration Date Model / Serial / Lot Patch Duraguard [id number] - [id number] Implanted:Qty : 1 on 10/28/2018 by Aron Gay MD at [facility] [place] Tissue - Human Left: Head QUARLES : BIOSCIENCE 07/23/2021 [id number] / / [id number] Patch Duraguard [id number] - [id number] Implanted:09/2018 by Aron Gay MD at [facility] [place] (Quantity not on file) Tissue - Human QUARLES : BIOSCIENCE 02/22/2023 [id number] / [id number] / [id number] Graft Lyoplant 10.0x12.5cm 4x5 - [id number] Implanted:Qty : 1 on 08/30/2017 by Rian Chery MD at [facility] [place] Left: Head B SENIOR : RODNEYCULAJeison 05/25/2022 [id number] / / [id number] Clip Aneursym [id number] - [id number] Implanted:Qty : 2 on 08/30/2017 by Rian Chery MD at [facility] [place] Left: Head Madina SENIOR : RODNEYCULAP [id number] / / Cath Vent Bactiseal [id number] - [id number] Implanted:Qty : 1 on 09/27/2017 by Rian Chery MD at [facility] [place] Right: Head JNJ : EZEQUIEL 05/25/2018 [id number] / / Leslie Hole Resevoir - [id number] Implanted:Qty : 1 on 09/27/2017 by Rian Chery MD at [facility] [place] Right: Head Madina SENIOR : AMADOLAJeison 10/20/2021 [id number] / / Valve Progav 2.0 - [id number] - [id number] Implanted:Qty : 1 on 09/27/2017 by Rian Chery MD at [facility] [place] Right: Head Madina SENIOR 06/12/2022 [id number] / [id number] / [id number] Valve Progav Sys W Sa 20 Flush - [id number] Implanted:Qty : 1 on 09/27/2017 by Rian Chery MD at [facility] [place] Right: Head Madina SENIOR : AMADOLAJeison 04/24/2020 [id number] / / Screw 4mm Ti Low Pro Sdrill - [id number] Implanted:Qty : 6 on 06/01/2018 by Rian Chery MD at [facility] [place] SYNTHES MAXILLOFACIAL 400.834E / / Plate Ti Lo Pro Str 2h 421.502 - [id number] Implanted:Qty : 4 on 06/01/2018 by Rian Chery MD at [facility] [place] SYNTHES MAXILLOFACIAL 421.502 / / Custom Cranial Implant Implanted:Qty : 1 on 06/01/2018 by Rian Chery MD at [facility] [place] Left: Head SYNTHES SD 800.434 / / Description:in set Graft Lyoplant 10.0x12.5cm 4x5 - [id number] - [id number] Implanted:Qty : 1 on 06/01/2018 by Rian Chery MD at [facility] [place] Left: Head B SENIOR : AESCULAP 10/22/2022 [id number] / [id number] / [id number] Screw 5mm Low Prof 400.835e - [id number] Implanted:Qty : 5 on 06/01/2018 by Rian Chery MD at [facility] [place] SYNTHES MAXILLOFACIAL 400.835E / / [id number] Synthes Cranial Implanted:Qty : 1 on 03/06/2019 by Rian Chery MD at [facility] [place] Left: Head SYNTHES SD800.434 / SD800.434 / [id number] Description:[id number] Screw 4mm Ti Low Pro Sdrill - [id number] Implanted:Qty : 8 on 03/06/2019 by Rian Chery MD at [facility] [place] Left: Head SYNTHES MAXILLOFACIAL 400.834E / / Plate Ti Lo Pro Str 2h 421.502 - [id number] Implanted:Qty : 4 on 03/06/2019 by Rian Chery MD at [facility] [place] Left: Head SYNTHES MAXILLOFACIAL 421.502 / / documented as of this encounter Visit Diagnoses Diagnosis Wound infection Posttraumatic wound infection not elsewhere classified documented in this encounter Advance Directives Documents on File Type Date Recorded Patient Grey Washer Expl anation Advance Directives and Living Will [...] Power of Attor lit? No Care Teams Video News Editor Relationship Specialty Start Date End Date Neli Cain MD [address] [place] [address] [place] [id number] PCP - General Internal Medicine 10/20/18 documented as of this encounter
[2024-07-17] MEDS: INSULIN ASPART PER UNIT CHARGE SC SCH (08:09)
[2024-07-17] MEDS: SIMVASTATIN 20 MG TAB PO SCH (08:11)
[2024-07-17] MEDS: SERTRALINE HCL 50 MG TABLET PO SCH (08:11)
[2024-07-17] MEDS: FERROUS SULFATE 325 MG TAB PO SCH (08:11)
[2024-07-17] MEDS: amLODIPine BESYLATE 5 MG TAB PO SCH (08:12)
[2024-07-17] MEDS: DIVALPROEX SODIUM SPRINKLE/DEL-REL 125 MG CAP PO SCH ×2 (08:14→20:11)
[2024-07-17] MEDS: SULFAMETHOXAZOLE/TRIMETHOPRIM DS 800/160MG TAB PO SCH (08:14)
[2024-07-17] MEDS: HYDROCORTISONE 10 MG TAB PO SCH ×2 (08:14→20:11)
--- NOTE | 2024-07-17 13:23 | Electrocardiogram Report ---
Test Reason : Blood Pressure : */* mmHG Vent. Rate : 73 BPM Atrial Rate : 73 BPM P-R Int : 234 ms QRS Dur : 82 ms QT Int : 390 ms P-R-T Axes : 46 3 58 degrees QTcB Int : 429 ms Sinus rhythm with 1st degree A-V block Otherwise normal ECG When compared with ECG of 02-Jan-2024 16:33, No significant change was found Confirmed by Marlon Shin ([id number]) on 07/17/2024 1:22:57 PM Referred By: REFERRED SELF Confirmed By: Marlon Shin
--- NOTE | 2024-07-17 18:30 | Hospitalist Progress Note ---
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 He was brought in via EMS after three separate falls at home and reported increase in confusion. He was admitted at [facility] from December-January 2024 when he was discharged to SNF but eventually moved back to an apartment with his . # Acute metabolic encephalopathy/Dementia with Behavioral Disturbance Reportedly increasing confusion in recent days. 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 Question if he is not taking his home hydrocortisone and could have orthostasis causing falls Fall precautions ordered PT/OT recommend short term rehab #Acute Kidney Injury - now resolved Cr 1.65 on admission, baseline appears around 1.2 ROBERT resolved after 2L NSS on admission Encourage increased PO intake #Secondary Adrenal Insufficiency - chronic, stable Continue hydrocortisone No indication for stress dosed steroids at time of admission #Obstructive Hydrocephalus/History of Pituitary Macroadenoma - chronic, stable Patient follows with [facility]rology for history of DEV MANAGER shunt, pituitary adenoma- most recent visit 05/11/24 and no medication changes made at that time #Type 2 Diabetes Mellitus - chronic, stable Continue SSI #Hypothyroidism - chronic, stable TSH WNL Continue levothyroxine #Hypertension - chronic, stable Continue amlodipine VTE Prophylaxis: TEDs Code Status: Full Code Dispo: PT/OT recommending rehab Updated daughter via phone call Resumed Skyler Discussed discharge planning with case management Admission and Anticipated Discharge Date Admission Date: July 16, 2024 Supervising Physician Co-Signing Physician Notes PA Supervision Note: I did not personally see or examine the patient today, but I verified all bermudez points of [place] Campos's assessment and plan with the following exceptions/additions: None Subjective Patient seen and evaluated in bedside chair. He reports "I feel very fine." He remains pleasantly confused, only oriented to self (baseline). RN reports he has remained calm and cooperative with staff today. No acute complaints or concerns at this time. Physical Exam Physical Exam: General: No acute distress, nondiaphoretic, well-developed, well-nourished. Cardiac: Regular rate and rhythm without murmurs gallops or rubs. Pulm: Clear to auscultation bilaterally without wheezes, rales or rhonchi. Normal respiratory effort. 95% on room air. Abdominal: Soft, nontender, nondistended. Bowel sounds present. Neuro: A&O x1 (self - baseline). No focal neurological deficits. Results & Data Results & Data Vital Signs (Past 12 Hours) Vital Signs Temp Pulse Pulse Resp BP BP Pulse Ox 07/17/24 17:08 97.5 F L 77 16 128/79 95 07/17/24 14:11 87 07/17/24 10:49 98.4 F 69 18 125/85 96 07/17/24 09:26 62 07/17/24 07:04 97.3 F L 68 18 110/75 98 O2 Del Method 07/17/24 17:08 Room Air 07/17/24 14:11 07/17/24 10:49 Room Air 07/17/24 09:26 07/17/24 07:04 Room Air Laboratory Results Reviewed CBC with differential Reviewed CMP/chemistries Reviewed UA Reviewed respiratory bio fire Diagnostic Findings Reviewed head CT Reviewed CXR PG Care Time/CCT Total # of Minutes Spent Total Time Spent with Patient: Total time spent is greater than 50% in coordination of care (as documented) at patient's floor/unit and/or counseling patient: Coding Level of Care Code 05407 SUB INP/OBS CARE 3/50MIN Diagnoses Ambulatory dysfunction R26.2 Dementia with behavioral disturbance F03.918 Secondary adrenal insufficiency E27.49 Hypertension I10
[2024-07-17] MEDS: QUEtiapine FUMARATE 25 MG TABLET PO SCH (20:10)
[2024-07-18 09:00] LABS: Hematocrit (blood only) 43.3 % (42.0-52.0); Mean Corpuscular Hgb Conc 32.3 g/dL (32.0-36.0); RDW Coefficient of Variation 18.1 % (11.5-14.5); Red Blood Count 6.37 M/uL (4.70-6.10); White Blood Count 6.95 K/ul (4.8-10.8)
[2024-07-18 09:18] LABS: Albumin Globulin Ratio 1.2 (0.9-2); Bilirubin,Total 0.4 mg/dl (0.2-1.0); Calcium 8.7 mg/dl (8.6-10.3); Creatinine Clr Calc Pharmacy 46.4 ml/min; Globulin 3.3 gm/dl (2.5-4.0); Potassium 3.9 mmol/L (3.5-5.1); Total Protein 7.3 gm/dl (6.0-8.3)
[2024-07-18 10:18] LABS: Platelet Count 216 K/uL (130-400)
[2024-07-18 10:19] LABS: Hypochromasia Present; Large Granular Lymph # (manua 1.32 K/uL; Large Granular Lymph % (manual) 19 %; Lymphocytes # (manual) 2.78 K/uL (1.2-3.4); Lymphocytes % (manual) 40 %; Microcytosis Present; Monocytes # (manual) 0.35 K/uL (0.11-0.59); Monocytes % (manual) 5 %; Neutrophils % (manual) 36 %; Polychromasia 2+; Target Cells 2+
[2024-07-18 13:45] VITALS: RESP 18
--- NOTE | 2024-07-18 16:11 | Hospitalist Progress Note ---
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 He was brought in via EMS after three separate falls at home and reported increase in confusion. He was admitted at [facility] from December-January 2024 when he was discharged to SNF but eventually moved back to an apartment with his . No evidence of infectious cause for AMS, slight bump in creatinine on admission could suggest decreased PO intake recently. #Acute metabolic encephalopathy/Dementia with Behavioral Disturbance Reportedly w/ increasing confusion in recent days prior to admission. 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 CXR without acute abnormality, possible mild pulmonary vasculature congestion PT/OT recommend short term rehab - referral made to [facility] #Acute Kidney Injury - now resolved Cr 1.65 on admission, baseline appears around 1.2 ROBERT resolved after 2L NSS on admission Encourage increased PO intake #Secondary Adrenal Insufficiency - chronic, stable Continue hydrocortisone 10 mg QAM, 20mg po qPM No indication for stress dosed steroids at time of admission #Obstructive Hydrocephalus/History of Pituitary Macroadenoma - chronic, stable Patient follows with [facility]rology for history of OVERNIGHT HOUSEPERSON shunt, pituitary adenoma- most recent visit 05/11/24 and no medication changes made at that time #Type 2 Diabetes Mellitus - chronic, stable Continue SSI #Hypothyroidism - chronic, stable TSH WNL Continue levothyroxine #Hypertension - chronic, stable Continue amlodipine VTE Prophylaxis: TEDs Code Status: Full Code Dispo: PT/OT recommending rehab Increased evening dose of Seroquel Admission and Anticipated Discharge Date Admission Date: July 16, 2024 Supervising Physician Co-Signing Physician Notes PA Supervision Note: I did not personally see or examine the patient today, but I verified all bermudez points of [place] Campos's assessment and plan with the following exceptions/additions: None Subjective Patient seen and evaluated at bedside with 1:1 sitter present. He became agitated overnight with staff, which prompted the 1:1 sitter. He has remained calm and cooperative during the day today. He reports feeling well and denies any complaints or concerns at this time. Physical Exam Physical Exam: General: No acute distress, nondiaphoretic, well-developed, well-nourished. Cardiac: Regular rate and rhythm without murmurs gallops or rubs. Pulm: Clear to auscultation bilaterally without wheezes, rales or rhonchi. Normal respiratory effort. 97% on room air. Abdominal: Soft, nontender, nondistended. Bowel sounds present. Neuro: A&O x1 (self - baseline). No focal neurological deficits. Results & Data Results & Data Vital Signs (Past 12 Hours) Vital Signs Temp Pulse Pulse Resp BP Pulse Ox O2 Del Method 07/18/24 15:00 84 07/18/24 13:45 97.7 F 88 18 121/75 97 Room Air 07/18/24 09:00 63 07/18/24 07:45 97.5 F L 66 20 143/91 H 98 Room Air 07/18/24 04:22 97.5 F L 78 18 128/83 96 Room Air Laboratory Results Reviewed CBC with differential Reviewed CMP PG Care Time/CCT Total # of Minutes Spent Total Time Spent with Patient: Total time spent is greater than 50% in coordination of care (as documented) at patient's floor/unit and/or counseling patient: Coding Level of Care Code 25427 SUB INP/OBS CARE 3/50MIN Diagnoses Ambulatory dysfunction R26.2 Dementia with behavioral disturbance F03.918 Secondary adrenal insufficiency E27.49 Hypertension I10
[2024-07-18] MEDS: MELATONIN 3 MG TAB PO PRN (20:18)
[2024-07-18] MEDS: QUEtiapine FUMARATE 25 MG TABLET PO SCH (20:19)
[2024-07-19 07:10] LABS: Calcium 8.5 mg/dl (8.6-10.3); Creatinine Clr Calc Pharmacy 37.9 ml/min; Potassium 4.5 mmol/L (3.5-5.1)
[2024-07-19 08:10] LABS: Toxic Vacuolation 2+
--- NOTE | 2024-07-19 08:21 | Hospitalist Progress Note ---
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 He was brought in via EMS after three separate falls at home and reported increase in confusion. He was admitted at [facility] from December-January 2024 when he was discharged to SNF but eventually moved back to an apartment with his . No evidence of infectious cause for AMS, slight bump in creatinine on admission could suggest decreased PO intake recently. 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 CXR without acute abnormality, possible mild pulmonary vasculature congestion. #Acute metabolic encephalopathy/Dementia with Behavioral Disturbance Continue 1:1 sitter PRN - has been on 1:1 since night 07/17 Continue Seroquel 25 mg QAM, 50 mg HS Continue sertraline, donepezil, divalproex, Keppra (remote history of seizure) Ammonia WNL, B1 pending #Acute Kidney Injury ROBERT on admission resolved after IV fluids. Then ROBERT returned with Cr increase to 1.79 - suspect due to poor PO intake Start NSS IVF @ maintenance rate x 2 L #Multiple Falls at Home/Ambulatory Dysfunction PT/OT recommend short term rehab - referral made to [facility] #Secondary Adrenal Insufficiency - chronic, stable Continue hydrocortisone 10 mg QAM, 20mg po qPM No indication for stress dosed steroids at time of admission #Obstructive Hydrocephalus/History of Pituitary Macroadenoma - chronic, stable Patient follows with [facility] Neurology for history of ORACLE ARCHITECT shunt, pituitary adenoma- most recent visit 05/11/24 and no medication changes made at that time #Type 2 Diabetes Mellitus - chronic, stable Continue SSI #Hypothyroidism - chronic, stable TSH WNL Continue levothyroxine #Hypertension - chronic, stable Continue amlodipine VTE Prophylaxis: TEDs Code Status: Full Code Dispo: Continues to remain with 1:1 sitter for redirection. PT/OT recommending rehab Started IV fluids Admission and Anticipated Discharge Date Admission Date: July 16, 2024 Physical Exam Physical Exam: General: No acute distress, nondiaphoretic, well-developed, well-nourished. Cardiac: Regular rate and rhythm without murmurs gallops or rubs. Pulm: Clear to auscultation bilaterally without wheezes, rales or rhonchi. Normal respiratory effort. 97% on room air. Abdominal: Soft, nontender, nondistended. Bowel sounds present. Neuro: A&O x1 (self - baseline). No focal neurological deficits. Results & Data Results & Data Vital Signs (Past 12 Hours) Vital Signs Temp Pulse Pulse Resp BP Pulse Ox O2 Del Method 07/19/24 07:26 97.3 F L 75 111/73 97 Room Air 07/19/24 03:31 97.9 F 75 18 121/79 95 Room Air 07/18/24 21:48 83 Laboratory Results Reviewed BMP PG Care Time/CCT Total # of Minutes Spent Total Time Spent with Patient: Total time spent is greater than 50% in coordination of care (as documented) at patient's floor/unit and/or counseling patient: Coding Diagnoses Ambulatory dysfunction R26.2 Dementia with behavioral disturbance F03.918 Secondary adrenal insufficiency E27.49 Hypertension I10
[2024-07-19] MEDS: QUEtiapine FUMARATE 25 MG TABLET PO SCH (09:08)
[2024-07-19] MEDS: SODIUM CHLORIDE 0.9% 1,000 ML IV SCH (09:20)
[2024-07-19 11:08] VITALS: TEMP 97.7; O2SAT 95
[2024-07-19 15:29] VITALS: BP 125/85; PULSE 73
--- NOTE | 2024-07-19 16:47 | Discharge Summary ---
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 He was brought in via EMS after three separate falls at home and reported increase in confusion. He was admitted at [facility] from December-January 2024 when he was discharged to SNF but eventually moved back to an apartment with his . No evidence of infectious cause for AMS, slight bump in creatinine on admission could suggest decreased PO intake recently. 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 CXR without acute abnormality, possible mild pulmonary vasculature congestion. #Acute metabolic encephalopathy/Dementia with Behavioral Disturbance Seroquel increased for HS dose due to increased agitation at night - improvement in behaviors overnight since this adjustment was made. Continue Seroquel 25 mg QAM, 50 mg HS Continue sertraline, donepezil, divalproex, Keppra (remote history of seizure) Ammonia WNL, B1 pending, flow cytometry pending #Acute Kidney Injury ROBERT on admission resolved after IV fluids. Then ROBERT returned with Cr increase to 1.79 - suspect due to poor PO intake Given NSS 1 L bolus on day of discharge. Recommend monitoring kidney function at [facility] and continuing IV fluids as needed #Multiple Falls at Home/Ambulatory Dysfunction PT/OT recommend short term rehab - accepted at [facility] #Secondary Adrenal Insufficiency - chronic, stable Continue hydrocortisone 10 mg QAM, 20mg po qPM No indication for stress dosed steroids #Obstructive Hydrocephalus/History of Pituitary Macroadenoma - chronic, stable Patient follows with [facility]rology for history of REHAB PHYSICIAN shunt, pituitary adenoma- most recent visit 05/11/24 and no medication changes made at that time On chronic Bactrim presumably for prophylaxis against previous infection #Type 2 Diabetes Mellitus - chronic, stable Continue SSI #Hypothyroidism - chronic, stable TSH WNL Continue levothyroxine #Hypertension - chronic, stable Continue amlodipine VTE Prophylaxis: TEDs Code Status: Full Code Dispo: Discharged to [facility] 07/19 Notes For Next Care Provider Please follow-up on flow cytometry and B1 results Medication Changes From Visit Increased evening dose of Seroquel to 50 mg HS, continued on Seroquel 25 mg QAM Admission HPI Per Admitting Provider Yoseph Linn is a 79 year-old male who presents today to the ED due to weakness and multiple falls at home. Medical history is significant for T2DM, s/p REHAB PHYSICIAN shunt, pituitary microadenoma (s/p removal in 2018, subsequently blind in left eye), dementia with behavioral disturbance, HTN, HLD, hypothyroidism, secondary adrenal insufficiency. History obtained per chart review, no family at bedside and patient is poor historian. Patient brought to ED via EMS after three separate falls at home and reported increase in confusion. At time of entering patient's room in ED, patient was seated on the floor and was unable to describe details of how he ended up on the floor. No visible abrasions and patient denies any pain. Denies chest pain, shortness of breath, abdominal pain. Patient is alert and oriented to self only, follows commands. Patient was admitted to [facility] from -01/2024, was discharged to nursing facility but eventually moved back to an apartment with his . Patient has history of dementia with behavioral disturbance, has been aggressive towards his in the past and has required medications due to agitation in prior admission. Patient follows with [facility] Neurology for history of v/p shunt, pituitary adenoma- most recent visit 05/11/24 and no medication changes made at this time. ED Course: -CXR -CT head -CBC, CMP, UA -Respiratory biofire -1L NSS Discharge Exam General: No acute distress, nondiaphoretic, well-developed, well-nourished. Cardiac: Regular rate and rhythm without murmurs gallops or rubs. No peripheral edema. Pulm: Clear to auscultation bilaterally without wheezes, rales or rhonchi. Normal respiratory effort. 95% on room air. Abdominal: Soft, nontender, nondistended. Bowel sounds present. Neuro: A&O x1 (self - baseline). No focal neurological deficits. Discharge Plan Discharge Items Patient Disposition: Transfer Inpatient Rehab Fac Reason For Visit: MULTIPLE FALLS, WEAKNESS Discharge Diagnosis: Ambulatory dysfunction, dementia with behavioral disturbances Activity: Resume your previous activity Non-emergency contact: Primary Care Provider Call non-emergency contact if: you have any medication questions and your symptoms worsen Follow-up/Referrals: Neli Cain MD [Primary Care Provider] - (Follow-up in 1-2 weeks) Diet: Carb Consistent or DM2 Addtl Attending Provider Instructions: FOR ENCOMPASS: Mr. Linn was admitted due to ambulatory dysfunction with multiple falls at home and reportedly increased confusion. There is no evidence of infectious cause for confusion and patient found to be at baseline mentation. 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 CXR without acute abnormality, possible mild pulmonary vasculature congestion. Currently with mild ROBERT with creatinine 1.79 this morning, 07/19/2024. Provided 1 L NSS bolus prior to discharge. Monitor kidney function and need for further IV fluids. Suspect ROBERT due to poor oral intake. Medication adjustments: Previously on Seroquel 25 mg BID --> adjusted to Seroquel 25 mg QAM and 50 mg HS due to some agitated behaviors at night. Continue other home medications as prescribed. Recommend PCP follow-up in 1-2 weeks. Please follow-up on flow cytometry and vitamin B1 level when resulted. Pending Studies at Discharge: Yes Studies:: Flow cytometry, B1 Stand-Alone Forms: My [facility] Skilled Items Patient informed of condition?: Yes DNR: No Discharge Level of Care: Acute rehab Communicable Disease: No Discharge Prognosis: Stable Lines: None Urinary Catheter: No Medications and DC Order Prescriptions: New quetiapine 25 mg Tablet 25 mg PO QAM Qty: 30 0RF quetiapine 25 mg Tablet 50 mg PO HS Qty: 60 0RF Continued simvastatin 20 mg tablet 20 mg PO DAILY levothyroxine 75 mcg tablet 75 mcg PO DAILY divalproex 125 mg capsule, delayed rel sprinkle See Rx Instructions .ROUTE .COMPLEX Qty: 270 3RF Rx Instructions: 1 cap QAM and 2 cap QPM; sertraline 25 mg tablet 25 mg PO DAILY Qty: 90 3RF levetiracetam 500 mg tablet 500 mg PO BID Qty: 180 3RF insulin glargine [Lantus Solostar U-100 Insulin] 100 unit/mL (3 mL) insulin pen 14 unit subcut QPM Qty: 15 0RF insulin lispro 100 unit/mL insulin pen 2 unit subcut TIDWMEAL 90 Days Qty: 15 3RF (DME) pen needle, diabetic [Easy Comfort Pen [place]] 31 gauge x 3/16" needle See Rx Instructions .Route Qty: 400 3RF Rx Instructions: for insulin injections QID aspirin 81 mg tablet,delayed release (DR/EC) 81 mg PO DAILY multivitamin Tablet 1 tab PO QAM acetaminophen 325 mg Tablet 650 mg PO Q4H PRN (Reason: Pain) melatonin 3 mg tablet 3 mg PO HS PRN (Reason: Sleep) sennosides [senna] 8.6 mg tablet 8.6 mg PO DAILY PRN (Reason: Constipation) amlodipine 2.5 mg Tablet 2.5 mg PO QAM 90 Days Qty: 90 0RF hydrocortisone 20 mg tablet 10 mg PO .COMPLEX Qty: 135 0RF Rx Instructions: 10 mg PO daily in the AM and 20mg po daily in PM ; ferrous sulfate 142 mg (45 mg iron) tablet extended release 142 mg PO QAM 90 Days Qty: 90 0RF donepezil 23 mg tablet 23 mg PO QAM 90 Days Qty: 90 0RF sulfamethoxazole-trimethoprim 800-160 mg tablet 1 tab PO BID Discontinued quetiapine [Seroquel] 25 mg tablet 25 mg PO BID Qty: 180 0RF Discharge Orders: Discharge Order (Routine); Ordered 07/19/24 Ordered By: Nalini Campos Admission Data Admit Date/Time: 07/16/24 23:02 Attending Provider: Alice Gavin Admit Provider: Tatiana Todd Primary Care Provider: Neli Cain Other Providers: Td Marie; [facility] Other Interventions: Discharge Summary Assessment (RN) Last Done: 07/19/24 15:36 Hospital Stay Data Consultations 07/16/24 20:23 ED Decision to Admit Stat Diagnostic Imagining Performed Chest X-Ray 07/16/24 18:45 Clinical History: Weakness Technique: A frontal view of the chest was obtained Comparison is made to the prior examination dated 01/02/2024 Findings: There are no definite pulmonary infiltrates. The heart size is at the upper limit of normal. No pleural effusion or pneumothorax is seen. There is suspected mild pulmonary vascular congestion There is unchanged catheter tubing extending down the right chest wall, likely a ventriculoperitoneal shunt. There is mild thoracic scoliosis and degenerative disc disease Impression: Suspected mild pulmonary vascular congestion ACT 112: Positive. There are findings on this exam that require communication between the performing entity and the patient following Patient Test Result Information Act ([place] ACT 112) guidelines. Electronically signed by Manuel Stephenson 07-16-2024 7:[address] 07/16/24 18:45 Clinical History: Altered mental status Technique: Axial computed tomography images were obtained of the brain without intravenous contrast. Comparison is made to the prior CT dated 01/02/2024 Findings: There is an unchanged left frontoparietal cranioplasty, with an unchanged 2.3 cm homogeneous low-attenuation fluid collection beneath it There is diffuse cerebral atrophy, within expected limits for the patient's age. Areas of decreased attenuation are seen within the periventricular white matter, likely representing chronic small vessel ischemic disease. There is an unchanged suspected old left frontal lobe infarct There is no definite sign of acute infarction. No intracranial hemorrhage is evident. There is an unchanged 2.7 cm Satter/suprasellar high attenuation mass. There is no midline shift or other form of herniation. There is an unchanged ventriculostomy catheter entering through the right parietal bone with its tip in the body of the right lateral ventricle. No hydrocephalus is seen. No fracture is identified. The orbits and the visualized paranasal sinuses appear unremarkable. The mastoid air cells appear clear. Impression: 1. Unchanged left frontoparietal cranioplasty with a stable fluid collection beneath it 2. No hydrocephalus with an unchanged ventriculostomy catheter in place 3. Unchanged cerebral atrophy, old left frontal lobe infarct, and chronic small vessel ischemic disease 4. Unchanged sellar/suprasellar mass that may represent a pituitary macroadenoma 5. No definite acute pathology Electronically signed by Manuel Stephenson 07-16-2024 7:39 PM Pending Results Patient Have Any Pending Studies at Discharge: Yes Discharge Instructions Given to Patient (Per Discharging Provider) FOR ENCOMPASS: Mr. Linn was admitted due to ambulatory dysfunction with multiple falls at home and reportedly increased confusion. There is no evidence of infectious cause for confusion and patient found to be at baseline mentation. 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 CXR without acute abnormality, possible mild pulmonary vasculature congestion. Currently with mild ROBERT with creatinine 1.79 this morning, 07/19/2024. Provided 1 L NSS bolus prior to discharge. Monitor kidney function and need for further IV fluids. Suspect ROBERT due to poor oral intake. Medication adjustments: Previously on Seroquel 25 mg BID --> adjusted to Seroquel 25 mg QAM and 50 mg HS due to some agitated behaviors at night. Continue other home medications as prescribed. Recommend PCP follow-up in 1-2 weeks. Please follow-up on flow cytometry and vitamin B1 level when resulted. Supervising Physician Co-Signing Physician Notes PA Supervision Note: I did not personally see or examine the patient today, but I verified all bermudez points of GALLO Campos's assessment and plan with the following exceptions/additions: None Total Time Total Time Spent Total Time Spent (In Minutes): Greater than 30 minutes spent completing this discharge process including direct patient care, medication reconciliation, documentation, review of labs and images, and coordination of care. Coding Level of Care Code 84729 INP/OBS DISCH >30 MIN Diagnoses Ambulatory dysfunction R26.2 Dementia with behavioral disturbance F03.918 Secondary adrenal insufficiency E27.49 Hypertension I10
--- NOTE | 2024-07-20 11:07 | Coding Query ---
CODING QUERY To promote full compliance with coding requirements relating to patient care, provider participation is requested in all cases of medical management trainer uncertainty. Please assist us with the question(s) below: Coding Question(s): Acute Metabolic Encephalopathy is documented on Progress Notes starting on 07/17 and through the Discharge Summary, and the Discharge Summary documents at the bottom, under For Encomass: "Mr. Linn was admitted due to ambulatory dysfunction with multiple falls at home and reportedly increased confusion. There is no evidence of infectious cause for confusion and patient found to be at baseline mentation". It is not clear if Acute Metabolic Encephalopathy was still a possible diagnosis or if it was ruled-out. Please specify below, in your clinical opinion: (x ) Possible Acute Metabolic Encephalopathy ( ) Acute Metabolic Encephalopathy was Ruled-Out Physician's Response(s): Thank you Jeannie Lindsay Principal Diagnosis: "that condition established after study, to be chiefly responsible for occasioning the admission of the patient to the hospital for care." Co-Existing Principal Diagnosis: "when two or more diagnoses equally meet the criteria for principal diagnosis as determined by the circumstances of admission, diagnostic work up, and/or therapy provided, and the Alphabetic Index, Tabular List, or another coding guideline does not provide sequencing direction, any one of the diagnoses may be sequenced first." "When the physician has documented what appears to be a current diagnosis in the body of the record, but has not included the diagnosis in the final diagnostic statement, the physician should be asked whether the diagnosis should be added." (Source Coding Clinic 2 QTR90. p3-4) MERLENE
== END 2024-07-19 15:43 | DRG 91 ==
LOC: ED 17:48 → SUATTDRO 23:02 → 2S 23:02